=== PATIENT | male | born 1940 | race Caucasian/White ===

== ENCOUNTER 2018-10-12 13:33 | Inpatient (IN) | payer MEDICARE, MEDICAID ==
[2018-10-12] MEDS ORDERED: HYDROcodone/ACETAMIN 5-325 MG* 1 TAB PO ONE (13:43)
[2018-10-12] MEDS ORDERED: HYDROcodone/ACETAMIN 5-325 MG* 1 TAB ONE (13:54)
--- NOTE | 2018-10-12 14:38 | ED ---
Lower Extremity - HPI Summary HPI Summary: Patient is a 78-year-old male presenting to the ED by EMS with a left hip pain s /p fall at his apartment. He denies LOC, hitting his head, other injuries. He states he's never injured the hip in the past. When asked, he states he may have had a mini seizure, but is adamant that he did not lose consciousness, he was aware of the fall while it was happening and did not feel seizure-like activity. He is just unsure why also he would've fallen. He denies any heart conditions. Patient is a smoker as of 9 weeks ago when he quit. He is currently on phenobarbital and phenytoin as well as Zoloft. He is a patient of Dr. Leahy. He offers no other complaints at this time, however endorses a 8 out of 10 lateral hip pain without radiation. Denies any ecchymosis or swelling. He states he was unable to ambulate just after the fall and was able to call 911. - History of Current Complaint Chief Complaint: EDExtremityLower Stated Complaint: FELL/LEFT HIP PAIN Time Seen by Provider: 10/12/18 13:36 Hx Obtained From: Patient Mechanism Of Injury: Direct Blow Onset of Pain: Minutes Onset/Duration: Minutes Severity Initially: Mild Severity Currently: Mild Pain Intensity: 8 Pain Scale Used: 0-10 Numeric Timing: Constant Location: Is Discrete @ - left hip Character Of Pain: Aching Associated Signs And Symptoms: Negative: Swelling, Redness, Bruising Aggravating Factor(s): Standing, Ambulation Alleviating Factor(s): Rest - Risk Factors Gout Risk Factors: Negative DVT Risk Factors: Negative Septic Arthritis Risk Factor: Negative - Allergies/Home Medications Allergies/Adverse Reactions: Allergies Allergy/AdvReac Type Severity Reaction Status Date / Time No Known Allergies Allergy Verified 10/12/18 13:40 PMH/Surg Hx/FS Hx/Imm Hx Previously Healthy: Yes Endocrine/Hematology History: Reports: Hx Thyroid Disease, Other Endocrine/ Hematological Disorders - Vitamin D Deficiency Denies: Hx Diabetes Cardiovascular History: Reports: Hx Angina, Hx Hypercholesterolemia Denies: Hx Congestive Heart Failure, Hx Coronary Artery Disease, Hx Hypertension, Hx Myocardial Infarction, Hx Pacemaker/ICD, Hx Valvular Heart Disease Respiratory History: Reports: Hx Asthma, Hx Chronic Obstructive Pulmonary Disease (COPD), Other Respiratory Problems/Disorders - smoker Musculoskeletal History: Reports: Hx Back Problems Sensory History: Denies: Hx Hearing Aid Neurological History: Reports: Hx Seizures Psychiatric History: Denies: Hx Eating Disorder, Hx Panic Disorder, Hx of Violent Episodes Against Others - Surgical History Surgery Procedure, Year, and Place: Chin surgery - Immunization History Date of Tetanus Vaccine: Unk Date of Influenza Vaccine: Unk Hx Pertussis Vaccination: No Immunizations Up to Date: Yes Infectious Disease History: No Infectious Disease History: Denies: Traveled Outside the [place] in Last 30 Days - Social History Occupation: Unemployed Lives: Alone Alcohol Use: None Hx Substance Use: No Substance Use Type: Reports: None Hx Tobacco Use: Yes Smoking Status (MU): Heavy Every Day Tobacco Smoker Type: Cigarettes Review of Systems Negative: Fever, Chills, Fatigue, Skin Diaphoresis Negative: Epistaxis, Dental Pain Negative: Palpitations, Chest Pain Genitourinary: Negative Positive: no symptoms reported, see HPI Positive: Arthralgia - left hip pain Skin: Negative Neurological: Negative All Other Systems Reviewed And Are Negative: Yes Physical Exam Triage Information Reviewed: Yes Vital Signs On Initial Exam: Initial Vitals Temp Pulse Resp BP Pulse Ox 97.6 F 68 18 173/103 98 10/12/18 13:36 10/12/18 13:36 10/12/18 13:36 10/12/18 13:36 10/12/18 13:36 Vital Signs Reviewed: Yes Appearance: Positive: Well-Appearing, Well-Nourished Skin: Positive: Warm, Skin Color Reflects Adequate Perfusion Head/Face: Positive: Normal Head/Face Inspection Eyes: Positive: EOMI, KENDRICK, Conjunctiva Clear Neck: Positive: Supple, No Lymphadenopathy Respiratory/Lung Sounds: Positive: Clear to Auscultation, Breath Sounds Present Cardiovascular: Positive: Pulses are Symmetrical in both Upper and Lower Extremities. Negative: Leg Edema Left, Leg Edema Right Musculoskeletal: Positive: Pain @ - left hip without ecchymosis Neurological: Positive: Speech Normal Psychiatric: Positive: Affect/Mood Appropriate AVPU Assessment: Alert Diagnostics - Vital Signs Vital Signs Temp Pulse Resp BP Pulse Ox 10/12/18 13:36 97.6 F 68 18 173/103 98 - Laboratory Result Diagrams: 10/12/18 14:54 10/12/18 14:54 Lab Statement: Any lab studies that have been ordered have been reviewed, and results considered in the medical decision making process. Lower Extremity Course/Dx - Course Course Of Treatment: Patient's evaluated for left hip injury. There is a small deformity over the left hip suggesting a fracture. Chest x-ray and left hip x- ray obtained. Nondisplaced left subtrochanteric fracture with minimally avulsed lesser trochanteric fracture. Patient is given 2 [place] in the ED prior to IV. Discussed case with Dr. Cherry at 2:30 PM. Discussed with hospitalist, Dr. Luong who accepts for admission. Labs are drawn and IV placed. EKG obtained. - Diagnoses Provider Diagnoses: Closed left hip fracture - Physician Notifications Discussed Care Of Patient With: Javier Luong Discharge - Sign-Out/Discharge Documenting (check all that apply): Patient Departure - Discharge Plan Condition: Good Disposition: ADMITTED TO [facility] Referrals: Faisal Leahy MD [Primary Care Provider] - - Billing Disposition and Condition Condition: GOOD Disposition: Admitted to [facility]
[2018-10-12 15:08] LABS: ABS Basophils 0 10^3/ul (0-0.2); ABS Eosinophils 0.4 10^3/ul (0-0.6); ABS Lymphocytes 1.1 10^3/ul (1.0-4.8); ABS Monocytes 0.6 10^3/ul (0-0.8); ABS Nucleated RBC 0 10^3/ul; Eosinophil % 3.9 %; Hematocrit 40 % (42-52); Hemoglobin 13.4 g/dl (14.0-18.0); Mean Corpuscular HGB Conc 34 g/dl (31-36); Mean Corpuscular Hemoglobin 32 pg (27-31); Mean Corpuscular Volume 96 fL (80-94); Mean Platelet Volume 8.5 fL (7.4-10.4); Nucleated Red Blood Cells % 0.1; Platelet Count 220 10^3/ul (150-450); Red Blood Count 4.15 10^6/ul (4.00-5.40); Red Cell Distribution Width 14 % (10.5-15); White Blood Count 9.1 10^3/ul (3.5-10.8)
[2018-10-12 15:29] LABS: ALT 19 U/L (7-52); AST 18 U/L (13-39); Albumin 4.5 g/dL (3.2-5.2); Albumin/Globulin Ratio 1.6 (1-3); Alkaline Phosphatase 121 U/L (34-104); Anion Gap 4 mmol/L (2-11); BUN/Creatinine Ratio 16.9 (8-20); Blood Urea Nitrogen 14 mg/dL (6-24); C Reactive Protein < 1.00 mg/L (<8.01); CO2 Carbon Dioxide 29 mmol/L (22-32); Calcium 9.2 mg/dL (8.6-10.3); Chloride 104 mmol/L (101-111); EGFR African American 108.4 (>60); EGFR Non-African American 89.6 (>60); Globulin 2.8 g/dL (2-4); Glucose 127 mg/dL (70-100); Potassium 4.2 mmol/L (3.5-5.0); Sodium 137 mmol/L (135-145); Total Protein 7.3 g/dL (6.4-8.9)
[2018-10-12 15:31] LABS: Troponin I 0.01 ng/mL (<0.04)
[2018-10-12] MEDS ORDERED: Docusate CAP* 100 MG PO PRN (15:41)
[2018-10-12] MEDS ORDERED: Albuterol HFA INHALER* 8 gm MDI INH PRN (15:41)
[2018-10-12] MEDS ORDERED: Polyethylene Glycol 3350* 17 GM PACKET PO PRN (15:46)
[2018-10-12] MEDS ORDERED: NS 0.9% 1000 ML** 1,000 ML IV SCH (16:00)
[2018-10-12] MEDS: Morphine VIAL* 4 MG/ML VIAL (1 ml vial) IV PRN ×2 (16:11→18:12)
[2018-10-12] MEDS ORDERED: Morphine VIAL* 4 MG/ML VIAL (1 ml vial) IV ONE (18:12)
[2018-10-12] MEDS: Phenytoin CAP(*) 100 MG CAP.ER PO SCH (18:15)
[2018-10-12] MEDS: Ondansetron INJ* 2 MG/ML VIAL IV PRN (19:50)
[2018-10-12] MEDS: NS 0.9% 1000 ML** 1,000 ML IV SCH (21:20)
[2018-10-12] MEDS ORDERED: Heparin VIAL(*) 5000 UNITS/ML VIAL (FIVE THOUSAND) SUBCUT SCH (22:00)
[2018-10-12] MEDS ORDERED: Morphine VIAL* 4 MG/ML VIAL (1 ml vial) IV PRN (22:00)
[2018-10-12 22:06] LABS: Phenytoin < 2.5 mcg/mL (10-20)
[2018-10-12] MEDS: PHENobarbital TAB(*) 30 MG PO SCH ×2 (22:06)
--- NOTE | 2018-10-12 22:35 | HP ---
CC: Dr. Leahy * ADMISSION HISTORY AND PHYSICAL: DATE OF ADMISSION: 10/12/18 PRIMARY CARE PROVIDER: Dr. Leahy. HEALTHCARE PROXY: His girlfriend, Saloni Dillard. CODE STATUS: Full. SOURCE OF INFORMATION: History obtained from interview with the patient. RELIABILITY: Fair. CHIEF COMPLAINT: Fall and left hip fracture. HISTORY OF PRESENT ILLNESS: This is a 78-year-old man with past medical history including seizures, had been in his usual state of health except for recent bout of bronchitis approximately 2 to 3 weeks prior, which he reported he took antibiotics for. Woke up in the morning, felt well, did have a mild headache after waking up, decided to walk to [employer], which he does several times per day to remain active. It is approximately 5 to 7-minute walk, which he performs several times a day. While walking to [employer], he felt woozy which is similar to the symptoms that he experiences prior to a seizure. He felt that a seizure was about to develop because of his symptoms, planned to sit down on a bench; however, fell landing on his hip with immediate onset of pain. He is not sure if he had a seizure, but does remember the events. He entertains the possibility that he had a seizure, although he would categorize this a mild one. He denies any preceding or anteceding chest pain or shortness of breath. Other than his recent bout of bronchitis as well as headache that he had, he denies any other symptomatology. PAST MEDICAL HISTORY: Includes: 1. Recently diagnosed seizures in the last 1-2 years. 2. COPD, not on home oxygen. 3. Hypothyroidism. 4. Depression. 5. Hyperlipidemia. MEDICATIONS: Obtained from medication reconciliation. The patient cannot relay doses. 1. Trazodone 50 mg at bedtime as needed. 2. Tramadol 50 mg every 6 hours as needed. 3. Zoloft 50 mg daily. 4. Dilantin extended release 200 mg in the morning and 300 mg at night. 5. Phenobarbital 32.4 mg twice daily along with 64.8 mg twice daily, sounds like 97.2 mg twice daily. 6. Nitroglycerin sublingual 0.4 mg every 10 minutes as needed sublingually. 7. Levothyroxine 150 mcg daily. 8. Levocetirizine 5 mg daily. 9. Florinef 0.1 mg daily. 10. Docusate sodium 200 mg daily as needed. 11. Cyanocobalamin 1000 mcg daily. 12. Symbicort 160 plus 4.5 mcg daily. 13. Atorvastatin 40 mg daily. 14. Albuterol 2 puffs every 4 hours as needed. ALLERGIES: No known drug allergies. FAMILY HISTORY: No family history of CVAs or CAD. SOCIAL HISTORY: Smoked 1-1/2 packs per year since age 12, approximately 66 years, quit approximately 9 weeks prior. Does not drink alcohol. 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 REVIEW OF SYSTEMS: As per HPI. Otherwise, all other systems negative. PHYSICAL EXAMINATION GENERAL: Appears stated age, lying flat in bed, interactive, pleasant, in no apparent distress, although he is in pain. VITAL SIGNS: When seen in the emergency room, 155/99, heart rate is 92, respiratory rate is 18, 97% on room air. T-max in the emergency room is 97.6. HEENT: His oropharynx is clear. He has moist mucous membranes. Sclerae are anicteric. LUNGS: Clear to auscultation. HEART: He has regular rate and rhythm with some ectopy. He has no murmurs, rubs, or gallops. ABDOMEN: Soft, nontender. EXTREMITIES: Warm and well perfused. He is neurovascularly intact in lower extremities. 2+ radial and DP pulses. NEUROLOGIC: He is alert and oriented. No apparent anxiety, agitation, or depression. His cranial nerves are intact, although he does have a mild right facial droop at the lip. DIAGNOSTIC STUDIES/LABORATORY DATA: Data reviewed. Notable for troponin less than 0.01. CRP less than 1. White blood cell count 9.1, hemoglobin 13.4, platelets 220. Data reviewed. Chest x-ray, no active cardiopulmonary disease. EKG, sinus arrhythmia or normal sinus rhythm with frequent PACs, normal leftward axis, normal R-wave progression. No Q-waves, no ST or T wave changes. ASSESSMENT AND PLAN: A 78-year-old man presenting with a fall and a left hip fracture. 1. Left hip fracture. Discussed with Dr. Cherry. The patient will be placed on a schedule for tomorrow. Discussed possibility of surgery with the patient and he would like to proceed with surgery. Pain control with morphine as well as p.o. oxycodone and Tylenol. N.p.o. after midnight. Heparin this evening was stopped, last dose at 2200 hours. 75 cc normal saline per hour for 1 initial liter while n.p.o. after midnight. Docusate and MiraLax p.r.n. 2. Seizures. Continue home medications. We will convert to immediate release Dilantin if necessary per Pharmacy. Otherwise, we would like to keep the patient on his home medication regimen. Seizure precautions. 3. Sinus arrhythmia. Monitor. The patient does not need to be on telemetry for this arrhythmia. 4. Unknown medication etiology. The patient is on Florinef. Unclear etiology. Maybe orthostatic hypotension. This is noted and continued. 5. DVT prophylaxis: Heparin. He will receive a dose this evening and then stop in the morning. Restart DVT prophylaxis after orthopedic surgery. [id number]/[facility] #: [id number] MTDD
[2018-10-13] MEDS: oxyCODONE/Acetamin 5/325 MG* TAB PO PRN ×3 (03:14→21:51)
[2018-10-13] MEDS: Budesonide/Formote 160/4.5(NF) MDI INH SCH ×2 (03:17→08:32)
[2018-10-13] MEDS: NS 0.9% 1000 ML** 1,000 ML IV SCH ×3 (03:34→22:37)
[2018-10-13] MEDS: Phenytoin CAP(*) 100 MG CAP.ER PO SCH ×2 (08:24→17:48)
[2018-10-13] MEDS: PHENobarbital TAB(*) 30 MG PO SCH ×4 (08:24→21:52)
[2018-10-13] MEDS: Morphine VIAL* 4 MG/ML VIAL (1 ml vial) IV PRN ×2 (08:26→12:44)
[2018-10-13] MEDS: Fludrocortisone Acetate TAB* 0.1 MG PO SCH (08:27)
[2018-10-13] MEDS: Cyanocobalamin TAB* 500 MCG PO SCH (08:27)
[2018-10-13] MEDS: Atorvastatin* 40 MG TAB PO SCH (08:27)
[2018-10-13] MEDS: Sertraline* 50 MG TAB PO SCH (08:27)
[2018-10-13 08:39] LABS: INR 1.02 (0.77-1.02)
[2018-10-13 08:45] LABS: ABS Basophils 0 10^3/ul (0-0.2); ABS Eosinophils 0 10^3/ul (0-0.6); ABS Lymphocytes 1.4 10^3/ul (1.0-4.8); ABS Monocytes 1.1 10^3/ul (0-0.8); ABS Neutrophils 7.7 10^3/ul (1.5-7.7); ABS Nucleated RBC 0 10^3/ul; BUN/Creatinine Ratio 21.8 (8-20); Calcium 8.2 mg/dL (8.6-10.3); EGFR African American 86.4 (>60); EGFR Non-African American 71.4 (>60); Eosinophil % 0.2 %; Hematocrit 31 % (42-52); Hemoglobin 10.4 g/dl (14.0-18.0); Mean Corpuscular HGB Conc 34 g/dl (31-36); Mean Corpuscular Hemoglobin 33 pg (27-31); Mean Corpuscular Volume 97 fL (80-94); Mean Platelet Volume 8.4 fL (7.4-10.4); Nucleated Red Blood Cells % 0; Platelet Count 197 10^3/ul (150-450); Potassium 4.2 mmol/L (3.5-5.0); Red Blood Count 3.17 10^6/ul (4.00-5.40); Red Cell Distribution Width 14 % (10.5-15); White Blood Count 10.2 10^3/ul (3.5-10.8)
[2018-10-13] MEDS ORDERED: Levothyroxine TAB* 150 MCG TAB PO SCH (09:00)
[2018-10-13] MEDS ORDERED: Bupivacaine 0.5% W/EPI SDV* 30 ML VIAL ONE (09:32)
[2018-10-13] MEDS ORDERED: fentaNYL* 50 MCG/ML 2 ML VIAL (100 MCG VIAL) ONE (09:51)
[2018-10-13] MEDS ORDERED: Midazolam* 1 MG/ML 2 ML VIAL (2 MG) ONE (09:51)
[2018-10-13] MEDS ORDERED: Bupivacaine 0.5% SDV PF* 30ML VIAL ONE (09:51)
[2018-10-13] MEDS ORDERED: ceFAZolin 2 GM PREMIX in ORs 2 GM/50 ML BAG IVPB ONE (09:53)
[2018-10-13] MEDS ORDERED: Phenylephrine INJ* 10 MG/ML 1 ML VIAL (10 MG) ONE (10:29)
[2018-10-13] MEDS ORDERED: Ondansetron INJ* 2 MG/ML VIAL ONE (10:47)
[2018-10-13] MEDS ORDERED: Bupivacaine 0.25% EPI 200,000* 30 ML SDV ONE (10:55)
[2018-10-13] MEDS ORDERED: EPHEDrine (Pressors)* 50 MG/ML VIAL ONE (11:03)
[2018-10-13] MEDS ORDERED: Morphine VIAL* 4 MG/ML VIAL (1 ml vial) ONE (12:43)
--- NOTE | 2018-10-13 14:56 | PN ---
Subjective Date of Service: 10/13/18 Interval History: Pt is feeling ok. He states his pain in 5/10. He feels sleepy currently. No nausea. He states his HCP just left to go home. Objective Active Medications: Albuterol (Ventolin Hfa Inhaler*) 2 puff INH .Q4-6H PRN PRN Reason: SHORTNESS OF BREATH Atorvastatin Calcium (Lipitor*) 40 mg PO DAILY [facility] Last Admin: 10/13/18 08:27 Dose: Not Given Budesonide/Formoterol Fumarate (Symbicort 160/4.5 (Nf)) 1 puff INH BID [facility]; Protocol Last Admin: 10/13/18 08:32 Dose: Not Given Cyanocobalamin (Vitamin B12 Tab*) 1,000 mcg PO DAILY [facility] Last Admin: 10/13/18 08:27 Dose: Not Given Docusate Sodium (Colace Cap*) 200 mg PO DAILY PRN PRN Reason: CONSTIPATION Fludrocortisone Acetate (Florinef Tab*) 0.1 mg PO DAILY [facility] Last Admin: 10/13/18 08:27 Dose: Not Given Sodium Chloride (Ns 0.9% 1000 Ml*) 1,000 mls @ 125 mls/hr IV PER RATE [facility] Last Admin: 10/13/18 14:00 Dose: 125 mls/hr Cefazolin Sodium/Dextrose (Kefzol 2 Gm Premix In Ors(*)) 2 gm in 50 mls @ 100 mls/hr IVPB Q8H [facility] Stop: 10/14/18 10:29 Levothyroxine Sodium (Synthroid Tab*) 150 mcg PO DAILY@0600 [facility] Morphine Sulfate (Morphine Vial*) 2 mg IV Q4H PRN PRN Reason: PAIN Last Admin: 10/13/18 12:44 Dose: 2 mg Ondansetron HCl (Zofran Inj*) 4 mg IV Q6H PRN PRN Reason: NAUSEA Last Admin: 10/12/18 19:50 Dose: 4 mg Oxycodone/Acetaminophen (Percocet 5/325 Tab*) 1 tab PO Q4H PRN PRN Reason: PAIN Last Admin: 10/13/18 03:14 Dose: 1 tab Phenobarbital (Phenobarbital Tab(*)) 30 mg PO BID [facility] Last Admin: 10/13/18 08:24 Dose: 30 mg Phenobarbital (Phenobarbital Tab(*)) 60 mg PO BID [facility] Last Admin: 10/13/18 08:25 Dose: 60 mg Phenytoin Sodium (Dilantin Cap(*)) 200 mg PO QAM [facility] Last Admin: 10/13/18 08:24 Dose: 200 mg Phenytoin Sodium (Dilantin Cap(*)) 300 mg PO QPM [facility] Last Admin: 10/12/18 18:15 Dose: 300 mg Polyethylene Glycol/Electrolytes (Miralax*) 17 gm PO DAILY PRN PRN Reason: CONSTIPATION Last Admin: 10/12/18 22:06 Dose: 17 gm Sertraline HCl (Zoloft*) 50 mg PO DAILY [facility] Last Admin: 10/13/18 08:27 Dose: Not Given Vital Signs - 8 hr 10/13/18 10/13/18 10/13/18 07:38 08:00 08:24 Temperature 97.9 F Pulse Rate 79 Respiratory 17 18 17 Rate Blood Pressure 112/49 (mmHg) O2 Sat by Pulse 96 Oximetry 10/13/18 10/13/18 10/13/18 08:25 08:26 09:10 Temperature 98.2 F Pulse Rate 94 Respiratory 17 17 18 Rate Blood Pressure 100/56 (mmHg) O2 Sat by Pulse 94 Oximetry 10/13/18 10/13/18 10/13/18 12:30 12:32 12:36 Temperature 97.3 F Pulse Rate 83 84 91 Respiratory 14 16 13 Rate Blood Pressure 121/65 123/71 (mmHg) O2 Sat by Pulse 100 100 100 Oximetry 10/13/18 10/13/18 10/13/18 12:41 12:44 12:45 Temperature Pulse Rate 84 81 Respiratory 16 17 14 Rate Blood Pressure 123/84 122/79 (mmHg) O2 Sat by Pulse 100 100 Oximetry 10/13/18 10/13/18 10/13/18 12:50 12:55 13:00 Temperature Pulse Rate 88 83 86 Respiratory 11 13 17 Rate Blood Pressure 100/68 115/78 124/85 (mmHg) O2 Sat by Pulse 99 100 95 Oximetry 10/13/18 10/13/18 10/13/18 13:01 13:05 13:10 Temperature Pulse Rate 97 95 83 Respiratory 14 11 13 Rate Blood Pressure 123/69 118/61 (mmHg) O2 Sat by Pulse 94 98 99 Oximetry 01/04/2410/13/18 10/13/18 13:40 13:42 13:59 Temperature 97.2 F 97.2 F Pulse Rate 95 95 Respiratory 18 18 18 Rate Blood Pressure 106/71 106/71 (mmHg) O2 Sat by Pulse 99 99 Oximetry Oxygen Devices in Use Now: Nasal Cannula Appearance: Elderly male sitting up in bed, NAD Eyes: No Scleral Icterus Ears/Nose/Mouth/Throat: Mucous Membranes Moist Respiratory: Symmetrical Chest Expansion and Respiratory Effort, Clear to Auscultation Cardiovascular: NL Sounds; No Murmurs; No JVD, RRR, No Edema Abdominal: NL Sounds; No Tenderness; No Distention Extremities: No Clubbing, Cyanosis, - - [address] on lateral aspect of L thigh Skin: No Nodules or Sclerosis Neurological: Alert and Oriented x 3, - - speech is mildly dysarthric (unclear if this is his baseline) Result Diagrams: 10/13/18 08:14 10/13/18 08:14 Assess/Plan/Problems-Billing Mr Robles is a 78 yo M who has a h/o seizure disorder, COPD, hypothyroidism and depression who presented to the ER after sustaining a fall where he suffered a L hip fracture. - Patient Problems (1) Closed left hip fracture Current Visit: Yes Status: Acute Code(s): S72.002A - FRACTURE OF UNSP PART OF NECK OF LEFT FEMUR, INIT SNOMED Code(s): 906226405 Comment: Pt is s/p repair today. Continue pain control. DVT prophylaxis per orthopedics. Up with PT tomorrow. (2) Seizure disorder Current Visit: Yes Status: Acute Code(s): G40.909 - EPILEPSY, UNSP, NOT INTRACTABLE, WITHOUT STATUS EPILEPTICUS SNOMED Code(s): 977334365 Comment: Pt with reportedly history of seizures dating back to 1952. Now with subtherapeutic phenobarbital and phenytoin levels. Pt reports his seizure disorder is managed by his PCP and he does not have a neurologist. Neurology consult requested for advice on appropriate dosing of medications. ? if pt had seizure that led to fall or other cause (orthostatic hypotension). Check EEG per Dr. Clarke. (3) Orthostatic hypotension Current Visit: Yes Status: Acute Priority: High Onset Date: 02/10/15 Code(s): I95.1 - ORTHOSTATIC HYPOTENSION SNOMED Code(s): 79277517 Comment: Pt with ? orthostatic hypotension based on florinef being a home medication. If orthostasis was the cause of his falling initially. (4) Hypothyroid Current Visit: Yes Status: Acute Code(s): E03.9 - HYPOTHYROIDISM, UNSPECIFIED SNOMED Code(s): 65413166 Comment: Continue synthroid at home dose. (5) Depression Current Visit: Yes Status: Acute Code(s): F32.9 - MAJOR DEPRESSIVE DISORDER , SINGLE EPISODE, UNSPECIFIED SNOMED Code(s): 19052376 Comment: Continue sertraline. (6) DVT prophylaxis Current Visit: Yes Status: Acute Code(s): HCK5605 - SNOMED Code(s): 368504486 Comment: SCDs (7) Full code status Current Visit: Yes Status: Acute Code(s): Z78.9 - OTHER SPECIFIED HEALTH STATUS SNOMED Code(s): 024282527
[2018-10-13] MEDS: ceFAZolin* 2 GM* Q8H (Duplex) IVPB SCH (17:49)
[2018-10-13] MEDS: Mometasone/Formoter 200/5 MDI INH SCH (19:28)
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
--- NOTE | 2018-10-13 21:41 | OP ---
DATE OF OPERATION: 10/13/18 - ROOM #339 DATE OF : 40 SURGEON: Javier Cherry MD SPECIAL COLLECTIONS LIBRARIAN: JAYESH Damon ANESTHESIOLOGIST: Dr. Irizarry. ANESTHESIA: Spinal. PRE-OP DIAGNOSIS: Left comminuted intertrochanteric hip fracture. POST-OP DIAGNOSIS: Left comminuted intertrochanteric hip fracture. OPERATIVE PROCEDURE: Closed reduction of left hip fracture stabilization with cephalomedullary nail, Synthes TFN nail. INDICATIONS: Kartik has the aforementioned fracture. We talked about risks and benefits. I thought that given that it was fairly comminuted, I would do a long nail. He understood the risks and benefits and wants to proceed with stabilization of the left hip. FINDINGS: See above and below. ESTIMATED BLOOD LOSS: 2 mL. COMPLICATIONS: None. DESCRIPTION OF PROCEDURE: Kartik was seen in the preoperative holding area. The correct site, side, and procedure were identified. We came back to the operating room where the spinal was performed. He was then positioned on the fracture table with in-line traction on the left leg and the right leg in the well-leg capps. Fluoroscopic imaging was confirmed. The leg was then prescrubbed and then prepped and draped with a shower curtain in the usual fashion. I marked out my starting point for my nail and then I made a 4 to 5 cm incision proximal to the greater trochanter. Dissection was carried down. The iliotibial fascia was split. The starting point was obtained with a guidewire and confirmed on AP and lateral fluoroscopic imaging. This was introduced down past the lesser troch. I then used the opening reamer to open up starting point for the nail. The ball-tip guidewire was then placed down the canal. The nail was measured, a 380-mm Synthes TFN 125-degree nail was used. This was advanced down to the appropriate location. I then placed my triple-barrel guide and put this in the appropriate location. I then removed the ball-tip guidewire and then advanced the starting pin into the appropriate location. It was just a little bit superior from the center position on the AP view, but I thought it was in an acceptable position. I then came to my lateral view and I confirmed that it was in the center position as well. It was just a little bit posterior from the center-center position, but again I thought it was in acceptable position. I previously had measured and selected a 100-mm lag screw. This was then placed. I had wanted to compress, but the compression device had fallen off the table onto the floor and so we went ahead and flashed the compression device. While that device was being flashed, I came distal and we abducted the leg. I obtained center-center imaging and placed 1 distal Crosslock screw in the static position. 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 This was a 38-mm distal Crosslock screw. Shortly after finishing the Crosslock screw, the compression device was ready to go, so we brought that back out. The leg was again adducted and I then placed the compression device and compressed across the fracture. We got excellent compression. I fully tightened down the locking device proximally with the torque screwdriver. I then removed the triple-barrel guide and the aiming guide. We got final fluoroscopic imaging including AP and lateral views of the hip and distally. Things were looking good, so we irrigated out the wounds. Subcutaneous tissue was reapproximated with 3-0 Vicryl suture. All three incisions were closed with alma rosa. A 0.25% Marcaine with epinephrine was infiltrated all the around the operative sites. After dressings were applied, the patient was taken off the fracture table and taken to the Recovery Room in stable condition. [id number]/[facility] #: [id number] PATRICK
--- NOTE | 2018-10-14 00:38 | EEG ---
ELECTROENCEPHALOGRAPHY: DATE OF STUDY: 10/13/18 - ROOM #339 ORDERED BY: Reina Madrigal DO. CLINICAL PROBLEM: Mr. Robles is a 78-year-old man with a history of epilepsy , who presented with a fall status post hip fracture. The patient stated that he may have missed a few doses of his antiseizure medications. DURATION OF THE STUDY: 15:34 p.m. - 15:56 p.m. CLINICAL STATE: Awake and drowsy. REPORT: The waking background showed appropriate organization with clearly deep defined anterior-posterior voltage and frequency gradients. There was a well- defined posterior dominant rhythm of 8.5 Hz, which was symmetrical and showed normal reactivity. Anteriorly, there was an expected pattern of lower voltage, irregular, mixed faster frequencies. There were intermittent, polymorphic, 4-7 Hz delta and theta slowing, maximal in the right frontal central region, maximal at Fp2 and F4. There were no epileptiform discharges. Attenuation to the posterior rhythm accompanied drowsiness. Hyperventilation and photic stimulation were not performed. EKG showed an irregular rhythm with normal rate. Throughout the recording, there were no electrographic seizures. IMPRESSION: This is an abnormal wake and drowsy EEG due to the presence of focal intermittent slowing in the right frontocentral region. These findings are suggestive of a focal neuronal dysfunction involving the right frontocentral area. There were no electrographic seizures. Clinical correlation is recommended. [id number]/[facility] #: [id number] [facility]
[2018-10-14] MEDS: oxyCODONE/Acetamin 5/325 MG* TAB PO PRN ×5 (01:46→21:46)
[2018-10-14] MEDS: ceFAZolin* 2 GM* Q8H (Duplex) IVPB SCH ×2 (01:46→09:21)
[2018-10-14 05:34] LABS: Hematocrit 22 % (42-52); Hemoglobin 7.5 g/dl (14.0-18.0); Mean Corpuscular HGB Conc 34 g/dl (31-36); Mean Corpuscular Hemoglobin 33 pg (27-31); Mean Corpuscular Volume 97 fL (80-94); Mean Platelet Volume 8.5 fL (7.4-10.4); Platelet Count 130 10^3/ul (150-450); Red Blood Count 2.27 10^6/ul (4.00-5.40); Red Cell Distribution Width 15 % (10.5-15); White Blood Count 8.4 10^3/ul (3.5-10.8)
[2018-10-14 05:59] LABS: BUN/Creatinine Ratio 28.4 (8-20); Calcium 7.4 mg/dL (8.6-10.3); EGFR African American 111.5 (>60); EGFR Non-African American 92.2 (>60); Potassium 4.4 mmol/L (3.5-5.0)
[2018-10-14] MEDS: Levothyroxine TAB* 150 MCG TAB PO SCH (06:13)
[2018-10-14] MEDS: NS 0.9% 1000 ML** 1,000 ML IV SCH ×3 (07:05→23:31)
[2018-10-14] MEDS: Mometasone/Formoter 200/5 MDI INH SCH ×2 (07:35→21:54)
[2018-10-14] MEDS: Phenytoin CAP(*) 100 MG CAP.ER PO SCH ×2 (09:18→17:12)
[2018-10-14] MEDS: Fludrocortisone Acetate TAB* 0.1 MG PO SCH (09:18)
[2018-10-14] MEDS: Cyanocobalamin TAB* 500 MCG PO SCH (09:19)
[2018-10-14] MEDS: Atorvastatin* 40 MG TAB PO SCH (09:19)
[2018-10-14] MEDS: PHENobarbital TAB(*) 30 MG PO SCH ×4 (09:19→21:46)
[2018-10-14] MEDS: Sertraline* 50 MG TAB PO SCH (09:19)
[2018-10-14] MEDS ORDERED: Magnesium Hydroxide LIQ* 30 ML UDC PO PRN (10:30)
[2018-10-14] MEDS ORDERED: Senna TAB PO PRN (10:30)
[2018-10-14] MEDS: Docusate CAP* 100 MG PO SCH ×2 (10:51→21:44)
[2018-10-14] MEDS: Magnesium Hydroxide LIQ* 30 ML UDC PO SCH ×2 (10:52→21:44)
--- NOTE | 2018-10-14 11:30 | PN ---
Progress Note - Progress Note Date of Service: 10/14/18 SOAP: Subjective: []Patient was seen and examined at bedside today. He feels well without complaints today. Denies CP, SOB, dizziness, nausea. He has not been up out of bed yet this morning. Objective: []General: Well appearing, NAD LLE: Left hip dressing CDI, no erythema surrounding. Thigh is soft. DF/PF intact , sensation intact to light touch distally. DP2+ Calves supple and nontender without erythema, edema or palpable cords Assessment: []POD [address] Cherry 10/13/18 Plan: []WBAT PT/OT lovenox 40mg sq qd, to be held for hgb less than 7 repeat H&H this afternoon to eval need for PRBC, if symptomatic may need PRBC sooner PMRU referral in Vital Signs Temp 98.5 F 10/14/18 11:38 Pulse 78 10/14/18 11:41 Resp 16 10/14/18 11:38 BP 110/51 10/14/18 11:38 Pulse Ox 96 10/14/18 11:38 Intake & Output 10/13/18 10/14/18 10/14/18 18:59 06:59 18:59 Intake Total 2719 1485 1153 Output Total 525 750 Balance 2194 735 1153 Intake: IV Fluids 2359 1045 1033 ABX - CEFAZOLIN 55 53 LR 1700 NS (0.9%) 659 990 980 Oral 360 440 120 Output: Urine 100 Benitez 300 750 Estimated Blood Loss 125 Laboratory Last Values WBC 8.4 10^3/ul (3.5-10.8) 10/14/18 04:51 RBC 2.27 10^6/ul (4.00-5.40) L 10/14/18 04:51 Hgb 7.5 g/dl (14.0-18.0) L 10/14/18 04:51 Hct 22 % (42-52) L 10/14/18 04:51 MCV 97 fL (80-94) H 10/14/18 04:51 MCH 33 pg (27-31) H 10/14/18 04:51 MCHC 34 g/dl (31-36) 10/14/18 04:51 RDW 15 % (10.5-15) 10/14/18 04:51 Plt Count 130 10^3/ul (150-450) L 10/14/18 04:51 MPV 8.5 fL (7.4-10.4) 10/14/18 04:51 Neut % (Auto) 75.1 % 10/13/18 08:14 Lymph % (Auto) 14.0 % 10/13/18 08:14 Lyon % (Auto) 10.4 % 10/13/18 08:14 Eos % (Auto) 0.2 % 10/13/18 08:14 Baso % (Auto) 0.3 % 10/13/18 08:14 Absolute Neuts (auto) 7.7 10^3/ul (1.5-7.7) 10/13/18 08:14 Absolute Lymphs (auto) 1.4 10^3/ul (1.0-4.8) 10/13/18 08:14 Absolute Monos (auto) 1.1 10^3/ul (0-0.8) H 10/13/18 08:14 Absolute Eos (auto) 0 10^3/ul (0-0.6) 10/13/18 08:14 Absolute Basos (auto) 0 10^3/ul (0-0.2) 10/13/18 08:14 Absolute Nucleated RBC 0 10^3/ul 10/13/18 08:14 Nucleated RBC % 0 10/13/18 08:14 INR (Anticoag Therapy) 1.02 (0.77-1.02) 10/13/18 08:14 Sodium 137 mmol/L (135-145) 10/14/18 04:51 Potassium 4.4 mmol/L (3.5-5.0) 10/14/18 04:51 Chloride 107 mmol/L (101-111) 10/14/18 04:51 Carbon Dioxide 27 mmol/L (22-32) 10/14/18 04:51 Anion Gap 3 mmol/L (2-11) 10/14/18 04:51 BUN 23 mg/dL (6-24) 10/14/18 04:51 Creatinine 0.81 mg/dL (0.67-1.17) 10/14/18 04:51 Est GFR ( Amer) 111.5 (>60) 10/14/18 04:51 Est GFR (Non-Af Amer) 92.2 (>60) 10/14/18 04:51 BUN/Creatinine Ratio 28.4 (8-20) H 10/14/18 04:51 Glucose 147 mg/dL (70-100) H 10/14/18 04:51 POC Glucose (mg/dL) 169 mg/dL (70-100) H 10/12/18 17:53 Calcium 7.4 mg/dL (8.6-10.3) L 10/14/18 04:51 Total Bilirubin 0.40 mg/dL (0.2-1.0) 10/12/18 14:54 AST 18 U/L (13-39) 10/12/18 14:54 ALT 19 U/L (7-52) 10/12/18 14:54 Alkaline Phosphatase 121 U/L (34-104) H 10/12/18 14:54 Troponin I 0.01 ng/mL (<0.04) 10/12/18 23:17 C-Reactive Protein < 1.00 mg/L (<8.01) 10/12/18 14:54 Total Protein 7.3 g/dL (6.4-8.9) 10/12/18 14:54 Albumin 4.5 g/dL (3.2-5.2) 10/12/18 14:54 Globulin 2.8 g/dL (2-4) 10/12/18 14:54 Albumin/Globulin Ratio 1.6 (1-3) 10/12/18 14:54 Phenytoin < 2.5 mcg/mL (10-20) L 10/12/18 14:54 Phenobarbital 6.8 mcg/mL (17-34) L 10/12/18 14:54 Blood Type B Positive 10/13/18 08:14 Antibody Screen Negative 10/13/18 08:14
--- NOTE | 2018-10-14 12:03 | PN ---
Subjective Date of Service: 10/14/18 Interval History: Pt is feeling ok today. He states his pain is under fair control. He feels wiped out. He and his friend state that he reliably takes his seizure medication on a daily basis. Objective Active Medications: Albuterol (Ventolin Hfa Inhaler*) 2 puff INH .Q4-6H PRN PRN Reason: SHORTNESS OF BREATH Atorvastatin Calcium (Lipitor*) 40 mg PO DAILY [facility] Last Admin: 10/14/18 09:19 Dose: 40 mg Cyanocobalamin (Vitamin B12 Tab*) 1,000 mcg PO DAILY [facility] Last Admin: 10/14/18 09:19 Dose: 1,000 mcg Docusate Sodium (Colace Cap*) 200 mg PO DAILY PRN PRN Reason: CONSTIPATION Docusate Sodium (Colace Cap*) 100 mg PO BID [facility] Last Admin: 10/14/18 10:51 Dose: 100 mg Fludrocortisone Acetate (Florinef Tab*) 0.1 mg PO DAILY [facility] Last Admin: 10/14/18 09:18 Dose: 0.1 mg Sodium Chloride (Ns 0.9% 1000 Ml*) 1,000 mls @ 125 mls/hr IV PER RATE [facility] Last Admin: 10/14/18 07:05 Dose: 125 mls/hr Lactulose (Lactulose*) 30 ml PO DAILY PRN PRN Reason: CONSTIPATION Levothyroxine Sodium (Synthroid Tab*) 150 mcg PO DAILY@0600 [facility] Last Admin: 10/14/18 06:13 Dose: 150 mcg Magnesium Hydroxide (Milk Of Magnesia Liq*) 30 ml PO BID [facility] Last Admin: 10/14/18 10:52 Dose: 30 ml Magnesium Hydroxide (Milk Of Magnesia Liq*) 30 ml PO BID PRN PRN Reason: CONSTIPATION Mometasone Furoate/Formoterol Fumar (Dulera 200/5 Mdi*) 1 puff INH BID [facility]; Protocol Last Admin: 10/14/18 07:35 Dose: 1 puff Morphine Sulfate (Morphine Vial*) 2 mg IV Q4H PRN PRN Reason: PAIN Last Admin: 10/13/18 12:44 Dose: 2 mg Ondansetron HCl (Zofran Inj*) 4 mg IV Q6H PRN PRN Reason: NAUSEA Last Admin: 10/12/18 19:50 Dose: 4 mg Oxycodone/Acetaminophen (Percocet 5/325 Tab*) 1 tab PO Q4H PRN PRN Reason: PAIN Last Admin: 10/14/18 10:51 Dose: 1 tab Phenobarbital (Phenobarbital Tab(*)) 30 mg PO BID [facility] Last Admin: 10/14/18 09:20 Dose: 30 mg Phenobarbital (Phenobarbital Tab(*)) 60 mg PO BID [facility] Last Admin: 10/14/18 09:19 Dose: 60 mg Phenytoin Sodium (Dilantin Cap(*)) 200 mg PO QAM [facility] Last Admin: 10/14/18 09:18 Dose: 200 mg Phenytoin Sodium (Dilantin Cap(*)) 300 mg PO QPM [facility] Last Admin: 10/13/18 17:48 Dose: 300 mg Polyethylene Glycol/Electrolytes (Miralax*) 17 gm PO DAILY PRN PRN Reason: CONSTIPATION Last Admin: 10/12/18 22:06 Dose: 17 gm Senna (Senokot Tab*) 1 tab PO BEDTIME PRN PRN Reason: CONSTIPATION Sertraline HCl (Zoloft*) 50 mg PO DAILY [facility] Last Admin: 10/14/18 09:19 Dose: 50 mg Vital Signs - 8 hr 10/14/18 10/14/18 10/14/18 03:59 06:12 06:14 Temperature Pulse Rate Respiratory 18 Rate Blood Pressure 92/60 102/50 (mmHg) O2 Sat by Pulse Oximetry 10/14/18 10/14/18 10/14/18 06:15 07:14 08:05 Temperature 99.3 F Pulse Rate 94 Respiratory 18 18 16 Rate Blood Pressure 98/48 (mmHg) O2 Sat by Pulse 100 Oximetry 10/14/18 10/14/18 10/14/18 09:19 09:20 10:51 Temperature Pulse Rate Respiratory 20 18 16 Rate Blood Pressure (mmHg) O2 Sat by Pulse Oximetry 10/14/18 11:41 Temperature Pulse Rate 78 Respiratory Rate Blood Pressure (mmHg) O2 Sat by Pulse Oximetry Oxygen Devices in Use Now: None Appearance: Elderly male sitting up in bed, NAD Eyes: No Scleral Icterus Ears/Nose/Mouth/Throat: Mucous Membranes Moist Respiratory: Symmetrical Chest Expansion and Respiratory Effort, Clear to Auscultation Cardiovascular: NL Sounds; No Murmurs; No JVD, RRR, No Edema Abdominal: NL Sounds; No Tenderness; No Distention Extremities: No Clubbing, Cyanosis Skin: No Nodules or Sclerosis, - - dressing still intact on L lateral thigh Neurological: Alert and Oriented x 3 Result Diagrams: 10/14/18 04:51 10/14/18 04:51 Assess/Plan/Problems-Billing Mr Robles is a 78 yo M who has a h/o seizure disorder, COPD, hypothyroidism and depression who presented to the ER after sustaining a fall where he suffered a L hip fracture. - Patient Problems (1) Acute blood loss anemia Current Visit: Yes Status: Acute Code(s): D62 - ACUTE POSTHEMORRHAGIC ANEMIA SNOMED Code(s): 558618009 Comment: Pt with significant drop in H/H today. Recheck at 1530 this afternoon and if lower or if pt becomes hypotensive will transfuse 1 unit PRBC. (2) Closed left hip fracture Current Visit: Yes Status: Acute Code(s): S72.002A - FRACTURE OF UNSP PART OF NECK OF LEFT FEMUR, INIT SNOMED Code(s): 589768600 Comment: Pt is POD#1. Continue pain control. DVT prophylaxis (lovenox) per orthopedics. Pt states he got up earlier today wtih PT and he did well. (3) Seizure disorder Current Visit: Yes Status: Acute Code(s): G40.909 - EPILEPSY, UNSP, NOT INTRACTABLE, WITHOUT STATUS EPILEPTICUS SNOMED Code(s): 925729916 Comment: Appreciate neurology consult. Continue home medication doses. Check levels tomorrow AM. ? medication non-compliance (pt reports this is not the case ). (4) Orthostatic hypotension Current Visit: Yes Status: Acute Priority: High Onset Date: 02/10/15 Code(s): I95.1 - ORTHOSTATIC HYPOTENSION SNOMED Code(s): 91999110 Comment: Continue florinef. (5) Hypothyroid Current Visit: Yes Status: Acute Code(s): E03.9 - HYPOTHYROIDISM, UNSPECIFIED SNOMED Code(s): 42116855 Comment: Continue synthroid at home dose. (6) Depression Current Visit: Yes Status: Acute Code(s): F32.9 - MAJOR DEPRESSIVE DISORDER , SINGLE EPISODE, UNSPECIFIED SNOMED Code(s): 94024382 Comment: Continue sertraline. (7) DVT prophylaxis Current Visit: Yes Status: Acute Code(s): QWU9943 - SNOMED Code(s): 414749025 Comment: SCDs/lovenox (8) Full code status Current Visit: Yes Status: Acute Code(s): Z78.9 - OTHER SPECIFIED HEALTH STATUS SNOMED Code(s): 237381266
[2018-10-14] MEDS: Ondansetron INJ* 2 MG/ML VIAL IV PRN (12:26)
[2018-10-14] MEDS: Enoxaparin(*) 40 MG/0.4 ML SYR SUBCUT SCH (15:38)
[2018-10-14 16:04] LABS: Hematocrit 22 % (42-52); Hemoglobin 7.4 g/dl (14.0-18.0)
[2018-10-15] MEDS ORDERED: Acetaminophen TAB* 325 MG ONE (01:47)
[2018-10-15] MEDS: Acetaminophen TAB* 325 MG PO PRN ×2 (01:48→12:19)
[2018-10-15] MEDS: oxyCODONE/Acetamin 5/325 MG* TAB PO PRN ×4 (03:41→20:48)
[2018-10-15] MEDS: Levothyroxine TAB* 150 MCG TAB PO SCH (05:27)
[2018-10-15 06:09] LABS: Hematocrit 18 % (42-52); Hemoglobin 6.3 g/dl (14.0-18.0); Mean Corpuscular HGB Conc 34 g/dl (31-36); Mean Corpuscular Hemoglobin 33 pg (27-31); Mean Corpuscular Volume 97 fL (80-94); Mean Platelet Volume 8.1 fL (7.4-10.4); Platelet Count 107 10^3/ul (150-450); Red Blood Count 1.91 10^6/ul (4.00-5.40); Red Cell Distribution Width 14 % (10.5-15); White Blood Count 6.6 10^3/ul (3.5-10.8)
[2018-10-15 06:23] LABS: BUN/Creatinine Ratio 28.6 (8-20); Calcium 7.2 mg/dL (8.6-10.3); EGFR Non-African American 109.1 (>60); Potassium 4.2 mmol/L (3.5-5.0)
[2018-10-15 06:31] LABS: Phenytoin 9.1 mcg/mL (10-20)
[2018-10-15] MEDS: Mometasone/Formoter 200/5 MDI INH SCH ×2 (08:45→20:17)
[2018-10-15] MEDS: Docusate CAP* 100 MG PO SCH ×2 (09:35→20:47)
[2018-10-15] MEDS: PHENobarbital TAB(*) 30 MG PO SCH ×4 (09:35→20:47)
[2018-10-15] MEDS: Phenytoin CAP(*) 100 MG CAP.ER PO SCH ×2 (09:35→17:55)
[2018-10-15] MEDS: Magnesium Hydroxide LIQ* 30 ML UDC PO SCH ×2 (09:35→20:51)
[2018-10-15] MEDS: Atorvastatin* 40 MG TAB PO SCH (09:36)
[2018-10-15] MEDS: Cyanocobalamin TAB* 500 MCG PO SCH (09:36)
[2018-10-15] MEDS: Fludrocortisone Acetate TAB* 0.1 MG PO SCH (09:52)
[2018-10-15] MEDS: Sertraline* 50 MG TAB PO SCH (09:52)
--- NOTE | 2018-10-15 10:36 | PN ---
Subjective Date of Service: 10/15/18 Interval History: Pt is in a small amount of discomfort, but is doing well. His hgb continued to trend down, for which he received 1U blood this morning, which he had no issues with. He is concerned about going to [facility], stating "I want to leave when I want to leave." It was explained that he would be there for a minimal amount of time, that they would focus on rehabilitation, and that he would then be discharged home after. He was in agreement, will possibly go to [facility] tomorrow pending H/H stabilization. Denies painting, CP, SOB, cough, fever/chills, abd pain, n /v/d. States he has not had a BM in 4 days. Objective Active Medications: Acetaminophen (Tylenol Tab*) 650 mg PO Q6H PRN Albuterol (Ventolin Hfa Inhaler*) 2 puff INH .Q4-6H PRN Atorvastatin Calcium (Lipitor*) 40 mg PO DAILY [facility] Cyanocobalamin (Vitamin B12 Tab*) 1,000 mcg PO DAILY [facility] Docusate Sodium (Colace Cap*) 200 mg PO DAILY PRN Docusate Sodium (Colace Cap*) 100 mg PO BID [facility] Enoxaparin Sodium (Lovenox(*)) 40 mg SUBCUT Q24H [facility] Fludrocortisone Acetate (Florinef Tab*) 0.1 mg PO DAILY [facility] Sodium Chloride (Ns 0.9% 1000 Ml*) 1,000 mls @ 125 mls/hr IV PER RATE [facility] Lactulose (Lactulose*) 30 ml PO DAILY PRN Levothyroxine Sodium (Synthroid Tab*) 150 mcg PO DAILY@0600 [facility] Magnesium Hydroxide (Milk Of Magnesia Liq*) 30 ml PO BID [facility] Magnesium Hydroxide (Milk Of Magnesia Liq*) 30 ml PO BID PRN Mometasone Furoate/Formoterol Fumar (Dulera 200/5 Mdi*) 1 puff INH BID [facility]; Protocol Morphine Sulfate (Morphine Vial*) 2 mg IV Q4H PRN Ondansetron HCl (Zofran Inj*) 4 mg IV Q6H PRN Oxycodone/Acetaminophen (Percocet 5/325 Tab*) 1 tab PO Q4H PRN Phenobarbital (Phenobarbital Tab(*)) 30 mg PO BID [facility] Phenobarbital (Phenobarbital Tab(*)) 60 mg PO BID [facility] Phenytoin Sodium (Dilantin Cap(*)) 200 mg PO QAM [facility] Phenytoin Sodium (Dilantin Cap(*)) 300 mg PO QPM [facility] Polyethylene Glycol/Electrolytes (Miralax*) 17 gm PO DAILY PRN Senna (Senokot Tab*) 1 tab PO BEDTIME PRN Sertraline HCl (Zoloft*) 50 mg PO DAILY [facility] Vital Signs: Temp Pulse Resp BP Pulse Ox 98.7 F 85 19 111/52 97 10/15/18 07:05 10/15/18 08:45 10/15/18 09:36 10/15/18 07:05 10/15/18 08:45 Oxygen Devices in Use Now: Nasal Cannula Appearance: Pt is sitting up in bed, HOB elevated appx 75-degrees. Resting comfortably, in no acute distress. Eyes: No Scleral Icterus, PERRLA, - - EOMI. Ears/Nose/Mouth/Throat: NL Teeth, Lips, Gums, Mucous Membranes Moist Neck: NL Appearance and Movements; NL JVP, Trachea Midline Respiratory: Symmetrical Chest Expansion and Respiratory Effort, - - Scattered wheezing noted diffusely in b/l lungs Cardiovascular: NL Sounds; No Murmurs; No JVD, RRR, No Edema Abdominal: NL Sounds; No Tenderness; No Distention, - - abd mildly firm to palpation Extremities: No Edema, No Clubbing, Cyanosis, - - Surgical dressing CDI; pedal pulses palpable Neurological: Alert and Oriented x 3 Result Diagrams: 10/15/18 15:07 10/15/18 05:41 Assess/Plan/Problems-Billing Mr Robles is a 78 yo M who has a h/o seizure disorder, COPD, hypothyroidism and depression who presented to the ER after sustaining a fall where he suffered a L hip fracture. Post-op 10/13 left TFN. - Patient Problems (1) Closed left hip fracture Comment: -Pt is POD#2 -Continue pain control, DVT prophylaxis (lovenox) per orthopedics -Continue bowel regimen per ortho (2) Acute blood loss anemia Comment: -Currently normotensive, regular rate -Hgb 6.3 this morning, which prompted transfusion of 1U PRBC -Hgb currently 8.0 -Continue to monitor H/H (3) Chronic obstructive pulmonary disease Comment: -Scant diffuse wheezing noted on exam, pt without cough, SOB -Continue Dulera qd, Albuterol prn (4) Seizure disorder Comment: -Appreciate neuro consult; they f/u on phenytoin and phenobarbital, stating that levels are almost WNL and don't recommend rechecking levels or dose adjustment unless there is a witnessed seizure -F/u with neuro as outpatient in 4-6 weeks (5) Depression Comment: -Continue sertraline (6) Dyslipidemia Comment: -Continue atorvastatin (7) DVT prophylaxis Comment: -SCDs, lovenox (8) Full code status Status and Disposition: Discharge to [facility] when stable.
--- NOTE | 2018-10-15 12:07 | PN ---
Progress Note - Progress Note Date of Service: 10/15/18 SOAP: Subjective: []Patient seen and examined at bedside, he feels well with well controlled left hip pain. Denies CP, SOB, dizziness, nausea. HGB 6.3 today, 1 unit PRBC given. Objective: []General: Well appearing, NAD LLE: Left hip dressing changed, incision is CDI, no erythema surrounding. Thigh is soft. DF/PF intact, sensation intact to light touch distally. DP2+ Calves supple and nontender without erythema, edema or palpable cords Assessment: []POD [address] Cherry 10/13/18 Plan: []WBAT PT/OT lovenox 40mg sq qd, to be held for hgb less than 7 Plan for DC to [facility] tomorrow Vital Signs Temp 98.7 F 10/15/18 07:05 Pulse 85 10/15/18 08:45 Resp 19 10/15/18 09:36 BP 111/52 10/15/18 07:05 Pulse Ox 97 10/15/18 08:45 Intake & Output 10/14/18 10/15/18 10/15/18 18:59 06:59 18:59 Intake Total 2550 2755 314 Output Total 550 500 Balance 1999 2255 314 Intake: IV Fluids 2014 1835 ABX - CEFAZOLIN 53 LR 857 NS (0.9%) 1962 978 IVPB 55 ABX - CEFAZOLIN 55 Oral 480 920 Packed Cells 314 Output: Benitez 550 500 Laboratory Last Values WBC 6.6 10^3/ul (3.5-10.8) 10/15/18 05:41 RBC 1.91 10^6/ul (4.00-5.40) L 10/15/18 05:41 Hgb 6.3 g/dl (14.0-18.0) L* 10/15/18 05:41 Hct 18 % (42-52) L 10/15/18 05:41 MCV 97 fL (80-94) H 10/15/18 05:41 MCH 33 pg (27-31) H 10/15/18 05:41 MCHC 34 g/dl (31-36) 10/15/18 05:41 RDW 14 % (10.5-15) 10/15/18 05:41 Plt Count 107 10^3/ul (150-450) L 10/15/18 05:41 MPV 8.1 fL (7.4-10.4) 10/15/18 05:41 Neut % (Auto) 75.1 % 10/13/18 08:14 Lymph % (Auto) 14.0 % 10/13/18 08:14 [place] % (Auto) 10.4 % 10/13/18 08:14 Eos % (Auto) 0.2 % 10/13/18 08:14 Baso % (Auto) 0.3 % 10/13/18 08:14 Absolute Neuts (auto) 7.7 10^3/ul (1.5-7.7) 10/13/18 08:14 Absolute Lymphs (auto) 1.4 10^3/ul (1.0-4.8) 10/13/18 08:14 Absolute Monos (auto) 1.1 10^3/ul (0-0.8) H 10/13/18 08:14 Absolute Eos (auto) 0 10^3/ul (0-0.6) 10/13/18 08:14 Absolute Basos (auto) 0 10^3/ul (0-0.2) 10/13/18 08:14 Absolute Nucleated RBC 0 10^3/ul 10/13/18 08:14 Nucleated RBC % 0 10/13/18 08:14 INR (Anticoag Therapy) 1.02 (0.77-1.02) 10/13/18 08:14 Sodium 134 mmol/L (135-145) L 10/15/18 05:41 Potassium 4.2 mmol/L (3.5-5.0) 10/15/18 05:41 Chloride 105 mmol/L (101-111) 10/15/18 05:41 Carbon Dioxide 28 mmol/L (22-32) 10/15/18 05:41 Anion Gap 1 mmol/L (2-11) L 10/15/18 05:41 BUN 20 mg/dL (6-24) 10/15/18 05:41 Creatinine 0.70 mg/dL (0.67-1.17) 10/15/18 05:41 Est GFR ( Amer) 132.0 (>60) 10/15/18 05:41 Est GFR (Non-Af Amer) 109.1 (>60) 10/15/18 05:41 BUN/Creatinine Ratio 28.6 (8-20) H 10/15/18 05:41 Glucose 171 mg/dL (70-100) H 10/15/18 05:41 POC Glucose (mg/dL) 169 mg/dL (70-100) H 10/12/18 17:53 Calcium 7.2 mg/dL (8.6-10.3) L 10/15/18 05:41 Total Bilirubin 0.40 mg/dL (0.2-1.0) 10/12/18 14:54 AST 18 U/L (13-39) 10/12/18 14:54 ALT 19 U/L (7-52) 10/12/18 14:54 Alkaline Phosphatase 121 U/L (34-104) H 10/12/18 14:54 Troponin I 0.01 ng/mL (<0.04) 10/12/18 23:17 C-Reactive Protein < 1.00 mg/L (<8.01) 10/12/18 14:54 Total Protein 7.3 g/dL (6.4-8.9) 10/12/18 14:54 Albumin 4.5 g/dL (3.2-5.2) 10/12/18 14:54 Globulin 2.8 g/dL (2-4) 10/12/18 14:54 Albumin/Globulin Ratio 1.6 (1-3) 10/12/18 14:54 Phenytoin 9.1 mcg/mL (10-20) L 10/15/18 05:41 Phenobarbital 11.4 mcg/mL (17-34) L 10/15/18 05:41 Blood Type B Positive 10/13/18 08:14 Antibody Screen Negative 10/13/18 08:14 Crossmatch See Detail 10/13/18 08:14
--- NOTE | 2018-10-15 13:13 | PN ---
Subjective Date of Service: 10/15/18 Length of Stay: 3 Days Neurology is following Mr. Robles for the evaluation and management of seizures. Interval History: There has been no seizures. His partner informed me that he was on his way to the pharmacy to potato picker his seizure medications, which he was out of, before he fell. He is complaining of mild left hip pain. He is has acute anemia. He tolerated one unit of blood transfusion. Medication levels: Phenytoin: 9.1 phenobarbital: 11.4 Review of Systems: Denied CP, SOB, or palpitations. Objective Active Medications: Acetaminophen (Tylenol Tab*) 650 mg PO Q6H PRN PRN Reason: HEADACHE Last Admin: 10/15/18 12:19 Dose: 650 mg Albuterol (Ventolin Hfa Inhaler*) 2 puff INH .Q4-6H PRN PRN Reason: SHORTNESS OF BREATH Atorvastatin Calcium (Lipitor*) 40 mg PO DAILY [facility] Last Admin: 10/15/18 09:36 Dose: 40 mg Cyanocobalamin (Vitamin B12 Tab*) 1,000 mcg PO DAILY [facility] Last Admin: 10/15/18 09:36 Dose: 1,000 mcg Docusate Sodium (Colace Cap*) 200 mg PO DAILY PRN PRN Reason: CONSTIPATION Docusate Sodium (Colace Cap*) 100 mg PO BID [facility] Last Admin: 10/15/18 09:35 Dose: 100 mg Enoxaparin Sodium (Lovenox(*)) 40 mg SUBCUT Q24H [facility] Last Admin: 10/14/18 15:38 Dose: 40 mg Fludrocortisone Acetate (Florinef Tab*) 0.1 mg PO DAILY [facility] Last Admin: 10/15/18 09:52 Dose: 0.1 mg Sodium Chloride (Ns 0.9% 1000 Ml*) 1,000 mls @ 125 mls/hr IV PER RATE [facility] Last Admin: 10/14/18 23:31 Dose: 125 mls/hr Lactulose (Lactulose*) 30 ml PO DAILY PRN PRN Reason: CONSTIPATION Levothyroxine Sodium (Synthroid Tab*) 150 mcg PO DAILY@0600 [facility] Last Admin: 10/15/18 05:27 Dose: 150 mcg Magnesium Hydroxide (Milk Of Magnesia Liq*) 30 ml PO BID [facility] Last Admin: 10/15/18 09:35 Dose: 30 ml Magnesium Hydroxide (Milk Of Magnesia Liq*) 30 ml PO BID PRN PRN Reason: CONSTIPATION Mometasone Furoate/Formoterol Fumar (Dulera 200/5 Mdi*) 1 puff INH BID [facility]; Protocol Last Admin: 10/15/18 08:45 Dose: 1 puff Morphine Sulfate (Morphine Vial*) 2 mg IV Q4H PRN PRN Reason: PAIN Last Admin: 10/13/18 12:44 Dose: 2 mg Ondansetron HCl (Zofran Inj*) 4 mg IV Q6H PRN PRN Reason: NAUSEA Last Admin: 10/14/18 12:26 Dose: 4 mg Oxycodone/Acetaminophen (Percocet 5/325 Tab*) 1 tab PO Q4H PRN PRN Reason: PAIN Last Admin: 10/15/18 09:36 Dose: 1 tab Phenobarbital (Phenobarbital Tab(*)) 30 mg PO BID [facility] Last Admin: 10/15/18 09:35 Dose: 30 mg Phenobarbital (Phenobarbital Tab(*)) 60 mg PO BID [facility] Last Admin: 10/15/18 09:36 Dose: 60 mg Phenytoin Sodium (Dilantin Cap(*)) 200 mg PO QAM [facility] Last Admin: 10/15/18 09:35 Dose: 200 mg Phenytoin Sodium (Dilantin Cap(*)) 300 mg PO QPM [facility] Last Admin: 10/14/18 17:12 Dose: 300 mg Polyethylene Glycol/Electrolytes (Miralax*) 17 gm PO DAILY PRN PRN Reason: CONSTIPATION Last Admin: 10/12/18 22:06 Dose: 17 gm Senna (Senokot Tab*) 1 tab PO BEDTIME PRN PRN Reason: CONSTIPATION Sertraline HCl (Zoloft*) 50 mg PO DAILY [facility] Last Admin: 10/15/18 09:52 Dose: 50 mg Vital Signs 10/14/18 10/14/18 10/14/18 15:52 16:10 17:12 Temperature 98.4 F Pulse Rate 102 88 Respiratory 16 15 Rate Blood Pressure 109/53 (mmHg) O2 Sat by Pulse 87 93 Oximetry 10/14/18 10/14/18 10/14/18 19:20 19:26 21:44 Temperature 98.1 F Pulse Rate 88 Respiratory 16 16 18 Rate Blood Pressure 120/56 (mmHg) O2 Sat by Pulse 97 Oximetry 10/14/18 10/14/18 10/14/18 21:46 22:00 23:20 Temperature 99.1 F Pulse Rate 68 Respiratory 18 18 17 Rate Blood Pressure 106/44 (mmHg) O2 Sat by Pulse 98 Oximetry 10/14/18 10/15/18 10/15/18 23:45 01:42 03:33 Temperature 98.0 F 98.9 F Pulse Rate 85 50 Respiratory 16 17 Rate Blood Pressure 113/60 106/46 (mmHg) O2 Sat by Pulse 97 99 Oximetry 10/15/18 10/15/18 10/15/18 03:41 03:45 05:28 Temperature Pulse Rate 82 Respiratory 18 16 Rate Blood Pressure (mmHg) O2 Sat by Pulse Oximetry 10/15/18 10/15/18 10/15/18 06:36 07:05 08:45 Temperature 98.4 F 98.7 F Pulse Rate 77 76 85 Respiratory 20 20 20 Rate Blood Pressure 103/50 111/52 (mmHg) O2 Sat by Pulse 99 99 97 Oximetry 10/15/18 10/15/18 10/15/18 09:35 09:36 11:40 Temperature Pulse Rate Respiratory 19 19 18 Rate Blood Pressure (mmHg) O2 Sat by Pulse Oximetry 10/15/18 12:00 Temperature 98.6 F Pulse Rate 89 Respiratory 16 Rate Blood Pressure 128/56 (mmHg) O2 Sat by Pulse 96 Oximetry Intake and Output Last 24 Hours 10/13/18 10/14/18 10/15/18 10/16/18 06:59 06:59 06:59 06:59 Intake Total 1490 4204 5305 314 Output Total 75 1275 1050 Balance 1415 2929 4255 314 Weight 180 lb Intake: IV Fluids 1490 3404 3850 ABX - CEFAZOLIN 55 53 LR 500 1700 857 NS (0.9%) 990 1649 2940 IVPB 55 ABX - CEFAZOLIN 55 Oral 0 800 1400 Packed Cells 314 Output: Urine 75 100 Benitez 1050 1050 Estimated Blood Loss 125 Oxygen Devices in Use Now: Nasal Cannula Neurology Exam: General: Elderly, pale appearing man in no acute distress. HEENT: Normocephalic/atraumatic, sclera anicteric, mucous membranes moist Neck: Supple Chest: Clear to auscultation bilaterally Cardiovascular: Regular rate and rhythm without murmurs, rubs, gallops Extremities: No clubbing, cyanosis, or edema Neurological Findings: Awake and alert to self, place, time, and general circumstance. Mild psychomotor slowing. Speech: fluent without dysrhythmia, repetition intact Cranial Nerve: PERRL, EOM intact, VFF, no nystagmus, face symmetric bilaterally , facial sensation intact, hearing intact to finger rub bilaterally, palate elevates symmetrically, tongue midline, SCM and Trapezius s/s. Motor: s/s throughout, proximal and distal extremities x4 tone/bulk normal except for reduced ROM on the left lower extremity due to recent surgery. Sensation: intact to LT/PP bilaterally upper and lower extremities Deep Tendon Reflex: 1+ diffusely with 0 at the ankles. Finger to nose, rapid alternating movements intact without tremor Gait: not assessed. Result Diagrams: 10/15/18 05:41 10/15/18 05:41 Assessment/Plan 1. Hx of localization related epilepsy with sub-therapeutic AEDs- this is most likely due to missing a few doses of his AED therapy. Both phenytoin and phenobarbital levels are almost within normal range by only resuming his home medications without any IV load. Continue his home medications as the levels will eventually become therapeutic after few days. I don't recommend rechecking levels or readjusting his medications unless the patient has a witnessed seizure. He can follow-up with me in clinic in 4-6 weeks. We will arrange an appointment for follow-up. 2. Severe anemia, hyponatremia, s/p L hip surgery- defer to the primary team. Rehabilitation hopefully tomorrow. 3. Hx of orthostatic hypotension- continue Florinef. Time spent: 25 minutes of which > 50% was spent reviewing his medications, discussing his history of seizures with his partner, and examining the patient. Neurology will sign off but please note that we are available for any questions or concerns.
[2018-10-15 15:28] LABS: Hematocrit 24 % (42-52); Mean Corpuscular HGB Conc 33 g/dl (31-36); Mean Corpuscular Hemoglobin 32 pg (27-31); Mean Corpuscular Volume 96 fL (80-94); Red Blood Count 2.49 10^6/ul (4.00-5.40); Red Cell Distribution Width 17 % (10.5-15); White Blood Count 8.6 10^3/ul (3.5-10.8)
[2018-10-15 15:48] LABS: ABS Basophils 0.1 10^3/ul (0-0.2); ABS Eosinophils 0.3 10^3/ul (0-0.6); ABS Lymphocytes 0.9 10^3/ul (1.0-4.8); ABS Monocytes 0.8 10^3/ul (0-0.8); ABS Neutrophils 6.6 10^3/ul (1.5-7.7); ABS Nucleated RBC 0 10^3/ul; Eosinophil % 3.1 %; Lymphocyte % 10.9 %; Nucleated Red Blood Cells % 0.1; Platelet Count Platelets clumped. 10^3/ul (150-450)
[2018-10-15] MEDS: Enoxaparin(*) 40 MG/0.4 ML SYR SUBCUT SCH (16:26)
[2018-10-16] MEDS: oxyCODONE/Acetamin 5/325 MG* TAB PO PRN (04:19)
[2018-10-16] MEDS: Levothyroxine TAB* 150 MCG TAB PO SCH (06:12)
[2018-10-16 06:33] LABS: ABS Basophils 0 10^3/ul (0-0.2); ABS Eosinophils 0.4 10^3/ul (0-0.6); ABS Lymphocytes 0.9 10^3/ul (1.0-4.8); ABS Monocytes 0.8 10^3/ul (0-0.8); ABS Neutrophils 6.1 10^3/ul (1.5-7.7); ABS Nucleated RBC 0 10^3/ul; Eosinophil % 4.5 %; Hematocrit 23 % (42-52); Hemoglobin 7.7 g/dl (14.0-18.0); Lymphocyte % 10.7 %; Mean Corpuscular HGB Conc 34 g/dl (31-36); Mean Corpuscular Hemoglobin 32 pg (27-31); Mean Corpuscular Volume 94 fL (80-94); Mean Platelet Volume 8.6 fL (7.4-10.4); Nucleated Red Blood Cells % 0; Platelet Count 139 10^3/ul (150-450); Red Blood Count 2.42 10^6/ul (4.00-5.40); Red Cell Distribution Width 16 % (10.5-15); White Blood Count 8.1 10^3/ul (3.5-10.8)
[2018-10-16 06:45] LABS: BUN/Creatinine Ratio 27.9 (8-20); EGFR African American 136.5 (>60); EGFR Non-African American 112.8 (>60); Potassium 4.5 mmol/L (3.5-5.0)
[2018-10-16] MEDS: Mometasone/Formoter 200/5 MDI INH SCH (08:44)
--- NOTE | 2018-10-16 08:44 | PN ---
Subjective Date of Service: 10/16/18 Interval History: Pt is in bed resting. He states he is still having pain in the L hip, but it is a little better than yesterday. He is progressing well with physical therapy and states that he is able to get up now. He denies CP, SOB, cough, hemoptysis, abd pain, n/v/d, calf pain, swelling in the calves or lower extremities, hematuria. He has not had a BM since 10/08 and was given lactulose today. Urinary catheter is still in place. Plan to d/c to [facility] today. Objective Active Medications: Acetaminophen (Tylenol Tab*) 650 mg PO Q6H PRN Albuterol (Ventolin Hfa Inhaler*) 2 puff INH .Q4-6H PRN Atorvastatin Calcium (Lipitor*) 40 mg PO DAILY [facility] Cyanocobalamin (Vitamin B12 Tab*) 1,000 mcg PO DAILY [facility] Docusate Sodium (Colace Cap*) 200 mg PO DAILY PRN Docusate Sodium (Colace Cap*) 100 mg PO BID [facility] Enoxaparin Sodium (Lovenox(*)) 40 mg SUBCUT Q24H [facility] Fludrocortisone Acetate (Florinef Tab*) 0.1 mg PO DAILY [facility] Sodium Chloride (Ns 0.9% 1000 Ml*) 1,000 mls @ 125 mls/hr IV PER RATE [facility] Lactulose (Lactulose*) 30 ml PO DAILY PRN Levothyroxine Sodium (Synthroid Tab*) 150 mcg PO DAILY@0600 [facility] Magnesium Hydroxide (Milk Of Magnesia Liq*) 30 ml PO BID [facility] Magnesium Hydroxide (Milk Of Magnesia Liq*) 30 ml PO BID PRN Mometasone Furoate/Formoterol Fumar (Dulera 200/5 Mdi*) 1 puff INH BID [facility]; Protocol Morphine Sulfate (Morphine Vial*) 2 mg IV Q4H PRN Ondansetron HCl (Zofran Inj*) 4 mg IV Q6H PRN Oxycodone/Acetaminophen (Percocet 5/325 Tab*) 1 tab PO Q4H PRN Phenobarbital (Phenobarbital Tab(*)) 30 mg PO BID [facility] Phenobarbital (Phenobarbital Tab(*)) 60 mg PO BID [facility] Phenytoin Sodium (Dilantin Cap(*)) 200 mg PO QAM [facility] Phenytoin Sodium (Dilantin Cap(*)) 300 mg PO QPM [facility] Polyethylene Glycol/Electrolytes (Miralax*) 17 gm PO DAILY PRN Senna (Senokot Tab*) 1 tab PO BEDTIME PRN Sertraline HCl (Zoloft*) 50 mg PO DAILY [facility] Vital Signs: Temp Pulse Resp BP Pulse Ox 98.6 F 80 18 123/51 97 10/16/18 07:18 10/16/18 07:52 10/16/18 07:43 10/16/18 07:18 10/16/18 07:18 Oxygen Devices in Use Now: Nasal Cannula Appearance: Pt is sleeping comfortably in bed with HOB elevated appx 30-degrees ; wakes easily; in no acute distress. Eyes: No Scleral Icterus, PERRLA Ears/Nose/Mouth/Throat: NL Teeth, Lips, Gums, Mucous Membranes Moist Neck: NL Appearance and Movements; NL JVP, Trachea Midline Respiratory: Symmetrical Chest Expansion and Respiratory Effort, Clear to Auscultation - Without wheeze, rales, rhonchi, - - without wheeze, rales, rhonchi Cardiovascular: NL Sounds; No Murmurs; No JVD, RRR, No Edema Abdominal: No Hepatosplenomegaly, - - Bowel sounds in all quadrants; abdomen is firm and nontender to palpation. Extremities: No Edema, No Clubbing, Cyanosis, - - L hip dressing with small amount of discharge; L hip with surrounding ecchymosis that is soft; soft echymossis on L upper lateral calf noted as well; b/l LE negative Eladia's, negative calf tenderness, with pedal pulses intact. Neurological: Alert and Oriented x 3, NL Sensation Result Diagrams: 10/16/18 06:06 10/16/18 06:06 Assess/Plan/Problems-Billing Mr Robles is a 78 yo M who has a h/o seizure disorder, COPD, hypothyroidism and depression who presented to the ER after sustaining a fall where he suffered a L hip fracture. Post-op 10/13 left TFN. - Patient Problems (1) Closed left hip fracture Comment: -Pt is POD#3 -Continue pain control, DVT prophylaxis (lovenox) per orthopedics -Continue bowel regimen per ortho (2) Acute blood loss anemia Comment: -Currently normotensive, regular rate -Hgb 7.7 this morning; transfusion not indicated at this time -Continue to monitor H/H (3) Chronic obstructive pulmonary disease Comment: -Lung sounds clear, pt without cough, SOB -Continue Dulera qd, Albuterol prn (4) Seizure disorder Comment: -Continue medication at current doses -Continue seizure precautions -F/u with neuro as outpatient in 4-6 weeks (5) Depression Comment: -Continue sertraline (6) Dyslipidemia Comment: -Continue atorvastatin (7) DVT prophylaxis Comment: -SCDs, lovenox (8) Full code status Status and Disposition: Discharge to [facility].
[2018-10-16] MEDS: Cyanocobalamin TAB* 500 MCG PO SCH (08:45)
[2018-10-16] MEDS: Atorvastatin* 40 MG TAB PO SCH (08:45)
[2018-10-16] MEDS: Sertraline* 50 MG TAB PO SCH (08:45)
[2018-10-16] MEDS: PHENobarbital TAB(*) 30 MG PO SCH ×2 (08:45)
[2018-10-16] MEDS: Docusate CAP* 100 MG PO SCH (08:45)
[2018-10-16] MEDS: Phenytoin CAP(*) 100 MG CAP.ER PO SCH (08:45)
[2018-10-16] MEDS: Fludrocortisone Acetate TAB* 0.1 MG PO SCH (08:46)
[2018-10-16] MEDS: Magnesium Hydroxide LIQ* 30 ML UDC PO SCH (08:47)
[2018-10-16] MEDS: Ondansetron INJ* 2 MG/ML VIAL IV PRN (09:57)
[2018-10-16 10:20] VITALS: BP 154/68
--- NOTE | 2018-10-16 11:08 | PN ---
Progress Note - Progress Note Date of Service: 10/16/18 SOAP: Subjective: []Patient was seen and examined at bedside. He is feeling well without Left hip pain at rest. Denies CP, SOB, dizziness or nausea. Objective: [] General: Well appearing, NAD LLE: Left hip dressing changed, incision is CDI, no discharge and no erythema surrounding, + ecchymosis around all incisions without associated induration, tenderness or fluctuance. Thigh is soft. DF/PF intact, sensation intact to light touch distally. DP2+ Calves supple and nontender without erythema, edema or palpable cords Assessment: []POD [address] Cherry 10/13/18 acute bloodloss anemia Plan: []WBAT PT/OT lovenox 40mg sq qd, to be held for hgb less than 7 Plan for DC to [facility] today Vital Signs Temp 97.3 F 10/16/18 10:19 Pulse 99 10/16/18 10:19 Resp 20 10/16/18 10:19 BP 154/68 10/16/18 10:19 Pulse Ox 94 10/16/18 10:19 Intake & Output 10/15/18 10/16/18 10/16/18 18:59 06:59 18:59 Intake Total 994 290 360 Output Total 750 1550 475 Balance 244 -1260 -115 Intake: Oral 680 290 360 Packed Cells 314 Output: Urine 100 Benitez 650 1550 475 Other: # Bowel Movements 1 Estimated Stool Amount Small Laboratory Last Values WBC 8.1 10^3/ul (3.5-10.8) 10/16/18 06:06 RBC 2.42 10^6/ul (4.00-5.40) L 10/16/18 06:06 Hgb 7.7 g/dl (14.0-18.0) L 10/16/18 06:06 Hct 23 % (42-52) L 10/16/18 06:06 MCV 94 fL (80-94) 10/16/18 06:06 MCH 32 pg (27-31) H 10/16/18 06:06 MCHC 34 g/dl (31-36) 10/16/18 06:06 RDW 16 % (10.5-15) H 10/16/18 06:06 Plt Count 139 10^3/ul (150-450) L 10/16/18 06:06 MPV 8.6 fL (7.4-10.4) 10/16/18 06:06 Neut % (Auto) 75.2 % 10/16/18 06:06 Lymph % (Auto) 10.7 % 10/16/18 06:06 [place] % (Auto) 9.4 % 10/16/18 06:06 Eos % (Auto) 4.5 % 10/16/18 06:06 Baso % (Auto) 0.2 % 10/16/18 06:06 Absolute Neuts (auto) 6.1 10^3/ul (1.5-7.7) 10/16/18 06:06 Absolute Lymphs (auto) 0.9 10^3/ul (1.0-4.8) L 10/16/18 06:06 Absolute Monos (auto) 0.8 10^3/ul (0-0.8) 10/16/18 06:06 Absolute Eos (auto) 0.4 10^3/ul (0-0.6) 10/16/18 06:06 Absolute Basos (auto) 0 10^3/ul (0-0.2) 10/16/18 06:06 Absolute Nucleated RBC 0 10^3/ul 10/16/18 06:06 Nucleated RBC % 0 10/16/18 06:06 INR (Anticoag Therapy) 1.02 (0.77-1.02) 10/13/18 08:14 Sodium 135 mmol/L (135-145) 10/16/18 06:06 Potassium 4.5 mmol/L (3.5-5.0) 10/16/18 06:06 Chloride 102 mmol/L (101-111) 10/16/18 06:06 Carbon Dioxide 31 mmol/L (22-32) 10/16/18 06:06 Anion Gap 2 mmol/L (2-11) 10/16/18 06:06 BUN 19 mg/dL (6-24) 10/16/18 06:06 Creatinine 0.68 mg/dL (0.67-1.17) 10/16/18 06:06 Est GFR ( Amer) 136.5 (>60) 10/16/18 06:06 Est GFR (Non-Af Amer) 112.8 (>60) 10/16/18 06:06 BUN/Creatinine Ratio 27.9 (8-20) H 10/16/18 06:06 Glucose 135 mg/dL (70-100) H 10/16/18 06:06 POC Glucose (mg/dL) 169 mg/dL (70-100) H 10/12/18 17:53 Calcium 8.0 mg/dL (8.6-10.3) L 10/16/18 06:06 Total Bilirubin 0.40 mg/dL (0.2-1.0) 10/12/18 14:54 AST 18 U/L (13-39) 10/12/18 14:54 ALT 19 U/L (7-52) 10/12/18 14:54 Alkaline Phosphatase 121 U/L (34-104) H 10/12/18 14:54 Troponin I 0.01 ng/mL (<0.04) 10/12/18 23:17 C-Reactive Protein < 1.00 mg/L (<8.01) 10/12/18 14:54 Total Protein 7.3 g/dL (6.4-8.9) 10/12/18 14:54 Albumin 4.5 g/dL (3.2-5.2) 10/12/18 14:54 Globulin 2.8 g/dL (2-4) 10/12/18 14:54 Albumin/Globulin Ratio 1.6 (1-3) 10/12/18 14:54 Phenytoin 9.1 mcg/mL (10-20) L 10/15/18 05:41 Phenobarbital 11.4 mcg/mL (17-34) L 10/15/18 05:41 Blood Type B Positive 10/13/18 08:14 Antibody Screen Negative 10/13/18 08:14 Crossmatch See Detail 10/13/18 08:14
--- NOTE | 2018-10-16 19:08 | DS ---
DISCHARGE SUMMARY: DATE OF ADMISSION: 10/12/18 DATE OF DISCHARGE: 10/16/18 PRIMARY CARE PROVIDER: Faisal Leahy MD. ATTENDING PHYSICIAN: Heidi Zapata MD * (dictated by JAYESH Morrow). PRIMARY DIAGNOSES: 1. Left hip fracture with trochanteric femoral nail repair. 2. Acute blood loss anemia. SECONDARY DIAGNOSES: 1. Recently diagnosed seizure. 2. Chronic obstructive pulmonary disease. 3. Hypothyroidism. 4. Depression. 5. Hyperlipidemia. STUDIES WHILE IN THE HOSPITAL: Hip x-ray on 10/12/18, impression: Nondisplaced left subtrochanteric fracture with minimally avulsed lesser trochanteric fracture. Chest x-ray from 10/12/18, impression: No radiographic evidence for acute cardiopulmonary abnormalities on this single AP view chest x-ray. Electroencephalogram from 10/13/18, impression: This is an abnormal awake and drowsy EEG due to the presence of focal intermittent slowing in the right frontocentral region. These findings are suggestive of a focal neuronal dysfunction involving the right frontocentral area. There were no electrographic seizures. Clinical correlation is recommended. PROCEDURE WHILE IN THE HOSPITAL: On 10/13/18, closed reduction of left hip fracture stabilization with cephalomedullary nail, Synthes TFN nail. CONSULTATIONS WHILE IN THE HOSPITAL: Neurology consult on 10/13/18. Neuro was consulted, they recommended checking levels of phenobarbital and phenytoin. EEG showed no epileptiform discharges, but nonspecific slowing. Established care with neurologist, which they would be happy to see him at an outpatient neurology clinic. DISCHARGE MEDICATIONS: 1. Acetaminophen 650 mg p.o. q.6 hours p.r.n. headache. 2. Albuterol 2 puffs q.4-6 hours p.r.n. shortness of breath. 3. Atorvastatin 40 mg p.o. daily. 4. Cyanocobalamin 1000 mcg p.o. daily. 5. Docusate sodium 200 mg p.o. daily p.r.n. constipation. 6. Fludrocortisone acetate 0.1 mg p.o. daily. 7. Levothyroxine sodium 150 mcg p.o. daily. 8. Dulera 200/5 one puff b.i.d. 9. Phenobarbital 30 mg p.o. b.i.d. 10. Phenobarbital 60 mg p.o. b.i.d. 11. Phenytoin 300 mg p.o. q.p.m. 12. Phenytoin 200 mg p.o. q.a.m. 13. Zoloft 50 mg p.o. daily. HISTORY OF PRESENT ILLNESS/HOSPITAL COURSE: Mr. Robles is a 78-year-old male with a past medical history including recently diagnosed seizure, COPD, hypothyroidism, depression and hyperlipidemia, who was walking to [employer] [place] [employer] [place] and started to feel unwell and felt like he was about have a seizure. He planned to sit down on a bench and fell on his left hip. He is unsure if he had a seizure or not, but denies loss of consciousness. Left hip x-ray revealed a nondisplaced left subtrochanteric fracture with minimally avulsed lesser trochanteric fracture. He was admitted to the hospital for pain control. Surgery was scheduled for the following day. The patient was followed by Ortho postoperatively and progressed well throughout his stay. Neurology was consulted regarding the patient having potentially had a seizure. Per neuro, levels for phenobarbital and phenytoin were drawn. Dr. Clarke reviewed the levels stating that they were almost within normal range and recommending that the patient remain on his home medication doses stating that rechecking new levels or readjusting the medication is not necessary unless the patient has a witnessed seizure. He recommends followup in 4 to 6 weeks with Neurology. Throughout the patient's stay, his hemoglobin trended downward postoperatively. On postop day #2, he required transfusion of 1 unit of blood. Transfusion was successful and his hemoglobin posttransfusion was 8, the following day hemoglobin was 7.7. On postop day #3, the patient was transferred to [facility] for rehabilitation. Mr. Robles is stable for discharge to [facility]. PHYSICAL EXAMINATION: Vital Signs: Temperature 98.6, pulse 80, respirations 18 , blood pressure 123/51, pulse ox 97%. General: patient is sleeping comfortably in bed with head of bed elevated approximately 30 degrees, wakes easily, in no acute distress. HEENT: No scleral icterus. Pupils are equally round and reactive to light and accommodation. Extraocular movements intact. Mucous membranes moist. Neck: Trachea midline. No JVD. Respiratory: Symmetrical chest expansion. Respiratory effort clear to auscultation without wheeze, rales of rhonchi. Cardiovascular: Regular rate and rhythm. S1, S2 noted. No murmurs, rubs, clicks or gallops. Abdomen: Bowel sounds in all quadrants. Abdomen is firm and nontender to palpation. No hepatosplenomegaly. Extremities: No edema, clubbing or cyanosis. Left hip dressing with a small amount of discharge. Left hip with surrounding ecchymosis that is soft ecchymosis on left upper lateral calf noted as well. Bilateral lower extremities: Negative Eladia's. Negative calf tenderness with pedal pulses intact. Neurological: Alert and oriented x3. Normal sensation. REVIEW OF SYSTEMS: Denies chest pain, shortness of breath, cough, hemoptysis, abdominal pain, nausea, vomiting, diarrhea, calf pain, swelling in the calves or lower extremities, hematuria. Positive for constipation. Last bowel movement was on 10/08/18. All other systems are negative. DISCHARGE PLAN: Mr. Robles will be discharged to [facility]. ACTIVITY: As per [facility]. Weightbearing as tolerated. DIET: Regular. MEDICATIONS: As above. EDUCATION: Continue bowel regimen for constipation. Continue to monitor H and H after acute blood loss anemia. Follow up with ortho Follow up with neuro as outpatient in 4 to 6 weeks. For seizures, continue medication as currently prescribed. Return to the ER or nearest hospital if he experienced any worsening of symptoms , shortness of breath, lightheadedness, dizziness, chest discomfort, high fevers , chills, night sweats, loss of consciousness, worsening pain, redness, warmth or discharge from the surgical site or any other worrisome sign or symptom. This is a summarized report of complex medical history and hospital stay. For further details, please see the entire medical record. TIME SPENT: Approximately 40 minutes were spent on this discharge, greater than half of that time sent face-to face with the patient discussing discharge plans and instructions. JAYESH DAVIS [id number]/[facility] #: [id number] PATRICK
== END 2018-10-16 11:10 | DRG 481 ==
LOC: ED 13:33 → SSU 15:48
PROVIDERS: ADMIT Internal Medicine; ATTEND Internal Medicine
PROC: 0QSC04Z Reposition Left Lower Femur with Internal Fixation Device, Open Approach (ICD-10-PCS; 2018-10-13)
PROC: 30233N1 Transfusion of Nonautologous Red Blood Cells into Peripheral Vein, Percutaneous Approach (ICD-10-PCS; principal; 2018-10-15)
DX: S72.142A Displaced intertrochanteric fracture of left femur, initial encounter for closed fracture (principal); D62 Acute posthemorrhagic anemia; E87.1 Hypo-osmolality and hyponatremia; W17.89XA Other fall from one level to another, initial encounter; Y92.009 Unspecified place in unspecified non-institutional (private) residence as the place of occurrence of the external cause; J44.9 Chronic obstructive pulmonary disease, unspecified; F17.210 Nicotine dependence, cigarettes, uncomplicated; E03.9 Hypothyroidism, unspecified; E78.5 Hyperlipidemia, unspecified; F32.9 Major depressive disorder, single episode, unspecified; G40.909 Epilepsy, unspecified, not intractable, without status epilepticus; G31.84 Mild cognitive impairment of uncertain or unknown etiology; G62.9 Polyneuropathy, unspecified; H55.00 Unspecified nystagmus; I95.1 Orthostatic hypotension; S72.25XA Nondisplaced subtrochanteric fracture of left femur, initial encounter for closed fracture; I49.9 Cardiac arrhythmia, unspecified
CPT/HCPCS: 36415; 71045; 80048; 80053; 80184; 80185; 84484; 85014; 85018; 85025; 85027; 85610; 86140; 86850; 86900; 86901; 86922; 93005; 94640; 95819; 99284; A9270-GY; C1713; C1776; G8978-GP-CK; G8979-GP-CI; G8987-GO-CK; G8988-GO-CI; J0690; J1644; J1650; J2250; J2270; J2405; J3010; P9040

== ENCOUNTER 2018-10-16 10:13 | Inpatient (IN) | payer MEDICARE, MEDICAID ==
[2018-10-16] MEDS: oxyCODONE/Acetamin 5/325 MG* TAB PO PRN ×2 (13:16→16:51)
[2018-10-16] MEDS: Enoxaparin(*) 40 MG/0.4 ML SYR SUBCUT SCH (16:53)
[2018-10-16] MEDS: Phenytoin CAP(*) 100 MG CAP.ER PO SCH (18:27)
[2018-10-16] MEDS: Mometasone/Formoter 200/5 MDI INH SCH (20:08)
--- NOTE | 2018-10-16 20:08 | HP ---
ADMISSION HISTORY AND PHYSICAL: DATE OF ADMISSION: 10/16/18 REASON FOR ADMISSION: Left hip fracture. HISTORY OF PRESENT ILLNESS: Kartik Robles is a 78-year-old white male. He has a medical history significant for seizures, which probably date back to the 1950s. He does not see a neurologist regularly. His last seizure was in 2014 when he was seen by Dr. Salgado. The patient takes Dilantin and phenobarbital for his seizures. He was walking to [employer] on 10/12/18. He felt lightheaded and found himself on the floor. He did not completely lose consciousness. He was able to get his cellphone and called 911. He was brought to the hospital and found to have a nondisplaced subtrochanteric fracture of his left hip. He was seen by Dr. Cherry and taken to the operating room on 10/13/18. He underwent a close reduction of the left hip fracture with a cephalomedullary nail. Postoperatively, he was seen by Dr. Clarke, from Neurology. He had an EEG , which did not show any epileptiform activity. Dr. Clarke recommended continuing both his medications at the present doses and not doing much more than that, but it was recommended that he follow regularly with the neurologist. The patient also had an episode of anemia where his hemoglobin got down to 6.3. He was transfused 1 unit of packed cells. The patient otherwise was medically stable. He was felt to have physical therapy and occupational therapy needs. He is now being admitted for inpatient rehab so that he might return to independent living. PAST MEDICAL HISTORY: Significant for the aforementioned seizures. In addition , he has a history of orthostatic hypotension, depression. He has a history of COPD with a longtime smoker and hypothyroidism. CURRENT MEDICATIONS: Include: 1. Dilantin 300 mg at night, 200 mg in the morning. 2. Phenobarbital 90 mg twice a day. 3. He is also on Zoloft. 4. Dulera inhaler. 5. Synthroid. 6. Florinef. 7. Lovenox for DVT prophylaxis. 8. Lipitor. ALLERGIES: The patient reports no known drug allergies. SOCIAL HISTORY: He lives alone in [facility]. He is a former smoker. Does not drink. He does have a healthcare proxy. REVIEW OF SYSTEMS: The patient reports no current shortness of breath or chest pain. PHYSICAL EXAMINATION VITAL SIGNS: The patient's temperature is 98.1, blood pressure is 132/53, pulse 82 and irregular, and respirations 18. HEENT: His extraocular movements are intact. Tongue is midline. NECK: Supple. LUNGS: Sounded clear to auscultation bilaterally. HEART: Sounds were irregular. ABDOMEN: Soft and nontender. EXTREMITIES: His left hip has a wound, which is clean and dry. He has 1 to 2+ edema in the left foot. Peripheral pulses are intact. NEUROLOGIC: He is awake, alert, oriented to himself and place. Muscle strength appeared to be 5/5 except the left hip, which was 3/5 secondary to pain. His functional exam, he transfers with min to mod assist. ASSESSMENT: Left hip fracture. PLAN/RECOMMENDATIONS: Our plan is to integrate him into a comprehensive and therapeutic rehab program with the following goals: 1. Physical Therapy will work with the patient. They are going to work on functional transfer training, ambulation training with a walker. 2. Occupational Therapy will see the patient and work on his activities of daily living, including toileting and toilet transfers. 3. Lovenox for DVT prophylaxis. 4. Adequate analgesia. 5. For his seizure, we are going to continue Dilantin and phenobarbital. 6. Continue Synthroid for hypothyroidism. 7. Continue Florinef for orthostatic hypotension. 8. Continue Zoloft for depression. 9. [employer] will be closely involved to make sure that any services and equipment the patient requires are in place prior to discharge. 10. Family training as appropriate. 11. Home with appropriate services. ESTIMATED LENGTH OF STAY: 10 to 14 days. [id number]/[facility] #: [id number] PATRICK
[2018-10-16] MEDS: PHENobarbital TAB(*) 30 MG PO SCH (20:45)
[2018-10-16] MEDS: Docusate CAP* 100 MG PO SCH (20:46)
[2018-10-16] MEDS ORDERED: Phenytoin CAP(*) 100 MG CAP.ER PO SCH (21:00)
[2018-10-17] MEDS: oxyCODONE/Acetamin 5/325 MG* TAB PO PRN ×5 (00:12→21:02)
[2018-10-17] MEDS: Levothyroxine TAB* 150 MCG TAB PO SCH (04:42)
[2018-10-17 06:40] LABS: ABS Basophils 0 10^3/ul (0-0.2); ABS Eosinophils 0.4 10^3/ul (0-0.6); ABS Monocytes 0.8 10^3/ul (0-0.8); ABS Neutrophils 6.1 10^3/ul (1.5-7.7); ABS Nucleated RBC 0 10^3/ul; Eosinophil % 5.3 %; Hematocrit 23 % (42-52); Lymphocyte % 12.3 %; Mean Corpuscular HGB Conc 35 g/dl (31-36); Mean Corpuscular Hemoglobin 33 pg (27-31); Mean Corpuscular Volume 94 fL (80-94); Mean Platelet Volume 8.2 fL (7.4-10.4); Nucleated Red Blood Cells % 0.1; Platelet Count 180 10^3/ul (150-450); Red Blood Count 2.46 10^6/ul (4.00-5.40); Red Cell Distribution Width 16 % (10.5-15); White Blood Count 8.4 10^3/ul (3.5-10.8)
[2018-10-17] MEDS: Acetaminophen TAB* 325 MG PO PRN ×2 (06:46→23:43)
[2018-10-17 06:57] LABS: Albumin 2.9 g/dL (3.2-5.2); BUN/Creatinine Ratio 20.3 (8-20); Calcium 8.2 mg/dL (8.6-10.3); EGFR African American 134.2 (>60); EGFR Non-African American 110.9 (>60); Potassium 4.1 mmol/L (3.5-5.0); Total Bilirubin 0.6 mg/dL (0.2-1.0); Total Protein 5.9 g/dL (6.4-8.9)
[2018-10-17] MEDS: PHENobarbital TAB(*) 30 MG PO SCH ×2 (08:40→21:02)
[2018-10-17] MEDS: Sertraline* 50 MG TAB PO SCH (08:41)
[2018-10-17] MEDS: Docusate CAP* 100 MG PO SCH ×2 (08:41→21:01)
[2018-10-17] MEDS: Fludrocortisone Acetate TAB* 0.1 MG PO SCH (08:41)
[2018-10-17] MEDS: Cyanocobalamin TAB* 500 MCG PO SCH (08:41)
[2018-10-17] MEDS: Phenytoin CAP(*) 100 MG CAP.ER PO SCH ×2 (08:41→17:49)
[2018-10-17] MEDS: Mometasone/Formoter 200/5 MDI INH SCH ×2 (08:41→21:03)
--- NOTE | 2018-10-17 10:40 | PN ---
Progress Note Date of Service: 10/17/18 Note: USMAN Parmjit MANTILLA SR was visited. Nursing and therapy notes read and reviewed. His only pain is at his left hip. No chest pain, shortness of breath or abdominal pain. Did not pass cognitive assessments (BIMS and MOCA). Girlfriend agrees he is not at his baseline. Current Medications: Active Medications Generic Name Dose Route Start Last Admin Trade Name Freq PRN Reason Stop Dose Admin Acetaminophen 650 mg 10/16/18 11:51 10/17/18 06:46 Tylenol Tab* PO 650 mg Q6H PRN Administration FEVER/PAIN Atorvastatin Calcium 40 mg 10/17/18 17:00 Lipitor* PO 1700 FRANCHESCA Cyanocobalamin 1,000 mcg 10/17/18 09:00 10/17/18 08:41 Vitamin B12 Tab* PO 1,000 mcg DAILY FRANCHESCA Administration Docusate Sodium 100 mg 10/16/18 21:00 10/17/18 08:41 Colace Cap* PO 100 mg BID FRANCHESCA Administration Enoxaparin Sodium 40 mg 10/16/18 16:00 10/16/18 16:53 Lovenox(*) SUBCUT 40 mg Q24H FRANCHESCA Administration Fludrocortisone Acetate 0.1 mg 10/17/18 09:00 10/17/18 08:41 Florinef Tab* PO 0.1 mg DAILY FRANCHESCA Administration Levothyroxine Sodium 150 mcg 10/17/18 06:00 10/17/18 04:42 Synthroid Tab* PO 150 mcg DAILY@0600 FRANCHESCA Administration Magnesium Hydroxide 30 ml 10/16/18 11:51 Milk Of Magnesia Liq* PO Q6H PRN CONSTIPATION Mometasone Furoate/Formoterol Fumar 1 puff 10/16/18 21:00 10/17/18 08:41 Dulera 200/5 Mdi* INH 1 puff BID FRANCHESCA Administration Oxycodone/Acetaminophen 1 tab 10/16/18 12:14 10/17/18 08:41 Percocet 5/325 Tab* PO 1 tab Q4H PRN Administration PAIN - MODERATE TO SEVERE Phenobarbital 90 mg 10/16/18 21:00 10/17/18 08:40 Phenobarbital Tab(*) PO 90 mg BID FRANCHESCA Administration Phenytoin Sodium 200 mg 10/17/18 09:00 10/17/18 08:41 Dilantin Cap(*) PO 200 mg DAILY FRANCHESCA Administration Phenytoin Sodium 300 mg 10/16/18 18:00 10/16/18 18:27 Dilantin Cap(*) PO 300 mg 1800 FRANCHESCA Administration Senna 2 tab 10/16/18 11:51 Senokot Tab* PO BEDTIME PRN CONSTIPATION Sertraline HCl 50 mg 10/17/18 09:00 10/17/18 08:41 Zoloft* PO 50 mg DAILY FRANCHESCA Administration Vital Signs: Vital Signs Temp Pulse Resp BP Pulse Ox 98.3 F 85 16 131/75 93 10/17/18 04:51 10/17/18 04:51 10/17/18 08:41 10/17/18 04:51 10/17/18 04:51 Lab Results: Laboratory Results - last 24 hr 10/17/18 10/17/18 06:24 06:24 WBC 8.4 RBC 2.46 L Hgb 8.0 L Hct 23 L MCV 94 MCH 33 H MCHC 35 RDW 16 H Plt Count 180 MPV 8.2 Neut % (Auto) 72.4 Lymph % (Auto) 12.3 [place] % (Auto) 9.6 Eos % (Auto) 5.3 Baso % (Auto) 0.4 Absolute Neuts (auto) 6.1 Absolute Lymphs (auto) 1.0 Absolute Monos (auto) 0.8 Absolute Eos (auto) 0.4 Absolute Basos (auto) 0 Absolute Nucleated RBC 0 Nucleated RBC % 0.1 Sodium 134 L Potassium 4.1 Chloride 101 Carbon Dioxide 28 Anion Gap 5 BUN 14 Creatinine 0.69 Est GFR ( Amer) 134.2 Est GFR (Non-Af Amer) 110.9 BUN/Creatinine Ratio 20.3 H Glucose 128 H Calcium 8.2 L Total Bilirubin 0.60 AST 23 ALT 15 Alkaline Phosphatase 140 H Total Protein 5.9 L Albumin 2.9 L Globulin 3.0 Albumin/Globulin Ratio 1.0 Exam: GEN: no acute distress. alert and appropriate. Oriented to self and place and situation. LUNGS: clear to auscultation bilaterally. CV: irregular (well-documented PACs and bigeminy on prior EKGs) ABD: + bowel sounds, soft, non-tender, non-distended EXT: some left leg edema. No calf pain. Negative Homans. Assessment/Plan: 78yo man with left hip fracture s/p CRIF #Hip fracture: f/u Dr. Cherry. PT/OT. WBAT. Pain meds as needed. #Seizure d/o: continue phenobarbitol and dilantin. Seizure precautions. #Acute post-op anemia: H/H is stable this morning. #Impaired cognition: speech therapy. #Orthostatic hypotension: florinef #COPD: dulera #Hypothyroidism: levothyroxine #Depression: zoloft #DVT ppx: lovenox. May need to do self teaching prior to d/c. #Adv Directives: Full code. HCP is his girlfriend, [place]. #Estimated LOS: IPOC today. 10/17/18 10:41
--- NOTE | 2018-10-17 12:41 | PMRUTEAM ---
PMRU: Team Meeting Current Status: Nursing: Current Status Skin Deviations [Groin,scrotum Bruise , penis] Skin Deviations [Left Leg] Incision Skin Deviations [Left Hip] Incision Skin Deviation Description [ healing Groin,scrotum, penis] Skin Deviation Description [ two incisions, small amount of sanguineous Left Leg] drainage to upper most incision. Skin Deviation Description [ small amount sanguineous drainage Left Hip] Physical Therapy: Current Status Bed Mobility Assistance Mod Assist,2 or More Person Assist Transfer Mobility Assistance Mod Assist x2 Transfer/Bed Mobility Rolling Walker Recommended Devices Ambulation Assistance Mod Assist x2 15 ft Ambulation Assistive Devices Rolling Walker Number of Feet Patient 15 Ambulated Stairs Assistance not tested Stairs Recommended Devices Number of Stairs 4 Objective Comments patient has great difficulty with movement to stand, hand trasnition and standing mobiltiy. patient needs cuing for each step of task, with frequent repeats. patient previously independent in community ambulation. Occupational Therapy: Current Status Upper Body Dressing Supervision Lower Body Dressing Max Asst,2 Person Assist Bathing Mod Assist x2 Toileting Total Assist,2 Person Assist Toilet Transfer Mod Assist,2 Person Assist Eating Ind with Adaptive Equip Speech therapy evaluation pending. Rec Therapy: Current Status Summary of Assessment and Pt. was open to conversation - identified with Clinical Impression interests and involvement in them prior to admission. Pt.'s girlfriend was in the room and shared some interests they have as well. Treatment Goals Pt. will engage in leisure activities while on the unit. Treatment Plan Provide RT services and encourage involvement. Social Work: Current Status Discharge Plan return home with home care svs and support from girlfriend Potential for Family Training pt's girlfriend is involved and supportive Anticipated Discharge Home Destination Discharge With home care svs and family support Goals: Physical Therapy: Initial Goals Bed Mobility Assistance Independent Transfer Mobility Assistance Independent Transfer/Bed Mobility Rolling Walker Recommended Devices Ambulation Independent Ambulation Recommended Devices Rolling Walker Ambulation Distance 150 Stairs Assistance Independent Stair Recommended Devices Two Rails Number of Stairs 5 Occupational Therapy: Initial Goals Goals to be Completed in (Days 14-21 ) Upper Body Bathing Routine Modified Independent with Lower Body Bathing Routine Modified Independent with Upper Body Dressing Routine Modified Independent with Lower Body Dressing Routine Modified Independent with Toilet Hygeine and Clothing Modified Independent with Management Routine Toilet Transfer Routine Modified Independent with Tub Transfer Routine Supervision/Set Up Functional Transfers for ADL Modified Independent with Grooming Routine Independent Feeding Routine Independent Speech therapy evaluation pending. Social Work: Goals Discharge Plan return home with home care svs and support from girlfriend Potential for Family Training pt's girlfriend is involved and supportive Anticipated Discharge Home Destination Discharge With home care svs and family support Care Plan: Care Plan ADL's - Improve/Maintain Start: 10/16/18 16:03 Freq: DAILY Status: Active Target: Protocol: Activity Type Activity Date Activity User E-Sign Co-Sign Detail Recorded Client Recorded Date Recorded By Document 10/16/18 16:03 [id number] 10/16/18 16:05 [id number] 10/16/18 16:03 [facility] Outcome: ADL's/ADL Transfers Orders/Interventions Occupational Therapy Evaluation & Treatment Communication Tool in Patient Room Device Yes Address Deficits Secondary To: left hip ORIF Patient to receive OT 5x/wk for 60-120 Therex min/day Self Care Management Group Therapy UE/LE ADL's with Assist Yes: Marie ADL Transfers with Assist Yes: Marie except supervision for shower transfer Toileting: Transfers,Clothing Management Yes: Marie ,Hygeine w/Assist Light Kitchen/Laundry w/Assist Yes: Chika Progression Toward Outcome/Goals Progressing Outcome/Goals Met Pt is a 78 year old male with questionable seizure, s/p fall with left hip pain, found to have left hip fracture and now s/p ORIF with WBAT precautions and admitted for acute rehabilitation. Pt participated well in ADL for OT evaluation, requiring significant assistance with LE dressing, bathing, and toileting and currently requiring 2assist in standing for safety with transfers. Pt with some difficulty providing history and home setup, girlfriend able to assist during evaluation. Pt also with some difficulty following commands which may limit ability to progress to independence with LE dressing if pt requires use of AE to complete . DVT Prophylaxis- Improve/Maintain Start: 10/16/18 22:27 Freq: QSHIFT Status: Active Target: Protocol: Activity Type Activity Date Activity User E-Sign Co-Sign Detail Recorded Client Recorded Date Recorded By Document 10/17/18 08:00 [id number] 10/17/18 09:43 [id number] 10/17/18 08:00 [facility] Outcome: DVT Prophylaxis Outcome/Goals Remains Free of DVT TEDS Stockings on Every AM, Off at HS Progression Toward Outcome/Goals Progressing Discharge Planning - Improve/Maintain Start: 10/16/18 22:27 Freq: DAILY Status: Active Target: Protocol: Activity Type Activity Date Activity User E-Sign Co-Sign Detail Recorded Client Recorded Date Recorded By Document 10/16/18 23:59 [id number] 10/17/18 00:00 [id number] 10/16/18 23:59 [facility] Outcome: Discharge Planning Update Patient Family No Outcome/Goals Demonstrates Understanding of Discharge Plan Education-Improve/Maintain Start: 10/16/18 22:27 Freq: QSHIFT Status: Active Target: Protocol: Activity Type Activity Date Activity User E-Sign Co-Sign Detail Recorded Client Recorded Date Recorded By Document 10/17/18 08:00 [id number] 10/17/18 09:43 [id number] 10/17/18 08:00 [facility] Outcome: Education Outcome/Goals Demonstrate/ Verbalize Understanding of Written Discharge Instructions Demonstrates Skills Encourage Questions Progression Toward Outcome/Goals Progressing Neurological- Improve/Maintain Start: 10/16/18 22:27 Freq: QSHIFT Status: Active Target: Protocol: Activity Type Activity Date Activity User E-Sign Co-Sign Detail Recorded Client Recorded Date Recorded By Document 10/17/18 08:00 [id number] 10/17/18 09:43 [id number] 10/17/18 08:00 [facility] Outcome: Neurological Weakness/Aphasia Weakness Left Side Outcome/Goals Maintain/ Achieve Baseline Neurological Status Maintain/ Improve Strength/ROM Progression Toward Outcome/Goals Progressing Pain/Comfort- Improve/Maintain Start: 10/16/18 22:27 Freq: QSHIFT Status: Active Target: Protocol: Activity Type Activity Date Activity User E-Sign Co-Sign Detail Recorded Client Recorded Date Recorded By Document 10/17/18 08:00 [id number] 10/17/18 09:43 [id number] 10/17/18 08:00 [facility] Outcome: Pain/Comfort Outcome/Goals Demonstrates Knowledge and Use of Available Comfort Measures Achieves Acceptable Comfort/Pain Level as Determined by Patient/Condit Maintain Comfort Level Allowing Patient to Fully Participate in Rehab Progression Toward Outcome/Goals Progressing Outcome/Goals Met Comment pt resting at this time Safety- Improve/Maintain Start: 10/16/18 22:27 Freq: QSHIFT Status: Active Target: Protocol: Activity Type Activity Date Activity User E-Sign Co-Sign Detail Recorded Client Recorded Date Recorded By Document 10/17/18 08:00 [id number] 10/17/18 09:43 [id number] 10/17/18 08:00 [facility] Outcome: Safety Outcome/Goals Remain Free of Injury or Harm Cooperates with Safety Measures for Least Restrictive Environment Prevent Falls/ Injury Progression Toward Outcome/Goals Progressing Outcome/Goals Met Comment PATRICIA armed Skin- Improve/Maintain Start: 10/16/18 22:27 Freq: QSHIFT Status: Active Target: Protocol: Activity Type Activity Date Activity User E-Sign Co-Sign Detail Recorded Client Recorded Date Recorded By Document 10/17/18 08:00 [id number] 10/17/18 09:43 [id number] 10/17/18 08:00 [facility] Outcome: Skin Skin Risk Level Medium Skin Orders Dressing Change Outcome/Goals Maintain/ Improve Skin Intergrity Surgical Incisions Healing Progression Toward Outcome/Goals Progressing Medicine Note: Length of Stay: [3 weeks] Anticipated Discharge Destination: Home Tentative Discharge Date: [11/07/18] Discharged to: [home]
[2018-10-17] MEDS: Enoxaparin(*) 40 MG/0.4 ML SYR SUBCUT SCH (16:10)
[2018-10-17] MEDS: Atorvastatin* 40 MG TAB PO SCH (16:10)
[2018-10-17 17:33] LABS: Urine Appearance Clear; Urine Bilirubin Negative (Negative); Urine Blood Negative (Negative); Urine Color Yellow; Urine Glucose Negative (Negative); Urine Ketones Negative (Negative); Urine Nitrite Negative (Negative); Urine Protein Negative (Negative); Urine Specific Gravity 1.009 (1.010-1.030); Urine Urobilinogen Negative (Negative)
[2018-10-18] MEDS: oxyCODONE/Acetamin 5/325 MG* TAB PO PRN ×4 (02:21→20:50)
[2018-10-18] MEDS: Levothyroxine TAB* 150 MCG TAB PO SCH (05:33)
[2018-10-18] MEDS: Acetaminophen TAB* 325 MG PO PRN ×2 (05:33→13:10)
[2018-10-18] MEDS: Mometasone/Formoter 200/5 MDI INH SCH ×2 (09:03→20:54)
[2018-10-18] MEDS: PHENobarbital TAB(*) 30 MG PO SCH ×2 (09:06→20:49)
[2018-10-18] MEDS: Phenytoin CAP(*) 100 MG CAP.ER PO SCH ×2 (09:07→17:33)
[2018-10-18] MEDS: Cyanocobalamin TAB* 500 MCG PO SCH (09:07)
[2018-10-18] MEDS: Fludrocortisone Acetate TAB* 0.1 MG PO SCH (09:07)
[2018-10-18] MEDS: Docusate CAP* 100 MG PO SCH ×2 (09:08→20:50)
[2018-10-18] MEDS: Sertraline* 50 MG TAB PO SCH (09:08)
[2018-10-18] MEDS ORDERED: Methocarbamol TAB* 500 MG ONE ×2 (11:21→15:35)
--- NOTE | 2018-10-18 12:48 | PN ---
Progress Note Date of Service: 10/18/18 Note: USMAN Parmjit MANTILLA was visited. Nursing and therapy notes read and reviewed. No chest pain, shortness of breath or abdominal pain. Last night had some left leg spasms. He seems to always report 10/10 pain, but functional per staff despite this. Speech evaluation appreciated. Lack of teeth and fatigue limit his intelligibility. This morning had difficulty masticating toast. Had urine frequency yesterday and UA was negative. Current Medications: Active Medications Generic Name Dose Route Start Last Admin Trade Name Freq PRN Reason Stop Dose Admin Acetaminophen 650 mg 10/16/18 11:51 10/18/18 05:33 Tylenol Tab* PO 650 mg Q6H PRN Administration FEVER/PAIN Atorvastatin Calcium 40 mg 10/17/18 17:00 10/17/18 16:10 Lipitor* PO 40 mg 1700 FRANCHESCA Administration Cyanocobalamin 1,000 mcg 10/17/18 09:00 10/17/18 08:41 Vitamin B12 Tab* PO 1,000 mcg DAILY FRANCHESCA Administration Docusate Sodium 100 mg 10/16/18 21:00 10/17/18 21:01 Colace Cap* PO 100 mg BID FRANCHESCA Administration Enoxaparin Sodium 40 mg 10/16/18 16:00 10/17/18 16:10 Lovenox(*) SUBCUT 40 mg Q24H FRANCHESCA Administration Fludrocortisone Acetate 0.1 mg 10/17/18 09:00 10/17/18 08:41 Florinef Tab* PO 0.1 mg DAILY FRANCHESCA Administration Levothyroxine Sodium 150 mcg 10/17/18 06:00 10/18/18 05:33 Synthroid Tab* PO 150 mcg DAILY@0600 FRANCHESCA Administration Magnesium Hydroxide 30 ml 10/16/18 11:51 Milk Of Magnesia Liq* PO Q6H PRN CONSTIPATION Mometasone Furoate/Formoterol Fumar 1 puff 10/16/18 21:00 10/17/18 21:03 Dulera 200/5 Mdi* INH 1 puff BID FRANCHESCA Administration Oxycodone/Acetaminophen 1 tab 10/16/18 12:14 10/18/18 07:28 Percocet 5/325 Tab* PO 1 tab Q4H PRN Administration PAIN - MODERATE TO SEVERE Phenobarbital 90 mg 10/16/18 21:00 10/17/18 21:02 Phenobarbital Tab(*) PO 90 mg BID FRANCHESCA Administration Phenytoin Sodium 200 mg 10/17/18 09:00 10/17/18 08:41 Dilantin Cap(*) PO 200 mg DAILY FRANCHESCA Administration Phenytoin Sodium 300 mg 10/16/18 18:00 10/17/18 17:49 Dilantin Cap(*) PO 300 mg 1800 FRANCHESCA Administration Senna 2 tab 10/16/18 11:51 Senokot Tab* PO BEDTIME PRN CONSTIPATION Sertraline HCl 50 mg 10/17/18 09:00 10/17/18 08:41 Zoloft* PO 50 mg DAILY FRANCHESCA Administration Vital Signs: Vital Signs Temp Pulse Resp BP Pulse Ox 98.0 F 61 16 144/62 96 10/18/18 05:31 10/18/18 05:31 10/18/18 07:28 10/18/18 05:31 10/18/18 08:00 Lab Results: Laboratory Results - last 24 hr 10/17/18 17:17 Urine Color Yellow Urine Appearance Clear Urine pH 8.0 Ur Specific [place] 1.009 L Urine Protein Negative Urine Ketones Negative Urine Blood Negative Urine Nitrate Negative Urine Bilirubin Negative Urine Urobilinogen Negative Ur Leukocyte Esterase Negative Urine Glucose Negative Exam: GEN: no acute distress. alert and appropriate. Oriented to self and place and situation. LUNGS: clear to auscultation bilaterally. CV: irregular (well-documented PACs and bigeminy on prior EKGs) ABD: + bowel sounds, soft, non-tender, non-distended EXT: some left leg edema. No calf pain. Negative Homans. SKIN: extensive ecchymosis in left leg. NEURO: LE motor 5/5 bilaterally except pain limited left hip and knee. Sensation intact. Assessment/Plan: 78yo man with left hip fracture s/p CRIF #Hip fracture: f/u Dr. Cherry. PT/OT. WBAT. Pain meds as needed. Add methocarbamol prn. #Seizure d/o: continue phenobarbitol and dilantin. Seizure precautions. #Acute post-op anemia: H/H is stable. Routine monitoring. #Impaired cognition: speech therapy. #Edentulous: will order mechanical soft diet with extra sauces and gravies. #Orthostatic hypotension: florinef #COPD: dulera #Hypothyroidism: levothyroxine #Depression: zoloft #DVT ppx: lovenox. May need to do self teaching prior to d/c. #Adv Directives: Full code. HCP is his girlfriend, [place]. #Estimated LOS: 11/07/18 10/18/18 08:40
[2018-10-18] MEDS: Enoxaparin(*) 40 MG/0.4 ML SYR SUBCUT SCH (15:55)
[2018-10-18] MEDS: Methocarbamol TAB* 500 MG PO PRN (17:32)
[2018-10-18] MEDS: Atorvastatin* 40 MG TAB PO SCH (17:34)
[2018-10-18] MEDS: Senna TAB PO PRN (20:51)
[2018-10-19] MEDS: oxyCODONE/Acetamin 5/325 MG* TAB PO PRN ×4 (01:39→19:54)
[2018-10-19] MEDS: Methocarbamol TAB* 500 MG PO PRN ×3 (01:39→13:42)
[2018-10-19] MEDS: Levothyroxine TAB* 150 MCG TAB PO SCH (06:08)
--- NOTE | 2018-10-19 08:30 | PN ---
Progress Note Date of Service: 10/19/18 Note: USMAN MANTILLA was visited. Nursing notes read and reviewed. Pain level lower. No chest pain, shortness of breath or abdominal pain. Current Medications: Active Medications Generic Name Dose Route Start Last Admin Trade Name Freq PRN Reason Stop Dose Admin Acetaminophen 650 mg 10/16/18 11:51 10/18/18 13:10 Tylenol Tab* PO 650 mg Q6H PRN Administration FEVER/PAIN Atorvastatin Calcium 40 mg 10/17/18 17:00 10/18/18 17:34 Lipitor* PO 40 mg 1700 FRANCHESCA Administration Cyanocobalamin 1,000 mcg 10/17/18 09:00 10/18/18 09:07 Vitamin B12 Tab* PO 1,000 mcg DAILY FRANCHESCA Administration Docusate Sodium 100 mg 10/16/18 21:00 10/18/18 20:50 Colace Cap* PO 100 mg BID FRANCHESCA Administration Enoxaparin Sodium 40 mg 10/16/18 16:00 10/18/18 15:55 Lovenox(*) SUBCUT 40 mg Q24H FRANCHESCA Administration Fludrocortisone Acetate 0.1 mg 10/17/18 09:00 10/18/18 09:07 Florinef Tab* PO 0.1 mg DAILY FRANCHESCA Administration Levothyroxine Sodium 150 mcg 10/17/18 06:00 10/19/18 06:08 Synthroid Tab* PO 150 mcg DAILY@0600 FRANCHESCA Administration Magnesium Hydroxide 30 ml 10/16/18 11:51 Milk Of Magnesia Liq* PO Q6H PRN CONSTIPATION Methocarbamol 750 mg 10/18/18 08:01 10/19/18 06:39 Robaxin Tab* PO 750 mg QID PRN Administration muscle spasm Mometasone Furoate/Formoterol Fumar 1 puff 10/16/18 21:00 10/18/18 20:54 Dulera 200/5 Mdi* INH 1 puff BID FRANCHESCA Administration Oxycodone/Acetaminophen 1 tab 10/16/18 12:14 10/19/18 06:08 Percocet 5/325 Tab* PO 1 tab Q4H PRN Administration PAIN - MODERATE TO SEVERE Phenobarbital 90 mg 10/16/18 21:00 10/18/18 20:49 Phenobarbital Tab(*) PO 90 mg BID FRANCHESCA Administration Phenytoin Sodium 200 mg 10/17/18 09:00 01/12/19 09:07 Dilantin Cap(*) PO 200 mg DAILY FRANCHESCA Administration Phenytoin Sodium 300 mg 10/16/18 18:00 10/18/18 17:33 Dilantin Cap(*) PO 300 mg 1800 FRANCHESCA Administration Senna 2 tab 10/16/18 11:51 10/18/18 20:51 Senokot Tab* PO 2 tab BEDTIME PRN Administration CONSTIPATION Sertraline HCl 50 mg 10/17/18 09:00 10/18/18 09:08 Zoloft* PO 50 mg DAILY FRANCHESCA Administration Vital Signs: Vital Signs Temp Pulse Resp BP Pulse Ox 98.3 F 86 20 147/70 95 10/19/18 05:15 10/19/18 05:15 10/19/18 06:39 10/19/18 05:15 10/19/18 07:53 Exam: GEN: no acute distress. alert and appropriate. Oriented to self and place and situation. LUNGS: clear to auscultation bilaterally. CV: irregular (well-documented PACs and bigeminy on prior EKGs) ABD: + bowel sounds, soft, non-tender, non-distended EXT: some left leg edema. No calf pain. Negative Homans. SKIN: extensive ecchymosis in left leg. NEURO: LE motor 5/5 bilaterally except pain limited left hip and knee. Sensation intact. Assessment/Plan: 78yo man with left hip fracture s/p CRIF #Hip fracture: f/u Dr. Cherry. PT/OT. WBAT. Pain meds as needed. Methocarbamol prn. #Seizure d/o: continue phenobarbitol and dilantin. Seizure precautions. #Acute post-op anemia: H/H is stable. Routine monitoring. #Impaired cognition: speech therapy. #Edentulous: mechanical soft diet with extra sauces and gravies. #Orthostatic hypotension: florinef #COPD: dulera #Hypothyroidism: levothyroxine #Depression: zoloft #DVT ppx: lovenox. May need to do self teaching prior to d/c. #Adv Directives: Full code. HCP is his girlfriend, [place]. #Estimated LOS: 11/07/18 10/19/18 08:30
[2018-10-19] MEDS: Mometasone/Formoter 200/5 MDI INH SCH ×2 (09:22→19:53)
[2018-10-19] MEDS: Fludrocortisone Acetate TAB* 0.1 MG PO SCH (09:36)
[2018-10-19] MEDS: Docusate CAP* 100 MG PO SCH ×2 (09:36→19:54)
[2018-10-19] MEDS: PHENobarbital TAB(*) 30 MG PO SCH ×2 (09:37→19:53)
[2018-10-19] MEDS: Phenytoin CAP(*) 100 MG CAP.ER PO SCH ×2 (09:37→17:35)
[2018-10-19] MEDS: Sertraline* 50 MG TAB PO SCH (09:37)
[2018-10-19] MEDS: Cyanocobalamin TAB* 500 MCG PO SCH (09:37)
[2018-10-19] MEDS: Enoxaparin(*) 40 MG/0.4 ML SYR SUBCUT SCH (15:50)
[2018-10-19] MEDS: Atorvastatin* 40 MG TAB PO SCH (17:35)
[2018-10-19] MEDS: Senna TAB PO PRN (19:54)
[2018-10-20] MEDS: Methocarbamol TAB* 500 MG PO PRN (01:06)
[2018-10-20] MEDS: oxyCODONE/Acetamin 5/325 MG* TAB PO PRN ×2 (02:41→18:55)
[2018-10-20] MEDS: Levothyroxine TAB* 150 MCG TAB PO SCH (05:10)
[2018-10-20] MEDS: Mometasone/Formoter 200/5 MDI INH SCH ×2 (09:47→20:24)
[2018-10-20] MEDS: Acetaminophen TAB* 325 MG PO PRN ×2 (09:55→16:19)
[2018-10-20] MEDS: Magnesium Hydroxide LIQ* 30 ML UDC PO PRN (09:55)
[2018-10-20] MEDS: Sertraline* 50 MG TAB PO SCH (09:56)
[2018-10-20] MEDS: Docusate CAP* 100 MG PO SCH ×2 (09:56→21:04)
[2018-10-20] MEDS: PHENobarbital TAB(*) 30 MG PO SCH ×2 (09:56→21:06)
[2018-10-20] MEDS: Fludrocortisone Acetate TAB* 0.1 MG PO SCH (09:56)
[2018-10-20] MEDS: Phenytoin CAP(*) 100 MG CAP.ER PO SCH ×2 (09:56→18:48)
[2018-10-20] MEDS: Cyanocobalamin TAB* 500 MCG PO SCH (09:56)
[2018-10-20] MEDS: Enoxaparin(*) 40 MG/0.4 ML SYR SUBCUT SCH (16:22)
[2018-10-20] MEDS: Atorvastatin* 40 MG TAB PO SCH (16:22)
--- NOTE | 2018-10-20 18:53 | PN ---
Progress Note Date of Service: 10/20/18 Note: USMAN MANTILLA was visited. Therapy notes read and reviewed. A little groggy but no complaints. No seizure activity on Dilantin and Phenobarb. Current Medications: Active Medications Generic Name Dose Route Start Last Admin Trade Name Freq PRN Reason Stop Dose Admin Acetaminophen 650 mg 10/16/18 11:51 10/20/18 16:19 Tylenol Tab* PO 650 mg Q6H PRN Administration FEVER/PAIN Atorvastatin Calcium 40 mg 10/17/18 17:00 10/20/18 16:22 Lipitor* PO 40 mg 1700 FRANCHESCA Administration Cyanocobalamin 1,000 mcg 10/17/18 09:00 10/20/18 09:56 Vitamin B12 Tab* PO 1,000 mcg DAILY FRANCHESCA Administration Docusate Sodium 100 mg 10/16/18 21:00 10/20/18 09:56 Colace Cap* PO 100 mg BID FRANCHESCA Administration Enoxaparin Sodium 40 mg 10/16/18 16:00 10/20/18 16:22 Lovenox(*) SUBCUT 40 mg Q24H FRANCHESCA Administration Fludrocortisone Acetate 0.1 mg 10/17/18 09:00 10/20/18 09:56 Florinef Tab* PO 0.1 mg DAILY FRANCHESCA Administration Levothyroxine Sodium 150 mcg 10/17/18 06:00 10/20/18 05:10 Synthroid Tab* PO 150 mcg DAILY@0600 FRACNHESCA Administration Magnesium Hydroxide 30 ml 10/16/18 11:51 10/20/18 09:55 Milk Of Magnesia Liq* PO 30 ml Q6H PRN Administration CONSTIPATION Methocarbamol 750 mg 10/18/18 08:01 10/20/18 01:06 Robaxin Tab* PO 750 mg QID PRN Administration muscle spasm Mometasone Furoate/Formoterol Fumar 1 puff 10/16/18 21:00 10/20/18 09:47 Dulera 200/5 Mdi* INH 1 puff BID FRANCHESCA Administration Oxycodone/Acetaminophen 1 tab 10/16/18 12:14 10/20/18 02:41 Percocet 5/325 Tab* PO 1 tab Q4H PRN Administration PAIN - MODERATE TO SEVERE Phenobarbital 90 mg 10/16/18 21:00 10/20/18 09:56 Phenobarbital Tab(*) PO 90 mg BID FRANCHESCA Administration Phenytoin Sodium 200 mg 10/17/18 09:00 10/20/18 09:56 Dilantin Cap(*) PO 200 mg DAILY FRANCHESCA Administration Phenytoin Sodium 300 mg 10/16/18 18:00 10/19/18 17:35 Dilantin Cap(*) PO 300 mg 1800 FRANCHESCA Administration Senna 2 tab 10/16/18 11:51 10/19/18 19:54 Senokot Tab* PO 2 tab BEDTIME PRN Administration CONSTIPATION Sertraline HCl 50 mg 10/17/18 09:00 10/20/18 09:56 Zoloft* PO 50 mg DAILY FRANCHESCA Administration Vital Signs: Vital Signs Temp Pulse Resp BP Pulse Ox 98.1 F 78 20 114/65 92 10/20/18 05:09 10/20/18 05:09 10/20/18 12:29 10/20/18 05:09 10/20/18 16:31 Exam: GENERAL: no acute distress. alert and appropriate. Oriented to self and place and situation. LUNGS: clear to auscultation bilaterally. HEART: irregular (well-documented PACs and bigeminy on prior EKGs) ABDOMEN: + bowel sounds, soft, non-tender, non-distended EXTREMITIES: some left leg edema. No calf pain. Negative Homans. SKIN: extensive ecchymosis in left leg. NEUROLOGIC: LE motor 5/5 bilaterally except pain limited left hip and knee. Sensation intact. Assessment/Plan: 78yo man with left hip fracture s/p ORIF 1. Left Hip fracture: f/u Dr. Cherry. PT/OT. WBAT. Pain meds as needed. Methocarbamol prn. 2. Seizure d/o: continue phenobarbitol and dilantin. Seizure precautions. 3. Acute post-op anemia: H/H is stable. Routine monitoring. 4. Impaired cognition: speech therapy. 5. Edentulous: mechanical soft diet with extra sauces and gravies. 6. Orthostatic hypotension: florinef 7. COPD: dulera 8. Hypothyroidism: levothyroxine 9. Depression: zoloft 10. DVT ppx: lovenox. May need to do self teaching prior to d/c. 11. Advance Directives: Full code. HCP is his girlfriend, [place]. 12. Estimated LOS: 11/07/18 10/20/18 18:54
[2018-10-20] MEDS: Senna TAB PO PRN (21:05)
[2018-10-21] MEDS: Levothyroxine TAB* 150 MCG TAB PO SCH (05:56)
[2018-10-21] MEDS: Cyanocobalamin TAB* 500 MCG PO SCH (09:24)
[2018-10-21] MEDS: Fludrocortisone Acetate TAB* 0.1 MG PO SCH ×2 (09:25→10:38)
[2018-10-21] MEDS: Docusate CAP* 100 MG PO SCH ×2 (09:25→20:51)
[2018-10-21] MEDS: PHENobarbital TAB(*) 30 MG PO SCH ×2 (09:25→20:52)
[2018-10-21] MEDS: Sertraline* 50 MG TAB PO SCH (09:25)
[2018-10-21] MEDS: Phenytoin CAP(*) 100 MG CAP.ER PO SCH ×2 (09:25→17:42)
[2018-10-21] MEDS: oxyCODONE/Acetamin 5/325 MG* TAB PO PRN ×3 (09:25→20:51)
[2018-10-21] MEDS ORDERED: PHENobarbital TAB(*) 30 MG PO ONE (11:00)
--- NOTE | 2018-10-21 12:54 | PMRUTEAM ---
PMRU: Team Meeting Current Status: Nursing: Current Status Skin Deviations [Groin,scrotum Bruise , penis] Skin Deviations [Left Leg] Bruise Skin Deviations [Left Hip] Incision Skin Deviation Description [ extensive ecchymosis Groin,scrotum, penis] Skin Deviation Description [ Bruising due to fall and s/p L hip fix Left Leg] Skin Deviation Description [ x3 with alma rosa intact. KIMI Left Hip] Bladder Current Status using urinal Bowel Current Status colace given Nutrition Current Status appetite fair Medication Current Status needs reinforcement Physical Therapy: Current Status Bed Mobility Assistance Max Assist Transfer Mobility Assistance Min Assist Transfer/Bed Mobility Rolling Walker Recommended Devices Ambulation Assistance Mod Assist Ambulation Assistive Devices Rolling Walker Number of Feet Patient 55 Ambulated Ambulation Comment antalgic gait with step to pattern Stairs Assistance Mod Assist Stairs Recommended Devices Two Rails Number of Stairs 1 Objective Comments patient has great difficulty with movement to stand, hand trasnition and standing mobiltiy. patient needs cuing for each step of task, with frequent repeats. patient previously independent in community ambulation. Occupational Therapy: Current Status Upper Body Dressing Supervision Lower Body Dressing Min Assist Bathing Min Assist Toileting Mod Assist Toilet Transfer Contact Guard Assist Shower Transfer Progress TBD Eating Independent Rec Therapy: Current Status Summary of Assessment and RT assessment completed and pt. is aware of RT Clinical Impression services. Pt. has been pleasant and socially engaged during leisure visits. Treatment Goals Pt. will engage in leisure activities while on the unit. Treatment Plan Provide RT services and encourage involvement. Social Work: Current Status Discharge Plan return home with home care svs and support from his girlfriend Potential for Family Training pt's girlfriend is involved and supportive Anticipated Discharge Home Destination Discharge With home care svs and family support Nutrition: Current Status Monitoring PO still ranging 25-70% of meals; noted pt did not eat L today. No BMs noted so far; did receive colace and milk of mag today. Will follow for results. Skin intact, some bruising noted. Low risk for breakdown per Rashard 19. Will follow for acceptance of [facility] ground texture, as well. Speech: Current Status Assessment The patient presented with moderate cognitive- communicative impairments characterized by reduced attention and working memory deficits which negatively impact his complex comprehension and lengthy verbal expression tasks. Patient will benefit from trial of skilled speech- language pathology services to address compensatory strategies for attention and working memory. Sessions will be 30 minutes in length. Goals: Physical Therapy: Initial Goals Bed Mobility Assistance Independent Transfer Mobility Assistance Independent Transfer/Bed Mobility Rolling Walker Recommended Devices Ambulation Independent Ambulation Recommended Devices Rolling Walker Ambulation Distance 150 Stairs Assistance Independent Stair Recommended Devices Two Rails Number of Stairs 5 Physical Therapy: Updated Goals Transfer/Bed Mobility Rolling Walker Recommended Devices Occupational Therapy: Initial Goals Goals to be Completed in (Days 14-21 ) Upper Body Bathing Routine Modified Independent with Lower Body Bathing Routine Modified Independent with Upper Body Dressing Routine Modified Independent with Lower Body Dressing Routine Modified Independent with Toilet Hygeine and Clothing Modified Independent with Management Routine Toilet Transfer Routine Modified Independent with Tub Transfer Routine Supervision/Set Up Functional Transfers for ADL Modified Independent with Grooming Routine Independent Feeding Routine Independent Nursing: Goals Bladder Goal independent Bowel Goal independnet Nutrition Goal 100% of all meals Medication Goal supervision Nutrition: Goals Intervention Goals 1. Pt will tolerate least restrictive diet texture without evidence difficulty chewing 2. Intake will improve to 50% of meals in consistent pattern 3. Pt will establish & maintain regular bowel pattern without constipation/diarrhea Speech: Goals Speech Goal 1 Cognitive-Communicative Skills Speech Evaluation Status Goal Moderate impairment; attention and working memory 1 Goal 1 Comments Further assessment of the patient's cognitive- communicative skills completed. Results were as follows: The patient reported that he is originally from [place]. He stated that he does not read or write well using the [place]ali language. He declined to state if he was able to read and/or write in his [place] language. The patient stated that he is assisted with functional reading, writing, and math by his girlfriend. For use of appointment calendar, he copies written dates, provider names, and times directly from business/appointment cards to the dates on his wall calendar. The patient successfully answered orientation questions for month, season, and current president . He stated that the year was 1997. Immediate recall for 3 digits was accurate; however, patient lost attention and accuracy for greater than 3 digits. Working memory required maximum verbal cues for accurate responses. Verbal sequencing tasks, field of 3 words, was completed with 100% accuracy, given repetition of one forgotten word. Verbal problem solving tasks were completed with 100% accuracy; reminder/prompt to provide additional responses, as he forgot how many responses this therapist asked him to provide. Mental flexibility; stating opposites and convergent naming / organization tasks all completed with 100% accuracy, prompts to continue to provide more responses. New Long-Term Goal and Short-Term Goals: Long-Term Goal: The patient will successfully learn and utilize compensatory strategies for working memory for safe and functional participation at home and in the community. Short-Term Goals: 1) The patient will successfully learn and utilize compensatory strategies for recall of information and directions 75% of the time, with maximum cues , as needed. 2) The patient will successfully complete functional attention and working memory activities with 75% accuracy, independent use of compensatory strategies, as needed. Social Work: Goals Discharge Plan return home with home care svs and support from his girlfriend Potential for Family Training pt's girlfriend is involved and supportive Anticipated Discharge Home Destination Discharge With home care svs and family support Care Plan: Care Plan ADL's - Improve/Maintain Start: 10/16/18 16:03 Freq: DAILY Status: Active Target: Protocol: Activity Type Activity Date Activity User E-Sign Co-Sign Detail Recorded Client Recorded Date Recorded By Document 10/21/18 10:52 [id number] 10/21/18 10:52 [id number] 10/21/18 10:52 PMRU Outcome: ADL's/ADL Transfers Orders/Interventions Occupational Therapy Evaluation & Treatment Communication Tool in Patient Room Device Yes Address Deficits Secondary To: left hip ORIF Patient to receive OT 5x/wk for 60-120 Therex min/day Self Care Management Group Therapy UE/LE ADL's with Assist Yes: Marie ADL Transfers with Assist Yes: Marie except supervision for shower transfer Toileting: Transfers,Clothing Management Yes: Marie ,Hygeine w/Assist Light Kitchen/Laundry w/Assist Yes: Chika Progression Toward Outcome/Goals Progressing Outcome/Goals Met Pt continues to demonstrate increased independence with ADL routine but has difficulty recalling the use of AE to complete LB dressing. Communication-Improve/Maintain Start: 10/20/18 19:13 Freq: DAILY Status: Active Target: Protocol: Activity Type Activity Date Activity User E-Sign Co-Sign Detail Recorded Client Recorded Date Recorded By Document 10/20/18 19:13 [facility] [id number] 10/20/18 19:13 [facility] 10/20/18 19:13 PMRU Outcome: Communication/Cognitive Status Outcome/Goals Other Other Outcomes/Goals Long-Term Goal: The patient will successfully learn and utilize compensatory strategies for working memory for safe and functional participation at home and in the community. Short-Term Goals: 1) The patient will successfully learn and utilize compensatory strategies for recall of information and directions 75% of the time, with maximum cues, as needed . 2) The patient will successfully complete functional attention and working memory activities with 75% accuracy, independent use of compensatory strategies, as needed. DVT Prophylaxis- Improve/Maintain Start: 10/16/18 22:27 Freq: QSHIFT Status: Active Target: Protocol: Activity Type Activity Date Activity User E-Sign Co-Sign Detail Recorded Client Recorded Date Recorded By Document 10/20/18 20:49 [id number] 10/20/18 20:49 [id number] 10/20/18 20:49 PMRU Outcome: DVT Prophylaxis Outcome/Goals Remains Free of DVT TEDS Stockings on Every AM, Off at HS Progression Toward Outcome/Goals Progressing Discharge Planning - Improve/Maintain Start: 10/16/18 22:27 Freq: DAILY Status: Active Target: Protocol: Activity Type Activity Date Activity User E-Sign Co-Sign Detail Recorded Client Recorded Date Recorded By Document 10/20/18 00:00 [id number] 10/20/18 06:21 [id number] 10/20/18 00:00 PMRU Outcome: Discharge Planning Update Patient Family No Outcome/Goals Demonstrates Understanding of Discharge Plan Education-Improve/Maintain Start: 10/16/18 22:27 Freq: QSHIFT Status: Active Target: Protocol: Activity Type Activity Date Activity User E-Sign Co-Sign Detail Recorded Client Recorded Date Recorded By Document 10/20/18 20:49 [id number] 10/20/18 20:49 [id number] 10/20/18 20:49 PMRU Outcome: Education Outcome/Goals Demonstrate/ Verbalize Understanding of Written Discharge Instructions Demonstrates Skills Encourage Questions Progression Toward Outcome/Goals Progressing Neurological- Improve/Maintain Start: 10/16/18 22:27 Freq: QSHIFT Status: Active Target: Protocol: Activity Type Activity Date Activity User E-Sign Co-Sign Detail Recorded Client Recorded Date Recorded By Document 10/20/18 20:49 [id number] 10/20/18 20:49 [id number] 10/20/18 20:49 PMRU Outcome: Neurological Weakness/Aphasia Weakness Left Side Outcome/Goals Maintain/ Achieve Baseline Neurological Status Prevent Avoidable Neurological Decline Maintain/ Improve Strength/ROM Progression Toward Outcome/Goals Progressing Pain/Comfort- Improve/Maintain Start: 10/16/18 22:27 Freq: QSHIFT Status: Active Target: Protocol: Activity Type Activity Date Activity User E-Sign Co-Sign Detail Recorded Client Recorded Date Recorded By Document 10/20/18 20:49 [id number] 10/20/18 20:49 [id number] 10/20/18 20:49 PMRU Outcome: Pain/Comfort Outcome/Goals Demonstrates Knowledge and Use of Available Comfort Measures Achieves Acceptable Comfort/Pain Level as Determined by Patient/Condit Maintain Comfort Level Allowing Patient to Fully Participate in Rehab Progression Toward Outcome/Goals Progressing Safety- Improve/Maintain Start: 10/16/18 22:27 Freq: QSHIFT Status: Active Target: Protocol: Activity Type Activity Date Activity User E-Sign Co-Sign Detail Recorded Client Recorded Date Recorded By Document 10/20/18 20:49 [id number] 10/20/18 20:49 [id number] 10/20/18 20:49 PMRU Outcome: Safety Outcome/Goals Remain Free of Injury or Harm Cooperates with Safety Measures for Least Restrictive Environment Prevent Falls/ Injury Progression Toward Outcome/Goals Progressing Outcome/Goals Met Comment BA armed Skin- Improve/Maintain Start: 10/16/18 22:27 Freq: QSHIFT Status: Active Target: Protocol: Activity Type Activity Date Activity User E-Sign Co-Sign Detail Recorded Client Recorded Date Recorded By Document 10/20/18 20:49 [id number] 10/20/18 20:49 [id number] 10/20/18 20:49 PMRU Outcome: Skin Skin Risk Level Medium Skin Orders Dressing Change Outcome/Goals Maintain/ Improve Skin Intergrity Surgical Incisions Healing Progression Toward Outcome/Goals Progressing Medicine Note: Length of Stay: 2 1/2 weeks Anticipated Discharge Destination: Home Tentative Discharge Date: 11/07/18 Discharged to: home
[2018-10-21] MEDS: Mometasone/Formoter 200/5 MDI INH SCH ×2 (14:39→20:54)
[2018-10-21] MEDS: Enoxaparin(*) 40 MG/0.4 ML SYR SUBCUT SCH (15:29)
[2018-10-21] MEDS: Atorvastatin* 40 MG TAB PO SCH (17:42)
[2018-10-21] MEDS: Magnesium Hydroxide LIQ* 30 ML UDC PO PRN (17:44)
--- NOTE | 2018-10-21 18:49 | PN ---
Progress Note Date of Service: 10/21/18 Note: USMAN Parjmit MANTILLA SR was visited. Therapy notes read and reviewed. He was discussed in interdisciplinary team rounds. He complains of burning with urination. Will check UA but he had a negative UA 4 days ago. He sometimes hops while walking with PT Current Medications: Active Medications Generic Name Dose Route Start Last Admin Trade Name Freq PRN Reason Stop Dose Admin Acetaminophen 650 mg 10/16/18 11:51 10/20/18 16:19 Tylenol Tab* PO 650 mg Q6H PRN Administration FEVER/PAIN Atorvastatin Calcium 40 mg 10/17/18 17:00 10/21/18 17:42 Lipitor* PO 40 mg 1700 FRANCHESCA Administration Cyanocobalamin 1,000 mcg 10/17/18 09:00 10/21/18 09:24 Vitamin B12 Tab* PO 1,000 mcg DAILY FRANCHESCA Administration Docusate Sodium 100 mg 10/16/18 21:00 10/21/18 09:25 Colace Cap* PO 100 mg BID FRANCHESCA Administration Enoxaparin Sodium 40 mg 10/16/18 16:00 10/21/18 15:29 Lovenox(*) SUBCUT 40 mg Q24H FRANCHESCA Administration Fludrocortisone Acetate 0.1 mg 10/17/18 09:00 10/21/18 10:38 Florinef Tab* PO 0.1 mg DAILY FRANCHESCA Administration Levothyroxine Sodium 150 mcg 10/17/18 06:00 10/21/18 05:56 Synthroid Tab* PO 150 mcg DAILY@0600 FRANCHESCA Administration Magnesium Hydroxide 30 ml 10/16/18 11:51 10/21/18 17:44 Milk Of Magnesia Liq* PO 30 ml Q6H PRN Administration CONSTIPATION Methocarbamol 750 mg 10/18/18 08:01 10/20/18 01:06 Robaxin Tab* PO 750 mg QID PRN Administration muscle spasm Mometasone Furoate/Formoterol Fumar 1 puff 10/16/18 21:00 10/21/18 14:39 Dulera 200/5 Mdi* INH 1 puff BID FRANCHESCA Administration Oxycodone/Acetaminophen 1 tab 10/16/18 12:14 10/21/18 14:44 Percocet 5/325 Tab* PO 1 tab Q4H PRN Administration PAIN - MODERATE TO SEVERE Phenobarbital 90 mg 10/16/18 21:00 01/15/19 09:25 Phenobarbital Tab(*) PO 60 mg BID FRANCHESCA Administration Phenytoin Sodium 200 mg 10/17/18 09:00 10/21/18 09:25 Dilantin Cap(*) PO 200 mg DAILY FRANCHESCA Administration Phenytoin Sodium 300 mg 10/16/18 18:00 10/21/18 17:42 Dilantin Cap(*) PO 300 mg 1800 FRANCHESCA Administration Senna 2 tab 10/16/18 11:51 10/20/18 21:05 Senokot Tab* PO 2 tab BEDTIME PRN Administration CONSTIPATION Sertraline HCl 50 mg 10/17/18 09:00 10/21/18 09:25 Zoloft* PO 50 mg DAILY FRANCHESCA Administration Vital Signs: Vital Signs Temp Pulse Resp BP Pulse Ox 98.0 F 76 18 122/61 97 10/21/18 15:30 10/21/18 15:54 10/21/18 15:30 10/21/18 15:30 10/21/18 16:34 Exam: GENERAL: no acute distress. alert and appropriate. Oriented to self and place and situation. LUNGS: clear to auscultation bilaterally. HEART: irregular ABDOMEN: + bowel sounds, soft, non-tender, non-distended EXTREMITIES: some left leg edema. No calf pain. Negative Homans. SKIN: extensive ecchymosis in left leg. NEUROLOGIC: LE motor 5/5 bilaterally except pain limited left hip and knee. Sensation intact. Assessment/Plan: 78yo man with left hip fracture s/p ORIF 1. Left Hip fracture: f/u Dr. Cherry. PT/OT. WBAT. Pain meds as needed. Methocarbamol prn. 2. Seizure d/o: continue phenobarbitol and dilantin. Seizure precautions. 3. Acute post-op anemia: H/H is stable. Routine monitoring. 4. Impaired cognition: speech therapy. 5. Edentulous: mechanical soft diet with extra sauces and gravies. 6. Orthostatic hypotension: florinef 7. COPD: dulera 8. Hypothyroidism: levothyroxine 9. Depression: zoloft 10. DVT ppx: lovenox. May need to do self teaching prior to d/c. 11. Advance Directives: Full code. HCP is his girlfriend, [place]. 12. Estimated LOS: 11/07/18 10/21/18 18:50
[2018-10-21] MEDS: Methocarbamol TAB* 500 MG PO PRN (19:15)
[2018-10-21] MEDS: Senna TAB PO PRN (20:52)
[2018-10-21 20:59] LABS: Urine Appearance Clear; Urine Bilirubin Negative (Negative); Urine Blood Negative (Negative); Urine Color Yellow; Urine Glucose 1+(50 mg/dL) (Negative); Urine Ketones Negative (Negative); Urine Nitrite Negative (Negative); Urine Protein Negative (Negative); Urine Specific Gravity 1.013 (1.010-1.030); Urine Urobilinogen Negative (Negative)
[2018-10-22] MEDS: Methocarbamol TAB* 500 MG PO PRN (02:07)
[2018-10-22] MEDS: Levothyroxine TAB* 150 MCG TAB PO SCH (06:24)
[2018-10-22] MEDS: Acetaminophen TAB* 325 MG PO PRN ×2 (06:24→17:11)
[2018-10-22] MEDS: Sertraline* 50 MG TAB PO SCH (07:40)
[2018-10-22] MEDS: Fludrocortisone Acetate TAB* 0.1 MG PO SCH (07:40)
[2018-10-22] MEDS: Cyanocobalamin TAB* 500 MCG PO SCH (07:41)
[2018-10-22] MEDS: PHENobarbital TAB(*) 30 MG PO SCH ×2 (07:41→21:02)
[2018-10-22] MEDS: Docusate CAP* 100 MG PO SCH ×2 (07:42→21:03)
[2018-10-22] MEDS: Phenytoin CAP(*) 100 MG CAP.ER PO SCH ×2 (07:42→17:12)
[2018-10-22] MEDS: Mometasone/Formoter 200/5 MDI INH SCH ×2 (07:45→21:04)
[2018-10-22] MEDS: oxyCODONE/Acetamin 5/325 MG* TAB PO PRN ×2 (10:07→22:14)
[2018-10-22] MEDS: Enoxaparin(*) 40 MG/0.4 ML SYR SUBCUT SCH (17:06)
[2018-10-22] MEDS: Atorvastatin* 40 MG TAB PO SCH (17:08)
--- NOTE | 2018-10-22 17:53 | PN ---
Progress Note Date of Service: 10/22/18 Note: USMAN Parmjit MANTILLA was visited. Therapy notes read and reviewed. He is constipated and has not had a BM since October 16. I ordered a dose of Lactulose which has made him very nauseated. Current Medications: Active Medications Generic Name Dose Route Start Last Admin Trade Name Freq PRN Reason Stop Dose Admin Acetaminophen 650 mg 10/16/18 11:51 10/22/18 17:11 Tylenol Tab* PO 650 mg Q6H PRN Administration FEVER/PAIN Atorvastatin Calcium 40 mg 10/17/18 17:00 10/22/18 17:08 Lipitor* PO 40 mg 1700 FRANCHESCA Administration Cyanocobalamin 1,000 mcg 10/17/18 09:00 10/22/18 07:41 Vitamin B12 Tab* PO 1,000 mcg DAILY FRANCHESCA Administration Docusate Sodium 100 mg 10/16/18 21:00 10/22/18 07:42 Colace Cap* PO 100 mg BID FRANCHESCA Administration Enoxaparin Sodium 40 mg 10/16/18 16:00 10/22/18 17:06 Lovenox(*) SUBCUT 40 mg Q24H FRANCHESCA Administration Fludrocortisone Acetate 0.1 mg 10/17/18 09:00 10/22/18 07:40 Florinef Tab* PO 0.1 mg DAILY FRANCHESCA Administration Levothyroxine Sodium 150 mcg 10/17/18 06:00 10/22/18 06:24 Synthroid Tab* PO 150 mcg DAILY@0600 FRANCHESCA Administration Magnesium Hydroxide 30 ml 10/16/18 11:51 10/21/18 17:44 Milk Of Magnesia Liq* PO 30 ml Q6H PRN Administration CONSTIPATION Methocarbamol 750 mg 10/18/18 08:01 10/22/18 02:07 Robaxin Tab* PO 750 mg QID PRN Administration muscle spasm Mometasone Furoate/Formoterol Fumar 1 puff 10/16/18 21:00 10/22/18 07:45 Dulera 200/5 Mdi* INH 1 puff BID FRANCHESCA Administration Oxycodone/Acetaminophen 1 tab 10/16/18 12:14 10/22/18 10:07 Percocet 5/325 Tab* PO 1 tab Q4H PRN Administration PAIN - MODERATE TO SEVERE Phenobarbital 90 mg 10/16/18 21:00 10/22/18 07:41 Phenobarbital Tab(*) PO 90 mg BID FRANCHESCA Administration Phenytoin Sodium 200 mg 10/17/18 09:00 10/22/18 07:42 Dilantin Cap(*) PO 200 mg DAILY FRANCHESCA Administration Phenytoin Sodium 300 mg 10/16/18 18:00 10/22/18 17:12 Dilantin Cap(*) PO 300 mg 1800 FRANCHESCA Administration Senna 2 tab 10/22/18 21:00 Senokot Tab* PO BEDTIME FRANCHESCA Sertraline HCl 50 mg 10/17/18 09:00 10/22/18 07:40 Zoloft* PO 50 mg DAILY FRANCHESCA Administration Vital Signs: Vital Signs Temp Pulse Resp BP Pulse Ox 97.7 F 70 24 124/60 95 10/22/18 15:11 10/22/18 15:11 10/22/18 15:11 10/22/18 15:11 10/22/18 15:11 Lab Results: Laboratory Results - last 24 hr 10/21/18 20:45 Urine Color Yellow Urine Appearance Clear Urine pH 7.0 Ur Specific [place] 1.013 Urine Protein Negative Urine Ketones Negative Urine Blood Negative Urine Nitrate Negative Urine Bilirubin Negative Urine Urobilinogen Negative Ur Leukocyte Esterase Negative Urine Glucose 1+(50 mg/dl) A Exam: GENERAL: no acute distress. alert and appropriate. Oriented to self and place and situation. LUNGS: clear to auscultation bilaterally. HEART: irregular ABDOMEN: + bowel sounds, soft, non-tender, non-distended EXTREMITIES: some left leg edema. No calf pain. Negative Homans. SKIN: extensive ecchymosis in left leg. NEUROLOGIC: LE motor 5/5 bilaterally except pain limited left hip and knee. Sensation intact. Assessment/Plan: 78yo man with left hip fracture s/p ORIF 1. Left Hip fracture: f/u Dr. Cherry. PT/OT. WBAT. Pain meds as needed. Methocarbamol prn. 2. Seizure d/o: continue phenobarbitol and dilantin. Seizure precautions. 3. Acute post-op anemia: H/H is stable. Routine monitoring. 4. Impaired cognition: speech therapy. 5. Edentulous: mechanical soft diet with extra sauces and gravies. 6. Orthostatic hypotension: florinef 7. COPD: dulera 8. Hypothyroidism: levothyroxine 9. Depression: zoloft 10. DVT ppx: lovenox. May need to do self teaching prior to d/c. 11. Constipation: Colace/Senokot. Received Lactulose 12. Advance Directives: Full code. HCP is his girlfriend[place]. 13. Estimated LOS: 11/07/18 10/22/18 17:53
[2018-10-22] MEDS: Senna TAB PO SCH (21:04)
[2018-10-23] MEDS: Levothyroxine TAB* 150 MCG TAB PO SCH (05:23)
[2018-10-23] MEDS: Methocarbamol TAB* 500 MG PO PRN ×2 (05:23→23:40)
[2018-10-23] MEDS: Docusate CAP* 100 MG PO SCH ×2 (07:44→22:08)
[2018-10-23] MEDS: Cyanocobalamin TAB* 500 MCG PO SCH (07:44)
[2018-10-23] MEDS: Phenytoin CAP(*) 100 MG CAP.ER PO SCH ×2 (07:44→18:19)
[2018-10-23] MEDS: Fludrocortisone Acetate TAB* 0.1 MG PO SCH (07:44)
[2018-10-23] MEDS: Sertraline* 50 MG TAB PO SCH (07:44)
[2018-10-23] MEDS: Acetaminophen TAB* 325 MG PO PRN (07:44)
[2018-10-23] MEDS: PHENobarbital TAB(*) 30 MG PO SCH ×2 (07:44→22:08)
[2018-10-23] MEDS: oxyCODONE/Acetamin 5/325 MG* TAB PO PRN ×3 (08:59→23:41)
[2018-10-23] MEDS: Mometasone/Formoter 200/5 MDI INH SCH ×2 (09:17→22:07)
--- NOTE | 2018-10-23 10:30 | PN ---
Progress Note Date of Service: 10/23/18 Note: USMAN Parmjit MANTILLA SR was visited. Therapy notes read and reviewed. Complains of sore throat and right elbow pain. He says he is having trouble swallowing. Still constipated Current Medications: Active Medications Generic Name Dose Route Start Last Admin Trade Name Freq PRN Reason Stop Dose Admin Acetaminophen 650 mg 10/16/18 11:51 10/23/18 07:44 Tylenol Tab* PO 650 mg Q6H PRN Administration FEVER/PAIN Atorvastatin Calcium 40 mg 10/17/18 17:00 10/22/18 17:08 Lipitor* PO 40 mg 1700 FRANCHESCA Administration Cyanocobalamin 1,000 mcg 10/17/18 09:00 10/23/18 07:44 Vitamin B12 Tab* PO 1,000 mcg DAILY FRANCHESCA Administration Docusate Sodium 100 mg 10/16/18 21:00 10/23/18 07:44 Colace Cap* PO 100 mg BID FRANCHESCA Administration Enoxaparin Sodium 40 mg 10/16/18 16:00 10/22/18 17:06 Lovenox(*) SUBCUT 40 mg Q24H FRANCHESCA Administration Fludrocortisone Acetate 0.1 mg 10/17/18 09:00 10/23/18 07:44 Florinef Tab* PO 0.1 mg DAILY FRANCHESCA Administration Levothyroxine Sodium 150 mcg 10/17/18 06:00 10/23/18 05:23 Synthroid Tab* PO 150 mcg DAILY@0600 FRANCHESCA Administration Magnesium Hydroxide 30 ml 10/16/18 11:51 10/21/18 17:44 Milk Of Magnesia Liq* PO 30 ml Q6H PRN Administration CONSTIPATION Methocarbamol 750 mg 10/18/18 08:01 10/23/18 05:23 Robaxin Tab* PO 750 mg QID PRN Administration muscle spasm Mometasone Furoate/Formoterol Fumar 1 puff 10/16/18 21:00 10/23/18 09:17 Dulera 200/5 Mdi* INH 1 puff BID FRANCHESCA Administration Oxycodone/Acetaminophen 1 tab 10/16/18 12:14 10/23/18 08:59 Percocet 5/325 Tab* PO 1 tab Q4H PRN Administration PAIN - MODERATE TO SEVERE Phenobarbital 90 mg 10/16/18 21:00 10/23/18 07:44 Phenobarbital Tab(*) PO 90 mg BID FRANCHESCA Administration Phenytoin Sodium 200 mg 10/17/18 09:00 10/23/18 07:44 Dilantin Cap(*) PO 200 mg DAILY FRANCHESCA Administration Phenytoin Sodium 300 mg 10/16/18 18:00 10/22/18 17:12 Dilantin Cap(*) PO 300 mg 1800 FRANCHESCA Administration Senna 2 tab 10/22/18 21:00 10/22/18 21:04 Senokot Tab* PO 2 tab BEDTIME FRANCHESCA Administration Sertraline HCl 50 mg 10/17/18 09:00 10/23/18 07:44 Zoloft* PO 50 mg DAILY FRANCHESCA Administration Vital Signs: Vital Signs Temp Pulse Resp BP Pulse Ox 97.9 F 98 18 129/54 99 10/23/18 05:16 10/23/18 09:19 10/23/18 09:19 10/23/18 05:16 10/23/18 09:19 Exam: GENERAL: no acute distress. alert and appropriate. Oriented to self and place and situation. HEENT: Throat examined. Not injected. No thrush LUNGS: clear to auscultation bilaterally. HEART: irregular ABDOMEN: + bowel sounds, soft, non-tender, non-distended EXTREMITIES: some left leg edema. Right elbow: No erythema, good ROM SKIN: extensive ecchymosis in left leg. NEUROLOGIC: LE motor 5/5 bilaterally except pain limited left hip and knee. Sensation intact. Assessment/Plan: 78yo man with left hip fracture s/p ORIF 1. Left Hip fracture: f/u Dr. Cherry. PT/OT. WBAT. Pain meds as needed. Methocarbamol prn. 2. Seizure d/o: continue phenobarbitol and dilantin. Seizure precautions. 3. Acute post-op anemia: H/H is stable. Routine monitoring. 4. Impaired cognition: speech therapy. 5. Edentulous: mechanical soft diet with extra sauces and gravies. 6. Orthostatic hypotension: florinef 7. COPD: dulera 8. Hypothyroidism: levothyroxine 9. Depression: zoloft 10. DVT ppx: lovenox. May need to do self teaching prior to d/c. 11. Constipation: Colace/Senokot. Received Lactulose, will repeat 12. Advance Directives: Full code. HCP is his girlfriend, [place]. 13. Estimated LOS: 11/07/18 10/23/18 10:32
[2018-10-23] MEDS: Bisacodyl SUPP* 10 MG SUPP PR PRN (15:44)
[2018-10-23] MEDS: Enoxaparin(*) 40 MG/0.4 ML SYR SUBCUT SCH (15:44)
[2018-10-23] MEDS: Atorvastatin* 40 MG TAB PO SCH (18:19)
[2018-10-23] MEDS: Sodium Phosphate ADULT ENEMA* 118 ml bottle PR PRN (19:35)
[2018-10-23] MEDS: Senna TAB PO SCH (22:09)
[2018-10-24] MEDS: oxyCODONE/Acetamin 5/325 MG* TAB PO PRN ×4 (03:50→18:20)
[2018-10-24] MEDS: Levothyroxine TAB* 150 MCG TAB PO SCH (05:40)
[2018-10-24] MEDS: Methocarbamol TAB* 500 MG PO PRN ×3 (05:50→20:08)
[2018-10-24 06:56] LABS: ABS Basophils 0.1 10^3/ul (0-0.2); ABS Eosinophils 0.6 10^3/ul (0-0.6); ABS Lymphocytes 1.2 10^3/ul (1.0-4.8); ABS Neutrophils 9.2 10^3/ul (1.5-7.7); ABS Nucleated RBC 0 10^3/ul; Eosinophil % 4.6 %; Hematocrit 30 % (42-52); Hemoglobin 10.2 g/dl (14.0-18.0); Lymphocyte % 10.3 %; Mean Corpuscular HGB Conc 34 g/dl (31-36); Mean Corpuscular Hemoglobin 33 pg (27-31); Mean Corpuscular Volume 98 fL (80-94); Mean Platelet Volume 7.5 fL (7.4-10.4); Nucleated Red Blood Cells % 0; Platelet Count 455 10^3/ul (150-450); Red Blood Count 3.11 10^6/ul (4.00-5.40); Red Cell Distribution Width 19 % (10.5-15)
[2018-10-24 07:13] LABS: Albumin 3.4 g/dL (3.2-5.2); BUN/Creatinine Ratio 20.3 (8-20); Calcium 8.5 mg/dL (8.6-10.3); EGFR African American 123.8 (>60); EGFR Non-African American 102.3 (>60); Globulin 3.4 g/dL (2-4); Potassium 4.3 mmol/L (3.5-5.0); Total Bilirubin 0.6 mg/dL (0.2-1.0); Total Protein 6.8 g/dL (6.4-8.9)
[2018-10-24] MEDS: Sertraline* 50 MG TAB PO SCH (08:44)
[2018-10-24] MEDS: Docusate CAP* 100 MG PO SCH ×2 (08:44→20:08)
[2018-10-24] MEDS: Cyanocobalamin TAB* 500 MCG PO SCH (08:44)
[2018-10-24] MEDS: Fludrocortisone Acetate TAB* 0.1 MG PO SCH (08:44)
[2018-10-24] MEDS: Phenytoin CAP(*) 100 MG CAP.ER PO SCH ×2 (08:44→16:51)
[2018-10-24] MEDS: PHENobarbital TAB(*) 30 MG PO SCH ×2 (08:50→20:08)
[2018-10-24] MEDS: Acetaminophen TAB* 325 MG PO PRN (09:43)
[2018-10-24] MEDS: Mometasone/Formoter 200/5 MDI INH SCH ×2 (11:31→20:07)
--- NOTE | 2018-10-24 15:18 | PN ---
Progress Note Date of Service: 10/24/18 Note: USMAN Parmjit MANTILLA was visited. Therapy notes read and reviewed. He complains of fatigue but he has improved a good deal since his arrival Current Medications: Active Medications Generic Name Dose Route Start Last Admin Trade Name Freq PRN Reason Stop Dose Admin Acetaminophen 650 mg 10/16/18 11:51 10/24/18 09:43 Tylenol Tab* PO 650 mg Q6H PRN Administration FEVER/PAIN Atorvastatin Calcium 40 mg 10/17/18 17:00 10/23/18 18:19 Lipitor* PO 40 mg 1700 FRANCHESCA Administration Bisacodyl 10 mg 10/23/18 14:29 10/23/18 15:44 Dulcolax Supp* DE 10 mg DAILY PRN Administration CONSTIPATION Cyanocobalamin 1,000 mcg 10/17/18 09:00 10/24/18 08:44 Vitamin B12 Tab* PO 1,000 mcg DAILY FRANCHESCA Administration Docusate Sodium 100 mg 10/16/18 21:00 10/24/18 08:44 Colace Cap* PO 100 mg BID FRANCHESCA Administration Enoxaparin Sodium 40 mg 10/16/18 16:00 10/23/18 15:44 Lovenox(*) SUBCUT 40 mg Q24H FRANCHESCA Administration Fludrocortisone Acetate 0.1 mg 10/17/18 09:00 10/24/18 08:44 Florinef Tab* PO 0.1 mg DAILY FRANCHESCA Administration Levothyroxine Sodium 150 mcg 10/17/18 06:00 10/24/18 05:40 Synthroid Tab* PO 150 mcg DAILY@0600 FRANCHESCA Administration Magnesium Hydroxide 30 ml 10/16/18 11:51 10/21/18 17:44 Milk Of Magnesia Liq* PO 30 ml Q6H PRN Administration CONSTIPATION Methocarbamol 750 mg 10/18/18 08:01 10/24/18 12:48 Robaxin Tab* PO 750 mg QID PRN Administration muscle spasm Mometasone Furoate/Formoterol Fumar 1 puff 10/16/18 21:00 10/24/18 11:31 Dulera 200/5 Mdi* INH 1 puff BID FRANCHESCA Administration Oxycodone/Acetaminophen 1 tab 10/16/18 12:14 10/24/18 14:09 Percocet 5/325 Tab* PO 1 tab Q4H PRN Administration PAIN - MODERATE TO SEVERE Phenobarbital 90 mg 10/16/18 21:00 10/24/18 08:50 Phenobarbital Tab(*) PO 90 mg BID FRANCHESCA Administration Phenytoin Sodium 200 mg 10/17/18 09:00 10/24/18 08:44 Dilantin Cap(*) PO 200 mg DAILY FRANCHESCA Administration Phenytoin Sodium 300 mg 10/16/18 18:00 10/23/18 18:19 Dilantin Cap(*) PO 300 mg 1800 FRANCHESCA Administration Senna 2 tab 10/22/18 21:00 10/23/18 22:09 Senokot Tab* PO 2 tab BEDTIME FRANCHESCA Administration Sertraline HCl 50 mg 10/17/18 09:00 10/24/18 08:44 Zoloft* PO 50 mg DAILY FRANCHESCA Administration Sodium Biphosphate/Sodium Phosphate 1 bottle 10/23/18 16:37 10/23/18 19:35 Fleet Enema* DE 1 bottle DAILY PRN Administration CONSTIPATION Vital Signs: Vital Signs Temp Pulse Resp BP Pulse Ox 97.9 F 31 16 120/52 93 10/24/18 05:35 10/24/18 05:35 10/24/18 14:58 10/24/18 05:35 10/24/18 08:00 Lab Results: Laboratory Results - last 24 hr 10/24/18 10/24/18 06:31 06:31 WBC 12.0 H RBC 3.11 L Hgb 10.2 L Hct 30 L MCV 98 H MCH 33 H MCHC 34 RDW 19 H Plt Count 455 H D MPV 7.5 Neut % (Auto) 76.1 Lymph % (Auto) 10.3 [place] % (Auto) 8.5 Eos % (Auto) 4.6 Baso % (Auto) 0.5 Absolute Neuts (auto) 9.2 H Absolute Lymphs (auto) 1.2 Absolute Monos (auto) 1.0 H Absolute Eos (auto) 0.6 Absolute Basos (auto) 0.1 Absolute Nucleated RBC 0 Nucleated RBC % 0 Sodium 132 L Potassium 4.3 Chloride 99 L Carbon Dioxide 28 Anion Gap 5 BUN 15 Creatinine 0.74 Est GFR ( Amer) 123.8 Est GFR (Non-Af Amer) 102.3 BUN/Creatinine Ratio 20.3 H Glucose 116 H Calcium 8.5 L Total Bilirubin 0.60 AST 26 ALT 34 Alkaline Phosphatase 292 H Total Protein 6.8 Albumin 3.4 Globulin 3.4 Albumin/Globulin Ratio 1.0 Exam: GENERAL: no acute distress. alert and appropriate. Oriented to self and place and situation. LUNGS: clear to auscultation bilaterally. HEART: irregular ABDOMEN: + bowel sounds, soft, non-tender, non-distended EXTREMITIES: some left leg edema. Right elbow: No erythema, good ROM SKIN: extensive ecchymosis in left leg. NEUROLOGIC: LE motor 5/5 bilaterally except pain limited left hip and knee. Sensation intact. Assessment/Plan: 78yo man with left hip fracture s/p ORIF 1. Left Hip fracture: f/u Dr. Cherry. PT/OT. WBAT. Pain meds as needed. Methocarbamol prn. 2. Seizure d/o: continue phenobarbitol and dilantin. Seizure precautions. 3. Acute post-op anemia: H/H is stable. Routine monitoring. 4. Impaired cognition: speech therapy. 5. Edentulous: mechanical soft diet with extra sauces and gravies. 6. Orthostatic hypotension: florinef 7. COPD: dulera 8. Hypothyroidism: levothyroxine 9. Depression: zoloft 10. DVT ppx: lovenox. May need to do self teaching prior to d/c. 11. Constipation: Had BM 12. Advance Directives: Full code. HCP is his girlfriend, [place]. 13. Estimated LOS: 11/07/18 10/24/18 15:18
[2018-10-24] MEDS: Enoxaparin(*) 40 MG/0.4 ML SYR SUBCUT SCH (16:50)
[2018-10-24] MEDS: Atorvastatin* 40 MG TAB PO SCH (16:51)
[2018-10-24] MEDS: Senna TAB PO SCH (20:08)
[2018-10-25] MEDS: oxyCODONE/Acetamin 5/325 MG* TAB PO PRN ×4 (01:26→20:17)
[2018-10-25] MEDS: Methocarbamol TAB* 500 MG PO PRN ×3 (03:38→23:34)
[2018-10-25] MEDS: Levothyroxine TAB* 150 MCG TAB PO SCH (05:35)
[2018-10-25] MEDS: Acetaminophen TAB* 325 MG PO PRN ×2 (08:14→17:13)
[2018-10-25] MEDS: Phenytoin CAP(*) 100 MG CAP.ER PO SCH ×2 (08:16→18:06)
[2018-10-25] MEDS: Fludrocortisone Acetate TAB* 0.1 MG PO SCH (08:16)
[2018-10-25] MEDS: Sertraline* 50 MG TAB PO SCH (08:16)
[2018-10-25] MEDS: Cyanocobalamin TAB* 500 MCG PO SCH (08:16)
[2018-10-25] MEDS: PHENobarbital TAB(*) 30 MG PO SCH ×2 (08:16→20:17)
[2018-10-25] MEDS: Docusate CAP* 100 MG PO SCH ×2 (08:17→20:16)
[2018-10-25] MEDS: Mometasone/Formoter 200/5 MDI INH SCH ×2 (10:26→20:24)
[2018-10-25] MEDS ORDERED: Nitroglycerin TAB 0.4 MG* 0.4 MG TAB PO ONE (10:50)
--- NOTE | 2018-10-25 15:11 | PN ---
Progress Note Date of Service: 10/25/18 Note: USMAN Parmjit MANTILLA SR was visited. Therapy notes read and reviewed. He complained of left sided chest pain earlier today. A stat troponin was negative. EKG did not show any changes. He took NTG which did not relieve his CP but he did get a headache. CXR shows possible right atelectasis vs infiltrate. He had a elevated WBC. Will start Levaquin 500mg daily. He also appears to have thrush, with continued sore throat. Will order Nystatin S&S Current Medications: Active Medications Generic Name Dose Route Start Last Admin Trade Name Freq PRN Reason Stop Dose Admin Acetaminophen 650 mg 10/16/18 11:51 10/25/18 08:14 Tylenol Tab* PO 650 mg Q6H PRN Administration FEVER/PAIN Atorvastatin Calcium 40 mg 10/17/18 17:00 10/24/18 16:51 Lipitor* PO 40 mg 1700 FRANCHESCA Administration Bisacodyl 10 mg 10/23/18 14:29 10/23/18 15:44 Dulcolax Supp* [place] 10 mg DAILY PRN Administration CONSTIPATION Cyanocobalamin 1,000 mcg 10/17/18 09:00 10/25/18 08:16 Vitamin B12 Tab* PO 1,000 mcg DAILY FRANCHESCA Administration Docusate Sodium 100 mg 10/16/18 21:00 10/25/18 08:17 Colace Cap* PO 100 mg BID FRANCHESCA Administration Enoxaparin Sodium 40 mg 10/16/18 16:00 10/24/18 16:50 Lovenox(*) SUBCUT 40 mg Q24H FRANCHESCA Administration Fludrocortisone Acetate 0.1 mg 10/17/18 09:00 10/25/18 08:16 Florinef Tab* PO 0.1 mg DAILY FRANCHESCA Administration Levothyroxine Sodium 150 mcg 10/17/18 06:00 10/25/18 05:35 Synthroid Tab* PO 150 mcg DAILY@0600 FRANCHESCA Administration Magnesium Hydroxide 30 ml 10/16/18 11:51 10/21/18 17:44 Milk Of Magnesia Liq* PO 30 ml Q6H PRN Administration CONSTIPATION Methocarbamol 750 mg 10/18/18 08:01 10/25/18 08:48 Robaxin Tab* PO 750 mg QID PRN Administration muscle spasm Mometasone Furoate/Formoterol Fumar 1 puff 10/16/18 21:00 10/25/18 10:26 Dulera 200/5 Mdi* INH Not Given BID FRANCHESCA Nystatin 500,000 units 10/25/18 17:00 Nystatin Suspension* PO 11/01/18 14:01 QID FRANCHESCA Ondansetron HCl 4 mg 10/24/18 17:43 Zofran Odt Tab* PO Q8H PRN NAUSEA/VOMITING Oxycodone/Acetaminophen 1 tab 10/16/18 12:14 10/25/18 11:34 Percocet 5/325 Tab* PO 1 tab Q4H PRN Administration PAIN - MODERATE TO SEVERE Phenobarbital 90 mg 10/16/18 21:00 10/25/18 08:16 Phenobarbital Tab(*) PO 90 mg BID FRANCHESCA Administration Phenytoin Sodium 200 mg 10/17/18 09:00 10/25/18 08:16 Dilantin Cap(*) PO 200 mg DAILY FRANCHESCA Administration Phenytoin Sodium 300 mg 10/16/18 18:00 10/24/18 16:51 Dilantin Cap(*) PO 300 mg 1800 FRANCHESCA Administration Polyethylene Glycol/Electrolytes 17 gm 10/26/18 09:00 Miralax* PO DAILY FRANCHESCA Senna 2 tab 10/22/18 21:00 10/24/18 20:08 Senokot Tab* PO 2 tab BEDTIME FRANCHESCA Administration Sertraline HCl 50 mg 10/17/18 09:00 10/25/18 08:16 Zoloft* PO 50 mg DAILY FRANCHESCA Administration Sodium Biphosphate/Sodium Phosphate 1 bottle 10/23/18 16:37 10/23/18 19:35 Fleet Enema* [place] 1 bottle DAILY PRN Administration CONSTIPATION Vital Signs: Vital Signs Temp Pulse Resp BP Pulse Ox 97.6 F 63 19 118/67 92 10/25/18 09:56 10/25/18 09:56 10/25/18 13:53 10/25/18 09:56 10/25/18 09:56 Lab Results: Laboratory Results - last 24 hr 10/25/18 10:15 Troponin I 0.01 Exam: GENERAL: no acute distress. alert and appropriate. Oriented to self and place and situation. HEENT: Throat examined. Thrush with some erythema LUNGS: clear to auscultation bilaterally. HEART: irregular ABDOMEN: + bowel sounds, soft, non-tender, non-distended EXTREMITIES: some left leg edema. Right elbow: No erythema, good ROM SKIN: extensive ecchymosis in left leg. NEUROLOGIC: LE motor 5/5 bilaterally except pain limited left hip and knee. Sensation intact. Assessment/Plan: 78yo man with left hip fracture s/p ORIF 1. Left Hip fracture: f/u Dr. Cherry. PT/OT. WBAT. Pain meds as needed. Methocarbamol prn. 2. Seizure d/o: continue phenobarbitol and dilantin. Seizure precautions. 3. CP/Possible pneumonia: Start Levaquin. CBC in am 4. Impaired cognition: speech therapy. 5. Edentulous: mechanical soft diet with extra sauces and gravies. 6. Orthostatic hypotension: florinef 7. COPD: dulera 8. Hypothyroidism: levothyroxine 9. Depression: zoloft 10. DVT ppx: lovenox. May need to do self teaching prior to d/c. 11. Constipation: Had BM 12. Advance Directives: Full code. HCP is his girlfriend, [place]. 13. Thrush: Nystatin S&S 10/25/18 15:12 10/25/18 15:13
[2018-10-25] MEDS ORDERED: Levofloxacin TAB* 500 MG PO SCH (16:00)
[2018-10-25] MEDS: Atorvastatin* 40 MG TAB PO SCH (16:32)
[2018-10-25] MEDS: Enoxaparin(*) 40 MG/0.4 ML SYR SUBCUT SCH (16:36)
[2018-10-25] MEDS: Nystatin SUSPENSION* 100000 UNITS/ML 5 ML UDC PO SCH ×2 (16:38→20:22)
[2018-10-25] MEDS: Senna TAB PO SCH (20:16)
[2018-10-26] MEDS: oxyCODONE/Acetamin 5/325 MG* TAB PO PRN ×4 (02:34→19:38)
[2018-10-26] MEDS: Levothyroxine TAB* 150 MCG TAB PO SCH (04:09)
[2018-10-26] MEDS: Acetaminophen TAB* 325 MG PO PRN ×3 (04:09→22:19)
[2018-10-26] MEDS ORDERED: Al Hydrox/Mg Hydrox/Simet LIQ* 30 ML UDC PO PRN (05:17)
[2018-10-26 05:59] LABS: ABS Basophils 0.1 10^3/ul (0-0.2); ABS Eosinophils 0.5 10^3/ul (0-0.6); ABS Lymphocytes 1.1 10^3/ul (1.0-4.8); ABS Monocytes 1.1 10^3/ul (0-0.8); ABS Neutrophils 12.2 10^3/ul (1.5-7.7); ABS Nucleated RBC 0 10^3/ul; Eosinophil % 3.4 %; Hematocrit 30 % (42-52); Hemoglobin 10.1 g/dl (14.0-18.0); Lymphocyte % 7.6 %; Mean Corpuscular HGB Conc 34 g/dl (31-36); Mean Corpuscular Hemoglobin 33 pg (27-31); Mean Corpuscular Volume 97 fL (80-94); Nucleated Red Blood Cells % 0; Platelet Count 534 10^3/ul (150-450); Red Blood Count 3.06 10^6/ul (4.00-5.40); Red Cell Distribution Width 19 % (10.5-15)
[2018-10-26 06:12] LABS: Albumin 3.7 g/dL (3.2-5.2); Albumin/Globulin Ratio 1.1 (1-3); BUN/Creatinine Ratio 15.3 (8-20); Calcium 8.5 mg/dL (8.6-10.3); EGFR African American 105.5 (>60); EGFR Non-African American 87.2 (>60); Globulin 3.4 g/dL (2-4); Potassium 4.2 mmol/L (3.5-5.0); Total Bilirubin 0.6 mg/dL (0.2-1.0); Total Protein 7.1 g/dL (6.4-8.9)
[2018-10-26] MEDS: Mometasone/Formoter 200/5 MDI INH SCH ×2 (08:24→20:23)
[2018-10-26] MEDS: Nystatin SUSPENSION* 100000 UNITS/ML 5 ML UDC PO SCH ×4 (08:32→20:25)
[2018-10-26] MEDS: PHENobarbital TAB(*) 30 MG PO SCH ×2 (08:33→20:17)
[2018-10-26] MEDS: Cyanocobalamin TAB* 500 MCG PO SCH (08:34)
[2018-10-26] MEDS: Sertraline* 50 MG TAB PO SCH (08:35)
[2018-10-26] MEDS: Fludrocortisone Acetate TAB* 0.1 MG PO SCH (08:35)
[2018-10-26] MEDS: Phenytoin CAP(*) 100 MG CAP.ER PO SCH ×2 (08:37→17:00)
[2018-10-26] MEDS: Polyethylene Glycol 3350* 17 GM PACKET PO SCH (08:38)
[2018-10-26] MEDS: Docusate CAP* 100 MG PO SCH ×2 (08:38→20:17)
[2018-10-26] MEDS: Enoxaparin(*) 40 MG/0.4 ML SYR SUBCUT SCH (15:06)
--- NOTE | 2018-10-26 16:00 | PN ---
Progress Note Date of Service: 10/26/18 Note: USMAN Parmjit MANTILLA SR was visited. Nursing notes read and reviewed. He continues to report intermittent chest pain as well as hip pain. His WBC is rising to 15 K. I will change Levaquin to Augmentin. He still notes a sore throat. He remains tender to palpation over his left chest. Urine is dark. Coughing up a thick sputum. O2 Sats are 95% Current Medications: Active Medications Generic Name Dose Route Start Last Admin Trade Name Freq PRN Reason Stop Dose Admin Acetaminophen 650 mg 10/16/18 11:51 10/26/18 11:32 Tylenol Tab* PO 650 mg Q6H PRN Administration FEVER/PAIN Al Hydrox/Mg Hydrox/Simethicone 30 ml 10/26/18 05:17 10/26/18 05:34 Maalox Plus* PO 30 ml ONCE PRN Administration .ABDOMINAL DISCOMFORT Amoxicillin/Clavulanate Potassium 875 mg 10/26/18 21:00 Augmentin Tab* PO BID FRANCHESCA Atorvastatin Calcium 40 mg 10/17/18 17:00 10/25/18 16:32 Lipitor* PO 40 mg 1700 FRANCHESCA Administration Bisacodyl 10 mg 10/23/18 14:29 10/23/18 15:44 Dulcolax Supp* MD 10 mg DAILY PRN Administration CONSTIPATION Cyanocobalamin 1,000 mcg 10/17/18 09:00 10/26/18 08:34 Vitamin B12 Tab* PO 1,000 mcg DAILY FRANCHESCA Administration Docusate Sodium 100 mg 10/16/18 21:00 10/26/18 08:38 Colace Cap* PO Not Given BID FRANCHESCA Enoxaparin Sodium 40 mg 10/16/18 16:00 10/26/18 15:06 Lovenox(*) SUBCUT 40 mg Q24H FRANCHESCA Administration Fludrocortisone Acetate 0.1 mg 10/17/18 09:00 10/26/18 08:35 Florinef Tab* PO 0.1 mg DAILY FRANCHESCA Administration Dextrose/Sodium Chloride 1,000 mls @ 75 mls/hr 10/26/18 15:00 D5ns 0.9% 1000 Ml Bag* IV 10/28/18 04:19 PER RATE FRANCHESCA Levothyroxine Sodium 150 mcg 10/17/18 06:00 10/26/18 04:09 Synthroid Tab* PO 150 mcg DAILY@0600 FRANCHESCA Administration Magnesium Hydroxide 30 ml 10/16/18 11:51 10/21/18 17:44 Milk Of Magnesia Liq* PO 30 ml Q6H PRN Administration CONSTIPATION Methocarbamol 750 mg 10/18/18 08:01 10/25/18 23:34 Robaxin Tab* PO 750 mg QID PRN Administration muscle spasm Mometasone Furoate/Formoterol Fumar 1 puff 10/16/18 21:00 10/26/18 08:24 Dulera 200/5 Mdi* INH 1 puff BID FRANCHESCA Administration Nystatin 500,000 units 10/25/18 17:00 10/26/18 13:02 Nystatin Suspension* PO 11/01/18 14:01 500,000 units QID FRANCHESCA Administration Ondansetron HCl 4 mg 10/24/18 17:43 Zofran Odt Tab* PO Q8H PRN NAUSEA/VOMITING Oxycodone/Acetaminophen 1 tab 10/16/18 12:14 10/26/18 14:28 Percocet 5/325 Tab* PO 1 tab Q4H PRN Administration PAIN - MODERATE TO SEVERE Phenobarbital 90 mg 10/16/18 21:00 10/26/18 08:33 Phenobarbital Tab(*) PO 90 mg BID FRANCHESCA Administration Phenytoin Sodium 200 mg 10/17/18 09:00 10/26/18 08:37 Dilantin Cap(*) PO 200 mg DAILY FRANCHESCA Administration Phenytoin Sodium 300 mg 10/16/18 18:00 10/25/18 18:06 Dilantin Cap(*) PO 300 mg 1800 FRANCHESCA Administration Polyethylene Glycol/Electrolytes 17 gm 10/26/18 09:00 10/26/18 08:38 Miralax* PO Not Given DAILY FRANCHESCA Senna 2 tab 10/22/18 21:00 10/25/18 20:16 Senokot Tab* PO Not Given BEDTIME FRANCHESCA Sertraline HCl 50 mg 10/17/18 09:00 10/26/18 08:35 Zoloft* PO 50 mg DAILY FRANCHESCA Administration Sodium Biphosphate/Sodium Phosphate 1 bottle 10/23/18 16:37 10/23/18 19:35 Fleet Enema* MD 1 bottle DAILY PRN Administration CONSTIPATION Vital Signs: Vital Signs Temp Pulse Resp BP Pulse Ox 98.3 F 71 19 122/54 91 10/26/18 05:06 10/26/18 08:24 10/26/18 14:28 10/26/18 05:06 10/26/18 08:24 Lab Results: Laboratory Results - last 24 hr 10/25/18 10/26/18 10/26/18 16:51 05:42 05:42 WBC 15.0 H RBC 3.06 L Hgb 10.1 L Hct 30 L MCV 97 H MCH 33 H MCHC 34 RDW 19 H Plt Count 534 H D MPV 7.0 L Neut % (Auto) 81.1 Lymph % (Auto) 7.6 [place] % (Auto) 7.6 Eos % (Auto) 3.4 Baso % (Auto) 0.3 Absolute Neuts (auto) 12.2 H Absolute Lymphs (auto) 1.1 Absolute Monos (auto) 1.1 H Absolute Eos (auto) 0.5 Absolute Basos (auto) 0.1 Absolute Nucleated RBC 0 Nucleated RBC % 0 Sodium 130 L Potassium 4.2 Chloride 98 L Carbon Dioxide 26 Anion Gap 6 BUN 13 Creatinine 0.85 Est GFR ( Amer) 105.5 Est GFR (Non-Af Amer) 87.2 BUN/Creatinine Ratio 15.3 Glucose 124 H Calcium 8.5 L Total Bilirubin 0.60 AST 27 ALT 34 Alkaline Phosphatase 301 H Troponin I 0.02 Total Protein 7.1 Albumin 3.7 Globulin 3.4 Albumin/Globulin Ratio 1.1 Assessment/Plan: 78yo man with left hip fracture s/p ORIF 1. Left Hip fracture: f/u Dr. Cherry. PT/OT. WBAT. Pain meds as needed. Methocarbamol prn. 2. Seizure d/o: continue phenobarbitol and dilantin. Seizure precautions. 3. CP/Possible pneumonia: Change to Augmentin. CBC in am 4. Impaired cognition: speech therapy. 5. Edentulous: mechanical soft diet with extra sauces and gravies. 6. Orthostatic hypotension: florinef 7. COPD: dulera 8. Hypothyroidism: levothyroxine 9. Depression: zoloft 10. DVT ppx: lovenox. May need to do self teaching prior to d/c. 11. Constipation: Had BM 12. Advance Directives: Full code. HCP is his girlfriend, Clia. 13. Thrush: Nystatin S&S 10/26/18 16:02
[2018-10-26] MEDS: Atorvastatin* 40 MG TAB PO SCH (17:00)
[2018-10-26] MEDS: D5NS 0.9% 1000 ML BAG* 1,000 ML IV SCH (17:58)
[2018-10-26] MEDS: Amoxicillin/Clavulanate TAB* 875 MG PO SCH (20:16)
[2018-10-26] MEDS: Senna TAB PO SCH (20:17)
[2018-10-27] MEDS: oxyCODONE/Acetamin 5/325 MG* TAB PO PRN ×5 (01:13→19:23)
[2018-10-27] MEDS: Levothyroxine TAB* 150 MCG TAB PO SCH (05:22)
[2018-10-27 06:25] LABS: ABS Basophils 0 10^3/ul (0-0.2); ABS Eosinophils 0.4 10^3/ul (0-0.6); ABS Monocytes 1.1 10^3/ul (0-0.8); ABS Neutrophils 9.9 10^3/ul (1.5-7.7); ABS Nucleated RBC 0 10^3/ul; Eosinophil % 3.5 %; Hematocrit 31 % (42-52); Lymphocyte % 8.3 %; Mean Corpuscular HGB Conc 33 g/dl (31-36); Mean Corpuscular Hemoglobin 32 pg (27-31); Mean Corpuscular Volume 98 fL (80-94); Mean Platelet Volume 7.2 fL (7.4-10.4); Nucleated Red Blood Cells % 0; Platelet Count 502 10^3/ul (150-450); Red Blood Count 3.13 10^6/ul (4.00-5.40); Red Cell Distribution Width 20 % (10.5-15); White Blood Count 12.5 10^3/ul (3.5-10.8)
[2018-10-27] MEDS: D5NS 0.9% 1000 ML BAG* 1,000 ML IV SCH (07:12)
[2018-10-27] MEDS: Mometasone/Formoter 200/5 MDI INH SCH ×2 (09:05→21:04)
[2018-10-27] MEDS: Docusate CAP* 100 MG PO SCH ×2 (09:44→21:13)
[2018-10-27] MEDS: Phenytoin CAP(*) 100 MG CAP.ER PO SCH ×2 (09:45→19:00)
[2018-10-27] MEDS: Amoxicillin/Clavulanate TAB* 875 MG PO SCH ×2 (09:49→21:12)
[2018-10-27] MEDS: Methocarbamol TAB* 500 MG PO PRN ×2 (09:51→16:49)
[2018-10-27] MEDS: PHENobarbital TAB(*) 30 MG PO SCH ×2 (09:53→21:17)
[2018-10-27] MEDS: Cyanocobalamin TAB* 500 MCG PO SCH (09:53)
[2018-10-27] MEDS: Sertraline* 50 MG TAB PO SCH (09:53)
[2018-10-27] MEDS: Fludrocortisone Acetate TAB* 0.1 MG PO SCH (09:53)
[2018-10-27] MEDS: Nystatin SUSPENSION* 100000 UNITS/ML 5 ML UDC PO SCH ×4 (09:53→21:11)
[2018-10-27] MEDS: Polyethylene Glycol 3350* 17 GM PACKET PO SCH (09:57)
[2018-10-27] MEDS ORDERED: Pantoprazole TAB * 40 MG TAB PO ONE (12:40)
[2018-10-27] MEDS: Acetaminophen TAB* 325 MG PO PRN (15:17)
[2018-10-27] MEDS: Ondansetron ODT TAB* 4 MG PO PRN (16:32)
[2018-10-27] MEDS: Enoxaparin(*) 40 MG/0.4 ML SYR SUBCUT SCH (16:35)
[2018-10-27] MEDS: Atorvastatin* 40 MG TAB PO SCH (16:49)
--- NOTE | 2018-10-27 18:02 | PN ---
Progress Note Date of Service: 10/27/18 Note: USMAN MANTILLA SR was visited. Therapy notes read and reviewed. He was able to eat dinner tonight and thinks his throat is a little better. His WBC down a little bit today. Will check on Saturday Current Medications: Active Medications Generic Name Dose Route Start Last Admin Trade Name Freq PRN Reason Stop Dose Admin Acetaminophen 650 mg 10/16/18 11:51 10/27/18 15:17 Tylenol Tab* PO 650 mg Q6H PRN Administration FEVER/PAIN Al Hydrox/Mg Hydrox/Simethicone 30 ml 10/26/18 05:17 10/26/18 05:34 Maalox Plus* PO 30 ml ONCE PRN Administration .ABDOMINAL DISCOMFORT Amoxicillin/Clavulanate Potassium 875 mg 10/26/18 21:00 10/27/18 09:49 Augmentin Tab* PO 875 mg BID FRANCHESCA Administration Atorvastatin Calcium 40 mg 10/17/18 17:00 10/27/18 16:49 Lipitor* PO 40 mg 1700 FRANCHESCA Administration Bisacodyl 10 mg 10/23/18 14:29 10/23/18 15:44 Dulcolax Supp* [place] 10 mg DAILY PRN Administration CONSTIPATION Cyanocobalamin 1,000 mcg 10/17/18 09:00 10/27/18 09:53 Vitamin B12 Tab* PO 1,000 mcg DAILY FRANCHESCA Administration Docusate Sodium 100 mg 10/16/18 21:00 10/27/18 09:44 Colace Cap* PO 100 mg BID FRANCHESCA Administration Enoxaparin Sodium 40 mg 10/16/18 16:00 10/27/18 16:35 Lovenox(*) SUBCUT 40 mg Q24H FRANCHESCA Administration Fludrocortisone Acetate 0.1 mg 10/17/18 09:00 10/27/18 09:53 Florinef Tab* PO 0.1 mg DAILY FRANCHESCA Administration Dextrose/Sodium Chloride 1,000 mls @ 75 mls/hr 10/26/18 15:00 10/27/18 07:12 D5ns 0.9% 1000 Ml Bag* IV 10/28/18 04:19 75 mls/hr PER RATE FRANCHESCA Administration Levothyroxine Sodium 150 mcg 10/17/18 06:00 10/27/18 05:22 Synthroid Tab* PO 150 mcg DAILY@0600 FRANCHESCA Administration Magnesium Hydroxide 30 ml 10/16/18 11:51 10/21/18 17:44 Milk Of Magnesia Liq* PO 30 ml Q6H PRN Administration CONSTIPATION Methocarbamol 750 mg 10/18/18 08:01 10/27/18 16:49 Robaxin Tab* PO 750 mg QID PRN Administration muscle spasm Mometasone Furoate/Formoterol Fumar 1 puff 10/16/18 21:00 10/27/18 09:05 Dulera 200/5 Mdi* INH 1 puff BID FRANCHESCA Administration Nystatin 500,000 units 10/25/18 17:00 10/27/18 16:47 Nystatin Suspension* PO 11/01/18 14:01 500,000 units QID FRANCHESCA Administration Ondansetron HCl 4 mg 10/24/18 17:43 10/27/18 16:32 Zofran Odt Tab* PO 4 mg Q8H PRN Administration NAUSEA/VOMITING Oxycodone/Acetaminophen 1 tab 10/16/18 12:14 10/27/18 14:06 Percocet 5/325 Tab* PO 1 tab Q4H PRN Administration PAIN - MODERATE TO SEVERE Pantoprazole Sodium 40 mg 10/28/18 09:00 Protonix Tab* PO DAILY FRANCHESCA Phenobarbital 90 mg 10/16/18 21:00 10/27/18 09:53 Phenobarbital Tab(*) PO 90 mg BID FRANCHESCA Administration Phenytoin Sodium 200 mg 10/17/18 09:00 10/27/18 09:45 Dilantin Cap(*) PO 200 mg DAILY FRANCHESCA Administration Phenytoin Sodium 300 mg 10/16/18 18:00 10/26/18 17:00 Dilantin Cap(*) PO 300 mg 1800 FRANCHESCA Administration Polyethylene Glycol/Electrolytes 17 gm 10/26/18 09:00 10/27/18 09:57 Miralax* PO Not Given DAILY FRANCHESCA Senna 2 tab 10/22/18 21:00 10/26/18 20:17 Senokot Tab* PO 2 tab BEDTIME FRANCHESCA Administration Sertraline HCl 50 mg 10/17/18 09:00 10/27/18 09:53 Zoloft* PO 50 mg DAILY FRANCHESCA Administration Sodium Biphosphate/Sodium Phosphate 1 bottle 10/23/18 16:37 10/23/18 19:35 Fleet Enema* [place] 1 bottle DAILY PRN Administration CONSTIPATION Vital Signs: Vital Signs Temp Pulse Resp BP Pulse Ox 97.5 F 95 22 120/49 98 10/27/18 16:44 10/27/18 16:44 10/27/18 16:49 10/27/18 16:44 10/27/18 16:44 Lab Results: Laboratory Results - last 24 hr 10/27/18 06:02 WBC 12.5 H RBC 3.13 L Hgb 10.0 L Hct 31 L MCV 98 H MCH 32 H MCHC 33 RDW 20 H Plt Count 502 H MPV 7.2 L Neut % (Auto) 78.8 Lymph % (Auto) 8.3 [place] % (Auto) 9.1 Eos % (Auto) 3.5 Baso % (Auto) 0.3 Absolute Neuts (auto) 9.9 H Absolute Lymphs (auto) 1.0 Absolute Monos (auto) 1.1 H Absolute Eos (auto) 0.4 Absolute Basos (auto) 0 Absolute Nucleated RBC 0 Nucleated RBC % 0 Exam: GENERAL: no acute distress. alert and appropriate. Oriented to self and place and situation. HEENT: Throat examined. Thrush with some erythema LUNGS: clear to auscultation bilaterally. HEART: irregular ABDOMEN: + bowel sounds, soft, non-tender, non-distended EXTREMITIES: some left leg edema. Right elbow: No erythema, good ROM SKIN: extensive ecchymosis in left leg. NEUROLOGIC: LE motor 5/5 bilaterally except pain limited left hip and knee. Sensation intact. Assessment/Plan: 78yo man with left hip fracture s/p ORIF 1. Left Hip fracture: f/u Dr. Cherry. PT/OT. WBAT. Pain meds as needed. Methocarbamol prn. Remove alma rosa tomorrow 2. Seizure d/o: continue phenobarbitol and dilantin. Seizure precautions. 3. CP/Possible pneumonia: On Augmentin. 4. Impaired cognition: speech therapy. 5. Edentulous: mechanical soft diet with extra sauces and gravies. 6. Orthostatic hypotension: florinef 7. COPD: dulera 8. Hypothyroidism: levothyroxine 9. Depression: zoloft 10. DVT ppx: lovenox. May need to do self teaching prior to d/c. 11. Constipation: Had BM 12. Advance Directives: Full code. HCP is his girlfriend, [place]. 13. Thrush: Nystatin S&S 10/27/18 18:03
[2018-10-27] MEDS: Magnesium Hydroxide LIQ* 30 ML UDC PO PRN (21:10)
[2018-10-27] MEDS: Senna TAB PO SCH (21:18)
[2018-10-28] MEDS: oxyCODONE/Acetamin 5/325 MG* TAB PO PRN ×4 (00:33→18:31)
[2018-10-28] MEDS: Acetaminophen TAB* 325 MG PO PRN (02:27)
[2018-10-28] MEDS: Levothyroxine TAB* 150 MCG TAB PO SCH (05:01)
[2018-10-28] MEDS: Mometasone/Formoter 200/5 MDI INH SCH ×2 (07:42→19:39)
[2018-10-28] MEDS ORDERED: Iohexol 350* (CONTRAST) 500 ML MDV IV ONE (08:54)
[2018-10-28] MEDS: Fludrocortisone Acetate TAB* 0.1 MG PO SCH (10:51)
[2018-10-28] MEDS: Docusate CAP* 100 MG PO SCH ×2 (10:51→21:02)
[2018-10-28] MEDS: Amoxicillin/Clavulanate TAB* 875 MG PO SCH ×2 (10:51→21:01)
[2018-10-28] MEDS: Cyanocobalamin TAB* 500 MCG PO SCH (10:51)
[2018-10-28] MEDS: PHENobarbital TAB(*) 30 MG PO SCH ×2 (10:52→21:01)
[2018-10-28] MEDS: Pantoprazole TAB * 40 MG TAB PO SCH (10:52)
[2018-10-28] MEDS: Polyethylene Glycol 3350* 17 GM PACKET PO SCH (10:53)
[2018-10-28] MEDS: Sertraline* 50 MG TAB PO SCH (10:53)
[2018-10-28] MEDS: Phenytoin CAP(*) 100 MG CAP.ER PO SCH ×2 (10:53→18:32)
[2018-10-28] MEDS: Nystatin SUSPENSION* 100000 UNITS/ML 5 ML UDC PO SCH ×4 (11:06→21:02)
[2018-10-28] MEDS: Ondansetron ODT TAB* 4 MG PO PRN (12:11)
--- NOTE | 2018-10-28 12:32 | PMRUTEAM ---
PMRU: Team Meeting Current Status: Nursing: Current Status Skin Deviations [gluteal fold] Skin Tear Skin Deviations [Groin,scrotum Bruise , penis] Skin Deviations [Right Elbow] Other Skin Deviations [Left Leg] Bruise Skin Deviations [Left Hip] Incision Skin Deviation Description [ small tear - heavy cream applied gluteal fold] Skin Deviation Description [ extensive ecchymosis Groin,scrotum, penis] Skin Deviation Description [ red, blanchable; elbow protector applied Right Elbow] Skin Deviation Description [ small red bruises/guerrero - unchanged from admission Left Leg] Skin Deviation Description [ [place] [place], benign w alma rosa in place Left Hip] Bladder Current Status using urinal Bowel Current Status colace given Nutrition Current Status appetite fair Medication Current Status needs reinforcement Physical Therapy: Current Status Bed Mobility Assistance Min Assist Transfer Mobility Assistance Contact Guard Assist Transfer/Bed Mobility Rolling Walker Recommended Devices Ambulation Assistance Contact Guard Assist Ambulation Assistive Devices Rolling Walker Number of Feet Patient 110' Ambulated Ambulation Comment antalgic gait with step to pattern Stairs Assistance Mod Assist Stairs Recommended Devices Two Rails Number of Stairs 5 Curb Not Tested Objective Comments step to pattern ascend/descending stairs with cues for "up with right, up with left, down with left, down with right" Occupational Therapy: Current Status Upper Body Dressing Supervision Lower Body Dressing Mod Assist Bathing Min Assist Toileting Min Assist Toilet Transfer Contact Guard Assist Shower Transfer Contact Guard Assist Shower Transfer Progress TBD Eating Independent Rec Therapy: Current Status Summary of Assessment and RT assessment completed and pt. is aware of RT Clinical Impression services. Pt. has been pleasant and socially engaged during leisure visits. Treatment Goals Pt. will engage in leisure activities while on the unit. Treatment Plan Provide RT services and encourage involvement. Social Work: Current Status Discharge Plan return home with home care svs and family support Potential for Family Training pt's girlfriend is available and supportive Anticipated Discharge Home Destination Discharge With VNS and family support Nutrition: Current Status Monitoring PO has declined to 10-25% of meals; noted pt reporting that food is getting "stuck" and spit out food today; declined B & L today per nursing notes. Oral thrush noted; received Nystatin. Concerned for pt's ability to succeed with PT given decline in intake. Noted formed BM 10/23; liquid BM 10/24. Speech: Current Status Assessment Patient has been ill and complained of nausea, shortness of breath and pain in his tongue and lower throat. EXTRUDER OPERATOR consulted RN and provider, and screened swallowing ability. Patient has thrush for which he is receiving Nystatis to swish and gargle, and he is receiving IV fluids due to inadequate PO intake. Patient swallowed trials of thin liquids and small pills with no s/s aspiration, but wincing and pointing to his clavicular notch, suggesting esophageal dysphagia. Recommend continue diet consistency as ordered, encourage patient to select preferred foods. Patient demonstrated reduced concentration and memory for previously instructed mobility safety sequences. Goals: Physical Therapy: Initial Goals Bed Mobility Assistance Independent Transfer Mobility Assistance Independent Transfer/Bed Mobility Rolling Walker Recommended Devices Ambulation Independent Ambulation Recommended Devices Rolling Walker Ambulation Distance 150 Stairs Assistance Independent Stair Recommended Devices Two Rails Number of Stairs 5 Physical Therapy: Updated Goals Transfer/Bed Mobility Rolling Walker Recommended Devices Occupational Therapy: Initial Goals Goals to be Completed in (Days 14-21 ) Upper Body Bathing Routine Modified Independent with Lower Body Bathing Routine Modified Independent with Upper Body Dressing Routine Modified Independent with Lower Body Dressing Routine Modified Independent with Toilet Hygeine and Clothing Modified Independent with Management Routine Toilet Transfer Routine Modified Independent with Tub Transfer Routine Supervision/Set Up Functional Transfers for ADL Modified Independent with Grooming Routine Independent Feeding Routine Independent Nursing: Goals Bladder Goal independent Bowel Goal independnet Nutrition Goal 100% of all meals Medication Goal supervision Nutrition: Goals Intervention Goals 1. Pt will tolerate least restrictive diet texture without evidence difficulty chewing 2. Intake will improve to 50% of meals in consistent pattern 3. Pt will establish & maintain regular bowel pattern without constipation/diarrhea Speech: Goals Speech Goal 1 Cognitive-Communicative Skills Speech Evaluation Status Goal Moderate impairment; attention and working memory 1 Goal 1 Comments Patient has been ill and complained of nausea, shortness of breath and pain in his tongue and lower throat. EXTRUDER OPERATOR consulted RN and provider, and screened swallowing ability. Patient has thrush for which he is receiving Nystatis to swish and gargle, and he is receiving IV fluids due to inadequate PO intake. EXTRUDER OPERATOR conducted swallow screening with RN. Patient swallowed trials of thin liquids and small pills with no s/s aspiration, but wincing and pointing to his clavicular notch, suggesting esophageal dysphagia. Recommend continue diet consistency as ordered, encourage patient to select preferred foods. Long-Term Goal: The patient will successfully learn and utilize compensatory strategies for working memory for safe and functional participation at home and in the community. Status: Progressing slowly as expected. Short-Term Goals: 1) The patient will successfully learn and utilize compensatory strategies for recall of information and directions 75% of the time, with maximum cues , as needed. Status: Progressing as expected. Given demonstration without cueing, patient recalled previously instructed steps for mobility transfers (standing to walker, walking with walker , sitting from walker) with 7/9 accuracy I'ly. Previously, patient had been consistent in telling EXTRUDER OPERATOR to push up from the chair. On10/27/18, patient told this technical writer and editor to reach for the walker and required prompting and 2x spaced repetitios to correct. 2) The patient will successfully complete functional attention and working memory activities with 75% accuracy, independent use of compensatory strategies, as needed. Status: Progressing as expected. Patient demonstrated reduced concentration and memory for previously instructed mobility safety sequences. Social Work: Goals Discharge Plan return home with home care svs and family support Potential for Family Training pt's girlfriend is available and supportive Anticipated Discharge Home Destination Discharge With VNS and family support Care Plan: Care Plan ADL's - Improve/Maintain Start: 10/16/18 16:03 Freq: DAILY Status: Active Target: Protocol: Activity Type Activity Date Activity User E-Sign Co-Sign Detail Recorded Client Recorded Date Recorded By Document 10/24/18 11:27 [id number] [id number] 10/24/18 11:27 [id number] 10/24/18 11:27 PMRU Outcome: ADL's/ADL Transfers Orders/Interventions Occupational Therapy Evaluation & Treatment Communication Tool in Patient Room Device Yes Address Deficits Secondary To: left hip ORIF Patient to receive OT 5x/wk for 60-120 Therex min/day Self Care Management Group Therapy UE/LE ADL's with Assist Yes: Marie ADL Transfers with Assist Yes: Marie except supervision for shower transfer Toileting: Transfers,Clothing Management Yes: Marie ,Hygeine w/Assist Light Kitchen/Laundry w/Assist Yes: Chika Progression Toward Outcome/Goals Progressing Outcome/Goals Met Pt utilizing AE with increased independence this date. Continues to be limited d/t pain and muscle spasms. Nsg notified. Communication-Improve/Maintain Start: 10/20/18 19:13 Freq: DAILY Status: Active Target: Protocol: Activity Type Activity Date Activity User E-Sign Co-Sign Detail Recorded Client Recorded Date Recorded By Document 10/27/18 23:31 [id number] 10/27/18 23:32 [id number] 10/27/18 23:31 PMRU Outcome: Communication/Cognitive Status Outcome/Goals Makes Needs Known Effectively Other Outcomes/Goals Long-Term Goal: The patient will successfully learn and utilize compensatory strategies for working memory for safe and functional participation at home and in the community. Short-Term Goals: 1) The patient will successfully learn and utilize compensatory strategies for recall of information and directions 75% of the time, with maximum cues, as needed . 2) The patient will successfully complete functional attention and working memory activities with 75% accuracy, independent use of compensatory strategies, as needed. Progression Toward Outcomes/Goals Progressing DVT Prophylaxis- Improve/Maintain Start: 10/16/18 22:27 Freq: QSHIFT Status: Active Target: Protocol: Activity Type Activity Date Activity User E-Sign Co-Sign Detail Recorded Client Recorded Date Recorded By Document 10/27/18 23:31 [id number] 10/27/18 23:32 [id number] 10/27/18 23:31 PMRU Outcome: DVT Prophylaxis Outcome/Goals Remains Free of DVT Demonstrates Knowledge of DVT Prevention/ Treatment TEDS Stockings on Every AM, Off at HS Progression Toward Outcome/Goals Progressing Discharge Planning - Improve/Maintain Start: 10/16/18 22:27 Freq: DAILY Status: Active Target: Protocol: Activity Type Activity Date Activity User E-Sign Co-Sign Detail Recorded Client Recorded Date Recorded By Document 10/27/18 23:32 [id number] 10/27/18 23:32 [id number] 10/27/18 23:32 PMRU Outcome: Discharge Planning Update Patient Family No Outcome/Goals Demonstrates Understanding of Discharge Plan Education-Improve/Maintain Start: 10/16/18 22:27 Freq: QSHIFT Status: Active Target: Protocol: Activity Type Activity Date Activity User E-Sign Co-Sign Detail Recorded Client Recorded Date Recorded By Document 10/27/18 23:31 [id number] 10/27/18 23:32 [id number] 10/27/18 23:31 PMRU Outcome: Education Outcome/Goals Encourage Questions Progression Toward Outcome/Goals Progressing Mobility- Improve/Maintain Start: 10/23/18 16:28 Freq: DAILY Status: Active Target: Protocol: Activity Type Activity Date Activity User E-Sign Co-Sign Detail Recorded Client Recorded Date Recorded By Document 10/23/18 16:28 [id number] 10/23/18 16:29 [id number] 10/23/18 16:28 PMRU Outcome: Mobility Physical Therapy Evaluation and Yes Treatment Activity OOB with Assistance Yes WBAT Yes: LLE Device Yes: FWW Assistance Yes: Min-CGA Patient to be seen 5x/wk for 60-120 min/ Therex day for: Mobility Training Gait Training Balance Outcome/Goals Maintain/ Achieve Baseline Mobility Status Improve Mobility Status Demonstrates Proper Use of Assistive Devices Free from Complications of Immobility Progression Toward Outcome/Goals Progressing Outcome/Goals Met Improve Mobility Status Bed Mobility Yes: Ind Transfers Yes: Mod I with FWW Gait x ft Yes: Mod I with FWW x150ft W/C Mobility x ft No Up/Down Stairs Yes: Mod I x 6 steps, 2 rails With HEP Yes Neurological- Improve/Maintain Start: 10/16/18 22:27 Freq: QSHIFT Status: Active Target: Protocol: Activity Type Activity Date Activity User E-Sign Co-Sign Detail Recorded Client Recorded Date Recorded By Document 10/27/18 23:31 [id number] 10/27/18 23:32 [id number] 10/27/18 23:31 PMRU Outcome: Neurological Weakness/Aphasia Weakness Left Side Outcome/Goals Maintain/ Achieve Baseline Neurological Status Prevent Avoidable Neurological Decline Maintain/ Improve Strength/ROM Progression Toward Outcome/Goals Progressing Pain/Comfort- Improve/Maintain Start: 10/16/18 22:27 Freq: QSHIFT Status: Active Target: Protocol: Activity Type Activity Date Activity User E-Sign Co-Sign Detail Recorded Client Recorded Date Recorded By Document 10/27/18 23:31 [id number] 10/27/18 23:32 [id number] 10/27/18 23:31 PMRU Outcome: Pain/Comfort Outcome/Goals Demonstrates Knowledge and Use of Available Comfort Measures Achieves Acceptable Comfort/Pain Level as Determined by Patient/Condit Maintain Comfort Level Allowing Patient to Fully Participate in Rehab Progression Toward Outcome/Goals Progressing Outcome/Goals Met Comment pt resting at this time Safety- Improve/Maintain Start: 10/16/18 22:27 Freq: QSHIFT Status: Active Target: Protocol: Activity Type Activity Date Activity User E-Sign Co-Sign Detail Recorded Client Recorded Date Recorded By Document 10/27/18 23:31 [id number] 10/27/18 23:32 [id number] 10/27/18 23:31 PMRU Outcome: Safety Outcome/Goals Remain Free of Injury or Harm Cooperates with Safety Measures for Least Restrictive Environment Prevent Falls/ Injury Progression Toward Outcome/Goals Progressing Outcome/Goals Met Comment BA armed Skin- Improve/Maintain Start: 10/16/18 22:27 Freq: QSHIFT Status: Active Target: Protocol: Activity Type Activity Date Activity User E-Sign Co-Sign Detail Recorded Client Recorded Date Recorded By Document 10/27/18 23:31 [id number] 10/27/18 23:32 [id number] 10/27/18 23:31 PMRU Outcome: Skin Skin Risk Level Medium Outcome/Goals Maintain/ Improve Skin Intergrity Surgical Incisions Healing Progression Toward Outcome/Goals Progressing Medicine Note: Length of Stay: 10 days Anticipated Discharge Destination: Home Tentative Discharge Date: 11/07/18 Discharged to: Home vs SNF
[2018-10-28] MEDS: Magnesium Hydroxide LIQ* 30 ML UDC PO PRN ×2 (13:09→18:32)
[2018-10-28] MEDS: Enoxaparin(*) 40 MG/0.4 ML SYR SUBCUT SCH (16:42)
[2018-10-28] MEDS: Atorvastatin* 40 MG TAB PO SCH (16:42)
--- NOTE | 2018-10-28 18:50 | PN ---
Progress Note Date of Service: 10/28/18 Note: USMAN Parmjit MANTILLA SR was visited. Therapy notes read and reviewed. This morning, he had an episode of panting. A CTA of the chest was ordered and was negative for PE. The symptoms resolved. Aguanga were removed without incident. He was discussed in interdisciplinary team rounds. Some concern about his ability to go home alone. Current Medications: Active Medications Generic Name Dose Route Start Last Admin Trade Name Freq PRN Reason Stop Dose Admin Acetaminophen 650 mg 10/16/18 11:51 10/28/18 02:27 Tylenol Tab* PO 650 mg Q6H PRN Administration FEVER/PAIN Al Hydrox/Mg Hydrox/Simethicone 30 ml 10/26/18 05:17 10/26/18 05:34 Maalox Plus* PO 30 ml ONCE PRN Administration .ABDOMINAL DISCOMFORT Amoxicillin/Clavulanate Potassium 875 mg 10/26/18 21:00 10/28/18 10:51 Augmentin Tab* PO 875 mg BID FRANCHESCA Administration Atorvastatin Calcium 40 mg 10/17/18 17:00 10/28/18 16:42 Lipitor* PO 40 mg 1700 FRANCHESCA Administration Bisacodyl 10 mg 10/23/18 14:29 10/23/18 15:44 Dulcolax Supp* [place] 10 mg DAILY PRN Administration CONSTIPATION Cyanocobalamin 1,000 mcg 10/17/18 09:00 10/28/18 10:51 Vitamin B12 Tab* PO 1,000 mcg DAILY FRANCHESCA Administration Docusate Sodium 100 mg 10/16/18 21:00 10/28/18 10:51 Colace Cap* PO 100 mg BID FRANCHESCA Administration Enoxaparin Sodium 40 mg 10/16/18 16:00 10/28/18 16:42 Lovenox(*) SUBCUT 40 mg Q24H FRANCHSECA Administration Fludrocortisone Acetate 0.1 mg 10/17/18 09:00 10/28/18 10:51 Florinef Tab* PO 0.1 mg DAILY FRANCHESCA Administration Levothyroxine Sodium 150 mcg 10/17/18 06:00 10/28/18 05:01 Synthroid Tab* PO 150 mcg DAILY@0600 FRANCHESCA Administration Lorazepam 0.5 mg 10/28/18 18:30 Ativan Tab(*) PO Q6H PRN ANXIETY Magnesium Hydroxide 30 ml 10/16/18 11:51 10/28/18 18:32 Milk Of Magnesia Liq* PO 30 ml Q6H PRN Administration CONSTIPATION Methocarbamol 750 mg 10/18/18 08:01 10/27/18 16:49 Robaxin Tab* PO 750 mg QID PRN Administration muscle spasm Mometasone Furoate/Formoterol Fumar 1 puff 10/16/18 21:00 10/28/18 07:42 Dulera 200/5 Mdi* INH 1 puff BID FRANCHESCA Administration Nystatin 500,000 units 10/25/18 17:00 10/28/18 16:42 Nystatin Suspension* PO 11/01/18 14:01 500,000 units QID FRANCHESCA Administration Ondansetron HCl 4 mg 10/24/18 17:43 10/28/18 12:11 Zofran Odt Tab* PO 4 mg Q8H PRN Administration NAUSEA/VOMITING Oxycodone/Acetaminophen 1 tab 10/16/18 12:14 10/28/18 18:31 Percocet 5/325 Tab* PO 1 tab Q4H PRN Administration PAIN - MODERATE TO SEVERE Pantoprazole Sodium 40 mg 10/28/18 09:00 10/28/18 10:52 Protonix Tab* PO 40 mg DAILY FRANCHESCA Administration Phenobarbital 90 mg 10/16/18 21:00 10/28/18 10:52 Phenobarbital Tab(*) PO 90 mg BID FRANCHESCA Administration Phenytoin Sodium 200 mg 10/17/18 09:00 10/28/18 10:53 Dilantin Cap(*) PO 200 mg DAILY FRANCHESCA Administration Phenytoin Sodium 300 mg 10/16/18 18:00 10/28/18 18:32 Dilantin Cap(*) PO 300 mg 1800 FRANCHESCA Administration Polyethylene Glycol/Electrolytes 17 gm 10/26/18 09:00 10/28/18 10:53 Miralax* PO 17 gm DAILY FRANCHESCA Administration Senna 2 tab 10/22/18 21:00 10/27/18 21:18 Senokot Tab* PO 2 tab BEDTIME FRANCHESCA Administration Sertraline HCl 50 mg 10/17/18 09:00 10/28/18 10:53 Zoloft* PO 50 mg DAILY FRANCHESCA Administration Sodium Biphosphate/Sodium Phosphate 1 bottle 10/23/18 16:37 10/23/18 19:35 Fleet Enema* IN 1 bottle DAILY PRN Administration CONSTIPATION Vital Signs: Vital Signs Temp Pulse Resp BP Pulse Ox 97.4 F 86 24 121/51 100 10/28/18 05:51 10/28/18 11:07 10/28/18 18:31 10/28/18 11:07 10/28/18 11:07 Exam: GENERAL: no acute distress. alert and appropriate. Oriented to self and place and situation. HEENT: Throat examined. Thrush LUNGS: clear to auscultation bilaterally. HEART: irregular ABDOMEN: + bowel sounds, soft, non-tender, non-distended EXTREMITIES: some left leg edema. Right elbow: No erythema, good ROM SKIN: extensive ecchymosis in left leg. NEUROLOGIC: LE motor 5/5 bilaterally except pain limited left hip and knee. Sensation intact. Assessment/Plan: 78yo man with left hip fracture s/p ORIF 1. Left Hip fracture: f/u Dr. Cherry. PT/OT. WBAT. Pain meds as needed. Methocarbamol prn. Remove alma rosa tomorrow 2. Seizure d/o: continue phenobarbitol and dilantin. Seizure precautions. 3. CP/Possible pneumonia: On Augmentin. CTA of chest negative. 4. Impaired cognition: speech therapy. 5. Edentulous: mechanical soft diet with extra sauces and gravies. 6. Orthostatic hypotension: florinef 7. COPD: dulera 8. Hypothyroidism: levothyroxine 9. Depression: zoloft 10. DVT ppx: lovenox. May need to do self teaching prior to d/c. 11. Constipation: Had BM 12. Advance Directives: Full code. HCP is his girlfriend, [place]. 13. Thrush: Nystatin S&S 10/28/18 18:51
[2018-10-28] MEDS: Senna TAB PO SCH (21:02)
[2018-10-29] MEDS: oxyCODONE/Acetamin 5/325 MG* TAB PO PRN ×5 (01:50→23:56)
[2018-10-29] MEDS: Levothyroxine TAB* 150 MCG TAB PO SCH (05:23)
[2018-10-29 07:05] LABS: ABS Basophils 0.1 10^3/ul (0-0.2); ABS Eosinophils 0.4 10^3/ul (0-0.6); ABS Lymphocytes 1.3 10^3/ul (1.0-4.8); ABS Monocytes 0.9 10^3/ul (0-0.8); ABS Neutrophils 6.8 10^3/ul (1.5-7.7); ABS Nucleated RBC 0 10^3/ul; Eosinophil % 4.6 %; Hematocrit 32 % (42-52); Hemoglobin 10.7 g/dl (14.0-18.0); Lymphocyte % 13.5 %; Mean Corpuscular HGB Conc 34 g/dl (31-36); Mean Corpuscular Hemoglobin 33 pg (27-31); Mean Corpuscular Volume 99 fL (80-94); Mean Platelet Volume 6.9 fL (7.4-10.4); Nucleated Red Blood Cells % 0; Platelet Count 571 10^3/ul (150-450); Red Blood Count 3.22 10^6/ul (4.00-5.40); Red Cell Distribution Width 19 % (10.5-15); White Blood Count 9.5 10^3/ul (3.5-10.8)
[2018-10-29 07:26] LABS: Albumin 3.2 g/dL (3.2-5.2); Albumin/Globulin Ratio 0.9 (1-3); BUN/Creatinine Ratio 15.9 (8-20); Calcium 8.8 mg/dL (8.6-10.3); EGFR African American 134.2 (>60); EGFR Non-African American 110.9 (>60); Globulin 3.6 g/dL (2-4); Potassium 4.9 mmol/L (3.5-5.0); Total Bilirubin 0.4 mg/dL (0.2-1.0); Total Protein 6.8 g/dL (6.4-8.9)
[2018-10-29] MEDS: Mometasone/Formoter 200/5 MDI INH SCH ×2 (08:10→20:09)
[2018-10-29] MEDS: Nystatin SUSPENSION* 100000 UNITS/ML 5 ML UDC PO SCH ×4 (08:48→20:09)
[2018-10-29] MEDS: Ondansetron ODT TAB* 4 MG PO PRN (09:06)
[2018-10-29] MEDS: Amoxicillin/Clavulanate TAB* 875 MG PO SCH ×2 (11:26→20:03)
[2018-10-29] MEDS: Fludrocortisone Acetate TAB* 0.1 MG PO SCH (11:26)
[2018-10-29] MEDS: Docusate CAP* 100 MG PO SCH ×2 (11:26→20:09)
[2018-10-29] MEDS: PHENobarbital TAB(*) 30 MG PO SCH ×2 (11:26→19:50)
[2018-10-29] MEDS: Pantoprazole TAB * 40 MG TAB PO SCH (11:26)
[2018-10-29] MEDS: Cyanocobalamin TAB* 500 MCG PO SCH (11:26)
[2018-10-29] MEDS: Sertraline* 50 MG TAB PO SCH (11:27)
[2018-10-29] MEDS: Phenytoin CAP(*) 100 MG CAP.ER PO SCH ×2 (11:27→19:51)
[2018-10-29] MEDS: Polyethylene Glycol 3350* 17 GM PACKET PO SCH (11:49)
[2018-10-29] MEDS: Acetaminophen TAB* 325 MG PO PRN (16:09)
[2018-10-29] MEDS: Enoxaparin(*) 40 MG/0.4 ML SYR SUBCUT SCH (16:18)
--- NOTE | 2018-10-29 19:23 | PN ---
Progress Note Date of Service: 10/29/18 Note: USMAN Parmjit MANTILLA SR was visited. Therapy notes read and reviewed. He has not felt well today and has little appetite. He was unable to urinate last night and was straight cathed for 600 ml of urine. Flomax started. Sputum grew out yeast from his thrush. WBC now normal. Current Medications: Active Medications Generic Name Dose Route Start Last Admin Trade Name Freq PRN Reason Stop Dose Admin Acetaminophen 650 mg 10/16/18 11:51 10/29/18 16:09 Tylenol Tab* PO 650 mg Q6H PRN Administration FEVER/PAIN Al Hydrox/Mg Hydrox/Simethicone 30 ml 10/26/18 05:17 10/26/18 05:34 Maalox Plus* PO 30 ml ONCE PRN Administration .ABDOMINAL DISCOMFORT Amoxicillin/Clavulanate Potassium 875 mg 10/26/18 21:00 10/29/18 11:26 Augmentin Tab* PO 875 mg BID FRANCHESCA Administration Atorvastatin Calcium 40 mg 10/17/18 17:00 10/28/18 16:42 Lipitor* PO 40 mg 1700 FRANCHESCA Administration Bisacodyl 10 mg 10/23/18 14:29 10/23/18 15:44 Dulcolax Supp* [place] 10 mg DAILY PRN Administration CONSTIPATION Cyanocobalamin 1,000 mcg 10/17/18 09:00 10/29/18 11:26 Vitamin B12 Tab* PO 1,000 mcg DAILY FRANCHESCA Administration Docusate Sodium 100 mg 10/16/18 21:00 10/29/18 11:26 Colace Cap* PO 100 mg BID FRANCHESCA Administration Enoxaparin Sodium 40 mg 10/16/18 16:00 10/29/18 16:18 Lovenox(*) SUBCUT 40 mg Q24H FRANCHESCA Administration Fludrocortisone Acetate 0.1 mg 10/17/18 09:00 10/29/18 11:26 Florinef Tab* PO 0.1 mg DAILY FRANCHESCA Administration Levothyroxine Sodium 150 mcg 10/17/18 06:00 10/29/18 05:23 Synthroid Tab* PO 150 mcg DAILY@0600 FRANCHESCA Administration Lorazepam 0.5 mg 10/28/18 18:30 Ativan Tab(*) PO Q6H PRN ANXIETY Magnesium Hydroxide 30 ml 10/16/18 11:51 10/28/18 18:32 Milk Of Magnesia Liq* PO 30 ml Q6H PRN Administration CONSTIPATION Methocarbamol 750 mg 10/18/18 08:01 10/27/18 16:49 Robaxin Tab* PO 750 mg QID PRN Administration muscle spasm Mometasone Furoate/Formoterol Fumar 1 puff 10/16/18 21:00 10/29/18 08:10 Dulera 200/5 Mdi* INH 1 puff BID FRANCHESCA Administration Nystatin 500,000 units 10/25/18 17:00 10/29/18 13:34 Nystatin Suspension* PO 11/01/18 14:01 500,000 units QID FRANCHESCA Administration Ondansetron HCl 4 mg 10/24/18 17:43 10/29/18 09:06 Zofran Odt Tab* PO 4 mg Q8H PRN Administration NAUSEA/VOMITING Oxycodone/Acetaminophen 1 tab 10/16/18 12:14 10/29/18 13:33 Percocet 5/325 Tab* PO 1 tab Q4H PRN Administration PAIN - MODERATE TO SEVERE Pantoprazole Sodium 40 mg 10/28/18 09:00 10/29/18 11:26 Protonix Tab* PO 40 mg DAILY FRANCHESCA Administration Phenobarbital 90 mg 10/16/18 21:00 10/29/18 11:26 Phenobarbital Tab(*) PO 90 mg BID FRANCHESCA Administration Phenytoin Sodium 200 mg 10/17/18 09:00 10/29/18 11:27 Dilantin Cap(*) PO 200 mg DAILY FRANCHESCA Administration Phenytoin Sodium 300 mg 10/16/18 18:00 10/28/18 18:32 Dilantin Cap(*) PO 300 mg 1800 FRANCHESCA Administration Polyethylene Glycol/Electrolytes 17 gm 10/26/18 09:00 10/29/18 11:49 Miralax* PO Not Given DAILY FRANCHESCA Senna 2 tab 10/22/18 21:00 10/28/18 21:02 Senokot Tab* PO 2 tab BEDTIME FRANCHESCA Administration Sertraline HCl 50 mg 10/17/18 09:00 10/29/18 11:27 Zoloft* PO 50 mg DAILY FRANCHESCA Administration Sodium Biphosphate/Sodium Phosphate 1 bottle 10/23/18 16:37 10/23/18 19:35 Fleet Enema* [place] 1 bottle DAILY PRN Administration CONSTIPATION Tamsulosin HCl 0.4 mg 10/29/18 21:00 Flomax Cap* PO BEDTIME FRANCHESCA Vital Signs: Vital Signs Temp Pulse Resp BP Pulse Ox 96.6 F 57 16 141/60 94 10/29/18 16:13 10/29/18 16:13 10/29/18 18:00 10/29/18 16:13 10/29/18 16:13 Lab Results: Laboratory Results - last 24 hr 10/29/18 10/29/18 06:53 06:53 WBC 9.5 RBC 3.22 L Hgb 10.7 L Hct 32 L MCV 99 H MCH 33 H MCHC 34 RDW 19 H Plt Count 571 H D MPV 6.9 L Neut % (Auto) 71.8 Lymph % (Auto) 13.5 [place] % (Auto) 9.4 Eos % (Auto) 4.6 Baso % (Auto) 0.7 Absolute Neuts (auto) 6.8 Absolute Lymphs (auto) 1.3 Absolute Monos (auto) 0.9 H Absolute Eos (auto) 0.4 Absolute Basos (auto) 0.1 Absolute Nucleated RBC 0 Nucleated RBC % 0 Sodium 135 Potassium 4.9 Chloride 101 Carbon Dioxide 30 Anion Gap 4 BUN 11 Creatinine 0.69 Est GFR ( Amer) 134.2 Est GFR (Non-Af Amer) 110.9 BUN/Creatinine Ratio 15.9 Glucose 122 H Calcium 8.8 Total Bilirubin 0.40 AST 18 ALT 24 Alkaline Phosphatase 355 H Total Protein 6.8 Albumin 3.2 Globulin 3.6 Albumin/Globulin Ratio 0.9 L Exam: GENERAL: no acute distress. alert and appropriate. Oriented to self and place and situation. HEENT: Throat examined. Thrush better LUNGS: clear to auscultation bilaterally. HEART: irregular ABDOMEN: + bowel sounds, soft, non-tender, non-distended EXTREMITIES: some left leg edema. Right elbow: No erythema, good ROM SKIN: extensive ecchymosis in left leg. NEUROLOGIC: LE motor 5/5 bilaterally except pain limited left hip and knee. Sensation intact. Assessment/Plan: 78yo man with left hip fracture s/p ORIF 1. Left Hip fracture: f/u Dr. Cherry. PT/OT. WBAT. Pain meds as needed. Methocarbamol prn. Remove alma rosa tomorrow 2. Seizure d/o: continue phenobarbitol and dilantin. Seizure precautions. 3. CP/Possible pneumonia: On Augmentin. CTA of chest negative. Will consider d/ c Augmentin 4. Impaired cognition: speech therapy. 5. Edentulous: mechanical soft diet with extra sauces and gravies. 6. Orthostatic hypotension: florinef 7. COPD: dulera 8. Hypothyroidism: levothyroxine 9. Depression: zoloft 10. DVT ppx: lovenox. May need to do self teaching prior to d/c. 11. Constipation: Had BM 12. Advance Directives: Full code. HCP is his girlfriend, [place]. 13. Thrush: Nystatin S&S 10/29/18 19:23
[2018-10-29] MEDS: Senna TAB PO SCH (19:50)
[2018-10-29] MEDS: Atorvastatin* 40 MG TAB PO SCH (19:51)
[2018-10-29] MEDS: Tamsulosin CAP* 0.4 MG PO SCH (19:51)
[2018-10-30] MEDS: oxyCODONE/Acetamin 5/325 MG* TAB PO PRN ×3 (04:53→21:11)
[2018-10-30] MEDS: Levothyroxine TAB* 150 MCG TAB PO SCH (04:54)
[2018-10-30] MEDS: Acetaminophen TAB* 325 MG PO PRN (06:32)
[2018-10-30] MEDS: Ondansetron ODT TAB* 4 MG PO PRN (07:23)
[2018-10-30] MEDS: Pantoprazole TAB * 40 MG TAB PO SCH (07:23)
[2018-10-30] MEDS: Polyethylene Glycol 3350* 17 GM PACKET PO SCH (07:34)
[2018-10-30] MEDS: Methocarbamol TAB* 500 MG PO PRN (08:32)
[2018-10-30] MEDS: Nystatin SUSPENSION* 100000 UNITS/ML 5 ML UDC PO SCH ×4 (09:00→21:34)
[2018-10-30] MEDS: Cyanocobalamin TAB* 500 MCG PO SCH ×2 (09:00→11:13)
[2018-10-30] MEDS: Mometasone/Formoter 200/5 MDI INH SCH ×3 (09:04→21:08)
[2018-10-30] MEDS: Amoxicillin/Clavulanate TAB* 875 MG PO SCH ×2 (11:13→21:11)
[2018-10-30] MEDS: PHENobarbital TAB(*) 30 MG PO SCH (11:13)
[2018-10-30] MEDS: Docusate CAP* 100 MG PO SCH ×2 (11:13→21:34)
[2018-10-30] MEDS: Fludrocortisone Acetate TAB* 0.1 MG PO SCH (11:13)
[2018-10-30] MEDS: Phenytoin CAP(*) 100 MG CAP.ER PO SCH ×2 (11:14→19:35)
[2018-10-30] MEDS: Sertraline* 50 MG TAB PO SCH (11:14)
[2018-10-30] MEDS: LORazepam TAB(*) 0.5 MG PO PRN ×2 (11:46→20:48)
[2018-10-30] MEDS: Bisacodyl SUPP* 10 MG SUPP PR PRN (14:03)
[2018-10-30 15:16] LABS: Urine Appearance Clear; Urine Bacteria Absent (Absent); Urine Bilirubin Negative (Negative); Urine Blood 1+ (Negative); Urine Color Yellow; Urine Glucose Negative (Negative); Urine Ketones Negative (Negative); Urine Nitrite Negative (Negative); Urine Protein Negative (Negative); Urine Red Blood Cell 2+(6-10/hpf) (Absent); Urine Specific Gravity 1.012 (1.010-1.030); Urine Urobilinogen Negative (Negative); Urine White Blood Cell 3+(>20/hpf) (Absent)
--- NOTE | 2018-10-30 16:38 | PN ---
Progress Note Date of Service: 10/30/18 Note: USMAN MANTILLA SR was visited. Therapy notes read and reviewed. Was unable to void and had cosme catheter placed. Had to be straight cathed last night. Will have catheter for 5 days and stay on Flomax. U/A sent Current Medications: Active Medications Generic Name Dose Route Start Last Admin Trade Name Freq PRN Reason Stop Dose Admin Acetaminophen 650 mg 10/16/18 11:51 10/30/18 06:32 Tylenol Tab* PO 650 mg Q6H PRN Administration FEVER/PAIN Al Hydrox/Mg Hydrox/Simethicone 30 ml 10/26/18 05:17 10/26/18 05:34 Maalox Plus* PO 30 ml ONCE PRN Administration .ABDOMINAL DISCOMFORT Amoxicillin/Clavulanate Potassium 875 mg 10/26/18 21:00 10/30/18 11:13 Augmentin Tab* PO 875 mg BID FRANCHESCA Administration Atorvastatin Calcium 40 mg 10/17/18 17:00 10/29/18 19:51 Lipitor* PO 40 mg 1700 FRANCHESCA Administration Bisacodyl 10 mg 10/23/18 14:29 10/30/18 14:03 Dulcolax Supp* [place] 10 mg DAILY PRN Administration CONSTIPATION Cyanocobalamin 1,000 mcg 10/17/18 09:00 10/30/18 09:00 Vitamin B12 Tab* PO Not Given DAILY FRANCHESCA Docusate Sodium 100 mg 10/16/18 21:00 10/30/18 11:13 Colace Cap* PO 100 mg BID FRANCHESCA Administration Enoxaparin Sodium 40 mg 10/16/18 16:00 10/29/18 16:18 Lovenox(*) SUBCUT 40 mg Q24H FRANCHESCA Administration Fludrocortisone Acetate 0.1 mg 10/17/18 09:00 10/30/18 11:13 Florinef Tab* PO 0.1 mg DAILY FRANCHESCA Administration Levothyroxine Sodium 150 mcg 10/17/18 06:00 10/30/18 04:54 Synthroid Tab* PO 150 mcg DAILY@0600 FRANCHESCA Administration Lorazepam 0.5 mg 10/28/18 18:30 10/30/18 11:46 Ativan Tab(*) PO 0.5 mg Q6H PRN Administration ANXIETY Magnesium Hydroxide 30 ml 10/16/18 11:51 10/28/18 18:32 Milk Of Magnesia Liq* PO 30 ml Q6H PRN Administration CONSTIPATION Methocarbamol 750 mg 10/18/18 08:01 10/27/18 16:49 Robaxin Tab* PO 750 mg QID PRN Administration muscle spasm Mometasone Furoate/Formoterol Fumar 1 puff 10/16/18 21:00 10/30/18 11:13 Dulera 200/5 Mdi* INH 1 puff BID FRANCHESCA Administration Nystatin 500,000 units 10/25/18 17:00 10/30/18 13:00 Nystatin Suspension* PO 11/01/18 14:01 Not Given QID FRANCHESCA Ondansetron HCl 4 mg 10/24/18 17:43 10/30/18 07:23 Zofran Odt Tab* PO 4 mg Q8H PRN Administration NAUSEA/VOMITING Oxycodone/Acetaminophen 1 tab 10/16/18 12:14 10/30/18 04:53 Percocet 5/325 Tab* PO 1 tab Q4H PRN Administration PAIN - MODERATE TO SEVERE Pantoprazole Sodium 40 mg 10/28/18 09:00 10/30/18 07:23 Protonix Tab* PO 40 mg DAILY FRANCHESCA Administration Phenobarbital 90 mg 10/16/18 21:00 10/30/18 11:13 Phenobarbital Tab(*) PO 90 mg BID FRANCHESCA Administration Phenytoin Sodium 200 mg 10/17/18 09:00 10/30/18 11:14 Dilantin Cap(*) PO 200 mg DAILY FRANCHESCA Administration Phenytoin Sodium 300 mg 10/16/18 18:00 10/29/18 19:51 Dilantin Cap(*) PO 300 mg 1800 FRANCHESCA Administration Polyethylene Glycol/Electrolytes 17 gm 10/26/18 09:00 10/30/18 07:34 Miralax* PO 17 gm DAILY FRANCHESCA Administration Senna 2 tab 10/22/18 21:00 10/29/18 19:50 Senokot Tab* PO 2 tab BEDTIME FRANCHESCA Administration Sertraline HCl 50 mg 10/17/18 09:00 10/30/18 11:14 Zoloft* PO 50 mg DAILY FRANCHESCA Administration Sodium Biphosphate/Sodium Phosphate 1 bottle 10/23/18 16:37 10/23/18 19:35 Fleet Enema* [place] 1 bottle DAILY PRN Administration CONSTIPATION Tamsulosin HCl 0.4 mg 10/29/18 21:00 10/29/18 19:51 Flomax Cap* PO 0.4 mg BEDTIME FRANCHESCA Administration Vital Signs: Vital Signs Temp Pulse Resp BP Pulse Ox 98.3 F 65 16 129/75 93 10/30/18 15:57 10/30/18 15:57 10/30/18 15:57 10/30/18 15:57 10/30/18 15:57 Lab Results: Laboratory Results - last 24 hr 10/30/18 14:58 Urine Color Yellow Urine Appearance Clear Urine pH 7.0 Ur Specific [place] 1.012 Urine Protein Negative Urine Ketones Negative Urine Blood 1+ A Urine Nitrate Negative Urine Bilirubin Negative Urine Urobilinogen Negative Ur Leukocyte Esterase 1+ A Urine WBC (Auto) 3+(>20/hpf) A Urine RBC (Auto) 2+(6-10/hpf) A Urine Bacteria Absent Urine Glucose Negative Exam: GENERAL: no acute distress. alert and appropriate. Oriented to self and place and situation. HEENT: Throat examined. Thrush better LUNGS: clear to auscultation bilaterally. HEART: irregular ABDOMEN: + bowel sounds, soft, non-tender, non-distended EXTREMITIES: some left leg edema. Right elbow: No erythema, good ROM SKIN: extensive ecchymosis in left leg. NEUROLOGIC: LE motor 5/5 bilaterally except pain limited left hip and knee. Sensation intact. Assessment/Plan: 78yo man with left hip fracture s/p ORIF 1. Left Hip fracture: f/u Dr. Cherry. PT/OT. WBAT. Pain meds as needed. Methocarbamol prn. Remove alma rosa tomorrow 2. Seizure d/o: continue phenobarbitol and dilantin. Seizure precautions. 3. CP/Possible pneumonia: On Augmentin. CTA of chest negative. Will consider d/ c Augmentin 4. Impaired cognition: speech therapy. 5. Edentulous: mechanical soft diet with extra sauces and gravies. 6. Orthostatic hypotension: florinef 7. COPD: dulera 8. Hypothyroidism: levothyroxine 9. Depression: zoloft 10. DVT ppx: lovenox. May need to do self teaching prior to d/c. 11. Constipation: Had BM 12. Advance Directives: Full code. HCP is his girlfriend, [place]. 13. Thrush: Nystatin S&S 10/30/18 16:39
[2018-10-30] MEDS: Enoxaparin(*) 40 MG/0.4 ML SYR SUBCUT SCH (17:12)
[2018-10-30] MEDS: Atorvastatin* 40 MG TAB PO SCH (17:16)
[2018-10-30] MEDS: Tamsulosin CAP* 0.4 MG PO SCH (22:22)
[2018-10-30] MEDS: Senna TAB PO SCH (22:22)
[2018-10-31] MEDS: Acetaminophen TAB* 325 MG PO PRN ×3 (00:15→20:40)
[2018-10-31] MEDS: PHENobarbital TAB(*) 30 MG PO SCH ×3 (00:31→19:52)
[2018-10-31] MEDS: oxyCODONE/Acetamin 5/325 MG* TAB PO PRN ×3 (02:47→15:17)
[2018-10-31 04:51] LABS: ABS Basophils 0.1 10^3/ul (0-0.2); ABS Eosinophils 0.2 10^3/ul (0-0.6); ABS Lymphocytes 1.3 10^3/ul (1.0-4.8); ABS Monocytes 0.7 10^3/ul (0-0.8); ABS Nucleated RBC 0 10^3/ul; Eosinophil % 3.3 %; Hematocrit 35 % (42-52); Hemoglobin 11.6 g/dl (14.0-18.0); Mean Corpuscular HGB Conc 33 g/dl (31-36); Mean Corpuscular Hemoglobin 33 pg (27-31); Mean Corpuscular Volume 100 fL (80-94); Mean Platelet Volume 6.9 fL (7.4-10.4); Nucleated Red Blood Cells % 0; Platelet Count 645 10^3/ul (150-450); Red Blood Count 3.53 10^6/ul (4.00-5.40); Red Cell Distribution Width 20 % (10.5-15); White Blood Count 6.4 10^3/ul (3.5-10.8)
[2018-10-31 05:06] LABS: Albumin 3.5 g/dL (3.2-5.2); Albumin/Globulin Ratio 0.9 (1-3); BUN/Creatinine Ratio 16.5 (8-20); Calcium 9.2 mg/dL (8.6-10.3); EGFR African American 114.8 (>60); EGFR Non-African American 94.9 (>60); Total Bilirubin 0.4 mg/dL (0.2-1.0); Total Protein 7.5 g/dL (6.4-8.9)
[2018-10-31] MEDS: Polyethylene Glycol 3350* 17 GM PACKET PO SCH (07:34)
[2018-10-31] MEDS: Levothyroxine TAB* 150 MCG TAB PO SCH ×2 (07:36→08:05)
[2018-10-31] MEDS: Ondansetron ODT TAB* 4 MG PO PRN (07:45)
[2018-10-31] MEDS: Fludrocortisone Acetate TAB* 0.1 MG PO SCH (09:32)
[2018-10-31] MEDS: Mometasone/Formoter 200/5 MDI INH SCH ×2 (09:33→20:37)
[2018-10-31] MEDS: Phenytoin CAP(*) 100 MG CAP.ER PO SCH ×2 (09:35→17:21)
[2018-10-31] MEDS: Pantoprazole TAB * 40 MG TAB PO SCH (09:35)
[2018-10-31] MEDS: Sertraline* 50 MG TAB PO SCH (09:36)
[2018-10-31] MEDS: Cyanocobalamin TAB* 500 MCG PO SCH (09:36)
[2018-10-31] MEDS: Nystatin SUSPENSION* 100000 UNITS/ML 5 ML UDC PO SCH ×4 (09:36→21:45)
[2018-10-31] MEDS: Docusate CAP* 100 MG PO SCH ×2 (09:36→21:45)
[2018-10-31] MEDS: LORazepam TAB(*) 0.5 MG PO PRN ×2 (13:46→20:19)
[2018-10-31] MEDS: Enoxaparin(*) 40 MG/0.4 ML SYR SUBCUT SCH (15:20)
[2018-10-31] MEDS: Atorvastatin* 40 MG TAB PO SCH ×2 (17:21→17:26)
--- NOTE | 2018-10-31 17:47 | PN ---
Progress Note Date of Service: 10/31/18 Note: USMAN Parmjit MANTILLA SR was visited. Therapy notes read and reviewed. He is quite constipated but he refuses an enema. He is taking Lactulose. He feels nauseated. He can be very difficult. U/A negative Current Medications: Active Medications Generic Name Dose Route Start Last Admin Trade Name Freq PRN Reason Stop Dose Admin Acetaminophen 650 mg 10/16/18 11:51 10/31/18 10:11 Tylenol Tab* PO 650 mg Q6H PRN Administration FEVER/PAIN Al Hydrox/Mg Hydrox/Simethicone 30 ml 10/26/18 05:17 10/26/18 05:34 Maalox Plus* PO 30 ml ONCE PRN Administration .ABDOMINAL DISCOMFORT Atorvastatin Calcium 40 mg 10/17/18 17:00 10/31/18 17:26 Lipitor* PO Not Given 1700 FRANCHESCA Bisacodyl 10 mg 10/23/18 14:29 10/30/18 14:03 Dulcolax Supp* [place] 10 mg DAILY PRN Administration CONSTIPATION Cyanocobalamin 1,000 mcg 10/17/18 09:00 10/31/18 09:36 Vitamin B12 Tab* PO Not Given DAILY FRANCHESCA Docusate Sodium 100 mg 10/16/18 21:00 10/31/18 09:36 Colace Cap* PO Not Given BID FRANCHESCA Enoxaparin Sodium 40 mg 10/16/18 16:00 10/31/18 15:20 Lovenox(*) SUBCUT 40 mg Q24H FRANCHESCA Administration Fludrocortisone Acetate 0.1 mg 10/17/18 09:00 10/31/18 09:32 Florinef Tab* PO 0.1 mg DAILY FRANCHESCA Administration Lactulose 30 ml 10/31/18 09:00 10/31/18 15:19 Lactulose* PO 30 ml Q6H FRANCHESCA Administration Levothyroxine Sodium 150 mcg 10/17/18 06:00 10/31/18 08:05 Synthroid Tab* PO Not Given DAILY@0600 FRANCHESCA Lorazepam 0.5 mg 10/28/18 18:30 10/30/18 20:48 Ativan Tab(*) PO 0.5 mg Q6H PRN Administration ANXIETY Magnesium Hydroxide 30 ml 10/16/18 11:51 10/28/18 18:32 Milk Of Magnesia Liq* PO 30 ml Q6H PRN Administration CONSTIPATION Methocarbamol 750 mg 10/18/18 08:01 10/27/18 16:49 Robaxin Tab* PO 750 mg QID PRN Administration muscle spasm Mometasone Furoate/Formoterol Fumar 1 puff 10/16/18 21:00 10/31/18 09:33 Dulera 200/5 Mdi* INH 1 puff BID FRANCHESCA Administration Nystatin 500,000 units 10/25/18 17:00 10/31/18 17:19 Nystatin Suspension* PO 11/01/18 14:01 Not Given QID FRANCHESCA Ondansetron HCl 4 mg 10/24/18 17:43 10/31/18 07:45 Zofran Odt Tab* PO 4 mg Q8H PRN Administration NAUSEA/VOMITING Oxycodone/Acetaminophen 1 tab 10/16/18 12:14 10/31/18 15:17 Percocet 5/325 Tab* PO 1 tab Q4H PRN Administration PAIN - MODERATE TO SEVERE Pantoprazole Sodium 40 mg 10/28/18 09:00 10/31/18 09:35 Protonix Tab* PO Not Given DAILY FRANCHESCA Phenobarbital 90 mg 10/16/18 21:00 10/31/18 09:26 Phenobarbital Tab(*) PO 90 mg BID FRANCHESCA Administration Phenytoin Sodium 200 mg 10/17/18 09:00 10/31/18 09:35 Dilantin Cap(*) PO Not Given DAILY FRANCHESCA Phenytoin Sodium 300 mg 10/16/18 18:00 10/31/18 17:21 Dilantin Cap(*) PO 300 mg 1800 FRANCHESCA Administration Polyethylene Glycol/Electrolytes 17 gm 10/26/18 09:00 10/31/18 07:34 Miralax* PO 17 gm DAILY FRANCHESCA Administration Senna 2 tab 10/22/18 21:00 10/30/18 22:22 Senokot Tab* PO Not Given BEDTIME FRANCHESCA Sertraline HCl 50 mg 10/17/18 09:00 10/31/18 09:36 Zoloft* PO Not Given DAILY FRANCHESCA Sodium Biphosphate/Sodium Phosphate 1 bottle 10/23/18 16:37 10/23/18 19:35 Fleet Enema* [place] 1 bottle DAILY PRN Administration CONSTIPATION Tamsulosin HCl 0.4 mg 10/29/18 21:00 10/30/18 22:22 Flomax Cap* PO Not Given BEDTIME FRANCHESCA Vital Signs: Vital Signs Temp Pulse Resp BP Pulse Ox 97.0 F 60 16 132/59 95 10/31/18 16:05 10/31/18 16:05 10/31/18 16:05 10/31/18 16:05 10/31/18 16:05 Lab Results: Laboratory Results - last 24 hr 10/31/18 10/31/18 04:41 04:41 WBC 6.4 RBC 3.53 L Hgb 11.6 L Hct 35 L MCV 100 H MCH 33 H MCHC 33 RDW 20 H Plt Count 645 H D MPV 6.9 L Neut % (Auto) 63.1 Lymph % (Auto) 21.0 Power % (Auto) 11.6 Eos % (Auto) 3.3 Baso % (Auto) 1.0 Absolute Neuts (auto) 4.0 Absolute Lymphs (auto) 1.3 Absolute Monos (auto) 0.7 Absolute Eos (auto) 0.2 Absolute Basos (auto) 0.1 Absolute Nucleated RBC 0 Nucleated RBC % 0 Sodium 134 L Potassium 5.0 Chloride 98 L Carbon Dioxide 29 Anion Gap 7 BUN 13 Creatinine 0.79 Est GFR ( Amer) 114.8 Est GFR (Non-Af Amer) 94.9 BUN/Creatinine Ratio 16.5 Glucose 119 H Calcium 9.2 Total Bilirubin 0.40 AST 20 ALT 25 Alkaline Phosphatase 434 H Total Protein 7.5 Albumin 3.5 Globulin 4.0 Albumin/Globulin Ratio 0.9 L Exam: GENERAL: no acute distress. alert and appropriate. Oriented to self and place and situation. HEENT: Throat examined. Thrush better LUNGS: clear to auscultation bilaterally. HEART: irregular ABDOMEN: + bowel sounds, soft, non-tender, non-distended EXTREMITIES: some left leg edema. Right elbow: No erythema, good ROM SKIN: extensive ecchymosis in left leg. NEUROLOGIC: LE motor 5/5 bilaterally except pain limited left hip and knee. Sensation intact. Assessment/Plan: 78yo man with left hip fracture s/p ORIF 1. Left Hip fracture: f/u Dr. Cherry. PT/OT. WBAT. Pain meds as needed. Methocarbamol prn. 2. Seizure d/o: continue phenobarbitol and dilantin. Seizure precautions. 3. CP/Possible pneumonia: Off Augmentin. CTA of chest negative. 4. Impaired cognition: speech therapy. 5. Edentulous: mechanical soft diet with extra sauces and gravies. 6. Orthostatic hypotension: florinef 7. COPD: dulera 8. Hypothyroidism: levothyroxine 9. Depression: zoloft 10. DVT ppx: lovenox. May need to do self teaching prior to d/c. 11. Constipation: Lactulose Q6 until BM 12. Advance Directives: Full code. HCP is his [place]. 13. Thrush: Nystatin S&S 10/31/18 17:47 10/31/18 17:48
[2018-10-31] MEDS: Senna TAB PO SCH (20:20)
[2018-10-31] MEDS: Tamsulosin CAP* 0.4 MG PO SCH (21:45)
[2018-11-01] MEDS: oxyCODONE/Acetamin 5/325 MG* TAB PO PRN ×3 (00:24→23:15)
[2018-11-01] MEDS: LORazepam TAB(*) 0.5 MG PO PRN ×2 (01:40→20:05)
[2018-11-01] MEDS: Levothyroxine TAB* 150 MCG TAB PO SCH (05:18)
[2018-11-01] MEDS: Polyethylene Glycol 3350* 17 GM PACKET PO SCH (09:11)
[2018-11-01] MEDS: Sertraline* 50 MG TAB PO SCH (09:12)
[2018-11-01] MEDS: Docusate CAP* 100 MG PO SCH ×2 (09:12→20:11)
[2018-11-01] MEDS: Fludrocortisone Acetate TAB* 0.1 MG PO SCH (09:12)
[2018-11-01] MEDS: Nystatin SUSPENSION* 100000 UNITS/ML 5 ML UDC PO SCH ×2 (09:12→13:24)
[2018-11-01] MEDS: PHENobarbital TAB(*) 30 MG PO SCH ×2 (09:12→20:11)
[2018-11-01] MEDS: Cyanocobalamin TAB* 500 MCG PO SCH (09:12)
[2018-11-01] MEDS: Phenytoin CAP(*) 100 MG CAP.ER PO SCH ×2 (09:13→18:00)
[2018-11-01] MEDS: Pantoprazole TAB * 40 MG TAB PO SCH (09:13)
[2018-11-01] MEDS: Mometasone/Formoter 200/5 MDI INH SCH ×2 (09:20→23:17)
[2018-11-01] MEDS: Bisacodyl SUPP* 10 MG SUPP PR PRN (12:58)
[2018-11-01] MEDS: Sodium Phosphate ADULT ENEMA* 118 ml bottle PR PRN (13:46)
--- NOTE | 2018-11-01 15:18 | PN ---
Progress Note Date of Service: 11/01/18 Note: USMAN MANTILLA SR was visited. Nursing notes read and reviewed. He has had a small BM but very small. He has received multiple doses of Lactulose and had an enema today Current Medications: Active Medications Generic Name Dose Route Start Last Admin Trade Name Freq PRN Reason Stop Dose Admin Acetaminophen 650 mg 10/16/18 11:51 10/31/18 20:40 Tylenol Tab* PO 650 mg Q6H PRN Administration FEVER/PAIN Al Hydrox/Mg Hydrox/Simethicone 30 ml 10/26/18 05:17 10/26/18 05:34 Maalox Plus* PO 30 ml ONCE PRN Administration .ABDOMINAL DISCOMFORT Atorvastatin Calcium 40 mg 10/17/18 17:00 10/31/18 17:26 Lipitor* PO Not Given 1700 FRANCHESCA Bisacodyl 10 mg 10/23/18 14:29 11/01/18 12:58 Dulcolax Supp* [place] 10 mg DAILY PRN Administration CONSTIPATION Cyanocobalamin 1,000 mcg 10/17/18 09:00 11/01/18 09:12 Vitamin B12 Tab* PO 1,000 mcg DAILY FRANCHESCA Administration Docusate Sodium 100 mg 10/16/18 21:00 11/01/18 09:12 Colace Cap* PO 100 mg BID FRANCHESCA Administration Enoxaparin Sodium 40 mg 10/16/18 16:00 10/31/18 15:20 Lovenox(*) SUBCUT 40 mg Q24H FRANCHESCA Administration Fludrocortisone Acetate 0.1 mg 10/17/18 09:00 11/01/18 09:12 Florinef Tab* PO 0.1 mg DAILY FRANCHESCA Administration Lactulose 30 ml 10/31/18 09:00 11/01/18 09:11 Lactulose* PO 30 ml Q6H FRANCHESCA Administration Levothyroxine Sodium 150 mcg 10/17/18 06:00 11/01/18 05:18 Synthroid Tab* PO Not Given DAILY@0600 FRANHCESCA Lorazepam 0.5 mg 10/28/18 18:30 11/01/18 01:40 Ativan Tab(*) PO 0.5 mg Q6H PRN Administration ANXIETY Magnesium Hydroxide 30 ml 10/16/18 11:51 10/28/18 18:32 Milk Of Magnesia Liq* PO 30 ml Q6H PRN Administration CONSTIPATION Methocarbamol 750 mg 10/18/18 08:01 10/27/18 16:49 Robaxin Tab* PO 750 mg QID PRN Administration muscle spasm Mometasone Furoate/Formoterol Fumar 1 puff 10/16/18 21:00 11/01/18 09:20 Dulera 200/5 Mdi* INH 1 puff BID FRANCHESCA Administration Ondansetron HCl 4 mg 10/24/18 17:43 10/31/18 07:45 Zofran Odt Tab* PO 4 mg Q8H PRN Administration NAUSEA/VOMITING Oxycodone/Acetaminophen 1 tab 10/16/18 12:14 11/01/18 07:25 Percocet 5/325 Tab* PO 1 tab Q4H PRN Administration PAIN - MODERATE TO SEVERE Pantoprazole Sodium 40 mg 10/28/18 09:00 11/01/18 09:13 Protonix Tab* PO 40 mg DAILY FRANCHESCA Administration Phenobarbital 90 mg 10/16/18 21:00 11/01/18 09:12 Phenobarbital Tab(*) PO 90 mg BID FRANCHESCA Administration Phenytoin Sodium 200 mg 10/17/18 09:00 11/01/18 09:13 Dilantin Cap(*) PO 200 mg DAILY FRANCHESCA Administration Phenytoin Sodium 300 mg 10/16/18 18:00 10/31/18 17:21 Dilantin Cap(*) PO 300 mg 1800 FRANCHESCA Administration Polyethylene Glycol/Electrolytes 17 gm 10/26/18 09:00 11/01/18 09:11 Miralax* PO 17 gm DAILY FRANCHESCA Administration Senna 2 tab 10/22/18 21:00 10/31/18 20:20 Senokot Tab* PO 2 tab BEDTIME FRANCHESCA Administration Sertraline HCl 50 mg 10/17/18 09:00 11/01/18 09:12 Zoloft* PO 50 mg DAILY FRANCHESCA Administration Sodium Biphosphate/Sodium Phosphate 1 bottle 10/23/18 16:37 11/01/18 13:46 Fleet Enema* NH 1 bottle DAILY PRN Administration CONSTIPATION Tamsulosin HCl 0.4 mg 10/29/18 21:00 10/31/18 21:45 Flomax Cap* PO Not Given BEDTIME FRANCHESCA Vital Signs: Vital Signs Temp Pulse Resp BP Pulse Ox 97.0 F 42 20 144/55 99 10/31/18 16:05 11/01/18 06:16 11/01/18 13:24 11/01/18 06:16 11/01/18 08:00 Exam: GENERAL: no acute distress. alert and appropriate. Oriented to self and place and situation. HEENT: Throat examined. Thrush better LUNGS: clear to auscultation bilaterally. HEART: irregular ABDOMEN: + bowel sounds, soft, non-tender, non-distended EXTREMITIES: some left leg edema. Right elbow: No erythema, good ROM NEUROLOGIC: LE motor 5/5 bilaterally except pain limited left hip and knee. Sensation intact. Assessment/Plan: 78yo man with left hip fracture s/p ORIF 1. Left Hip fracture: f/u Dr. Cherry. PT/OT. WBAT. Pain meds as needed. Methocarbamol prn. 2. Seizure d/o: continue phenobarbitol and dilantin. Seizure precautions. 3. Impaired cognition: speech therapy. 4. Edentulous: mechanical soft diet with extra sauces and gravies. 5. Orthostatic hypotension: florinef 6. COPD: dulera 7. Hypothyroidism: levothyroxine 8. Depression: zoloft 9. DVT ppx: lovenox. May need to do self teaching prior to d/c. 10. Constipation: Lactulose Q6 until BM 11. Advance Directives: Full code. HCP is his girlfriend, [place]. 12. Thrush: Nystatin S&S 11/01/18 15:19
[2018-11-01] MEDS: Enoxaparin(*) 40 MG/0.4 ML SYR SUBCUT SCH (15:26)
[2018-11-01] MEDS: Atorvastatin* 40 MG TAB PO SCH (17:04)
[2018-11-01] MEDS: Acetaminophen TAB* 325 MG PO PRN (20:05)
[2018-11-01] MEDS: Tamsulosin CAP* 0.4 MG PO SCH (20:11)
[2018-11-01] MEDS: Senna TAB PO SCH (20:11)
[2018-11-01] MEDS ORDERED: LORazepam TAB(*) 0.5 MG PO ONE (23:01)
[2018-11-02] MEDS: Levothyroxine TAB* 150 MCG TAB PO SCH (06:16)
[2018-11-02] MEDS: Mometasone/Formoter 200/5 MDI INH SCH ×2 (07:58→22:04)
[2018-11-02] MEDS: PHENobarbital TAB(*) 30 MG PO SCH ×2 (08:00→22:03)
[2018-11-02] MEDS: oxyCODONE/Acetamin 5/325 MG* TAB PO PRN ×2 (08:01→15:32)
[2018-11-02] MEDS: Fludrocortisone Acetate TAB* 0.1 MG PO SCH (08:01)
[2018-11-02] MEDS: Ondansetron ODT TAB* 4 MG PO PRN ×2 (08:02→18:00)
[2018-11-02] MEDS: Sertraline* 50 MG TAB PO SCH (08:03)
[2018-11-02] MEDS: Phenytoin CAP(*) 100 MG CAP.ER PO SCH ×2 (08:03→17:36)
[2018-11-02] MEDS: Pantoprazole TAB * 40 MG TAB PO SCH (08:03)
[2018-11-02] MEDS: Cyanocobalamin TAB* 500 MCG PO SCH (08:03)
[2018-11-02] MEDS: Docusate CAP* 100 MG PO SCH ×2 (08:03→21:59)
[2018-11-02] MEDS: Polyethylene Glycol 3350* 17 GM PACKET PO SCH (08:04)
[2018-11-02] MEDS: Enoxaparin(*) 40 MG/0.4 ML SYR SUBCUT SCH (15:36)
--- NOTE | 2018-11-02 15:40 | PN ---
Progress Note Date of Service: 11/02/18 Note: USMAN Parmjit MATNILLA SR was visited. Nursing notes read and reviewed. He was able to have 2 BMs yesterday, but now he is a little dehydrated. Will order IV fluids. Current Medications: Active Medications Generic Name Dose Route Start Last Admin Trade Name Freq PRN Reason Stop Dose Admin Acetaminophen 650 mg 10/16/18 11:51 11/01/18 20:05 Tylenol Tab* PO 650 mg Q6H PRN Administration FEVER/PAIN Al Hydrox/Mg Hydrox/Simethicone 30 ml 10/26/18 05:17 10/26/18 05:34 Maalox Plus* PO 30 ml ONCE PRN Administration .ABDOMINAL DISCOMFORT Atorvastatin Calcium 40 mg 10/17/18 17:00 11/01/18 17:04 Lipitor* PO 40 mg 1700 FRANCHESCA Administration Bisacodyl 10 mg 10/23/18 14:29 11/01/18 12:58 Dulcolax Supp* AL 10 mg DAILY PRN Administration CONSTIPATION Cyanocobalamin 1,000 mcg 10/17/18 09:00 11/02/18 08:03 Vitamin B12 Tab* PO Not Given DAILY FRANCHESCA Docusate Sodium 100 mg 10/16/18 21:00 11/02/18 08:03 Colace Cap* PO Not Given BID FRANCHESCA Enoxaparin Sodium 40 mg 10/16/18 16:00 11/01/18 15:26 Lovenox(*) SUBCUT 40 mg Q24H FRANCHESCA Administration Fludrocortisone Acetate 0.1 mg 10/17/18 09:00 11/02/18 08:01 Florinef Tab* PO 0.1 mg DAILY FRANCHESCA Administration Dextrose/Sodium Chloride 1,000 mls @ 75 mls/hr 11/02/18 16:00 D5ns 0.9% 1000 Ml Bag* IV 11/04/18 05:19 PER RATE FRANCHESCA Lactulose 30 ml 10/31/18 09:00 11/02/18 13:19 Lactulose* PO Not Given Q6H FRANCHESCA Levothyroxine Sodium 150 mcg 10/17/18 06:00 11/02/18 06:16 Synthroid Tab* PO 150 mcg DAILY@0600 FRANCHESCA Administration Lorazepam 0.5 mg 10/28/18 18:30 11/01/18 20:05 Ativan Tab(*) PO 0.5 mg Q6H PRN Administration ANXIETY Magnesium Hydroxide 30 ml 10/16/18 11:51 10/28/18 18:32 Milk Of Magnesia Liq* PO 30 ml Q6H PRN Administration CONSTIPATION Methocarbamol 750 mg 10/18/18 08:01 10/27/18 16:49 Robaxin Tab* PO 750 mg QID PRN Administration muscle spasm Mometasone Furoate/Formoterol Fumar 1 puff 10/16/18 21:00 11/02/18 07:58 Dulera 200/5 Mdi* INH 1 puff BID FRANCHESCA Administration Ondansetron HCl 4 mg 10/24/18 17:43 11/02/18 08:02 Zofran Odt Tab* PO 4 mg Q8H PRN Administration NAUSEA/VOMITING Oxycodone/Acetaminophen 1 tab 10/16/18 12:14 11/02/18 08:01 Percocet 5/325 Tab* PO 1 tab Q4H PRN Administration PAIN - MODERATE TO SEVERE Pantoprazole Sodium 40 mg 10/28/18 09:00 11/02/18 08:03 Protonix Tab* PO 40 mg DAILY FRANCHESCA Administration Phenobarbital 90 mg 10/16/18 21:00 11/02/18 08:00 Phenobarbital Tab(*) PO 90 mg BID FRANCHESCA Administration Phenytoin Sodium 200 mg 10/17/18 09:00 11/02/18 08:03 Dilantin Cap(*) PO 200 mg DAILY FRANCHESCA Administration Phenytoin Sodium 300 mg 10/16/18 18:00 11/01/18 18:00 Dilantin Cap(*) PO 300 mg 1800 FRANCHESCA Administration Polyethylene Glycol/Electrolytes 17 gm 10/26/18 09:00 11/02/18 08:04 Miralax* PO 17 gm DAILY FRANCHESCA Administration Senna 2 tab 10/22/18 21:00 11/01/18 20:11 Senokot Tab* PO 2 tab BEDTIME FRANCHESCA Administration Sertraline HCl 50 mg 10/17/18 09:00 11/02/18 08:03 Zoloft* PO 50 mg DAILY FRANCHESCA Administration Sodium Biphosphate/Sodium Phosphate 1 bottle 10/23/18 16:37 11/01/18 13:46 Fleet Enema* AL 1 bottle DAILY PRN Administration CONSTIPATION Tamsulosin HCl 0.4 mg 10/29/18 21:00 11/01/18 20:11 Flomax Cap* PO 0.4 mg BEDTIME FRANCHESCA Administration Vital Signs: Vital Signs Temp Pulse Resp BP Pulse Ox 97.4 F 56 18 121/59 97 11/02/18 04:48 11/02/18 04:48 11/02/18 10:31 11/02/18 04:48 11/02/18 08:00 Exam: GENERAL: no acute distress. alert and appropriate. Oriented to self and place and situation. HEENT: Throat examined. Thrush better LUNGS: clear to auscultation bilaterally. HEART: irregular ABDOMEN: + bowel sounds, soft, non-tender, non-distended EXTREMITIES: some left leg edema. Right elbow: No erythema, good ROM NEUROLOGIC: LE motor 5/5 bilaterally except pain limited left hip and knee. Sensation intact. Assessment/Plan: 78yo man with left hip fracture s/p ORIF 1. Left Hip fracture: f/u Dr. Cherry. PT/OT. WBAT. Pain meds as needed. Methocarbamol prn. 2. Seizure d/o: continue phenobarbitol and dilantin. Seizure precautions. 3. Impaired cognition: speech therapy. 4. Edentulous: mechanical soft diet with extra sauces and gravies. 5. Orthostatic hypotension: florinef 6. COPD: dulera 7. Hypothyroidism: levothyroxine 8. Depression: zoloft 9. DVT ppx: lovenox. May need to do self teaching prior to d/c. 10. Constipation: Lactulose Q6 until BM 11. Advance Directives: Full code. HCP is his girlfriend, [place]. 12. Thrush: Nystatin S&S 11/02/18 15:40
[2018-11-02] MEDS ORDERED: D5NS 0.9% 1000 ML BAG* 1,000 ML IV SCH (16:00)
[2018-11-02] MEDS: Atorvastatin* 40 MG TAB PO SCH (17:36)
[2018-11-02] MEDS: LORazepam TAB(*) 0.5 MG PO PRN (19:14)
[2018-11-02] MEDS: Acetaminophen TAB* 325 MG PO PRN (20:21)
[2018-11-02 20:28] VITALS: BP 156/56
[2018-11-02] MEDS ORDERED: HYDROcodone/ACETAMIN 5-325 MG* 1 TAB PO PRN (20:54)
[2018-11-02] MEDS ORDERED: traMADol TAB* 50 MG PO PRN (20:56)
[2018-11-02 21:56] LABS: Hematocrit 36 % (42-52); Mean Corpuscular HGB Conc 33 g/dl (31-36); Mean Corpuscular Hemoglobin 33 pg (27-31); Mean Corpuscular Volume 99 fL (80-94); Mean Platelet Volume 6.9 fL (7.4-10.4); Platelet Count 560 10^3/ul (150-450); Red Blood Count 3.63 10^6/ul (4.00-5.40); Red Cell Distribution Width 19 % (10.5-15); White Blood Count 23.5 10^3/ul (3.5-10.8)
[2018-11-02] MEDS: Senna TAB PO SCH (21:59)
[2018-11-02] MEDS: Tamsulosin CAP* 0.4 MG PO SCH (22:03)
[2018-11-02 22:12] LABS: Albumin 3.5 g/dL (3.2-5.2); BUN/Creatinine Ratio 23.5 (8-20); Calcium 8.5 mg/dL (8.6-10.3); EGFR African American 85.5 (>60); EGFR Non-African American 70.6 (>60); Globulin 3.4 g/dL (2-4); Total Bilirubin 0.4 mg/dL (0.2-1.0); Total Protein 6.9 g/dL (6.4-8.9)
[2018-11-02 22:40] LABS: ABS Basophils 0.1 10^3/ul (0-0.2); ABS Eosinophils 0 10^3/ul (0-0.6); ABS Lymphocytes 0.3 10^3/ul (1.0-4.8); ABS Monocytes 1.5 10^3/ul (0-0.8); ABS Neutrophils 21.7 10^3/ul (1.5-7.7); ABS Nucleated RBC 0 10^3/ul; Eosinophil % 0 %; Lymphocyte % 1.1 %; Nucleated Red Blood Cells % 0
[2018-11-02] MEDS ORDERED: ZOSYN 3.375 GM x ONE DOSE over 30 miuntes IVPB ×2 (23:20)
--- NOTE | 2018-11-04 00:47 | DS ---
DISCHARGE SUMMARY: DATE OF ADMISSION: 10/16/18 DATE OF DISCHARGE: 11/02/18 DISCHARGE DIAGNOSES: 1. Left hip fracture. 2. Seizure disorder. 3. Probable sepsis. 4. Chronic obstructive pulmonary disease. 5. Hypothyroidism. 6. Depression. 7. Oropharyngeal candidiasis. 8. Constipation. HISTORY OF PRESENT ILLNESS AND HOSPITAL COURSE: For a complete history of the events leading up to his rehab stay, please see the history and physical dictated by me on 10/16/18. While on the rehab unit, Kartik remained on Lovenox for DVT prophylaxis. He did complain of an episode of chest pain on . An EKG was done, which did not show any ST elevations or acute changes. His troponins were negative. The patient also complained of another episode of chest pain and gasping for air on 10/28/18. He had a CT angiogram of his chest, which was negative for any pulmonary embolus. The patient previously had a chest x-ray on 10/25/18, which showed atelectasis in his right lower lobe with possible infiltrate. He received a course of oral Augmentin for that. The patient also developed thrush and was complaining of difficulty swallowing. This was treated with nystatin swish and swallow, with good results. The patient had frequent episodes of constipation. He was often refusing laxatives as well as stool softeners. His constipation was fixed the first time with several doses of lactulose, followed by a suppository and a Fleet enema. On and 11/01/18, he received multiple episodes of lactulose, which ultimately resulted in him having a bowel movement. However, on 11/02/18, the patient felt nauseated. On 11/02/18, in the evening, the patient vomited and then shortly after vomiting he developed a fever. Temperature was measured at 102. Stat labs were ordered. His white count came back at 23,000. Following this, a CAT Team was called wherein it was determined that the patient might have sepsis. The patient was moved to the intensive care unit after blood cultures were drawn and IV antibiotics were started for possible sepsis. Please note, while on the rehab unit, the patient worked with both Physical and Occupational Therapy. He did make gains with both disciplines, but was unable to achieve independence, and was likely going to need to be transferred to a fpc facility for ongoing rehab. DISCHARGE DIET: Per the hospitalist staff. DISCHARGE MEDICATIONS: Included: 1. IV vancomycin and IV Zosyn. 2. He would continue on his Dilantin and phenobarbital for seizures, as well as his Protonix. 3. Percocet. 4. Dulera inhaler. 5. Robaxin. 6. Synthroid. 7. Florinef. 8. Lovenox. 9. Lipitor. 10. Bowel medications. [id number]/CPS #: [id number] [facility] SYSTEMParmjit
== END 2018-11-02 23:31 | disposition short-term general hospital (02) | DRG 559 ==
LOC: PMRU 11:26
PROVIDERS: ADMIT Physical Medicine & Rehabilitation; ATTEND Physical Medicine & Rehabilitation
PROC: F07Z5ZZ Bed Mobility Treatment (ICD-10-PCS; principal; 2018-10-16)
PROC: F07Z9ZZ Gait Training/Functional Ambulation Treatment (ICD-10-PCS; 2018-10-16)
PROC: F07Z8ZZ Transfer Training Treatment (ICD-10-PCS; 2018-10-16)
PROC: F08Z0ZZ Bathing/Showering Techniques Treatment (ICD-10-PCS; 2018-10-16)
PROC: F08Z1ZZ Dressing Techniques Treatment (ICD-10-PCS; 2018-10-16)
PROC: F08Z3ZZ Feeding/Eating Treatment (ICD-10-PCS; 2018-10-16)
PROC: F06Z6ZZ Communicative/Cognitive Integration Skills Treatment (ICD-10-PCS; 2018-10-16)
DX: S72.25XD Nondisplaced subtrochanteric fracture of left femur, subsequent encounter for closed fracture with routine healing (principal); A41.9 Sepsis, unspecified organism; J18.9 Pneumonia, unspecified organism; J98.11 Atelectasis; B37.0 Candidal stomatitis; J44.9 Chronic obstructive pulmonary disease, unspecified; G40.909 Epilepsy, unspecified, not intractable, without status epilepticus; E03.9 Hypothyroidism, unspecified; G31.84 Mild cognitive impairment of uncertain or unknown etiology; R60.9 Edema, unspecified; F32.9 Major depressive disorder, single episode, unspecified; K59.00 Constipation, unspecified; I95.1 Orthostatic hypotension; W18.30XD Fall on same level, unspecified, subsequent encounter; Z79.51 Long term (current) use of inhaled steroids; Z79.899 Other long term (current) drug therapy; Z87.891 Personal history of nicotine dependence
CPT/HCPCS: 36415; 71046; 71275; 80053; 81003; 81015; 83605; 84484; 85025; 87040; 87070; 87086; 87205; 93005; 94640; A9270-GY; G0515-GO; J1650; J2543; Q9967

== ENCOUNTER 2018-11-02 23:33 | Inpatient (IN) | payer MEDICARE, MEDICAID ==
[2018-11-02] MEDS ORDERED: Vancomycin per Pharmacy* NOTE FOLLOW UP SCH (23:45)
[2018-11-02] MEDS ORDERED: NS IV SCH ×2 (23:45)
[2018-11-02] MEDS ORDERED: Albuterol HFA INHALER* 8 gm MDI INH PRN (23:46)
[2018-11-02] MEDS ORDERED: Acetaminophen TAB* 325 MG PO PRN (23:48)
[2018-11-02] MEDS ORDERED: LORazepam TAB(*) 0.5 MG PO PRN (23:50)
[2018-11-02] MEDS ORDERED: Methocarbamol TAB* 500 MG PO PRN (23:50)
[2018-11-02] MEDS ORDERED: NS 0.9% 1000 ML** 1,000 ML IV ONE (23:57)
[2018-11-03] MEDS ORDERED: Vancomycin(*) 1,250 MG in NS 0.9% 250 ML* 250 ML IVPB ONE (00:15)
[2018-11-03 00:18] LABS: Urine Appearance Cloudy; Urine Bacteria Absent (Absent); Urine Bilirubin Negative (Negative); Urine Blood 3+ (Negative); Urine Color Amber; Urine Glucose Negative (Negative); Urine Ketones Negative (Negative); Urine Nitrite Negative (Negative); Urine Protein 1+(30 mg/dL) (Negative); Urine Red Blood Cell 3+(>10/hpf) (Absent); Urine Specific Gravity 1.026 (1.010-1.030); Urine Urobilinogen Negative (Negative); Urine White Blood Cell 3+(>20/hpf) (Absent)
[2018-11-03] MEDS ORDERED: Ondansetron INJ* 2 MG/ML VIAL ONE (00:59)
[2018-11-03] MEDS ORDERED: Zosyn per Pharmacy* NOTE FOLLOW UP PRN (01:08)
[2018-11-03] MEDS: NS 0.9% 1000 ML** 1,000 ML IV SCH ×3 (01:45→22:31)
--- NOTE | 2018-11-03 01:51 | HP ---
CC: Dr. Leahy * HISTORY AND PHYSICAL: DATE OF ADMISSION: 11/02/18 PRIMARY CARE PROVIDER: Dr. Leahy. CHIEF COMPLAINT: Hypertension, fever, decreased urine output. HISTORY OF PRESENT ILLNESS: Mr. Robles is a 78-year-old male who was hospitalized in the acute setting at [facility] from 10/12/18 through 10/16/18 where he was treated for a left intertrochanteric hip fracture. The patient also developed acute blood loss anemia during that hospitalization. On 10/16/18, the patient was discharged to [facility] for acute rehab. The patient reportedly had been doing okay; however, per nursing, on the evening of 11/02/18, he began to vomit. He had lab work obtained at 2148 hours that revealed sodium level of 134, creatinine of 1.02, and white blood cell count of 23,500. The patient continued to have vomiting and decreased urine output. A clinical assessment team was called to which I attended. When I arrived to the room, the patient was noted to be somewhat somnolent, though he did awakened and answered questions with dysarthric speech which was reportedly his baseline. Blood pressure obtained at the time of the clinical assessment team revealed a systolic of 83. He was not tachycardic at that time. The patient had been febrile to 102.8 as of 08:30 p.m. on 11/02/18. The patient was started on D5 normal saline for hydration due to the fact that it was felt that he was likely volume deplete. With the fever, hypotension, and elevated white blood cell count, my concern was for septic shock and a code sepsis was called. The patient was subsequently transferred to the intensive care unit under a new account for admission for septic shock secondary to unclear cause with differential diagnosis being possible pneumonia versus aspiration pneumonia versus urinary tract infection. PAST MEDICAL HISTORY: 1. Seizure disorder. 2. COPD. 3. Hypothyroidism. 4. Depression. 5. Hyperlipidemia. PAST SURGICAL HISTORY: Left ORIF. MEDICATIONS: 1. Tylenol 650 mg p.o. q. 6 hours p.r.n. pain or fever. 2. Lipitor 40 mg p.o. daily. 3. Dulcolax 10 mg TN daily p.r.n. constipation. 4. Vitamin B12 of 1000 mcg p.o. daily. 5. Colace 100 mg p.o. b.i.d. 6. Lovenox 40 mg subcutaneous daily. 7. Florinef 0.1 mg p.o. daily. 8. Lactulose 30 mL p.o. q.6 hours. 9. Levothyroxine 150 mcg p.o. daily. 10. Ativan 0.5 mg p.o. q.6 hours p.r.n. anxiety. 11. MOM 30 mL p.o. q.6 hours p.r.n. constipation. 12. Robaxin 750 mg p.o. q.i.d. p.r.n. muscle spasm. 13. Dulera 200/5 one puff inhaled twice daily. 14. Zofran ODT 4 mg p.o. q.8 hours p.r.n. nausea. 15. Percocet 5/325 one tab p.o. q.4 hours p.r.n. pain. 16. Protonix 40 mg p.o. daily. 17. Phenobarbital 90 mg p.o. b.i.d. 18. Phenytoin 200 mg p.o. q.a.m., 300 mg p.o. at 1800 hours. 19. MiraLax 17 g p.o. daily. 20. Senna 2 tabs p.o. q.h.s. 21. Sertraline 50 mg p.o. daily. 22. Fleet Enema one enema TN daily p.r.n. constipation. 23. Flomax 0.4 mg p.o. q.h.s. ALLERGIES: No known drug allergies. FAMILY HISTORY: Negative for history of CVA or CAD. SOCIAL HISTORY: The patient quit approximately 9 weeks prior to this admission. He smoked for approximately 66 years and had been smoking a pack and a half. He does not drink alcohol. His girlfriend, Spike, is his healthcare proxy. REVIEW OF SYSTEMS: A review of systems is attempted; however, the patient is sleepy and his sleep is very dysarthric making this difficult to obtain other than what is per HPI. PHYSICAL EXAMINATION GENERAL: The patient is a well-developed elderly male seen initially sitting up in the bed in PMRU, somnolent, and in no acute distress. VITAL SIGNS: Blood pressure 93/53, pulse 89, respirations 23, temp 99.1, and O2 sat 94% on 2 L. HEENT: Pupils are equal and round. Extraocular muscles are intact. Oropharynx is clear. NECK: There is no submandibular, cervical, or supraclavicular adenopathy. Thyroid is nonenlarged, no thyroid nodules are noted. PULMONARY: Breath sounds are markedly diminished throughout. CARDIAC: Normal S1 and S2. Regular rate and rhythm. I do not appreciate any murmurs. There is no lower extremity edema. ABDOMEN: Bowel sounds are present. Abdomen is soft and nontender. It is mildly distended. MUSCULOSKELETAL: There is no cyanosis or clubbing in the digits. There is full active range of motion of all 4 extremities. SKIN: Warm and dry. There are no rashes. NEUROLOGIC: The patient has dysarthric speech. Moves all 4 extremities, though is limited with left lower extremity due to the recent hip fracture repair. PSYCH: The patient is again somewhat somnolent, but becomes more awake after approximately a liter of fluid. LABORATORY DATA: WBC 23.5, hemoglobin 12.0, hematocrit 36, platelets 560. Sodium 134, potassium 4.0, chloride 100, CO2 of 25, BUN 24, creatinine 1.02, glucose 184. Lactic acid 2.3. Calcium 8.5. Bilirubin 0.4. AST 34, ALT 35, alk phos 409. Albumin 3.5. ASSESSMENT AND PLAN: Mr. Robles is a 78-year-old male who was admitted initially on 10/12/18 through 10/16/18 where he was treated for a left hip fracture with ORIF, who had subsequently been in [facility] for acute rehab until the evening of 11/02/18 when he developed fever, decreased urine output, and significant vomiting. 1. Possible septic shock with unclear etiology. At this point, the patient is quite hypotensive with systolics in the 80s. He received the initial portion of the bolus while in PMRU prior to moving to the ICU and he will receive a total of 2166 mL of normal saline. We will reassess his blood pressure following the completion of the total bolus. There has been some improvement in the blood pressure with the systolic now up to 93/53. I am suspicious that the patient's source could either be possible aspiration pneumonia given the patient's vomiting or urinary tract infection as the patient's urine is quite dark and somewhat cloudy. Portable chest x-ray will be obtained as well as an urinalysis. Lactic acid is mildly elevated at 2.3 and this will be followed until is normalized. Followup CBC and BMP have been ordered for the morning of 11/03/18. The patient has received his first dose of Zosyn and will be receiving vancomycin as broad- spectrum overage as the source is unknown at this time. These will be dosed per pharmacy. 2. Seizure disorder. Of note, while the patient was getting blood drawn, there was shaking noted of the left arm. The patient's mental status had been not changed at all during tis episode. He does have a history of seizure disorder. At this point, I am going to continue him on his usual doses of phenobarbital and phenytoin. They are both slightly low as of 10/15/18. They were even lower on 10/12/18; however, I am suspicious that the patient was not taking his medications at that time based on prior notes from that hospitalization. 3. Chronic obstructive pulmonary disease. At this point, the patient is stable. He is utilizing 2 L of oxygen and this will continue. He is not wheezing. We will continue inhale steroid and p.r.n. albuterol. 4. Hypothyroidism. Continue Synthroid. 5. History of orthostatic hypotension. Continue fludrocortisone. 6. Gastroesophageal reflux disease. Continue Protonix. 7. Depression. Continue sertraline. 8. Benign prostatic hypertrophy. Continue Flomax. 9. DVT prophylaxis. According to the Adult Thrombosis Prophylaxis Risk Factor Assessment Guide, the patient has a total risk factor score of 8 making him high risk. He is on Lovenox 40 mg subcutaneous daily and this will continue. 10. Code status is full. TIME SPENT: Sixty five minutes of critical care time was spent on the admission of this patient. [id number]/[facility] #: [id number] PATRICK
[2018-11-03] MEDS ORDERED: NS 0.9% 1000 ML** 1,000 ML IV ONE (02:20)
[2018-11-03] MEDS: ZOSYN 3.375 GM Q8H per EXTENDED INFUSION IVPB SCH ×6 (03:44→21:56)
[2018-11-03 05:37] LABS: Hematocrit 29 % (42-52); Hemoglobin 9.6 g/dl (14.0-18.0); Mean Corpuscular HGB Conc 33 g/dl (31-36); Mean Corpuscular Hemoglobin 33 pg (27-31); Mean Corpuscular Volume 100 fL (80-94); Mean Platelet Volume 7.1 fL (7.4-10.4); Platelet Count 416 10^3/ul (150-450); Red Blood Count 2.91 10^6/ul (4.00-5.40); Red Cell Distribution Width 20 % (10.5-15); White Blood Count 25.5 10^3/ul (3.5-10.8)
[2018-11-03 05:38] LABS: ABS Basophils 0 10^3/ul (0-0.2); ABS Eosinophils 0 10^3/ul (0-0.6); ABS Monocytes 1.4 10^3/ul (0-0.8); ABS Nucleated RBC 0 10^3/ul; Eosinophil % 0 %; Lymphocyte % 3.9 %; Nucleated Red Blood Cells % 0
[2018-11-03 05:52] LABS: BUN/Creatinine Ratio 22.8 (8-20); Calcium 7.1 mg/dL (8.6-10.3); EGFR African American 96.3 (>60); EGFR Non-African American 79.6 (>60); Potassium 3.9 mmol/L (3.5-5.0)
[2018-11-03] MEDS: Levothyroxine TAB* 150 MCG TAB PO SCH (05:56)
[2018-11-03] MEDS: oxyCODONE/Acetamin 5/325 MG* TAB PO PRN (05:57)
[2018-11-03] MEDS: Enoxaparin(*) 40 MG/0.4 ML SYR SUBCUT SCH (07:58)
[2018-11-03] MEDS: Atorvastatin* 40 MG TAB PO SCH (08:00)
[2018-11-03] MEDS: Cyanocobalamin TAB* 500 MCG PO SCH ×2 (08:00→08:40)
[2018-11-03] MEDS: Pantoprazole TAB * 40 MG TAB PO SCH (08:00)
[2018-11-03] MEDS: Sertraline* 50 MG TAB PO SCH (08:00)
[2018-11-03] MEDS: Phenytoin CAP(*) 100 MG CAP.ER PO SCH (08:00)
[2018-11-03] MEDS: Fludrocortisone Acetate TAB* 0.1 MG PO SCH (08:00)
[2018-11-03] MEDS: Tamsulosin CAP* 0.4 MG PO SCH (08:00)
[2018-11-03] MEDS: PHENobarbital TAB(*) 30 MG PO SCH ×4 (08:00→21:55)
[2018-11-03] MEDS: Mometasone/Formoter 200/5 MDI INH SCH ×3 (08:32→20:22)
--- NOTE | 2018-11-03 08:58 | PN ---
Subjective Date of Service: 11/03/18 Interval History: "I feel sick." C/O liquids and solids "come right back up." Objective Active Medications: Acetaminophen (Tylenol Tab*) 650 mg PO Q4H PRN PRN Reason: PAIN Albuterol (Ventolin Hfa Inhaler*) 2 puff INH Q4H PRN PRN Reason: SHORTNESS OF BREATH Atorvastatin Calcium (Lipitor*) 40 mg PO DAILY [facility] Last Admin: 11/03/18 08:00 Dose: 40 mg Cyanocobalamin (Vitamin B12 Tab*) 1,000 mcg PO DAILY [facility] Last Admin: 11/03/18 08:40 Dose: Not Given Docusate Sodium (Colace Cap*) 200 mg PO DAILY PRN PRN Reason: CONSTIPATION Enoxaparin Sodium (Lovenox(*)) 40 mg SUBCUT Q24H [facility] Last Admin: 11/03/18 07:58 Dose: 40 mg Fludrocortisone Acetate (Florinef Tab*) 0.1 mg PO DAILY [facility] Last Admin: 11/03/18 08:00 Dose: 0.1 mg Piperacillin Sod/Tazobactam (Sod 3.375 gm/ Sodium Chloride) 100 mls @ 25 mls/ hr IVPB Q8H [facility] Last Admin: 11/03/18 03:44 Dose: 25 mls/hr Sodium Chloride (Ns 0.9% 1000 Ml*) 1,000 mls @ 150 mls/hr IV PER RATE [facility] Last Admin: 11/03/18 08:41 Dose: 150 mls/hr Vancomycin HCl 750 mg/ Sodium (Chloride) 250 mls @ 166.667 mls/hr IVPB Q8H [facility] Levothyroxine Sodium (Synthroid Tab*) 150 mcg PO 0600 [facility] Last Admin: 11/03/18 05:56 Dose: 150 mcg Lorazepam (Ativan Tab(*)) 0.5 mg PO Q6H PRN PRN Reason: ANXIETY Methocarbamol (Robaxin Tab*) 750 mg PO QID PRN PRN Reason: spasms Mometasone Furoate/Formoterol Fumar (Dulera 200/5 Mdi*) 1 puff INH BID [facility]; Protocol Last Admin: 11/03/18 08:32 Dose: 1 puff Ondansetron HCl (Zofran Inj*) 4 mg IV Q6H PRN PRN Reason: NAUSEA Oxycodone/Acetaminophen (Percocet 5/325 Tab*) 1 tab PO Q4H PRN PRN Reason: PAIN Last Admin: 11/03/18 05:57 Dose: 1 tab Pantoprazole Sodium (Protonix Tab*) 40 mg PO DAILY [facility] Last Admin: 11/03/18 08:00 Dose: 40 mg Pharmacy Consult (Vancomycin Per Pharmacy*) 1 note FOLLOW UP .VANC PER PHARMACY [facility] Pharmacy Consult (Zosyn Per Pharmacy*) 1 note FOLLOW UP . PRN PRN Reason: PER PROTOCOL Pharmacy Profile Note (Vancomycin Trough Check) 1 note FOLLOW UP 0900 ONE Stop: 11/04/18 09:01 Phenobarbital (Phenobarbital Tab(*)) 30 mg PO 0800,1200 [facility] Last Admin: 11/03/18 08:00 Dose: 30 mg Phenobarbital (Phenobarbital Tab(*)) 60 mg PO 1700,2100 [facility] Phenytoin Sodium (Dilantin Cap(*)) 200 mg PO DAILY [facility] Last Admin: 11/03/18 08:00 Dose: 200 mg Phenytoin Sodium (Dilantin Cap(*)) 300 mg PO 1800 [facility] Sertraline HCl (Zoloft*) 50 mg PO DAILY [facility] Last Admin: 11/03/18 08:00 Dose: 50 mg Tamsulosin HCl (Flomax Cap*) 0.4 mg PO DAILY [facility] Last Admin: 11/03/18 08:00 Dose: 0.4 mg Tramadol HCl (Ultram*) 50 mg PO Q6HR PRN PRN Reason: PAIN Trazodone HCl (Desyrel Tab*) 50 mg PO BEDTIME PRN PRN Reason: SLEEP Vital Signs - 8 hr 11/03/18 11/03/18 11/03/18 00:55 01:00 01:01 Temperature 99.3 F 99.3 F 99.1 F Pulse Rate 77 82 77 Respiratory 20 18 11 Rate Blood Pressure 125/48 104/56 (mmHg) O2 Sat by Pulse 96 96 97 Oximetry 11/03/18 11/03/18 11/03/18 01:15 01:23 01:30 Temperature 99.0 F 98.8 F Pulse Rate 80 74 Respiratory 15 13 9 Rate Blood Pressure 108/51 99/46 (mmHg) O2 Sat by Pulse 95 98 Oximetry 11/03/18 11/03/18 11/03/18 01:45 02:00 02:01 Temperature 98.8 F 98.8 F 98.8 F Pulse Rate 66 70 71 Respiratory 13 12 14 Rate Blood Pressure 105/51 91/47 (mmHg) O2 Sat by Pulse 95 97 92 Oximetry 11/03/18 11/03/18 11/03/18 02:04 02:15 02:30 Temperature 98.8 F 98.8 F Pulse Rate 72 71 Respiratory 10 14 16 Rate Blood Pressure 97/49 98/48 (mmHg) O2 Sat by Pulse 96 96 Oximetry 11/03/18 11/03/18 11/03/18 02:46 03:00 03:04 Temperature 98.8 F 98.8 F 98.8 F Pulse Rate 68 71 69 Respiratory 16 17 26 Rate Blood Pressure 105/36 79/49 85/41 (mmHg) O2 Sat by Pulse 96 96 97 Oximetry 11/03/18 11/03/18 11/03/18 03:15 03:30 03:45 Temperature 98.8 F 98.6 F 98.6 F Pulse Rate 74 70 71 Respiratory 10 13 17 Rate Blood Pressure 85/55 101/51 88/50 (mmHg) O2 Sat by Pulse 91 99 98 Oximetry 11/03/18 11/03/18 11/03/18 04:00 04:01 04:15 Temperature 98.4 F 98.4 F 98.4 F Pulse Rate 69 71 69 Respiratory 16 13 11 Rate Blood Pressure 112/41 89/48 (mmHg) O2 Sat by Pulse 96 99 99 Oximetry 11/03/18 11/03/18 11/03/18 04:30 04:45 05:00 Temperature 98.2 F 98.2 F 98.2 F Pulse Rate 72 69 68 Respiratory 16 18 17 Rate Blood Pressure 101/49 100/58 95/39 (mmHg) O2 Sat by Pulse 96 98 98 Oximetry 11/03/18 11/03/18 11/03/18 05:01 05:15 05:30 Temperature 98.2 F 98.2 F 98.2 F Pulse Rate 66 66 64 Respiratory 15 15 14 Rate Blood Pressure 91/42 92/48 (mmHg) O2 Sat by Pulse 97 95 96 Oximetry 11/03/18 11/03/18 11/03/18 05:45 05:57 06:00 Temperature 98.2 F 98.2 F Pulse Rate 64 68 Respiratory 18 17 13 Rate Blood Pressure 91/48 95/48 (mmHg) O2 Sat by Pulse 96 99 Oximetry 11/03/18 11/03/18 11/03/18 06:01 06:15 06:31 Temperature 98.2 F 98.2 F 98.2 F Pulse Rate 70 64 66 Respiratory 18 16 13 Rate Blood Pressure 96/47 97/49 (mmHg) O2 Sat by Pulse 98 98 97 Oximetry 11/03/18 11/03/18 11/03/18 06:45 07:00 07:01 Temperature 98.2 F 98.2 F 98.2 F Pulse Rate 65 63 63 Respiratory 16 15 18 Rate Blood Pressure 97/44 94/55 (mmHg) O2 Sat by Pulse 96 97 97 Oximetry 11/03/18 11/03/18 07:15 08:32 Temperature 98.2 F Pulse Rate 68 60 Respiratory 11 16 Rate Blood Pressure 93/52 (mmHg) O2 Sat by Pulse 97 99 Oximetry Oxygen Devices in Use Now: Nasal Cannula Appearance: Alert, partly up in ICU bed. In fair spirits. Looks comfortable. Eyes: No Scleral Icterus Respiratory: Symmetrical Chest Expansion and Respiratory Effort, Clear to Auscultation, Clear to Percussion Cardiovascular: NL Sounds; No Murmurs; No JVD, RRR, No Edema, - Abdominal: NL Sounds; No Tenderness; No Distention, No Hepatosplenomegaly, - Extremities: No Edema, No Clubbing, Cyanosis, - Skin: No Rash or Ulcers, No Nodules or Sclerosis, - Neurological: Alert and Oriented x 3 - Dysarthira, baseline for him per SO. No tremor Result Diagrams: 11/03/18 05:30 11/03/18 05:30 Assess/Plan/Problems-Billing Assessment: - Patient Problems (1) Sepsis Current Visit: Yes Status: Acute Comment: Questionable pos blood C&S, subcultures pending. Continue vanco & pip/ashleigh, IV fluids. Has not required pressors, lactated down to nl. Labs 11/04. (2) History of COPD Current Visit: No Status: Chronic Priority: High Code(s): Z87.09 - PERSONAL HISTORY OF OTHER DISEASES OF THE RESPIRATORY SYSTEM SNOMED Code(s): 143389820 Comment: Quit smoking 09/2018. Continue mometasone/fomoeterol, prn albuterol. (3) Seizure Current Visit: Yes Status: Acute Code(s): R56.9 - UNSPECIFIED CONVULSIONS SNOMED Code(s): 66483990 Comment: add on phenytoin and phenobarb levels requested. (4) Hypothyroid Current Visit: No Status: Acute Code(s): E03.9 - HYPOTHYROIDISM, UNSPECIFIED SNOMED Code(s): 88035439 Comment: Add on TSH requested 11/03. Home dose levothyroxine was 137 mcg.
[2018-11-03] MEDS ORDERED: PHENobarbital TAB(*) 30 MG PO SCH (09:00)
[2018-11-03] MEDS: Vancomycin(*) 750 MG in NS 0.9% 250 ML* 250 ML IVPB SCH ×2 (09:53→17:17)
[2018-11-03 10:08] LABS: Phenytoin 28.4 mcg/mL (10-20)
[2018-11-03 10:22] LABS: TSH (Thyroid Stimulating Horm) 1.45 mcIU/mL (0.34-5.60)
[2018-11-03] MEDS: traMADol TAB* 50 MG PO PRN (13:29)
[2018-11-03] MEDS ORDERED: Phenytoin CAP(*) 100 MG CAP.ER PO SCH ×2 (18:00→21:00)
[2018-11-03] MEDS: Sodium Phosphate ADULT ENEMA* 118 ml bottle PR SCH ×3 (21:11→22:30)
[2018-11-03] MEDS: Ondansetron INJ* 2 MG/ML VIAL IV PRN (22:25)
[2018-11-04] MEDS: Sodium Phosphate ADULT ENEMA* 118 ml bottle PR SCH ×6 (00:59→11:33)
[2018-11-04] MEDS: traZODone TAB* 50 MG TAB PO PRN (02:05)
[2018-11-04] MEDS: oxyCODONE/Acetamin 5/325 MG* TAB PO PRN ×2 (02:05→07:55)
[2018-11-04] MEDS: Vancomycin(*) 750 MG in NS 0.9% 250 ML* 250 ML IVPB SCH ×2 (02:21→09:34)
[2018-11-04] MEDS: ZOSYN 3.375 GM Q8H per EXTENDED INFUSION IVPB SCH ×6 (04:40→19:36)
[2018-11-04] MEDS: NS 0.9% 1000 ML** 1,000 ML IV SCH ×2 (05:49→12:17)
[2018-11-04] MEDS: Levothyroxine TAB* 150 MCG TAB PO SCH (05:49)
[2018-11-04 06:50] LABS: ABS Basophils 0 10^3/ul (0-0.2); ABS Eosinophils 0.2 10^3/ul (0-0.6); ABS Lymphocytes 1.2 10^3/ul (1.0-4.8); ABS Monocytes 0.7 10^3/ul (0-0.8); ABS Neutrophils 12.2 10^3/ul (1.5-7.7); ABS Nucleated RBC 0 10^3/ul; Eosinophil % 1.4 %; Hematocrit 28 % (42-52); Hemoglobin 8.9 g/dl (14.0-18.0); Lymphocyte % 8.1 %; Mean Corpuscular HGB Conc 32 g/dl (31-36); Mean Corpuscular Hemoglobin 32 pg (27-31); Mean Corpuscular Volume 102 fL (80-94); Mean Platelet Volume 7.4 fL (7.4-10.4); Nucleated Red Blood Cells % 0; Platelet Count 324 10^3/ul (150-450); Red Blood Count 2.76 10^6/ul (4.00-5.40); Red Cell Distribution Width 20 % (10.5-15); White Blood Count 14.3 10^3/ul (3.5-10.8)
[2018-11-04 07:09] LABS: Albumin 2.7 g/dL (3.2-5.2); BUN/Creatinine Ratio 21.2 (8-20); C Reactive Protein 153.76 mg/L (<8.01); Calcium 7.7 mg/dL (8.6-10.3); EGFR African American 141.2 (>60); EGFR Non-African American 116.7 (>60); Globulin 2.6 g/dL (2-4); Potassium 3.6 mmol/L (3.5-5.0); Total Bilirubin 0.3 mg/dL (0.2-1.0); Total Protein 5.3 g/dL (6.4-8.9)
[2018-11-04] MEDS: PHENobarbital TAB(*) 30 MG PO SCH ×4 (07:55→20:29)
[2018-11-04] MEDS: Ondansetron INJ* 2 MG/ML VIAL IV PRN (08:08)
[2018-11-04] MEDS: Enoxaparin(*) 40 MG/0.4 ML SYR SUBCUT SCH (08:08)
[2018-11-04] MEDS ORDERED: Vancomycin Trough Check NOTE FOLLOW UP ONE (09:00)
[2018-11-04] MEDS: Tamsulosin CAP* 0.4 MG PO SCH (09:32)
[2018-11-04] MEDS: Fludrocortisone Acetate TAB* 0.1 MG PO SCH (09:32)
[2018-11-04] MEDS: Phenytoin CAP(*) 100 MG CAP.ER PO SCH (09:32)
[2018-11-04] MEDS: Sertraline* 50 MG TAB PO SCH (09:32)
[2018-11-04] MEDS: Mometasone/Formoter 200/5 MDI INH SCH ×2 (09:36→19:44)
[2018-11-04] MEDS: Cyanocobalamin TAB* 500 MCG PO SCH (09:37)
[2018-11-04] MEDS: Atorvastatin* 40 MG TAB PO SCH (09:37)
[2018-11-04] MEDS: Pantoprazole TAB * 40 MG TAB PO SCH (09:37)
[2018-11-04] MEDS: Polyethylene Glycol 3350* 17 GM PACKET PO SCH ×2 (11:52→21:15)
--- NOTE | 2018-11-04 12:13 | PN ---
Subjective Date of Service: 11/04/18 Interval History: Mild pain L hip. Swallowing and appetite better since he had BM following enemas. Objective Active Medications: Acetaminophen (Tylenol Tab*) 650 mg PO Q4H PRN PRN Reason: PAIN Acetaminophen (Tylenol Tab*) 650 mg PO TID [facility] Albuterol (Ventolin Hfa Inhaler*) 2 puff INH Q4H PRN PRN Reason: SHORTNESS OF BREATH Atorvastatin Calcium (Lipitor*) 40 mg PO DAILY [facility] Last Admin: 11/04/18 09:37 Dose: Not Given Cyanocobalamin (Vitamin B12 Tab*) 1,000 mcg PO DAILY [facility] Last Admin: 11/04/18 09:37 Dose: Not Given Docusate Sodium (Colace Cap*) 200 mg PO DAILY PRN PRN Reason: CONSTIPATION Enoxaparin Sodium (Lovenox(*)) 40 mg SUBCUT Q24H [facility] Last Admin: 11/04/18 08:08 Dose: 40 mg Fludrocortisone Acetate (Florinef Tab*) 0.1 mg PO DAILY [facility] Last Admin: 11/04/18 09:32 Dose: 0.1 mg Piperacillin Sod/Tazobactam (Sod 3.375 gm/ Sodium Chloride) 100 mls @ 25 mls/ hr IVPB Q8H [facility] Last Admin: 11/04/18 11:53 Dose: 25 mls/hr Sodium Chloride (Ns 0.9% 1000 Ml*) 1,000 mls @ 150 mls/hr IV PER RATE [facility] Last Admin: 11/04/18 05:49 Dose: 150 mls/hr Levothyroxine Sodium (Synthroid Tab*) 150 mcg PO 0600 [facility] Last Admin: 11/04/18 05:49 Dose: 150 mcg Lorazepam (Ativan Tab(*)) 0.5 mg PO Q6H PRN PRN Reason: ANXIETY Methocarbamol (Robaxin Tab*) 750 mg PO QID PRN PRN Reason: spasms Last Admin: 11/04/18 03:05 Dose: 750 mg Mometasone Furoate/Formoterol Fumar (Dulera 200/5 Mdi*) 1 puff INH BID [facility]; Protocol Last Admin: 11/04/18 09:36 Dose: 1 puff Ondansetron HCl (Zofran Inj*) 4 mg IV Q6H PRN PRN Reason: NAUSEA Last Admin: 11/04/18 08:08 Dose: 4 mg Oxycodone/Acetaminophen (Percocet 5/325 Tab*) 1 tab PO Q4H PRN PRN Reason: PAIN Last Admin: 11/04/18 07:55 Dose: 1 tab Pantoprazole Sodium (Protonix Tab*) 40 mg PO DAILY [facility] Last Admin: 11/04/18 09:37 Dose: Not Given Pharmacy Consult (Zosyn Per Pharmacy*) 1 note FOLLOW UP . PRN PRN Reason: PER PROTOCOL Pharmacy Profile Note (Vancomycin Trough Check) 1 note FOLLOW UP 08 ONE Stop: 11/06/18 08:31 Phenobarbital (Phenobarbital Tab(*)) 30 mg PO 0800,1200 [facility] Last Admin: 11/04/18 11:52 Dose: 30 mg Phenobarbital (Phenobarbital Tab(*)) 60 mg PO 1700,2100 [facility] Last Admin: 11/03/18 21:55 Dose: 60 mg Phenytoin Sodium (Dilantin Cap(*)) 200 mg PO DAILY [facility] Last Admin: 11/04/18 09:32 Dose: 200 mg Polyethylene Glycol/Electrolytes (Miralax*) 17 gm PO 0800,2100 [facility] Last Admin: 11/04/18 11:52 Dose: 17 gm Sertraline HCl (Zoloft*) 50 mg PO DAILY [facility] Last Admin: 11/04/18 09:32 Dose: 50 mg Tamsulosin HCl (Flomax Cap*) 0.4 mg PO DAILY [facility] Last Admin: 11/04/18 09:32 Dose: 0.4 mg Tramadol HCl (Ultram*) 50 mg PO Q6HR PRN PRN Reason: PAIN Last Admin: 11/03/18 13:29 Dose: 50 mg Trazodone HCl (Desyrel Tab*) 50 mg PO BEDTIME PRN PRN Reason: SLEEP Last Admin: 11/04/18 02:05 Dose: 50 mg Vital Signs - 8 hr 11/04/18 11/04/18 11/04/18 04:41 05:22 06:10 Temperature Pulse Rate Respiratory 20 16 18 Rate Blood Pressure (mmHg) O2 Sat by Pulse Oximetry 11/04/18 11/04/18 11/04/18 07:19 07:55 08:00 Temperature 97.6 F Pulse Rate 60 Respiratory 20 16 20 Rate Blood Pressure 111/50 (mmHg) O2 Sat by Pulse 96 Oximetry 11/04/18 11/04/18 11/04/18 09:38 10:00 11:15 Temperature Pulse Rate 57 72 Respiratory 16 18 18 Rate Blood Pressure 107/50 (mmHg) O2 Sat by Pulse 92 94 Oximetry 11/04/18 11:52 Temperature Pulse Rate Respiratory 18 Rate Blood Pressure (mmHg) O2 Sat by Pulse Oximetry Oxygen Devices in Use Now: Nasal Cannula Appearance: Alert, partly up in bed. In good spirits. Looks comfortable. Eyes: No Scleral Icterus Respiratory: Symmetrical Chest Expansion and Respiratory Effort, Clear to Auscultation, Clear to Percussion Cardiovascular: NL Sounds; No Murmurs; No JVD, RRR, No Edema, - Extremities: No Edema, No Clubbing, Cyanosis, - - L hip surgical wound closed, no erythema. No pain with hip abduction or flexion. Skin: No Rash or Ulcers, No Nodules or Sclerosis Neurological: Alert and Oriented x 3, NL Sensation - dysarthric speech as before. Result Diagrams: 11/04/18 06:18 11/04/18 06:18 Microbiology and Other Data: Microbiology 11/02/18 23:45 Urine Culture - Final Urine No Growth (<1,000 CFU/mL) Assess/Plan/Problems-Billing Assessment: - Patient Problems (1) Sepsis Current Visit: Yes Status: Acute Comment: CXR showed RLL infiltrate, likely aspiration while he was vomiting. Improved. Blood C&S neg to date. Stop vanco , continue pip/ashleigh. (2) History of COPD Current Visit: No Status: Chronic Priority: High Code(s): Z87.09 - PERSONAL HISTORY OF OTHER DISEASES OF THE RESPIRATORY SYSTEM SNOMED Code(s): 221726213 Comment: Quit smoking 09/2018. Continue mometasone/fomoeterol, prn albuterol. (3) Seizure Current Visit: Yes Status: Acute Code(s): R56.9 - UNSPECIFIED CONVULSIONS SNOMED Code(s): 98080943 Comment: Phenytoin dose decreased as level was 28.4. Repeat level 11/05. Phenobarb level therapeutic at 30.9. (4) Hypothyroid Current Visit: No Status: Acute Code(s): E03.9 - HYPOTHYROIDISM, UNSPECIFIED SNOMED Code(s): 64113636 Comment: Add on TSH 11/03 was 1.45. Home dose levothyroxine was 137 mcg. SO will call me from home to read the labels on his pill bottles. (5) Closed left hip fracture Current Visit: No Status: Acute Code(s): S72.002A - FRACTURE OF UNSP PART OF NECK OF LEFT FEMUR, INIT SNOMED Code(s): 081973981 Comment: Continue pain control, DVT prophylaxis (lovenox) per orthopedics. XRay L hip 11/04. Doubt infection. Wound looks good, minimal to no pain on hip abduction and flexion. Source of sepsis is RLL pneumonia, likely due to aspiration. (6) Obstipation Current Visit: Yes Status: Acute Code(s): K59.00 - CONSTIPATION, UNSPECIFIED SNOMED Code(s): 193701817 Comment: Good results from Fleets enema. PEG bid (scheduled).
[2018-11-04] MEDS: Acetaminophen TAB* 325 MG PO SCH ×2 (13:50→20:29)
[2018-11-04] MEDS ORDERED: Haloperidol INJ IV/IM* 5 MG/ML AMP IV SLOW PU PRN (21:34)
[2018-11-05] MEDS: traMADol TAB* 50 MG PO PRN ×4 (01:29→22:14)
[2018-11-05] MEDS: Ondansetron INJ* 2 MG/ML VIAL IV PRN ×2 (01:30→20:26)
[2018-11-05] MEDS: traZODone TAB* 50 MG TAB PO PRN (01:30)
[2018-11-05] MEDS: ZOSYN 3.375 GM Q8H per EXTENDED INFUSION IVPB SCH ×6 (03:28→19:44)
[2018-11-05] MEDS: Levothyroxine TAB* 150 MCG TAB PO SCH (06:27)
[2018-11-05 06:42] LABS: ABS Basophils 0 10^3/ul (0-0.2); ABS Eosinophils 0.2 10^3/ul (0-0.6); ABS Lymphocytes 1.2 10^3/ul (1.0-4.8); ABS Monocytes 0.7 10^3/ul (0-0.8); ABS Neutrophils 9.3 10^3/ul (1.5-7.7); ABS Nucleated RBC 0 10^3/ul; Eosinophil % 1.8 %; Hematocrit 28 % (42-52); Hemoglobin 9.1 g/dl (14.0-18.0); Lymphocyte % 10.2 %; Mean Corpuscular HGB Conc 33 g/dl (31-36); Mean Corpuscular Hemoglobin 33 pg (27-31); Mean Corpuscular Volume 100 fL (80-94); Mean Platelet Volume 7.5 fL (7.4-10.4); Nucleated Red Blood Cells % 0; Platelet Count 291 10^3/ul (150-450); Red Blood Count 2.79 10^6/ul (4.00-5.40); Red Cell Distribution Width 19 % (10.5-15); White Blood Count 11.3 10^3/ul (3.5-10.8)
[2018-11-05] MEDS: Mometasone/Formoter 200/5 MDI INH SCH ×2 (07:22→19:44)
--- NOTE | 2018-11-05 08:02 | PN ---
Subjective Date of Service: 11/05/18 Interval History: HD #3 on 11/05/18 for this 78 yo M PMH seizure d/o, depression, HLD, COPD who was xfed 11/03 from [facility] via CAT for sepsis 2/2 to aspiration pneumonia in setting of constipation s/p TLHR earlier this month. Overnight, did get confused got Haldol x 1, did end up going to bed at 2AM. Otherwise no acute events. 108/82, 98.2, 68 sinus, 16 RR< 93 % on 2L x 1 BM 11/04, 1L or urine in last 24 hours. Labs CBC fine this AM, BMP from 11/04 WNL, phenytoin levels slightly high at 22 (normal 10-20). This morning seen with his GF at bedside, he has slurred speech which she reports is at his baseline. He can tell me his name, that he is in the hospital for a broken hip and the year. He can not tell me complications that led him back inpatient. He has no complaints other than he doesn't want to be in the hospital and his L hip hurts. He denies CP, SOB, GI/ complaints, does endorse cough. Objective Active Medications: Acetaminophen (Tylenol Tab*) 650 mg PO Q4H PRN PRN Reason: PAIN Acetaminophen (Tylenol Tab*) 650 mg PO TID [facility] Last Admin: 11/04/18 20:29 Dose: 650 mg Albuterol (Ventolin Hfa Inhaler*) 2 puff INH Q4H PRN PRN Reason: SHORTNESS OF BREATH Atorvastatin Calcium (Lipitor*) 40 mg PO DAILY [facility] Last Admin: 11/04/18 09:37 Dose: Not Given Cyanocobalamin (Vitamin B12 Tab*) 1,000 mcg PO DAILY [facility] Last Admin: 11/04/18 09:37 Dose: Not Given Docusate Sodium (Colace Cap*) 200 mg PO DAILY PRN PRN Reason: CONSTIPATION Enoxaparin Sodium (Lovenox(*)) 40 mg SUBCUT Q24H [facility] Last Admin: 11/04/18 08:08 Dose: 40 mg Fludrocortisone Acetate (Florinef Tab*) 0.1 mg PO DAILY [facility] Last Admin: 11/04/18 09:32 Dose: 0.1 mg Haloperidol Lactate (Haldol Inj Iv/Im*) 5 mg IV SLOW PU Q6H PRN PRN Reason: AGITATION Last Admin: 11/04/18 22:16 Dose: 5 mg Piperacillin Sod/Tazobactam (Sod 3.375 gm/ Sodium Chloride) 100 mls @ 25 mls/ hr IVPB Q8H [facility] Last Admin: 11/05/18 03:28 Dose: 25 mls/hr Sodium Chloride (Ns 0.9% 1000 Ml*) 1,000 mls @ 150 mls/hr IV PER RATE [facility] Last Admin: 11/04/18 12:17 Dose: 150 mls/hr Levothyroxine Sodium (Synthroid Tab*) 150 mcg PO 0600 [facility] Last Admin: 11/05/18 06:27 Dose: 150 mcg Lorazepam (Ativan Tab(*)) 0.5 mg PO Q6H PRN PRN Reason: ANXIETY Last Admin: 11/05/18 01:29 Dose: 0.5 mg Methocarbamol (Robaxin Tab*) 750 mg PO QID PRN PRN Reason: spasms Last Admin: 11/04/18 03:05 Dose: 750 mg Mometasone Furoate/Formoterol Fumar (Dulera 200/5 Mdi*) 1 puff INH BID [facility]; Protocol Last Admin: 11/05/18 07:22 Dose: 1 puff Ondansetron HCl (Zofran Inj*) 4 mg IV Q6H PRN PRN Reason: NAUSEA Last Admin: 11/05/18 01:30 Dose: 4 mg Oxycodone/Acetaminophen (Percocet 5/325 Tab*) 1 tab PO Q4H PRN PRN Reason: PAIN Last Admin: 11/04/18 07:55 Dose: 1 tab Pantoprazole Sodium (Protonix Tab*) 40 mg PO DAILY [facility] Last Admin: 11/04/18 09:37 Dose: Not Given Pharmacy Consult (Zosyn Per Pharmacy*) 1 note FOLLOW UP . PRN PRN Reason: PER PROTOCOL Phenobarbital (Phenobarbital Tab(*)) 30 mg PO 0800,1200 [facility] Last Admin: 11/04/18 11:52 Dose: 30 mg Phenobarbital (Phenobarbital Tab(*)) 60 mg PO 1700,2100 [facility] Last Admin: 11/04/18 20:29 Dose: 60 mg Phenytoin Sodium (Dilantin Cap(*)) 200 mg PO DAILY [facility] Last Admin: 11/04/18 09:32 Dose: 200 mg Polyethylene Glycol/Electrolytes (Miralax*) 17 gm PO 0800,2100 [facility] Last Admin: 11/04/18 21:15 Dose: Not Given Sertraline HCl (Zoloft*) 50 mg PO DAILY [facility] Last Admin: 11/04/18 09:32 Dose: 50 mg Tamsulosin HCl (Flomax Cap*) 0.4 mg PO DAILY [facility] Last Admin: 11/04/18 09:32 Dose: 0.4 mg Tramadol HCl (Ultram*) 50 mg PO Q6HR PRN PRN Reason: PAIN Last Admin: 11/05/18 01:29 Dose: 50 mg Trazodone HCl (Desyrel Tab*) 50 mg PO BEDTIME PRN PRN Reason: SLEEP Last Admin: 11/05/18 01:30 Dose: 50 mg Vital Signs - 8 hr 11/05/18 11/05/18 11/05/18 00:58 01:29 03:15 Temperature 98.2 F Pulse Rate 68 Respiratory 18 16 Rate Blood Pressure 108/82 (mmHg) O2 Sat by Pulse 93 Oximetry 11/05/18 11/05/18 11/05/18 03:34 03:35 07:22 Temperature Pulse Rate 83 Respiratory 16 16 Rate Blood Pressure (mmHg) O2 Sat by Pulse 93 Oximetry Oxygen Devices in Use Now: Nasal Cannula Appearance: Elderly man in NAD, slurred and slowed speech Eyes: No Scleral Icterus, PERRLA Ears/Nose/Mouth/Throat: - - Dry mouth, adentuolus Neck: Trachea Midline Respiratory: Symmetrical Chest Expansion and Respiratory Effort, - - Diffuse rhonchi and crackles RLLL, upper airway sounds, distant all around, no sig wheeze Abdominal: NL Sounds; No Tenderness; No Distention Lymphatic: No Cervical Adenopathy Skin: No Rash or Ulcers Neurological: - - Oriented to self and place Result Diagrams: 11/05/18 06:23 11/04/18 06:18 Microbiology and Other Data: Microbiology 11/02/18 23:45 Urine Culture - Final Urine No Growth (<1,000 CFU/mL) Assess/Plan/Problems-Billing Assessment: 78 yo M PMH seizure d/o, depression, HLD, COPD who [facility] 2/2 to aspiration pneumonia in setting of constipation s/p TLHR earlier this month. - Patient Problems (1) Sepsis Current Visit: Yes Status: Acute Comment: --CXR showed RLL infiltrate, likely aspiration while he was vomiting. Improved. Blood C&S neg to date. --Stop vanco, continue pip/ashleigh Day on 11/05, can change to PO Amox-Clauv/ Flagyl when clinical status improves and passes swallow (2) Aspiration pneumonia Current Visit: Yes Status: Acute Code(s): J69.0 - PNEUMONITIS DUE TO INHALATION OF FOOD AND VOMIT SNOMED Code(s): 361038626 Comment: As per above, aspirative event with RLL infiltrate -Day 12/14 on Zosyn, can transition to PO Amox-Clauv/Flagyl when passes swallow -Sig mucous today on exam, needs to start pulm toilet with flutter valve, duonebs, chest PT, mucinex (3) Delirium Current Visit: Yes Status: Acute Code(s): R41.0 - DISORIENTATION, UNSPECIFIED SNOMED Code(s): 7305375 Comment: Multifactorial, underlying cognitive impairment and mood d/o, infection, recent hip surgery all most c/w hospital induced delerium. No focal defecits or e/o acute stroke, appropriate abx in place -DC ativan in favor of low dose Haldol 2mg PO -TSH normal, B12 and folate for tomorrows labs (4) Seizure Current Visit: Yes Status: Acute Code(s): R56.9 - UNSPECIFIED CONVULSIONS SNOMED Code(s): 14588387 Comment: Phenytoin dose decreased as level was 28.4. Yeimi 200QAM and 300 QHS to 200 QAM only on 11/04. Repeat level 11/05. Phenobarb level therapeutic at 30.9. -Will keep at 200mg dose as levels trending down and don't want to lower seizure threshold in setting of delerium (5) Obstipation Current Visit: Yes Status: Acute Code(s): K59.00 - CONSTIPATION, UNSPECIFIED SNOMED Code(s): 796498433 Comment: -Good results from Fleets enema. PEG bid (scheduled). (6) Acute blood loss anemia Current Visit: No Status: Acute Code(s): D62 - ACUTE POSTHEMORRHAGIC ANEMIA SNOMED Code(s): 280433760 Comment: -Currently normotensive, regular rate -Hgb stable this morning; transfusion not indicated at this time -Continue to monitor H/H (7) Chronic obstructive pulmonary disease Current Visit: No Status: Acute Code(s): J44.9 - CHRONIC OBSTRUCTIVE PULMONARY DISEASE, UNSPECIFIED SNOMED Code(s): 93273248 Comment: -Start duonebs, Chest PT, may need steroids but will hold given agitation (8) Closed left hip fracture Current Visit: No Status: Acute Code(s): S72.002A - FRACTURE OF UNSP PART OF NECK OF LEFT FEMUR, INIT SNOMED Code(s): 269762681 Comment: Continue pain control, DVT prophylaxis (lovenox) per orthopedics. XRay L hip 11/04. Doubt infection. Wound looks good, minimal to no pain on hip abduction and flexion. Source of sepsis is RLL pneumonia, likely due to aspiration. (9) Adjustment disorder with depressed mood Current Visit: No Status: Acute Priority: High Onset Date: 02/23/15 Code (s): F43.21 - ADJUSTMENT DISORDER WITH DEPRESSED MOOD SNOMED Code(s): 78466937 Comment: Home sertraline (10) Hypothyroid Current Visit: No Status: Acute Code(s): E03.9 - HYPOTHYROIDISM, UNSPECIFIED SNOMED Code(s): 25237263 Comment: Add on TSH 11/03 was 1.45. Home dose levothyroxine was 137 mcg. (11) DVT prophylaxis Current Visit: No Status: Acute Code(s): GTR3883 - SNOMED Code(s): 793037599 Comment: -SCDs, lovenox Status and Disposition: Inpatient, will need SNF when medically stable, focus on mobilizing secretions today
[2018-11-05] MEDS: Enoxaparin(*) 40 MG/0.4 ML SYR SUBCUT SCH (09:12)
[2018-11-05] MEDS: Acetaminophen TAB* 325 MG PO SCH ×3 (09:13→19:49)
[2018-11-05] MEDS: Cyanocobalamin TAB* 500 MCG PO SCH (09:13)
[2018-11-05] MEDS: Atorvastatin* 40 MG TAB PO SCH (09:13)
[2018-11-05] MEDS: Sertraline* 50 MG TAB PO SCH (09:14)
[2018-11-05] MEDS: PHENobarbital TAB(*) 30 MG PO SCH ×4 (09:14→20:25)
[2018-11-05] MEDS: Phenytoin CAP(*) 100 MG CAP.ER PO SCH (09:14)
[2018-11-05] MEDS: Fludrocortisone Acetate TAB* 0.1 MG PO SCH (09:14)
[2018-11-05] MEDS: Tamsulosin CAP* 0.4 MG PO SCH (09:14)
[2018-11-05] MEDS: Pantoprazole TAB * 40 MG TAB PO SCH (09:15)
[2018-11-05] MEDS: Polyethylene Glycol 3350* 17 GM PACKET PO SCH ×2 (09:42→19:51)
[2018-11-05] MEDS ORDERED: Haloperidol TAB* 2 MG PO PRN (12:11)
[2018-11-05] MEDS ORDERED: NS 0.9% 1000 ML** 1,000 ML IV SCH (12:29)
[2018-11-05] MEDS ORDERED: Albuterol/Ipratropium NEB.SOL* Albuterol 2.5 MG/Ipratropium 0.5 MG 3 ML INH SCH (13:00)
[2018-11-05] MEDS ORDERED: Albuterol/Ipratropium NEB.SOL* Albuterol 2.5 MG/Ipratropium 0.5 MG 3 ML INH PRN (13:20)
[2018-11-05] MEDS: guaiFENesin ER TAB 600 MG PO SCH ×2 (14:20→19:50)
[2018-11-05] MEDS: Docusate CAP* 100 MG PO PRN (22:14)
[2018-11-06] MEDS: ZOSYN 3.375 GM Q8H per EXTENDED INFUSION IVPB SCH ×4 (02:41→12:25)
[2018-11-06] MEDS: Levothyroxine TAB* 150 MCG TAB PO SCH (05:08)
[2018-11-06 07:03] LABS: ABS Basophils 0 10^3/ul (0-0.2); ABS Eosinophils 0.2 10^3/ul (0-0.6); ABS Lymphocytes 0.9 10^3/ul (1.0-4.8); ABS Monocytes 0.5 10^3/ul (0-0.8); ABS Nucleated RBC 0 10^3/ul; Eosinophil % 2.9 %; Hematocrit 30 % (42-52); Hemoglobin 10.2 g/dl (14.0-18.0); Lymphocyte % 10.4 %; Mean Corpuscular HGB Conc 33 g/dl (31-36); Mean Corpuscular Hemoglobin 33 pg (27-31); Mean Corpuscular Volume 99 fL (80-94); Mean Platelet Volume 7.6 fL (7.4-10.4); Nucleated Red Blood Cells % 0; Platelet Count 277 10^3/ul (150-450); Red Blood Count 3.07 10^6/ul (4.00-5.40); Red Cell Distribution Width 19 % (10.5-15); White Blood Count 8.7 10^3/ul (3.5-10.8)
[2018-11-06 07:39] LABS: BUN/Creatinine Ratio 9.6 (8-20); Calcium 7.9 mg/dL (8.6-10.3); EGFR Non-African American 153.7 (>60); Potassium 3.5 mmol/L (3.5-5.0)
[2018-11-06] MEDS: Enoxaparin(*) 40 MG/0.4 ML SYR SUBCUT SCH (07:53)
[2018-11-06] MEDS: Fludrocortisone Acetate TAB* 0.1 MG PO SCH (07:54)
[2018-11-06] MEDS: Phenytoin CAP(*) 100 MG CAP.ER PO SCH (07:54)
[2018-11-06] MEDS: Atorvastatin* 40 MG TAB PO SCH (07:54)
[2018-11-06] MEDS: guaiFENesin ER TAB 600 MG PO SCH ×2 (07:54→19:50)
[2018-11-06] MEDS: Polyethylene Glycol 3350* 17 GM PACKET PO SCH ×2 (07:54→19:49)
[2018-11-06] MEDS: Sertraline* 50 MG TAB PO SCH (07:54)
[2018-11-06] MEDS: Pantoprazole TAB * 40 MG TAB PO SCH (07:55)
[2018-11-06] MEDS: Tamsulosin CAP* 0.4 MG PO SCH (07:55)
[2018-11-06] MEDS: Cyanocobalamin TAB* 500 MCG PO SCH (07:55)
[2018-11-06] MEDS: PHENobarbital TAB(*) 30 MG PO SCH ×4 (07:55→20:00)
[2018-11-06] MEDS: Acetaminophen TAB* 325 MG PO SCH ×3 (07:55→19:49)
[2018-11-06] MEDS: Docusate CAP* 100 MG PO PRN (07:55)
[2018-11-06] MEDS: Ondansetron INJ* 2 MG/ML VIAL IV PRN (08:09)
[2018-11-06] MEDS: Mometasone/Formoter 200/5 MDI INH SCH ×2 (08:19→20:18)
[2018-11-06] MEDS ORDERED: Vancomycin Trough Check NOTE FOLLOW UP ONE (08:30)
--- NOTE | 2018-11-06 11:21 | PN ---
Subjective Date of Service: 11/06/18 Interval History: Refuses to go to rehab. No other c/o. Objective Active Medications: Acetaminophen (Tylenol Tab*) 650 mg PO Q4H PRN PRN Reason: PAIN Acetaminophen (Tylenol Tab*) 650 mg PO TID [facility] Last Admin: 11/06/18 07:55 Dose: 650 mg Albuterol (Ventolin Hfa Inhaler*) 2 puff INH Q4H PRN PRN Reason: SHORTNESS OF BREATH Albuterol/Ipratropium (Duoneb (Albuterol 2.5 Mg/Ipratropium 0.5 Mg)) 1 neb INH [id number] AWAKE PRN PRN Reason: SOB/WHEEZING Atorvastatin Calcium (Lipitor*) 40 mg PO DAILY [facility] Last Admin: 11/06/18 07:54 Dose: 40 mg Cyanocobalamin (Vitamin B12 Tab*) 1,000 mcg PO DAILY [facility] Last Admin: 11/06/18 07:55 Dose: 1,000 mcg Docusate Sodium (Colace Cap*) 200 mg PO DAILY PRN PRN Reason: CONSTIPATION Last Admin: 11/06/18 07:55 Dose: 200 mg Enoxaparin Sodium (Lovenox(*)) 40 mg SUBCUT Q24H [facility] Last Admin: 11/06/18 07:53 Dose: 40 mg Fludrocortisone Acetate (Florinef Tab*) 0.1 mg PO DAILY [facility] Last Admin: 11/06/18 07:54 Dose: 0.1 mg Guaifenesin (Mucinex*) 1,200 mg PO BID [facility] Last Admin: 11/06/18 07:54 Dose: 1,200 mg Haloperidol (Haldol Tab*) 2 mg PO Q6H PRN PRN Reason: AGITATION Piperacillin Sod/Tazobactam (Sod 3.375 gm/ Sodium Chloride) 100 mls @ 25 mls/ hr IVPB Q8H [facility] Last Admin: 11/06/18 02:41 Dose: 25 mls/hr Levothyroxine Sodium (Synthroid Tab*) 150 mcg PO 0600 [facility] Last Admin: 11/06/18 05:08 Dose: 150 mcg Methocarbamol (Robaxin Tab*) 750 mg PO QID PRN PRN Reason: spasms Last Admin: 11/04/18 03:05 Dose: 750 mg Mometasone Furoate/Formoterol Fumar (Dulera 200/5 Mdi*) 1 puff INH BID [facility]; Protocol Last Admin: 11/06/18 08:19 Dose: 1 puff Ondansetron HCl (Zofran Inj*) 4 mg IV Q6H PRN PRN Reason: NAUSEA Last Admin: 11/06/18 08:09 Dose: 4 mg Oxycodone/Acetaminophen (Percocet 5/325 Tab*) 1 tab PO Q4H PRN PRN Reason: PAIN Last Admin: 11/04/18 07:55 Dose: 1 tab Pantoprazole Sodium (Protonix Tab*) 40 mg PO DAILY [facility] Last Admin: 11/06/18 07:55 Dose: 40 mg Pharmacy Consult (Zosyn Per Pharmacy*) 1 note FOLLOW UP . PRN PRN Reason: PER PROTOCOL Phenobarbital (Phenobarbital Tab(*)) 30 mg PO 0800,1200 [facility] Last Admin: 11/06/18 07:55 Dose: 30 mg Phenobarbital (Phenobarbital Tab(*)) 60 mg PO 1700,2100 [facility] Last Admin: 11/05/18 20:25 Dose: 60 mg Phenytoin Sodium (Dilantin Cap(*)) 100 mg PO DAILY [facility] Phenytoin Sodium (Dilantin Infatabs Chew Tab(*)) 50 mg PO DAILY [facility] Polyethylene Glycol/Electrolytes (Miralax*) 17 gm PO 0800,2100 [facility] Last Admin: 11/06/18 07:54 Dose: 17 gm Sertraline HCl (Zoloft*) 50 mg PO DAILY [facility] Last Admin: 11/06/18 07:54 Dose: 50 mg Tamsulosin HCl (Flomax Cap*) 0.4 mg PO DAILY [facility] Last Admin: 11/06/18 07:55 Dose: 0.4 mg Tramadol HCl (Ultram*) 50 mg PO Q6HR PRN PRN Reason: PAIN Last Admin: 11/05/18 22:14 Dose: 50 mg Trazodone HCl (Desyrel Tab*) 50 mg PO BEDTIME PRN PRN Reason: SLEEP Last Admin: 11/05/18 01:30 Dose: 50 mg Vital Signs - 8 hr 11/06/18 11/06/18 03:23 07:55 Temperature 97.1 F Pulse Rate 61 Respiratory 14 18 Rate Blood Pressure 140/54 (mmHg) O2 Sat by Pulse 97 Oximetry Oxygen Devices in Use Now: Nasal Cannula Appearance: Alert, partly up in bed. Irritable, otherwise looks comfortable. Eyes: No Scleral Icterus Neck: NL Appearance and Movements; NL JVP, No Thyroid Enlargement, Masses Respiratory: Symmetrical Chest Expansion and Respiratory Effort, Clear to Auscultation, Clear to Percussion Cardiovascular: NL Sounds; No Murmurs; No JVD, RRR, No Edema, - Extremities: No Edema, No Clubbing, Cyanosis, - Skin: No Rash or Ulcers, No Nodules or Sclerosis, - Neurological: Alert and Oriented x 3, NL Sensation Result Diagrams: 11/06/18 06:36 11/06/18 06:36 Microbiology and Other Data: Microbiology 11/02/18 23:45 Urine Culture - Final Urine No Growth (<1,000 CFU/mL) Assess/Plan/Problems-Billing Assessment: 78 yo M PMH seizure d/o, depression, HLD, COPD who was xfed 11/03 from [facility] via CAT for sepsis 2/2 to aspiration pneumonia in setting of constipation s/p TLHR earlier this month. - Patient Problems (1) Sepsis Current Visit: Yes Status: Acute Comment: --CXR showed RLL infiltrate, likely aspiration while he was vomiting. Improved. Blood C&S neg to date. --Stop vanco, continue pip/ashleigh Day / on 11/06, change to PO Amox-Clauv/ Flagyl 11/06 PM, 12 more doses. Passed swallow eval. (2) History of COPD Current Visit: No Status: Chronic Priority: High Code(s): Z87.09 - PERSONAL HISTORY OF OTHER DISEASES OF THE RESPIRATORY SYSTEM SNOMED Code(s): 996456071 Comment: Quit smoking 09/2018. Continue mometasone/fomoeterol, prn albuterol. (3) Seizure Current Visit: Yes Status: Acute Code(s): R56.9 - UNSPECIFIED CONVULSIONS SNOMED Code(s): 41741030 Comment: Phenobarb level therapeutic at 30.9. Phenytoin level higer and supratherapeutic on 11/06, decrease dose to 150 mg daily. (4) Hypothyroid Current Visit: No Status: Acute Code(s): E03.9 - HYPOTHYROIDISM, UNSPECIFIED SNOMED Code(s): 86328935 Comment: Add on TSH 11/03 was 1.45. Home dose levothyroxine was 137 mcg. (5) Closed left hip fracture Current Visit: No Status: Acute Code(s): S72.002A - FRACTURE OF UNSP PART OF NECK OF LEFT FEMUR, INIT SNOMED Code(s): 447630658 Comment: Continue pain control, DVT prophylaxis (lovenox) per orthopedics. XRay L hip 11/04. Doubt infection. Wound looks good, minimal to no pain on hip abduction and flexion. Source of sepsis is RLL pneumonia, likely due to aspiration. (6) Obstipation Current Visit: Yes Status: Acute Code(s): K59.00 - CONSTIPATION, UNSPECIFIED SNOMED Code(s): 782339272 Comment: -Good results from Fleets enema. PEG bid (scheduled). Status and Disposition: Inpatient, will need SNF when medically stable, focus on mobilizing secretions today
--- NOTE | 2018-11-06 15:00 | CONSULT ---
Consult Consult: Consult for Medical Decision Making Capacity S: Psychiatry is asked to evaluate capacity in this 78 y.o. single, white male with a recent history of fractured hip, who was transferred from the [facility] to [address] [place] [address] on 11/03/18 due to development of fever, hypertension and oliguria. I spoke with the hospitalist attending, Dr. Bhatti, who feels that the patient is medically clear but in need of further rehabilitation, due to lack of ability to ambulate independently or care for his ADLs. Apparently he is no longer appropriate for [facility] care and the team would like to refer him to [facility] placement. The patient has a girlfriend who is involved, but has limitations in how much support she can render to Mr. Robles. On exam the patient is found in his room, laying down asleep but easily arousable. He is hard of hearing but interacts well when this clinician uses short, loud questions. "I'm here because of my limb. I busted my limb...my hip !" When asked about his doctor's recommendation of further rehabilitative care , he responds perseveratively, stating several times "I'm not going to no rehab! " I tried to ascertain his concerns and he informs me that a friend of his once went to rehab and got worse, arriving home with sores on his body. Mr. Robles cannot recall the name of this gentleman. He answers several orienting questions well enough, such as stating the date as "November 05" and the building as "[facility]," however, he cannot state any risks that he would incur by ignoring his doctor's advice and going home. "Nothing's gonna happen...I'm not going to no rehab!" O: aging, slender, balding white male, dressed in a patient gown with a emesis tray in his lap; limited grooming, fair eye contact; cooperative; anxious mood with a corresponding anxious affect; denies SI or HI; insight and judgment poor given refusal of [facility] placement; awake and alert; oriented to place time and situation A/P: Capacity: The patient was not able to demonstrate to me a reasonable understanding of his healthcare situation nor his functional limitations with respect to his recent injury and surgery. In my judgment, he lacks the capacity to make an informed decision about SNF placement based on his inability to demonstrate a reasonable understanding of the risk/benefit considerations of accepting or refusing this intervention. Capacity is subject to change in these situations and psychiatry can be re-consulted in the event of any significant changes in his presentation/situation. Thank you for the consult
[2018-11-06] MEDS: Amoxicillin/Clavulanate TAB* 875 MG PO SCH (19:50)
--- NOTE | 2018-11-06 21:37 | TRS ---
CC: Dr. Leahy; [facility].* TRANSFER SUMMARY: DATE OF ADMISSION: DATE OF TRANSFER: 11/07/18 This is being dictated in advance. HISTORY OF PRESENT ILLNESS/HOSPITAL COURSE: This 78-year-old man presented to the hospital on 10/12/18 after a fall. He had walked to the pharmacy, he felt dizzy there, he thought he was about to have a seizure. He sat down on a bench but fell on his hip with immediate onset of pain. He is not sure if he had a seizure at all. I note he is recently diagnosed as having seizures in the last 1 to 2 years. He also has a history of COPD and had some symptoms of bronchitis that he had taken antibiotics for, but this is not a major symptom he had recently on admission. He was found to have a left hip fracture. The following day he had ORIF by Dr. Cherry. He tolerated treatment well and went to the [facility] for rehabilitation. He did not do very well there and was not progressing well. His last day there , he had vomiting and hypotension and fever. He was transferred to the ICU. Sepsis measures were started, he was started on antibiotics. He had right lower lobe infiltrate. He reported he was having difficulty swallowing. Abdomen x-ray showed a large amount of stool. He got a number of enemas with good results. Following that, he seemed to swallow better. Initial swallow evaluation was very poor when he was having a lot of symptoms, but later as he improved, the swallow evaluation recommendations advanced to mechanically ground food with thin liquids. The patient was not happy with the idea of going to a residential facility, but was evaluated by Dr. Osman. He found that the patient had very poor understanding of his medical condition and not capacity to make this kind of decision. His phenytoin level was 528. The dose was decreased and home, not sure how well his compliance was at home. There was some confusion about his levothyroxine dose. The dose he was actually taking at home was 137 mcg. His TSH was within normal limits. I am continuing him on his usual dose of levothyroxine 137 mcg as he was taking at home. He was started on twice daily polyethylene glycol for his obstipation. FINAL DIAGNOSES: 1. Aspiration pneumonia with sepsis. 2. Chronic obstructive pulmonary disease. 3. Obstipation. 4. Seizure disorder. 5. Hypothyroidism. 6. Status post ORIF of the left hip. DISCHARGE MEDICATIONS: 1. Acetaminophen 650 mg t.i.d. schedule. 2. Acetaminophen 650 mg every 4 hours p.r.n. 3. Albuterol ipratropium nebulizer every 4 hours while awake p.r.n. 4. Amoxicillin clavulanate 875 mg b.i.d. for 10 more days. 5. Levothyroxine 137 mcg daily. 6. Phenytoin 100 mg capsule daily plus 50 mg chewable tablet daily for a total of 150 mg. 7. Polyethylene glycol 17 g b.i.d. 8. Tamsulosin 0.4 mg daily. 9. Phenobarbital 64.8 mg b.i.d. plus 32.4 mg b.i.d. 10. Nitroglycerin 0.4 mg every 10 minutes sublingual p.r.n. 11. Trazodone 50 mg h.s. p.r.n. 12. Atorvastatin 40 mg daily. 13. Tramadol 50 mg every 6 hours p.r.n. 14. Budesonide formoterol 160/4.5 one puff b.i.d. 15. Albuterol inhaler two puffs every 4 hours p.r.n. 16. Sertraline 50 mg daily. 17. Fludrocortisone acetate 0.1 mg daily. 18. Cyanocobalamin 1000 mcg orally daily. I recommend that the patient have a repeat phenytoin level in one week. CONDITION ON DISCHARGE: Stable. DISPOSITION ON DISCHARGE: Transfer to [facility]. [id number]/[facility] #: [id number] PATRICK
[2018-11-07] MEDS: Ondansetron INJ* 2 MG/ML VIAL IV PRN (04:05)
[2018-11-07] MEDS ORDERED: Levothyroxine TAB* 137 MCG TAB PO SCH (06:00)
[2018-11-07] MEDS: Mometasone/Formoter 200/5 MDI INH SCH ×2 (07:22→19:41)
[2018-11-07 07:39] VITALS: BP 139/56
[2018-11-07] MEDS ORDERED: Phenytoin CHEW TAB(*) 50 MG PO SCH (09:00)
[2018-11-07] MEDS ORDERED: Phenytoin CAP(*) 100 MG CAP.ER PO SCH (09:00)
[2018-11-07] MEDS: PHENobarbital TAB(*) 30 MG PO SCH ×2 (09:41→11:55)
[2018-11-07] MEDS: Cyanocobalamin TAB* 500 MCG PO SCH (09:41)
[2018-11-07] MEDS: Tamsulosin CAP* 0.4 MG PO SCH (09:41)
[2018-11-07] MEDS: Sertraline* 50 MG TAB PO SCH (09:42)
[2018-11-07] MEDS: Fludrocortisone Acetate TAB* 0.1 MG PO SCH (09:42)
[2018-11-07] MEDS: Atorvastatin* 40 MG TAB PO SCH (09:42)
[2018-11-07] MEDS: Acetaminophen TAB* 325 MG PO SCH (09:42)
[2018-11-07] MEDS: Pantoprazole TAB * 40 MG TAB PO SCH (09:42)
[2018-11-07] MEDS: guaiFENesin ER TAB 600 MG PO SCH (09:43)
[2018-11-07] MEDS: Amoxicillin/Clavulanate TAB* 875 MG PO SCH (09:43)
[2018-11-07] MEDS: Enoxaparin(*) 40 MG/0.4 ML SYR SUBCUT SCH (09:43)
[2018-11-07] MEDS: Polyethylene Glycol 3350* 17 GM PACKET PO SCH (09:43)
== END 2018-11-07 12:30 | DRG 871 ==
LOC: ICU 23:33 → MED 11-03 18:18
PROVIDERS: ADMIT Hospitalist; ATTEND Internal Medicine
DX: A41.9 Sepsis, unspecified organism (principal); J69.0 Pneumonitis due to inhalation of food and vomit; R65.21 Severe sepsis with septic shock; D62 Acute posthemorrhagic anemia; J44.0 Chronic obstructive pulmonary disease with (acute) lower respiratory infection; F05 Delirium due to known physiological condition; J44.9 Chronic obstructive pulmonary disease, unspecified; G40.909 Epilepsy, unspecified, not intractable, without status epilepticus; E03.9 Hypothyroidism, unspecified; K59.00 Constipation, unspecified; I95.1 Orthostatic hypotension; F32.9 Major depressive disorder, single episode, unspecified; E78.5 Hyperlipidemia, unspecified; F43.21 Adjustment disorder with depressed mood; G31.84 Mild cognitive impairment of uncertain or unknown etiology; N40.0 Benign prostatic hyperplasia without lower urinary tract symptoms; S72.142D Displaced intertrochanteric fracture of left femur, subsequent encounter for closed fracture with routine healing; W18.30XD Fall on same level, unspecified, subsequent encounter; Z79.1 Long term (current) use of non-steroidal anti-inflammatories (NSAID); Z79.899 Other long term (current) drug therapy; Z87.891 Personal history of nicotine dependence
CPT/HCPCS: 36415; 71045; 74018; 80048; 80053; 80184; 80185; 80202; 81003; 81015; 83605; 84443; 85025; 86140; 87086; 94640; A9270-GY; G8978-GP-CN; G8979-GP-CK; G8987-GO-CM; G8988-GO-CI; J1630; J1650; J2405; J2543; J3370

== ENCOUNTER 2019-07-24 15:26 | Emergency (ER) | payer MEDICARE, MEDICAID ==
--- OUTSIDE RECORDS SUMMARY | 2019-07-24 17:24 | XMS REPORT | Continuity of Care Document ---
:1940 External Reference #:[id number] Author Name Javier Cherry MD (transmitted by agent of provider Anuradha Moya) Address [address] [place] [id number] Care Team Providers Name Role Phone Faisal Leahy MD - Family Medicine Care Team Information School Examiner [phone] Problems Description No Information Available Social History Type Date Description Comments Sex Unknown ETOH Use Denies alcohol use Tobacco Use Start: Unknown Patient is a current smoker, smokes every day Smoking Status Reviewed: 06/24/19 Patient is a current smoker, smokes every day Exercise Type/Frequency Exercises regularly Allergies, Adverse Reactions, Alerts Description No Known Drug Allergies Medications Description No Information Available Immunizations Description No Information Available Vital Signs Date Vital Result Comment 06/24/2019 10:23am Height 69 inches 5'9" Heart Rate 70 /min BP Systolic 122 mmHg BP Diastolic 80 mmHg Respiratory Rate 16 /min Body Temperature 98.1 F Pain Level 3 12/30/2018 2:15pm Height 69 inches 5'9" Weight 157.00 lb Heart Rate 68 /min BP Systolic 126 mmHg BP Diastolic 84 mmHg Body Temperature 97.8 F Pain Level 5 BMI (Body Mass Index) 23.2 kg/m2 Results Description No Information Available Procedures Date Code Description Status 06/24/2019 44141 Inject/Drain Joint/Bursa Major W/O US Completed Medical Devices Description No Information Available Encounters Description No Information Available Assessments Date Code Description Provider 06/24/2019 S72.142D Displaced intertrochanteric fracture of left Javier Cherry MD femur, subseque 06/24/2019 M70.62 Trochanteric bursitis, left hip Javier Cherry MD 12/30/2018 S72.142D Displaced intertrochanteric fracture of left Javier Cherry MD femur, subseque Plan of Treatment 06/24/2019 - Javier Cherry, MDS72.142D Displaced intertrochanteric fracture of left femur, subsequeNew Xrays:Femur Left, Ordered: 06/24/19M70.62 Trochanteric bursitis, left hipFollow up:Follow up: As needed Functional Status Description No Information Available Mental Status Description No Information Available Referrals Description No Information Available
[2019-07-24 19:19] LABS: ABS Lymphocytes 1.9 10^3/ul (1.0-4.8); ABS Monocytes 0.7 10^3/ul (0-0.8); ABS Neutrophils 5.2 10^3/ul (1.5-7.7); Eosinophil % 10.9 %; Hematocrit 37 % (42-52); Hemoglobin 12.6 g/dL (14.0-18.0); Lymphocyte % 21.4 %; Mean Corpuscular HGB Conc 34 g/dL (31-36); Mean Corpuscular Hemoglobin 34 pg (27-31); Mean Corpuscular Volume 99 fL (80-94); Mean Platelet Volume 7.7 fL (7.4-10.4); Platelet Count 232 10^3/uL (150-450); Red Blood Count 3.67 10^6 /uL (4.18-5.48); Red Cell Distribution Width 14 % (10-15); White Blood Count 8.8 10^3/uL (3.5-10.8)
[2019-07-24 19:34] LABS: BUN/Creatinine Ratio 9.9 (8-20); Calcium 8.9 mg/dL (8.6-10.3); EGFR African American 111.2 (>60); EGFR Non-African American 91.9 (>60); Potassium 4.2 mmol/L (3.5-5.0)
--- NOTE | 2019-07-24 20:34 | ED ---
GI/ HPI - HPI Summary HPI Summary: This pt is a 79 Y/O M presenting to [facility] accompanied by his with a CC of inability to urinate for the last 2 days. He states that he will urinate correctly once, and will continue to have the feeling of a need to urinate for a long time afterwards. He states that he has been urinating more than usual and that he constantly feels the need to urinate. He states that he has a recent inguinal hernia. He denies any N/V, SOB, CP, headaches, abdominal pains, and fevers. He states that he has had no aggravating or alleviating factors. He has a PMHx of thyroid disease and hypercholesterolemia. - History of Current Complaint Chief Complaint: EDUrogenitalProblems Time Seen by Provider: 07/24/19 20:26 Stated Complaint: UNABLE TO URINATE AND A HERNIA PER PT Hx Obtained From: Patient Onset/Duration: Started Days Ago - 2 Timing: Constant Current Severity: None Pain Intensity: 0 Associated Signs and Symptoms: Positive: Negative - SOB and headaches, Other: - States that he has been unable to urinate correctly. Negative: Nausea, Vomiting , Fever, Abdominal Pain, Chest Pain Aggravating Factor(s): Nothing Alleviating Factor(s): Nothing - Additional Pertinent History Primary Care Physician: JOSE LUIS - Allergy/Home Medications Allergies/Adverse Reactions: Allergies Allergy/AdvReac Type Severity Reaction Status Date / Time tomato Allergy Hives Verified 07/24/19 20:38 PMH/Surg Hx/FS Hx/Imm Hx Previously Healthy: Yes Endocrine/Hematology History: Reports: Hx Thyroid Disease Denies: Hx Diabetes, Other Endocrine/Hematological Disorders Cardiovascular History: Reports: Hx Angina, Hx Hypercholesterolemia Denies: Hx Congestive Heart Failure, Hx Coronary Artery Disease, Hx Hypertension, Hx Myocardial Infarction, Hx Pacemaker/ICD, Hx Valvular Heart Disease Respiratory History: Reports: Hx Asthma, Hx Chronic Obstructive Pulmonary Disease (COPD), Other Respiratory Problems/Disorders - EX smoker History: Denies: Hx Renal Disease Musculoskeletal History: Reports: Hx Arthritis Denies: Hx Back Problems Sensory History: Reports: Hx Contacts or Glasses Denies: Hx Hearing Aid Opthamlomology History: Reports: Hx Contacts or Glasses Neurological History: Reports: Hx Seizures Psychiatric History: Denies: Hx Eating Disorder, Hx Panic Disorder, Hx of Violent Episodes Against Others - Surgical History Surgical History: Yes Surgery Procedure, Year, and Place: Left hip ORIF 2019 - Immunization History Date of Tetanus Vaccine: Unk Date of Influenza Vaccine: Unk Infectious Disease History: No Infectious Disease History: Denies: Traveled Outside the [place] in Last 30 Days - Family History Known Family History: Positive: Diabetes, Renal Disease - States that a brother of kidney failure - Social History Occupation: Retired Lives: With Family Alcohol Use: None Hx Substance Use: No Substance Use Type: Reports: None Hx Tobacco Use: Yes Smoking Status (MU): Former Smoker Type: Cigarettes Review of Systems Negative: Fever Negative: Chest Pain Negative: Shortness Of Breath Negative: Abdominal Pain, Vomiting, Nausea Positive: other - States that he has been unable to pass urine correctly Negative: Headache All Other Systems Reviewed And Are Negative: Yes Physical Exam - Summary Physical Exam Summary: Appearance: Well-appearing, Well-nourished, lying in bed comfortably Skin: Warm, dry, no obvious rash Eyes: sclera anicteric, no conjunctival pallor ENT: mucous membranes moist, pharynx appears normal Neck: Supple, nontender Respiratory: Clear to auscultation, no signs of respiratory distress Cardiovascular: Normal S1, S2. No murmurs. Normal distal pulses in tibial and radial bilaterally. Abdomen: Soft, nontender, normal active bowel sounds present Musculoskeletal: Normal, Strength/ROM Intact Neurological: A&Ox3, awake and alert, mentation is normal, speech is fluent and appropriate Psychiatric: affect is normal, does not appear anxious or depressed Bladder Scan: completed at bedside. Noted that there was 250-300 CCs of urine. Triage Information Reviewed: Yes Vital Signs On Initial Exam: Initial Vitals Temp Pulse Resp BP Pulse Ox 99.1 F 55 18 150/84 97 07/24/19 15:37 07/24/19 15:37 07/24/19 15:37 07/24/19 15:37 07/24/19 15:37 Vital Signs Reviewed: Yes Procedures - Sedation Patient Received Moderate/Deep Sedation with Procedure: No Diagnostics - Vital Signs Vital Signs Temp Pulse Resp BP Pulse Ox 07/24/19 19:54 98.9 F 73 20 126/69 97 07/24/19 17:18 98.7 F 74 16 155/94 96 07/24/19 15:37 99.1 F 55 18 150/84 97 - Laboratory Lab Results: Lab Results 07/24/19 07/24/19 Range/Units 19:07 19:07 WBC 8.8 (3.5-10.8) 10^3/uL RBC 3.67 L (4.18-5.48) 10^6 /uL Hgb 12.6 L (14.0-18.0) g/dL Hct 37 L (42-52) % MCV 99 H (80-94) fL MCH 34 H (27-31) pg MCHC 34 (31-36) g/dL RDW 14 (10-15) % Plt Count 232 (150-450) 10^3/uL MPV 7.7 (7.4-10.4) fL Neut % (Auto) 59.8 % Lymph % (Auto) 21.4 % Kay % (Auto) 7.5 % Eos % (Auto) 10.9 % Baso % (Auto) 0.4 % Absolute Neuts (auto) 5.2 (1.5-7.7) 10^3/ul Absolute Lymphs (auto) 1.9 (1.0-4.8) 10^3/ul Absolute Monos (auto) 0.7 (0-0.8) 10^3/ul Absolute Eos (auto) 1.0 H (0-0.6) 10^3/ul Absolute Basos (auto) 0.0 (0-0.2) 10^3/ul Absolute Nucleated RBC 0.0 10^3/ul Nucleated RBC % 0.0 Sodium 140 (135-145) mmol/L Potassium 4.2 (3.5-5.0) mmol/L Chloride 105 (101-111) mmol/L Carbon Dioxide 29 (22-32) mmol/L Anion Gap 6 (2-11) mmol/L BUN 8 (6-24) mg/dL Creatinine 0.81 (0.67-1.17) mg/dL Est GFR ( Amer) 111.2 (>60) Est GFR (Non-Af Amer) 91.9 (>60) BUN/Creatinine Ratio 9.9 (8-20) Glucose 147 H (70-100) mg/dL Calcium 8.9 (8.6-10.3) mg/dL Result Diagrams: 07/24/19 19:07 07/24/19 19:07 Lab Statement: Any lab studies that have been ordered have been reviewed, and results considered in the medical decision making process. GIGU Course/Dx - Course Course Of Treatment: This pt is a 79 Y/O M presenting to [facility] accompanied by his with a CC of inability to urinate since 07/22/19. He states that he will urinate correctly once, and will continue to have the feeling of a need to urinate for a long time afterwards. He states that he has been urinating more than usual and that he constantly feels the need to urinate. His PE was normal. He had a bedside bladder US conducted which found that he had 250-300 CCs of urine in his bladder. He has no abnormal labratory values. He will be discharged home with a Dx of a begnin prostatic hyperplasia and sent home with a new prescription for Flomax and instructions to follow up with his PCP. - Diagnoses Provider Diagnoses: Benign prostatic hyperplasia Discharge ED - Sign-Out/Discharge Documenting (check all that apply): Patient Departure - discharge - Discharge Plan Condition: Good Disposition: HOME Prescriptions: Tamsulosin CAP* [Flomax CAP*] 0.4 mg PO BEDTIME #30 cap Patient Education Materials: Enlarged Prostate (BPH) (ED) Referrals: Faisal Leahy MD [Primary Care Provider] - Additional Instructions: The medication I prescribed can cause orthostatic hypotension, which makes you dizzy if you stand too quickly. Until you know how the medicinie will effect you , be very careful when you stand up. - Billing Disposition and Condition Condition: GOOD Disposition: Home - Attestation Statements Document Initiated by Zuhair: Yes Documenting Scribe: Ed Segal Provider For Whom Zuhair is Documenting (Include Credential): Nhan Vanegas MD Scribe Attestation: Ed Wolff, scribed for Nhan Vanegas MD on 07/25/19 at 2111. Scribe Documentation Reviewed: Yes Provider Attestation: The documentation as recorded by the Ed fish accurately reflects the service I personally performed and the decisions made by , Nhan Vanegas MD Status of Scribe Document: Viewed
[2019-07-24] MEDS ORDERED: Tamsulosin CAP* 0.4 MG PO ONE (20:35)
[2019-07-24 21:00] VITALS: BP 130/74
[2019-07-24 21:07] LABS: Urine Appearance Clear; Urine Bilirubin Negative (Negative); Urine Blood Negative (Negative); Urine Color Yellow; Urine Glucose Negative (Negative); Urine Ketones Negative (Negative); Urine Nitrite Negative (Negative); Urine Protein Negative (Negative); Urine Specific Gravity 1.008 (1.010-1.030); Urine Urobilinogen Negative (Negative)
== END 2019-07-24 20:57 | disposition home or self-care (01) ==
LOC: ED 15:26
DX: N40.0 Benign prostatic hyperplasia without lower urinary tract symptoms (principal); J44.9 Chronic obstructive pulmonary disease, unspecified; Z91.018 Allergy to other foods; Z87.891 Personal history of nicotine dependence
CPT/HCPCS: 36415; 80048; 81003; 85025; 99282

== ENCOUNTER 2019-08-04 18:04 | Emergency (ER) | payer MEDICARE, MEDICAID ==
[2019-08-04 19:26] VITALS: BP 126/59
--- NOTE | 2019-08-04 20:27 | UC ---
Complaint Male HPI - HPI Summary HPI Summary: PATIENT COMPLAINS OF INCREASING DIFFICULTY URINATING OVER THE PAST COUPLE OF WEEKS. WAS SEEN IN THE [facility] ED 07/24/19 AND PRESCRIBED FLOMAX WHICH HE SAYS IS NOT HELPING. STATES HE FEELS THE SYMPTOMS ARE GETTING WORSE. IS UNABLE TO GET MUCH URINE OUT WHEN HE FEELS THE URGE TO GO. HAS SENSATION OF INCOMPLETE VOIDING. HAS AN APPOINTMENT WITH HIS PCP DR. LEAHY ON 08/10/19. DOES NOT HAVE A UROLOGIST. NO TRAUMA, NO SADDLE ANESTHESIA. - History of Current Complaint Chief Complaint: UCGU Stated Complaint: URINATION TROUBLE Time Seen by Provider: 08/04/19 20:11 Hx Obtained From: Patient Onset/Duration: Gradual Onset, Lasting Weeks, Still Present Timing: Constant Severity Initially: Moderate Severity Currently: Moderate Pain Intensity: 0 Pain Scale Used: 0-10 Numeric Location: None Character: Constant Pressure Aggravating Factor(s): Nothing Alleviating Factor(s): Nothing Associated Signs And Symptoms: Negative: Back Pain, Fever, Hematuria, Dysuria, Nausea - Allergies/Home Medications Allergies/Adverse Reactions: Allergies Allergy/AdvReac Type Severity Reaction Status Date / Time tomato Allergy Hives Verified 08/04/19 19:25 Home Medications: Home Medications Multivitamin [Multivitamins] 1 each PO DAILY 08/04/19 [History Confirmed ] Naproxen Sodium [Aleve] 2 tab PO ONCE PRN 08/04/19 [History Confirmed 08/04/19] Tamsulosin CAP* [Flomax CAP*] 2 cap PO DAILY 08/04/19 [History Confirmed ] PMH/Surg Hx/FS Hx/Imm Hx - Additional Past Medical History Additional PMH: LEFT INGUINAL HERNIA Endocrine History: Hypothyroidism Respiratory History: COPD, Asthma Neurological History: Seizures - Surgical History Surgical History: Yes Surgery Procedure, Year, and Place: Left hip ORIF 2019 - Family History Known Family History: Positive: Diabetes, Renal Disease - States that a brother of kidney failure - Social History Alcohol Use: None Substance Use Type: None Smoking Status (MU): Current Some Day Smoker Type: Cigarettes Amount Used/How Often: 1 ppd - Immunization History Most Recent Influenza Vaccination: 07/2018 Most Recent Tetanus Shot: pt has had in past Most Recent Pneumonia Vaccination: up dated Review of Systems All Other Systems Reviewed And Are Negative: Yes Constitutional: Positive: Negative Respiratory: Positive: Negative Cardiovascular: Positive: Negative Gastrointestinal: Positive: Negative Genitourinary: Positive: Other - URINARY RETENTION. Negative: Dysuria, Hematuria, Frequency, Urgency Physical Exam Triage Information Reviewed: Yes Appearance: Well-Appearing, No Pain Distress, Well-Nourished Vital Signs: Initial Vital Signs Temp 97.6 F 08/04/19 19:18 Pulse 91 08/04/19 19:18 Resp 16 08/04/19 19:18 BP 126/59 08/04/19 19:18 Pulse Ox 97 08/04/19 19:18 Laboratory Tests 08/04/19 20:07 POC Urine Color Yellow POC Urine Clarity Cloudy POC Urine pH 5.5 POC Ur Specif [place] 1.015 POC Urine Protein Negative POC Ur Glucose (UA) Negative POC Urine Ketones Trace A POC Urine Blood Negative POC Urine Nitrite Negative POC Urine Bilirubin 1+ A POC Urine Urobilinogen 1.0 POC U Leukocyte Esteras Negative Vital Signs Reviewed: Yes Eyes: Positive: Conjunctiva Clear ENT: Positive: Hearing grossly normal Neck: Positive: Supple Respiratory: Positive: No respiratory distress, No accessory muscle use Cardiovascular: Positive: Pulses Normal Abdomen Description: Positive: Nontender, Soft. Negative: CVA Tenderness (R), CVA Tenderness (L), Distended, Guarding Male Genital Exam: Positive: Other - LEFT INGUINAL HERNIA, SOFT, NON TENDER. Negative: Inguinal Tenderness Musculoskeletal: Positive: No Edema Neurological: Positive: Alert Psychological: Positive: Age Appropriate Behavior Skin: Negative: Rashes Complaint Male Course/Dx - Course Course Of Treatment: PATIENT NOT LOOKING ACUTELY ILL OR UNCOMFORTABLE. DENIES ABDOMINAL PAIN, FEVER , NAUSEA, DYSURIA. IS ABLE TO PRODUCE SOME URINE BUT HAS SENSATION OF INCOMPLETE VOIDING. LIKELY HAS BPH. FLOMAX NOT HELPING. CLARK CATHETER PLACED. APPROX 200ML URINE OUTPUT. PATIENT TO FOLLOW-UP WITH A UROLOGIST IN THE NEXT 1 OR 2 DAYS. ADVISED TO GO TO THE ER WITHOUT FAIL IF HE HAS NO URINARY OUTPUT IN THE CATHETER BAG OR IF HE DEVELOPS FEVER, ABDOMINAL PAIN, NAUSEA, BLOOD IN THE URINE OR ANY OTHER CONCERNING SYMPTOMS. - Differential Dx/Diagnosis Provider Diagnosis: Urinary retention Discharge ED - Sign-Out/Discharge Documenting (check all that apply): Patient Departure All imaging exams completed and their final reports reviewed: No Studies - Discharge Plan Condition: Stable Disposition: HOME Patient Education Materials: Urinary Retention in Men (ED) Referrals: Faisal Leahy MD [Primary Care Provider] - (KEEP YOUR APPT 08/10/19 SCHEDULED) Buzz Lagos MD [Medical Doctor] - 2 Days Additional Instructions: NO INDICATION OF URINARY TRACT INFECTION TODAY. CLARK CATHETER PLACED. CALL UROLOGY TOMORROW TO SCHEDULE A FOLLOW-UP APPOINTMENT FOR THIS WEEK. GO TO THE ER WITHOUT FAIL IF YOU DEVELOP BRIGHT RED BLOOD IN THE URINE, ABDOMINAL PAIN, FEVER, NO URINE OUTPUT, NAUSEA OR ANY OTHER CONCERNING SYMPTOMS. - Billing Disposition and Condition Condition: STABLE Disposition: Home
== END 2019-08-04 21:46 | disposition home or self-care (01) ==
LOC: UCEAST 18:04
DX: R33.9 Retention of urine, unspecified (principal); F17.210 Nicotine dependence, cigarettes, uncomplicated; J44.9 Chronic obstructive pulmonary disease, unspecified; J45.909 Unspecified asthma, uncomplicated; Z91.018 Allergy to other foods
CPT/HCPCS: 51702; 81003; 99212; G0463

== ENCOUNTER 2024-10-07 11:57 | Inpatient (IN) ==
[2024-10-07 13:55] LABS: ABS Basophils 0.2 10^3/uL (0.0-0.1); ABS Eosinophils 0.6 10^3/uL (0.0-0.5); ABS Lymphocytes 1.2 10^3/uL (1.0-4.8); ABS Monocytes 0.9 10^3/uL (0.0-1.1); ABS Neutrophils 14.5 10^3/uL (1.5-7.6); Eosinophil % 3.5 %; Hematocrit 35.8 % (38-53); Hemoglobin 12.1 g/dL (13.2-16.3); Lymphocyte % 7.1 %; Mean Corpuscular Hemoglobin 33.8 pg (27-33); Mean Corpuscular Hgb Conc 33.8 g/dL (31-36); Mean Platelet Volume 7.8 fL (7.5-11.2); Platelet Count 417 10^3/uL (150-450); Red Blood Count 3.58 10^6/uL (4.06-5.63); Red Cell Distribution Width 14.5 % (12-17); White Blood Count 17.5 10^3/uL (3.6-10.2)
[2024-10-07 14:01] LABS: INR 2.23 (0.85-1.14)
[2024-10-07 14:18] LABS: High Sens Troponin Baseline 30 pg/mL (<20)
[2024-10-07 14:41] LABS: ALT 24 U/L (7-52); AST 23 U/L (13-39); Albumin 3.1 g/dL (3.5-5.7); Albumin/Globulin Ratio 0.9 (1-3); Alkaline Phosphatase 328 U/L (35-149); Anion Gap 6 mmol/L (2-16); Blood Urea Nitrogen 14 mg/dL (6-24); CO2 Carbon Dioxide 30 mmol/L (22-32); Calcium 8.3 mg/dL (8.6-10.3); Chloride 105 mmol/L (101-111); Creatinine, Serum 0.65 mg/dL (0.67-1.17); Globulin 3.3 g/dL (2-4); Glucose 112 mg/dL (70-100); Lipase 16 U/L (11.0-82.0); Magnesium 1.9 mg/dL (1.9-2.7); Potassium 4.4 mmol/L (3.5-5.0); Sodium 141 mmol/L (135-145); Total Bilirubin 0.3 mg/dL (0.2-1.0); Total Protein 6.4 g/dL (6.4-8.9); eGFR CKD-EPI 92.9 (>60)
[2024-10-07 15:52] LABS: High Sensitivity Troponin 1 Hr 28 pg/mL (<20)
[2024-10-07] MEDS: Iohexol 350 (CONTRAST) 500 ML MDV IV ONE (16:26)
[2024-10-07] MEDS ORDERED: Albuterol/Ipratropium NEB.SOL (2.5/0.5 MG) 3 ML NEB.SOLN INH PRN (21:15)
[2024-10-07] MEDS ORDERED: Albuterol HFA INHALER 8 gm MDI INH PRN (21:15)
[2024-10-07 21:30] LABS: % Iron Saturation 18 % (15-55); .Transferrin 190 mg/dL (203-362); C Reactive Protein 161.61 mg/L (<8.01); Iron 47 ug/dL (50-212); Total Iron Binding Capacity 266 mcg/dL (250-450); Unsaturated Iron Binding 219 ug/dL
[2024-10-07 21:45] LABS: TSH Ultra Thyroid Stim Horm 4.27 mcIU/mL (0.34-5.60)
[2024-10-07 21:52] LABS: Ferritin 35.5 ng/mL (24-336)
[2024-10-07 21:56] LABS: Folate > 20.00 ng/mL (5.90-24.80)
[2024-10-07 21:57] LABS: Vitamin B12 303 pg/mL (180-914)
[2024-10-07] MEDS: Lactated Ringers 1000 ml BAG 1,000 ML IV SCH (22:06)
[2024-10-07] MEDS: Pantoprazole VIAL 40 MG VIAL IV SCH (22:06)
[2024-10-07 22:39] LABS: GGTP 224 U/L (9-64.0)
[2024-10-07] MEDS: Phenytoin 100 mg ER CAP PO SCH (23:38)
[2024-10-08 06:59] LABS: ABS Basophils 0.1 10^3/uL (0.0-0.1); ABS Eosinophils 0.8 10^3/uL (0.0-0.5); ABS Lymphocytes 1.2 10^3/uL (1.0-4.8); ABS Monocytes 1.1 10^3/uL (0.0-1.1); ABS Neutrophils 13.8 10^3/uL (1.5-7.6); Eosinophil % 4.6 %; Hematocrit 33.6 % (38-53); Hemoglobin 11.3 g/dL (13.2-16.3); Lymphocyte % 7.2 %; Mean Corpuscular Hemoglobin 33.5 pg (27-33); Mean Corpuscular Hgb Conc 33.6 g/dL (31-36); Mean Corpuscular Volume 99.7 fL (80-97); Mean Platelet Volume 7.6 fL (7.5-11.2); Platelet Count 397 10^3/uL (150-450); Red Blood Count 3.37 10^6/uL (4.06-5.63); Red Cell Distribution Width 14.1 % (12-17); White Blood Count 17.1 10^3/uL (3.6-10.2)
[2024-10-08 07:13] LABS: INR 3.19 (0.85-1.14)
[2024-10-08 07:20] LABS: Albumin 2.9 g/dL (3.5-5.7); Calcium 7.9 mg/dL (8.6-10.3); Creatinine, Serum 0.54 mg/dL (0.67-1.17); Globulin 2.9 g/dL (2-4); Potassium 4.1 mmol/L (3.5-5.0); Total Bilirubin 0.4 mg/dL (0.2-1.0); Total Protein 5.8 g/dL (6.4-8.9); eGFR CKD-EPI 98.3 (>60)
[2024-10-08] MEDS: Iohexol 350 (CONTRAST) 500 ML MDV IV ONE (08:25)
[2024-10-08] MEDS: Nystatin SUSPENSION 100,000 UNITS/ML UDC PO SCH (10:13)
[2024-10-08] MEDS: Phenytoin 100 mg ER CAP PO SCH (10:16)
[2024-10-08] MEDS ORDERED: Ondansetron 4 mg VIAL 2 MG/ML 2 ml VIAL IV PRN (11:49)
[2024-10-08] MEDS ORDERED: Naloxone 0.4 mg VIAL 0.4 mg/ml 1 ml VIAL IV PRN (11:49)
[2024-10-08] MEDS ORDERED: fentaNYL 100 mcg/2 ml 50 MCG/ML VIAL IV PRN (11:49)
[2024-10-08] MEDS: Phytonadione IV (Adult) 10 MG in NS 0.9% 50 ML 50 ML IV ONE (11:59)
[2024-10-08] MEDS ORDERED: NS 0.45% 1000 ml BAG 1,000 ML IV SCH (12:00)
[2024-10-08] MEDS: Acetaminophen IV 1 GM/100ML 1,000 MG/100 ML BAG IV ONE (14:46)
[2024-10-08] MEDS: Buffered Lidocaine 1% SYRIN 1 ml INTRADERM ONE (14:46)
[2024-10-08] MEDS: Lactated Ringers 1000 ml BAG 1,000 ML IV SCH (14:47)
[2024-10-08] MEDS: Scopolamine 1 mg/72hr PATCH TRANSDERM ONE (14:47)
[2024-10-08] MEDS: Nicotine PATCH 14 MG/24 HR PATCH TRANSDERM SCH (16:07)
[2024-10-08 16:15] LABS: INR 1.75 (0.85-1.14)
[2024-10-08 20:33] LABS: Urine Appearance Clear; Urine Bilirubin Negative (Negative); Urine Blood Negative (Negative); Urine Color Yellow; Urine Glucose Negative (Negative); Urine Ketones 1+ (Negative); Urine Nitrite Negative (Negative); Urine Protein Trace (Negative); Urine Specific Gravity 1.041 (1.002-1.030); Urine Urobilinogen 1+ (Negative)
[2024-10-08 21:28] LABS: Urine Bacteria Absent /HPF (Absent); Urine Red Blood Cell Trace(0-2/hpf) /HPF (0-Trace); Urine White Blood Cell Trace(0-5/hpf) /HPF (0-Trace)
[2024-10-08] MEDS: Magnesium Hydroxide LIQ 30 ML UDC PO SCH (21:40)
[2024-10-09 06:23] LABS: ABS Basophils 0.1 10^3/uL (0.0-0.1); ABS Lymphocytes 1.2 10^3/uL (1.0-4.8); ABS Monocytes 1.2 10^3/uL (0.0-1.1); ABS Neutrophils 15.6 10^3/uL (1.5-7.6); ABS Nucleated RBC 0.01 10^3/ul; Eosinophil % 5.1 %; Hematocrit 33.1 % (38-53); Hemoglobin 11.4 g/dL (13.2-16.3); Lymphocyte % 6.2 %; Mean Corpuscular Hemoglobin 34.1 pg (27-33); Mean Corpuscular Hgb Conc 34.3 g/dL (31-36); Mean Corpuscular Volume 99.2 fL (80-97); Mean Platelet Volume 7.9 fL (7.5-11.2); Platelet Count 383 10^3/uL (150-450); Red Blood Count 3.33 10^6/uL (4.06-5.63); Red Cell Distribution Width 13.5 % (12-17); White Blood Count 19.1 10^3/uL (3.6-10.2)
[2024-10-09 06:41] LABS: Activated Partial Thrombo Time 25.9 seconds (26.0-38.0); INR 1.44 (0.85-1.14)
[2024-10-09 06:53] LABS: Albumin 2.8 g/dL (3.5-5.7); Calcium 7.8 mg/dL (8.6-10.3); Creatinine, Serum 0.56 mg/dL (0.67-1.17); Globulin 2.9 g/dL (2-4); Magnesium 1.7 mg/dL (1.9-2.7); Potassium 3.9 mmol/L (3.5-5.0); Total Bilirubin 0.3 mg/dL (0.2-1.0); Total Protein 5.7 g/dL (6.4-8.9); eGFR CKD-EPI 97.2 (>60)
[2024-10-09] MEDS: Magnesium Sulfate 2 gm BAG 2 GM/50 ML BAG IVPB ONE (10:00)
[2024-10-09] MEDS: Phytonadione Oral Solution 5 MG/25 ML UDC PO ONE (17:02)
[2024-10-10 06:13] LABS: ABS Basophils 0.1 10^3/uL (0.0-0.1); ABS Eosinophils 0.8 10^3/uL (0.0-0.5); ABS Lymphocytes 1.5 10^3/uL (1.0-4.8); ABS Neutrophils 14.7 10^3/uL (1.5-7.6); ABS Nucleated RBC 0.01 10^3/ul; Eosinophil % 4.3 %; Hematocrit 37.4 % (38-53); Hemoglobin 12.6 g/dL (13.2-16.3); Lymphocyte % 8.2 %; Mean Corpuscular Hemoglobin 33.5 pg (27-33); Mean Corpuscular Hgb Conc 33.6 g/dL (31-36); Mean Corpuscular Volume 99.7 fL (80-97); Nucleated Red Blood Cells % 0.1 %/100WBC (0.0-0.8); Platelet Count 439 10^3/uL (150-450); Red Blood Count 3.75 10^6/uL (4.06-5.63); White Blood Count 18.1 10^3/uL (3.6-10.2)
[2024-10-10 06:30] LABS: INR 1.31 (0.85-1.14)
[2024-10-10 06:34] LABS: ALT 47 U/L (7-52); AST 55 U/L (13-39); Albumin 3.1 g/dL (3.5-5.7); Albumin/Globulin Ratio 0.9 (1-3); Alkaline Phosphatase 323 U/L (35-149); Anion Gap 9 mmol/L (2-16); Blood Urea Nitrogen 10 mg/dL (6-24); CO2 Carbon Dioxide 30 mmol/L (22-32); Calcium 8.2 mg/dL (8.6-10.3); Chloride 100 mmol/L (101-111); Creatinine, Serum 0.67 mg/dL (0.67-1.17); Globulin 3.3 g/dL (2-4); Glucose 110 mg/dL (70-100); Magnesium 2.2 mg/dL (1.9-2.7); Potassium 4.3 mmol/L (3.5-5.0); Sodium 139 mmol/L (135-145); Total Bilirubin 0.4 mg/dL (0.2-1.0); Total Protein 6.4 g/dL (6.4-8.9); eGFR CKD-EPI 92.1 (>60)
[2024-10-10 06:37] LABS: CRP High Sensitivity > 80.00 mg/L (<2.00)
[2024-10-10 09:52] VITALS: BP 160/90
[2024-10-10 17:04] LABS: CMV DNA DETECT/QT, P Undetected IU/mL (Undetected)
[2024-10-15 00:14] LABS: HSV 1 PCR, B Negative (Negative); HSV 2 PCR, B Negative (Negative)
== END 2024-10-10 12:07 | disposition home or self-care (01) | DRG 368 ==
LOC: EDHOLD 11:57 → ED 11:57 → SUATTDRO 19:24 → MEDTELE 22:27 → SUATTDRO 10-08 11:00
PROVIDERS: ADMIT Internal Medicine; ATTEND Internal Medicine
PROC: O.GIEGD (2024-10-08 14:05)

== ENCOUNTER 2024-11-08 00:35 | Inpatient (IN) ==
[2024-11-08 01:48] LABS: ABS Basophils 0.1 10^3/uL (0.0-0.1); ABS Eosinophils 0.3 10^3/uL (0.0-0.5); ABS Lymphocytes 0.7 10^3/uL (1.0-4.8); Eosinophil % 1.3 %; Hemoglobin 11.8 g/dL (13.2-16.3); Lymphocyte % 3.7 %; Mean Corpuscular Hemoglobin 33.8 pg (27-33); Mean Corpuscular Hgb Conc 33.6 g/dL (31-36); Mean Corpuscular Volume 100.5 fL (80-97); Mean Platelet Volume 7.8 fL (7.5-11.2); Platelet Count 422 10^3/uL (150-450); Red Blood Count 3.48 10^6/uL (4.06-5.63); Red Cell Distribution Width 14.6 % (12-17); White Blood Count 20.2 10^3/uL (3.6-10.2)
[2024-11-08 01:53] LABS: Urine Appearance Turbid; Urine Bilirubin Negative (Negative); Urine Blood Negative (Negative); Urine Color Yellow; Urine Glucose Negative (Negative); Urine Ketones Negative (Negative); Urine Nitrite Negative (Negative); Urine Protein Trace (Negative); Urine Specific Gravity 1.019 (1.002-1.030); Urine Urobilinogen Negative (Negative); Urine pH 6.5 (5.0-8.0)
[2024-11-08 01:53] LABS: Activated Partial Thrombo Time 27.5 seconds (26.0-38.0); INR 1.31 (0.85-1.14)
[2024-11-08 02:27] LABS: Albumin 3.1 g/dL (3.5-5.7); Albumin/Globulin Ratio 0.9 (1-3); C Reactive Protein 151.39 mg/L (<8.01); Calcium 8.2 mg/dL (8.6-10.3); Creatinine, Serum 0.57 mg/dL (0.67-1.17); Globulin 3.4 g/dL (2-4); Potassium 4.2 mmol/L (3.5-5.0); Total Bilirubin 0.4 mg/dL (0.2-1.0); Total Protein 6.5 g/dL (6.4-8.9); eGFR CKD-EPI 96.7 (>60)
[2024-11-08 03:04] LABS: High Sensitivity Troponin 1 Hr 27 pg/mL (<20)
[2024-11-08] MEDS: Piperacillin/Tazobac 3.375 BAG 3.375 GM/100 ML BAG IV ONE (04:02)
[2024-11-08] MEDS: Lactated Ringers 1000 ml BAG 1,000 ML IV ONE (06:43)
[2024-11-08] MEDS: Enoxaparin 40 MG/0.4 ML SYR SUBCUT SCH (10:01)
[2024-11-08] MEDS: Phenytoin 100 mg ER CAP PO SCH (10:02)
[2024-11-08] MEDS: CMCS: FLUTICAS/UMECLI/VILANT 100-62.5-25 MDI (NF) INH SCH (11:21)
[2024-11-08 12:57] LABS: Hepatitis B Surface Antigen Nonreactive (Nonreactive)
[2024-11-08 13:02] LABS: Hepatitis A Ab IgM Negative (Negative); Hepatitis B Core IgM Nonreactive (Nonreactive)
[2024-11-08 13:14] LABS: Hepatitis C Antibody Negative (Negative)
[2024-11-08] MEDS: CMCS: Mirabegron 25 mg ER TAB (NF) PO SCH (20:24)
[2024-11-09 06:29] LABS: ABS Basophils 0.1 10^3/uL (0.0-0.1); ABS Eosinophils 0.3 10^3/uL (0.0-0.5); ABS Lymphocytes 1.1 10^3/uL (1.0-4.8); ABS Monocytes 0.9 10^3/uL (0.0-1.1); ABS Neutrophils 13.8 10^3/uL (1.5-7.6); ABS Nucleated RBC 0.01 10^3/ul; Hemoglobin 11.3 g/dL (13.2-16.3); Lymphocyte % 6.6 %; Mean Corpuscular Hemoglobin 34.2 pg (27-33); Mean Corpuscular Hgb Conc 34.3 g/dL (31-36); Mean Corpuscular Volume 99.7 fL (80-97); Mean Platelet Volume 7.7 fL (7.5-11.2); Platelet Count 315 10^3/uL (150-450); Red Blood Count 3.31 10^6/uL (4.06-5.63); Red Cell Distribution Width 14.5 % (12-17); White Blood Count 16.1 10^3/uL (3.6-10.2)
[2024-11-09 07:13] LABS: Albumin 2.6 g/dL (3.5-5.7); Albumin/Globulin Ratio 0.8 (1-3); Calcium 7.6 mg/dL (8.6-10.3); Creatinine, Serum 0.5 mg/dL (0.67-1.17); Globulin 3.2 g/dL (2-4); Magnesium 1.7 mg/dL (1.9-2.7); Potassium 3.7 mmol/L (3.5-5.0); Total Bilirubin 0.3 mg/dL (0.2-1.0); Total Protein 5.8 g/dL (6.4-8.9); eGFR CKD-EPI 100.6 (>60)
[2024-11-09] MEDS: Magnesium Sulfate 2 gm BAG 2 GM/50 ML BAG IVPB ONE (09:00)
[2024-11-09] MEDS: Magnesium Sulfate IV 1GM/100ML 1 GM/100 ML BAG IV ONE (10:24)
[2024-11-10] MEDS: Morphine 2 MG/ML SYRINGE IV ONE (00:50)
[2024-11-10 06:17] LABS: ABS Basophils 0.1 10^3/uL (0.0-0.1); ABS Eosinophils 0.2 10^3/uL (0.0-0.5); ABS Lymphocytes 1.1 10^3/uL (1.0-4.8); ABS Monocytes 0.8 10^3/uL (0.0-1.1); ABS Neutrophils 12.2 10^3/uL (1.5-7.6); Eosinophil % 1.4 %; Hematocrit 33.9 % (38-53); Hemoglobin 11.5 g/dL (13.2-16.3); Lymphocyte % 7.6 %; Mean Corpuscular Hemoglobin 33.9 pg (27-33); Mean Corpuscular Hgb Conc 34.1 g/dL (31-36); Mean Corpuscular Volume 99.6 fL (80-97); Mean Platelet Volume 7.7 fL (7.5-11.2); Platelet Count 322 10^3/uL (150-450); Red Cell Distribution Width 14.9 % (12-17); White Blood Count 14.3 10^3/uL (3.6-10.2)
[2024-11-10 06:58] LABS: Albumin 2.7 g/dL (3.5-5.7); Albumin/Globulin Ratio 0.8 (1-3); Calcium 7.6 mg/dL (8.6-10.3); Creatinine, Serum 0.51 mg/dL (0.67-1.17); Globulin 3.2 g/dL (2-4); Magnesium 2.1 mg/dL (1.9-2.7); Potassium 3.6 mmol/L (3.5-5.0); Total Bilirubin 0.3 mg/dL (0.2-1.0); Total Protein 5.9 g/dL (6.4-8.9)
[2024-11-10] MEDS: Potassium Chloride LIQUID 20 MEQ/15 ML LIQUID PO ONE (10:10)
[2024-11-10 12:09] LABS: Body Fluid Appearance Cloudy; Body Fluid Source Pleural Fluid
[2024-11-10 12:10] LABS: Body Fluid Color Pink
[2024-11-10 12:24] LABS: Body Fluid Total Nucleated 13638 /mcL
[2024-11-10 14:32] LABS: Body Fluid Mono 11 %; Body Fluid Other Cells 1; Body Fluid Total Cells Counted 200
[2024-11-10 15:29] LABS: Phenytoin < 2.5 mcg/mL (10-20)
[2024-11-10 22:45] LABS: ABS Eosinophils 0.2 10^3/uL (0.0-0.5); ABS Monocytes 0.6 10^3/uL (0.0-1.1); ABS Neutrophils 12.2 10^3/uL (1.5-7.6); ABS Nucleated RBC 0.01 10^3/ul; Eosinophil % 1.7 %; Hematocrit 35.5 % (38-53); Lymphocyte % 6.9 %; Mean Corpuscular Hemoglobin 33.7 pg (27-33); Mean Corpuscular Hgb Conc 33.8 g/dL (31-36); Mean Corpuscular Volume 99.8 fL (80-97); Mean Platelet Volume 7.6 fL (7.5-11.2); Nucleated Red Blood Cells % 0.1 %/100WBC (0.0-0.8); Platelet Count 309 10^3/uL (150-450); Red Blood Count 3.56 10^6/uL (4.06-5.63); Red Cell Distribution Width 14.7 % (12-17); White Blood Count 14.1 10^3/uL (3.6-10.2)
[2024-11-10] MEDS: Lactated Ringers 1000 ml BAG 1,000 ML IV ONE (23:17)
[2024-11-10 23:21] LABS: Albumin 2.8 g/dL (3.5-5.7); Albumin/Globulin Ratio 0.8 (1-3); Calcium 7.8 mg/dL (8.6-10.3); Creatinine, Serum 0.55 mg/dL (0.67-1.17); Globulin 3.4 g/dL (2-4); Potassium 4.2 mmol/L (3.5-5.0); Total Bilirubin 0.4 mg/dL (0.2-1.0); Total Protein 6.2 g/dL (6.4-8.9); eGFR CKD-EPI 97.7 (>60)
[2024-11-10] MEDS: Albuterol HFA INHALER 8 gm MDI INH PRN (23:33)
[2024-11-10 23:47] LABS: Vitamin D Total 25(OH) 32.3 ng/mL (20-50)
[2024-11-11] MEDS: cefTRIAXone 1 gm/50 mL D5W 1 GM/50 ML BAG IV ONE (00:11)
[2024-11-11] MEDS: metroNIDAZOLE IV 500 MG/100ML 500 MG/100 ML BAG IVPB ONE (00:43)
[2024-11-11 04:07] LABS: Urine Appearance Clear; Urine Bilirubin Negative (Negative); Urine Blood Negative (Negative); Urine Color Yellow; Urine Glucose Negative (Negative); Urine Ketones Negative (Negative); Urine Nitrite Negative (Negative); Urine Protein Trace (Negative); Urine Specific Gravity 1.018 (1.002-1.030); Urine Urobilinogen 1+ (Negative)
[2024-11-11 05:14] LABS: Urine Bacteria Absent /HPF (Absent); Urine Red Blood Cell Absent /HPF (0-Trace); Urine Squamous Epithelial Cell Present /HPF (Absent); Urine White Blood Cell Absent /HPF (0-Trace)
[2024-11-11 07:00] LABS: ABS Eosinophils 0.3 10^3/uL (0.0-0.5); ABS Lymphocytes 1.1 10^3/uL (1.0-4.8); ABS Monocytes 0.8 10^3/uL (0.0-1.1); ABS Neutrophils 10.8 10^3/uL (1.5-7.6); ABS Nucleated RBC 0.01 10^3/ul; Eosinophil % 2.5 %; Hematocrit 33.7 % (38-53); Hemoglobin 11.4 g/dL (13.2-16.3); Lymphocyte % 8.6 %; Mean Corpuscular Hemoglobin 34.2 pg (27-33); Mean Corpuscular Volume 100.7 fL (80-97); Mean Platelet Volume 8.6 fL (7.5-11.2); Nucleated Red Blood Cells % 0.1 %/100WBC (0.0-0.8); Platelet Count 245 10^3/uL (150-450); Red Blood Count 3.35 10^6/uL (4.06-5.63); Red Cell Distribution Width 14.6 % (12-17)
[2024-11-11 08:32] LABS: Albumin 2.5 g/dL (3.5-5.7); Albumin/Globulin Ratio 0.8 (1-3); Calcium 7.6 mg/dL (8.6-10.3); Creatinine, Serum 0.42 mg/dL (0.67-1.17); Globulin 3.2 g/dL (2-4); Magnesium 1.9 mg/dL (1.9-2.7); Total Bilirubin 0.3 mg/dL (0.2-1.0); Total Protein 5.7 g/dL (6.4-8.9)
[2024-11-11] MEDS: Enoxaparin 40 MG/0.4 ML SYR SUBCUT SCH (10:05)
[2024-11-11] MEDS: Cholecalciferol (VIT D3) 1,000 unit TAB PO SCH (10:06)
[2024-11-11] MEDS: Calcium (OSCAL) 500 mg TAB PO SCH (10:09)
[2024-11-11] MEDS: Azithromycin 500 mg/250 ml NS 500 MG/250 ML BAG IVPB SCH (11:21)
[2024-11-11] MEDS: cefTRIAXone 2 gm/50 mL D5W 2 GM/50 ML BAG IV SCH (14:25)
[2024-11-11] MEDS ORDERED: Vancomycin per Pharmacy 1 EA NOTE FOLLOW UP PRN (14:34)
[2024-11-11 14:37] LABS: Lactate Dehydrogenase, BF 393 U/L
[2024-11-11] MEDS: Cefepime 2 GM in Dextrose 2 GM/50 ML BAG IV SCH (15:27)
[2024-11-11] MEDS: VANCOMYCIN IVPB ONE (18:49)
[2024-11-11] MEDS: NS 0.9% IVPB ONE (18:49)
[2024-11-12 07:53] LABS: ABS Basophils 0.1 10^3/uL (0.0-0.1); ABS Lymphocytes 0.8 10^3/uL (1.0-4.8); ABS Monocytes 0.6 10^3/uL (0.0-1.1); ABS Neutrophils 17.1 10^3/uL (1.5-7.6); ABS Nucleated RBC 0.02 10^3/ul; Eosinophil % 0.1 %; Hematocrit 38.1 % (38-53); Hemoglobin 13.1 g/dL (13.2-16.3); Lymphocyte % 4.3 %; Mean Corpuscular Hgb Conc 34.3 g/dL (31-36); Mean Corpuscular Volume 99.1 fL (80-97); Nucleated Red Blood Cells % 0.1 %/100WBC (0.0-0.8); Platelet Count 305 10^3/uL (150-450); Red Blood Count 3.84 10^6/uL (4.06-5.63); Red Cell Distribution Width 14.5 % (12-17); White Blood Count 18.6 10^3/uL (3.6-10.2)
[2024-11-12 08:26] LABS: Calcium 7.9 mg/dL (8.6-10.3); Creatinine, Serum 0.51 mg/dL (0.67-1.17); Magnesium 1.8 mg/dL (1.9-2.7); Potassium 4.1 mmol/L (3.5-5.0)
[2024-11-12 08:43] LABS: C Reactive Protein 231.64 mg/L (<8.01)
[2024-11-12] MEDS: cefTRIAXone 1 gm/50 mL D5W 1 GM/50 ML BAG IV SCH (08:43)
[2024-11-12 09:57] LABS: Albumin, BF 1.9 g/dL; Fluid Type, Albumin PLEURAL; Fluid Type, Protein, Total PLEURAL; Glucose, BF 87 mg/dL; Total Protein, BF 3.6 g/dL
[2024-11-12] MEDS: Magnesium Sulfate 2 gm BAG 2 GM/50 ML BAG IVPB ONE (12:37)
[2024-11-12] MEDS: Albuterol/Ipratropium NEB.SOL (2.5/0.5 MG) 3 ML NEB.SOLN INH ONE (12:38)
[2024-11-12 13:09] LABS: Hematocrit 39.8 % (38-53); Hemoglobin 13.5 g/dL (13.2-16.3); Mean Corpuscular Volume 99.8 fL (80-97); Mean Platelet Volume 8.4 fL (7.5-11.2); Platelet Count 355 10^3/uL (150-450); Red Blood Count 3.99 10^6/uL (4.06-5.63); Red Cell Distribution Width 14.7 % (12-17); White Blood Count 22.5 10^3/uL (3.6-10.2)
[2024-11-12 13:28] LABS: ABS Basophils 0.1 10^3/uL (0.0-0.1); ABS Lymphocytes 0.4 10^3/uL (1.0-4.8); ABS Monocytes 0.8 10^3/uL (0.0-1.1); ABS Neutrophils 21.1 10^3/uL (1.5-7.6); ABS Nucleated RBC 0.01 10^3/ul; Eosinophil % 0.1 %; Lymphocyte % 1.9 %; Nucleated Red Blood Cells % 0.1 %/100WBC (0.0-0.8)
[2024-11-12 13:29] LABS: Albumin/Globulin Ratio 0.8 (1-3); Creatinine, Serum 0.53 mg/dL (0.67-1.17); Globulin 3.9 g/dL (2-4); Potassium 3.9 mmol/L (3.5-5.0); Total Bilirubin 0.4 mg/dL (0.2-1.0); Total Protein 6.9 g/dL (6.4-8.9); eGFR CKD-EPI 98.8 (>60)
[2024-11-12] MEDS ORDERED: Zosyn per Pharmacy NOTE FOLLOW UP SCH (14:00)
[2024-11-12] MEDS ORDERED: Vancomycin per Pharmacy 1 EA NOTE FOLLOW UP PRN (14:13)
[2024-11-12] MEDS: Lactated Ringers SEPSIS* BAG 1,920 ML IV ONE (14:56)
[2024-11-12] MEDS: Piperacillin/Tazobac 3.375 BAG 3.375 GM/100 ML BAG IV ONE (15:10)
[2024-11-12] MEDS ORDERED: Albuterol/Ipratropium NEB.SOL (2.5/0.5 MG) 3 ML NEB.SOLN INH PRN (15:25)
[2024-11-12] MEDS: Vancomycin 1,000 MG in NS 0.9% 250 ml 250 ML IVPB ONE (15:42)
[2024-11-12 18:30] LABS: Immunoglobulin G 1240 mg/dL (767 - 1590); Immunoglobulin M 56 mg/dL (37 - 286)
[2024-11-12] MEDS: ZOSYN 3.375 GM Q8H per EXTENDED INFUSION IV SCH (20:05)
[2024-11-12] MEDS: Vancomycin 750 MG in NS 0.9% 250 ML IVPB SCH (23:40)
[2024-11-13 07:44] LABS: ABS Eosinophils 0.1 10^3/uL (0.0-0.5); ABS Lymphocytes 0.7 10^3/uL (1.0-4.8); ABS Monocytes 0.7 10^3/uL (0.0-1.1); ABS Neutrophils 15.8 10^3/uL (1.5-7.6); ABS Nucleated RBC 0.01 10^3/ul; Eosinophil % 0.4 %; Hematocrit 36.3 % (38-53); Hemoglobin 12.4 g/dL (13.2-16.3); Lymphocyte % 4.1 %; Mean Corpuscular Hemoglobin 33.9 pg (27-33); Mean Corpuscular Hgb Conc 34.1 g/dL (31-36); Mean Corpuscular Volume 99.4 fL (80-97); Mean Platelet Volume 8.3 fL (7.5-11.2); Platelet Count 293 10^3/uL (150-450); Red Blood Count 3.65 10^6/uL (4.06-5.63); Red Cell Distribution Width 14.5 % (12-17); White Blood Count 17.4 10^3/uL (3.6-10.2)
[2024-11-13] MEDS: Lidocaine 1% MPF 5 ML VIAL INJ ONE (07:54)
[2024-11-13] MEDS: Iohexol 350 (CONTRAST) 500 ML MDV IV ONE (07:54)
[2024-11-13 08:28] LABS: Albumin 2.4 g/dL (3.5-5.7); Albumin/Globulin Ratio 0.8 (1-3); Calcium 7.4 mg/dL (8.6-10.3); Creatinine, Serum 0.48 mg/dL (0.67-1.17); Magnesium 1.9 mg/dL (1.9-2.7); Potassium 3.6 mmol/L (3.5-5.0); Total Bilirubin 0.3 mg/dL (0.2-1.0); Total Protein 5.4 g/dL (6.4-8.9); eGFR CKD-EPI 101.8 (>60)
[2024-11-13] MEDS: Lactated Ringers 1000 ml BAG 1,000 ML IV SCH (10:36)
[2024-11-13] MEDS: Sulfur Hexaflouride MICROSPHR 25 MG VIAL IV PRN (13:54)
[2024-11-14] MEDS ORDERED: Vancomycin Trough Check NOTE FOLLOW UP ONE (06:30)
[2024-11-14 06:38] LABS: ABS Eosinophils 0.5 10^3/uL (0.0-0.5); ABS Lymphocytes 1.1 10^3/uL (1.0-4.8); ABS Monocytes 0.7 10^3/uL (0.0-1.1); ABS Neutrophils 12.1 10^3/uL (1.5-7.6); ABS Nucleated RBC 0.01 10^3/ul; Eosinophil % 3.2 %; Hematocrit 35.2 % (38-53); Hemoglobin 11.9 g/dL (13.2-16.3); Lymphocyte % 7.8 %; Mean Corpuscular Hemoglobin 33.6 pg (27-33); Mean Corpuscular Hgb Conc 33.8 g/dL (31-36); Mean Corpuscular Volume 99.5 fL (80-97); Mean Platelet Volume 8.4 fL (7.5-11.2); Platelet Count 275 10^3/uL (150-450); Red Blood Count 3.54 10^6/uL (4.06-5.63); Red Cell Distribution Width 14.8 % (12-17); White Blood Count 14.4 10^3/uL (3.6-10.2)
[2024-11-14 06:51] LABS: Albumin 2.2 g/dL (3.5-5.7); Albumin/Globulin Ratio 0.8 (1-3); Calcium 7.3 mg/dL (8.6-10.3); Creatinine, Serum 0.5 mg/dL (0.67-1.17); Globulin 2.9 g/dL (2-4); Magnesium 1.7 mg/dL (1.9-2.7); Potassium 3.5 mmol/L (3.5-5.0); Total Bilirubin 0.3 mg/dL (0.2-1.0); Total Protein 5.1 g/dL (6.4-8.9); eGFR CKD-EPI 100.6 (>60)
[2024-11-14] MEDS: Potassium Chloride LIQUID 20 MEQ/15 ML LIQUID PO ONE (10:06)
[2024-11-14] MEDS: Amoxicillin/Clavul 875/125 TAB (Augmentin 875 tab) PO SCH (14:40)
[2024-11-15 06:47] LABS: ABS Eosinophils 0.3 10^3/uL (0.0-0.5); ABS Lymphocytes 0.8 10^3/uL (1.0-4.8); ABS Monocytes 0.7 10^3/uL (0.0-1.1); ABS Nucleated RBC 0.01 10^3/ul; Lymphocyte % 5.6 %; Mean Corpuscular Hemoglobin 34.4 pg (27-33); Mean Corpuscular Hgb Conc 34.2 g/dL (31-36); Mean Corpuscular Volume 100.4 fL (80-97); Mean Platelet Volume 8.3 fL (7.5-11.2); Platelet Count 302 10^3/uL (150-450); Red Blood Count 3.78 10^6/uL (4.06-5.63); Red Cell Distribution Width 14.7 % (12-17); White Blood Count 13.7 10^3/uL (3.6-10.2)
[2024-11-15 07:19] LABS: Albumin 2.3 g/dL (3.5-5.7); Albumin/Globulin Ratio 0.8 (1-3); Calcium 7.4 mg/dL (8.6-10.3); Creatinine, Serum 0.45 mg/dL (0.67-1.17); Magnesium 1.8 mg/dL (1.9-2.7); Potassium 3.9 mmol/L (3.5-5.0); Total Bilirubin 0.3 mg/dL (0.2-1.0); Total Protein 5.3 g/dL (6.4-8.9); eGFR CKD-EPI 103.8 (>60)
[2024-11-15] MEDS: Magnesium Sulfate 2 gm BAG 2 GM/50 ML BAG IVPB ONE (08:58)
[2024-11-16] MEDS: Acetaminophen IV 1 GM/100ML 1,000 MG/100 ML BAG IV ONE (00:11)
[2024-11-16] MEDS: DOXYcycline 100 MG in NS 0.9% 250 ml 250 ML IVPB ONE (00:49)
[2024-11-16] MEDS: PHENobarbital LIQ 30 MG/7.5 ML UDC PO ONE (01:53)
[2024-11-16] MEDS: Amoxicillin/Clavul ORALSYR 80 MG/ML (400 MG/5 ML) PO ONE (01:53)
[2024-11-16] MEDS: CLAVUL PO ONE (02:10)
[2024-11-16] MEDS: AMOXICILLIN PO ONE (02:10)
[2024-11-16 06:54] LABS: Hematocrit 41.6 % (38-53); Red Blood Count 3.88 10^6/uL (4.06-5.63); White Blood Count 16.4 10^3/uL (3.6-10.2)
[2024-11-16 07:14] LABS: Anion Gap 11 mmol/L (2-16); Blood Urea Nitrogen 11 mg/dL (6-24); CO2 Carbon Dioxide 21 mmol/L (22-32); Calcium 7.6 mg/dL (8.6-10.3); Chloride 104 mmol/L (101-111); Creatinine, Serum 0.51 mg/dL (0.67-1.17); Glucose 112 mg/dL (70-100); Potassium 4.4 mmol/L (3.5-5.0); Sodium 136 mmol/L (135-145)
[2024-11-16 07:19] LABS: ABS Eosinophils 0.1 10^3/uL (0.0-0.5); ABS Lymphocytes 1.1 10^3/uL (1.0-4.8); ABS Monocytes 1.1 10^3/uL (0.0-1.1); ABS Nucleated RBC 0.01 10^3/ul; Eosinophil % 0.6 %; Macrocytosis 1+; Mean Corpuscular Hemoglobin 33.6 pg (27-33); Mean Corpuscular Hgb Conc 31.3 g/dL (31-36); Mean Corpuscular Volume 107.2 fL (80-97); Nucleated Red Blood Cells % 0.1 %/100WBC (0.0-0.8); Platelet Count 293 10^3/uL (150-450); Red Cell Distribution Width 16.4 % (12-17)
[2024-11-16 07:39] LABS: Total Bilirubin 0.5 mg/dL (0.2-1.0); Total Protein 5.7 g/dL (6.4-8.9)
[2024-11-16] MEDS: cefTRIAXone 1 gm/50 mL D5W 1 GM/50 ML BAG IV SCH (09:00)
[2024-11-16] MEDS: DOXYcycline 100 MG in NS 0.9% 250 ml 250 ML IVPB SCH (09:50)
[2024-11-16 09:55] LABS: Albumin 2.6 g/dL (3.5-5.7); Albumin/Globulin Ratio 0.7 (1-3); C Reactive Protein 219.73 mg/L (<8.01); Creatinine, Serum 0.51 mg/dL (0.67-1.17); Globulin 3.6 g/dL (2-4); Magnesium 2.1 mg/dL (1.9-2.7); Potassium 3.9 mmol/L (3.5-5.0); Total Bilirubin 0.5 mg/dL (0.2-1.0); Total Protein 6.2 g/dL (6.4-8.9)
[2024-11-16 10:24] LABS: Urine Appearance Clear; Urine Bacteria Absent /HPF (Absent); Urine Bilirubin Negative (Negative); Urine Blood Negative (Negative); Urine Color Yellow; Urine Glucose 4+ (>=1000 mg/dL) (Negative); Urine Ketones Trace (Negative); Urine Nitrite Negative (Negative); Urine Protein 1+ (>=30 mg/dL) (Negative); Urine Red Blood Cell Absent /HPF (0-Trace); Urine Urobilinogen Negative (Negative); Urine White Blood Cell Absent /HPF (0-Trace)
[2024-11-16] MEDS: Furosemide 20 mg/2 ml IV VIAL IV ONE (11:38)
[2024-11-16] MEDS ORDERED: oxyCODONE 5 mg/5 ml ORAL.SOLN UDC PO PRN (13:55)
[2024-11-16] MEDS: Oseltamivir SUSP ORALSYR 6 MG/ML PO SCH (14:45)
[2024-11-16] MEDS: PHENobarbital LIQ 30 MG/7.5 ML UDC PO SCH (23:15)
[2024-11-17] MEDS: Albuterol/Ipratropium NEB.SOL (2.5/0.5 MG) 3 ML NEB.SOLN INH PRN (02:23)
[2024-11-17 03:06] LABS: PCO2 Arterial 38 mmHg (35-45); PO2 Arterial 88 mmHg (80-100)
[2024-11-17] MEDS: Furosemide 40 mg/4 ml IV VIAL IV SLOW PU ONE (03:11)
[2024-11-17] MEDS: Furosemide 40 mg/4 ml IV VIAL ONE (03:11)
[2024-11-17 03:14] LABS: ABS Basophils 0.1 10^3/uL (0.0-0.1); ABS Eosinophils 0.1 10^3/uL (0.0-0.5); ABS Monocytes 0.9 10^3/uL (0.0-1.1); ABS Neutrophils 15.9 10^3/uL (1.5-7.6); Eosinophil % 0.4 %; Hematocrit 39.5 % (38-53); Hemoglobin 13.4 g/dL (13.2-16.3); Lymphocyte % 5.7 %; Mean Corpuscular Hemoglobin 33.4 pg (27-33); Mean Corpuscular Hgb Conc 33.8 g/dL (31-36); Mean Corpuscular Volume 98.9 fL (80-97); Mean Platelet Volume 8.3 fL (7.5-11.2); Platelet Count 397 10^3/uL (150-450); Red Cell Distribution Width 14.9 % (12-17); White Blood Count 17.9 10^3/uL (3.6-10.2)
[2024-11-17 03:45] LABS: Calcium 7.7 mg/dL (8.6-10.3); Creatinine, Serum 0.5 mg/dL (0.67-1.17); Magnesium 1.8 mg/dL (1.9-2.7); Phosphorus 2.8 mg/dL (2.5-5.0); Potassium 3.8 mmol/L (3.5-5.0); eGFR CKD-EPI 100.6 (>60)
[2024-11-17] MEDS: Magnesium Sulfate 2 gm BAG 2 GM/50 ML BAG IVPB ONE (04:58)
[2024-11-17] MEDS: Calcium Carb (TUMS) 500 mg CHEW TAB PO SCH (08:38)
[2024-11-17] MEDS: Docusate LIQ 100 MG/10 ML UDC PO SCH (08:42)
[2024-11-17 09:46] LABS: ABS Basophils 0.1 10^3/uL (0.0-0.1); ABS Lymphocytes 0.8 10^3/uL (1.0-4.8); ABS Neutrophils 17.2 10^3/uL (1.5-7.6); ABS Nucleated RBC 0.03 10^3/ul; Eosinophil % 0.2 %; Hematocrit 38.3 % (38-53); Hemoglobin 13.1 g/dL (13.2-16.3); Lymphocyte % 4.2 %; Mean Corpuscular Hgb Conc 34.1 g/dL (31-36); Mean Corpuscular Volume 99.6 fL (80-97); Mean Platelet Volume 8.3 fL (7.5-11.2); Nucleated Red Blood Cells % 0.1 %/100WBC (0.0-0.8); Platelet Count 379 10^3/uL (150-450); Red Blood Count 3.85 10^6/uL (4.06-5.63); Red Cell Distribution Width 14.9 % (12-17); White Blood Count 19.2 10^3/uL (3.6-10.2)
[2024-11-17 10:02] LABS: Calcium 7.8 mg/dL (8.6-10.3); Creatinine, Serum 0.47 mg/dL (0.67-1.17); Magnesium 2.2 mg/dL (1.9-2.7); Potassium 3.3 mmol/L (3.5-5.0); eGFR CKD-EPI 102.5 (>60)
[2024-11-17] MEDS ORDERED: LORazepam 2 mg VIAL 1 ml IV PUSH PRN (12:09)
[2024-11-17] MEDS ORDERED: Polyethylene Glycol 3350 17 GM PACKET PO PRN (12:09)
[2024-11-17] MEDS ORDERED: Lorazepam PYXIS KEY PRN (12:29)
[2024-11-17] MEDS ORDERED: Calcium Carb (TUMS) 500 mg CHEW TAB PO PRN (12:34)
[2024-11-17] MEDS: Morphine 2 MG/ML SYRINGE IV PRN (13:57)
[2024-11-17] MEDS: oxyCODONE 5 mg/5 ml ORAL.SOLN UDC PO PRN (18:05)
[2024-11-17 22:17] VITALS: BP 95/62
[2024-11-18] MEDS: Atropine 1% (ORAL/SL) 15 ML BTL SL PRN (09:14)
[2024-11-18] MEDS: Morphine ORAL CONCENTRATE 5 MG/0.25 ML ORAL.SYRIN SL PRN (11:30)
[2024-11-18] MEDS: Ondansetron ODT 4 mg TAB 4 MG TAB PO PRN (12:59)
== END 2024-11-19 14:01 | DRG 180 ==
LOC: EDHOLD 00:35 → ED 00:35 → SUATTDRO 04:46 → EDHOLD 08:50 → MEDTELE 16:43 → SUATTDRO 11-09 12:00 → MEDTELE 11-16 19:19 → ICU 11-17 02:45 → MEDTELE 11-17 23:02
PROVIDERS: ADMIT Hospitalist; ATTEND Internal Medicine